=== PATIENT | female | born 1930 | race Caucasian/White ===

== ENCOUNTER → 2016-08-11 | Outpatient (CLI) | payer MEDICARE, BC ==
[~2016-08-11] VITALS: Ht 154.9 cm; Wt 69.9 kg
[~2016-08-11] MED LIST: /WARF25TA OR; ACET65TA OR; ALBU2TA PO; ASMANEX TWISTHALER; ASPI81TA83 OR; BYSTOLIC PO; CALCIUM/VITAMIN D PO; DIGO0.12 PO; DILT120C79 PO; DUONSOL INH; ELIQ5TAB PO; ESMOLOL INJ 100MG/10ML VIAL As Ordered ONE; FLEC50TA PO; HYDR25TA6 OR; IPRASOL4 IN; LIDOCAINE 2% INJ 100 MG/5 ML SDV (FOR ANES.) As Ordered ONE; LISI10TA4 OR; LISINOPRIL/HCTZ PO; MELOPOW PO; MULT1CHW39 PO; MULTIVIT PO; NS 1,000 ML IV SCH; OMEP20CA3 PO; OMEP20TA7 OR; PHENYLephrine HCL 500 MCG/5 ML (100MCG/ML) SYRINGE (J2370) As Ordered ONE; PRAV40TA2 PO; PRED20TA OR; PROPOFOL 200 MG/20 ML VIAL As Ordered ONE; SIMV40TA2 OR; TUSSSUS5 OR; VITA500C24 PO; VITA500T PO; ZITH250T OR; ZOCO40TA OR
--- NOTE | 2016-08-11 07:48 | ROOR ---
Patient Name: Abigail Azul Procedure Date: 08/11/2016 7:26 AM Date of : 1930 Age: 86 Room: [facility] Gender: Female Note Status: Finalized Procedure: Colonoscopy Indications: Screening for colorectal malignant neoplasm Providers: Alfredito GREENBERG MD Referring MD: Erica Isaac DO Requesting Provider: Medicines: Monitored Anesthesia Care Complications: No immediate complications. Procedure: Pre-Anesthesia Assessment: - The heart rate, respiratory rate, oxygen saturations, blood pressure, adequacy of pulmonary ventilation, and response to care were monitored throughout the procedure. The Colonoscope was introduced through the anus and advanced to the cecum, identified by appendiceal orifice and ileocecal valve. The colonoscopy was performed without difficulty. The patient tolerated the procedure well. The quality of the bowel preparation was good. Findings: The perianal and digital rectal examinations were normal. (Exam: Complete, Prep: Good or Excellent.) Multiple small-mouthed diverticula were found in the sigmoid colon. Small Internal Hemorrhoids. The entire examined colon appeared normal on direct and retroflexion views. Impression: - Moderate diverticulosis in the sigmoid colon. - Small Internal Hemorrhoids. - The entire examined colon is normal on direct and retroflexion views. - No specimens collected. Recommendation: - No repeat colonoscopy due to age. Alfredito Greenberg MD Alfredito GREENBERG MD 08/11/2016 7:47:55 AM This report has been signed electronically. Number of Addenda: 0 Note Initiated On: 08/11/2016 7:26 AM Estimated Blood Loss: Estimated blood loss: none.
== END ==
LOC: M OPP 06:14
PROVIDERS: ATTEND Internal Medicine Gastroenterology
DX: Z12.11 Encounter for screening for malignant neoplasm of colon (principal); K57.30 Diverticulosis of large intestine without perforation or abscess without bleeding; K64.9 Unspecified hemorrhoids; I10 Essential (primary) hypertension; I48.91 Unspecified atrial fibrillation; J44.9 Chronic obstructive pulmonary disease, unspecified; M19.90 Unspecified osteoarthritis, unspecified site; E78.5 Hyperlipidemia, unspecified; Z80.0 Family history of malignant neoplasm of digestive organs; Z79.01 Long term (current) use of anticoagulants; Z79.899 Other long term (current) drug therapy; Z88.1 Allergy status to other antibiotic agents
CPT/HCPCS: 99156; 99157; G0121; J2370

== ENCOUNTER → 2017-07-29 | Outpatient (CLI) | payer MEDICARE, BC | LOC: M WUC 08:43 | DX: J44.1 Chronic obstructive pulmonary disease with (acute) exacerbation (principal) | CPT/HCPCS: 71046 ==

== ENCOUNTER 2017-07-30 16:56 | Emergency (ER) | payer MEDICARE, BC ==
[2017-07-30 18:10] LABS: BASO % 0.2 % (0.0-1.0); HEMATOCRIT 43.7 % (36.0-47.0); HEMOGLOBIN 14.6 g/dl (12.0-16.0); IMMATURE GRANULOCYTE % 2.4 % (0-3.0); LYMPH # 0.6 10^3/uL (1.5-4.5); LYMPH % 3.2 % (24.0-44.0); MEAN CORPUSCULAR HEMOGLOBIN 26.9 pg (27.0-33.0); MEAN CORPUSCULAR HGB CONC 33.4 g/dl (32.0-36.5); MEAN CORPUSCULAR VOLUME 80.5 fl (80.0-96.0); MONO # 0.3 10^3/uL (0.0-0.8); MONO % 1.5 % (0.0-5.0); NEUTROPHILS # 17.6 10^3/uL (1.8-7.7); NEUTROPHILS % 92.7 % (36.0-66.0); PLATELET COUNT, AUTOMATED 387 10^3/uL (150-450); RED BLOOD COUNT 5.43 10^6/uL (4.00-5.40); RED CELL DISTRIBUTION WIDTH 14.7 % (11.5-14.5)
[2017-07-30 18:12] LABS: INR 1.16
[2017-07-30 18:18] LABS: ANION GAP 10 MEQ/L (8-16); BLOOD UREA NITROGEN 23 MG/DL (7-18); CALCIUM LEVEL 9.1 MG/DL (8.8-10.2); CARBON DIOXIDE LEVEL 26 MEQ/L (21-32); CHLORIDE LEVEL 101 MEQ/L (98-107); CPK CREATINE PHOSPHOKINASE 43 U/L (26-192); CREATININE FOR GFR 1.17 MG/DL (0.55-1.30); GLOMERULAR FILTRATION RATE 46.8 (>32); GLUCOSE, FASTING 174 MG/DL (70-100); POTASSIUM SERUM 4.4 MEQ/L (3.5-5.1); SODIUM LEVEL 137 MEQ/L (136-145); TROPONIN I < 0.02 NG/ML (< 0.10)
[2017-07-30 18:19] LABS: CK-MB VALUE MASS 1.6 NG/ML (0.0-3.6); MB/CK RELATIVE INDEX 3.72 (< OR =4)
[2017-07-30] MEDS: NS 1,000 ML IV ×2 (18:40)
[2017-08-04 00:06] LABS: FLECAINIDE LEVEL 0.16 ug/mL (0.20-1.00)
== END 2017-07-30 19:48 | disposition home or self-care (01) ==
LOC: M ED 16:56
DX: I48.91 Unspecified atrial fibrillation (principal); I10 Essential (primary) hypertension; J44.9 Chronic obstructive pulmonary disease, unspecified; J45.909 Unspecified asthma, uncomplicated; Z82.49 Family history of ischemic heart disease and other diseases of the circulatory system; Z87.891 Personal history of nicotine dependence; Z88.1 Allergy status to other antibiotic agents; Z79.899 Other long term (current) drug therapy; Z79.52 Long term (current) use of systemic steroids; Z79.01 Long term (current) use of anticoagulants
CPT/HCPCS: 71045

== ENCOUNTER 2017-08-01 19:28 | Inpatient (IN) | payer MEDICARE, BC ==
[2017-08-01 20:23] LABS: BASO % 0.2 % (0.0-1.0); EOS % 0.1 % (0.0-3.0); HEMATOCRIT 42.6 % (36.0-47.0); HEMOGLOBIN 13.9 g/dl (12.0-16.0); IMMATURE GRANULOCYTE % 1.8 % (0-3.0); LYMPH # 1.1 10^3/uL (1.5-4.5); LYMPH % 8.2 % (24.0-44.0); MEAN CORPUSCULAR HEMOGLOBIN 26.8 pg (27.0-33.0); MEAN CORPUSCULAR HGB CONC 32.6 g/dl (32.0-36.5); MEAN CORPUSCULAR VOLUME 82.1 fl (80.0-96.0); MONO # 0.8 10^3/uL (0.0-0.8); MONO % 5.7 % (0.0-5.0); PLATELET COUNT, AUTOMATED 333 10^3/uL (150-450); RED BLOOD COUNT 5.19 10^6/uL (4.00-5.40); RED CELL DISTRIBUTION WIDTH 14.9 % (11.5-14.5); WHITE BLOOD COUNT 13.1 10^3/uL (4.0-10.0)
[2017-08-01] MEDS: METOPROLOL 5 MG/5 ML VIAL IV ×3 (20:25→20:46)
[2017-08-01] MEDS: ASPIRIN 81 MG CHEW TABLET PO (20:33)
[2017-08-01 20:39] LABS: ANION GAP 9 MEQ/L (8-16); BLOOD UREA NITROGEN 24 MG/DL (7-18); CARBON DIOXIDE LEVEL 30 MEQ/L (21-32); CHLORIDE LEVEL 102 MEQ/L (98-107); CPK CREATINE PHOSPHOKINASE 36 U/L (26-192); CREATININE FOR GFR 1.11 MG/DL (0.55-1.30); GLOMERULAR FILTRATION RATE 49.7 (>32); GLUCOSE, FASTING 130 MG/DL (70-100); MAGNESIUM LEVEL 2.3 MG/DL (1.8-2.4); POTASSIUM SERUM 3.8 MEQ/L (3.5-5.1); SODIUM LEVEL 141 MEQ/L (136-145); TROPONIN I < 0.02 NG/ML (< 0.10)
[2017-08-01 20:49] LABS: CK-MB VALUE MASS 1.2 NG/ML (0.0-3.6); DIGOXIN LEVEL < 0.1 NG/ML (0.5-2.0); MB/CK RELATIVE INDEX 3.33 (< OR =4)
[2017-08-01] MEDS: AUGMENTIN 875 MG TAB PO (21:00)
[2017-08-02] MEDS: methylPREDNISolone INJ 40 MG/1 ML VIAL (J2920) IV ×2 (01:05→11:52)
[2017-08-02] MEDS: CEFTRIAXONE SOD 1 GM in APPROPRIATE DILUENT 1 EA IV (01:05)
[2017-08-02 01:51] LABS: INFLUENZA A AMPLIFICATION NEGATIVE (NEGATIVE); INFLUENZA B AMPLIFICATION NEGATIVE (NEGATIVE)
[2017-08-02 02:36] LABS: CPK CREATINE PHOSPHOKINASE 28 U/L (26-192); TROPONIN I 0.02 NG/ML (< 0.10)
[2017-08-02 02:37] LABS: CK-MB VALUE MASS 1.1 NG/ML (0.0-3.6); MB/CK RELATIVE INDEX 3.92 (< OR =4)
[2017-08-02] MEDS: AZITHROMYCIN INJ 500 MG, VIAL MATE ADAPTER 1 EACH in D5W 250 ML IV (03:00)
[2017-08-02] MEDS: IPRATROPIUM 0.02% SOLN 0.5MG/2.5 ML NEB INH ×3 (04:00→21:15)
[2017-08-02 07:14] LABS: ANION GAP 10 MEQ/L (8-16); BLOOD UREA NITROGEN 25 MG/DL (7-18); CALCIUM LEVEL 8.6 MG/DL (8.8-10.2); CARBON DIOXIDE LEVEL 29 MEQ/L (21-32); CHLORIDE LEVEL 102 MEQ/L (98-107); CREATININE FOR GFR 1.05 MG/DL (0.55-1.30); GLUCOSE, FASTING 144 MG/DL (70-100); POTASSIUM SERUM 4.4 MEQ/L (3.5-5.1); SODIUM LEVEL 141 MEQ/L (136-145)
[2017-08-02 07:17] LABS: CPK CREATINE PHOSPHOKINASE 27 U/L (26-192); TROPONIN I < 0.02 NG/ML (< 0.10)
[2017-08-02] MEDS: LISINOPRIL 20 MG TAB PO (08:59)
[2017-08-02] MEDS: FLECAINIDE 50MG TABLET PO ×2 (09:00→17:29)
[2017-08-02] MEDS: APIXABAN 5 MG TAB (ELIQUIS) PO ×2 (09:00→17:54)
[2017-08-02] MEDS: MULTIVITAMINS CHILDREN'S CHEWABLE TABLET PO (09:00)
[2017-08-02] MEDS: PRAVASTATIN 20 MG TAB PO (09:00)
[2017-08-02] MEDS: ASCORBIC ACID 500 MG TAB PO (09:00)
[2017-08-02] MEDS: OMEPRAZOLE 20 MG CAP PO (09:00)
[2017-08-03] MEDS: methylPREDNISolone INJ 40 MG/1 ML VIAL (J2920) IV ×2 (00:11→12:16)
[2017-08-03] MEDS: IPRATROPIUM 0.02% SOLN 0.5MG/2.5 ML NEB INH ×3 (02:00→13:43)
[2017-08-03] MEDS: CEFTRIAXONE SOD 1 GM in APPROPRIATE DILUENT 1 EA IV (03:18)
[2017-08-03] MEDS: AZITHROMYCIN INJ 500 MG, VIAL MATE ADAPTER 1 EACH in D5W 250 ML IV (04:16)
[2017-08-03 05:29] LABS: BASO # 0.1 10^3/uL (0.0-0.2); BASO % 0.4 % (0.0-1.0); HEMATOCRIT 41.1 % (36.0-47.0); HEMOGLOBIN 13.6 g/dl (12.0-16.0); IMMATURE GRANULOCYTE % 1.7 % (0-3.0); LYMPH # 0.7 10^3/uL (1.5-4.5); LYMPH % 3.6 % (24.0-44.0); MEAN CORPUSCULAR HEMOGLOBIN 27.3 pg (27.0-33.0); MEAN CORPUSCULAR HGB CONC 33.1 g/dl (32.0-36.5); MEAN CORPUSCULAR VOLUME 82.5 fl (80.0-96.0); MONO # 0.3 10^3/uL (0.0-0.8); MONO % 1.7 % (0.0-5.0); NEUTROPHILS # 16.6 10^3/uL (1.8-7.7); NEUTROPHILS % 92.6 % (36.0-66.0); PLATELET COUNT, AUTOMATED 290 10^3/uL (150-450); RED BLOOD COUNT 4.98 10^6/uL (4.00-5.40); RED CELL DISTRIBUTION WIDTH 15.2 % (11.5-14.5)
[2017-08-03 05:39] LABS: SUSPECT SAMPLE POS FLAG
[2017-08-03 05:41] LABS: ANION GAP 9 MEQ/L (8-16); BLOOD UREA NITROGEN 24 MG/DL (7-18); CALCIUM LEVEL 8.3 MG/DL (8.8-10.2); CARBON DIOXIDE LEVEL 27 MEQ/L (21-32); CHLORIDE LEVEL 103 MEQ/L (98-107); GLOMERULAR FILTRATION RATE 56.1 (>32); GLUCOSE, FASTING 158 MG/DL (70-100); MAGNESIUM LEVEL 2.2 MG/DL (1.8-2.4); POTASSIUM SERUM 4.3 MEQ/L (3.5-5.1); SODIUM LEVEL 139 MEQ/L (136-145)
[2017-08-03] MEDS: LEVALBUTEROL 1.25 MG/0.5 ML CONCENTRATE NEB INH (07:19)
[2017-08-03] MEDS: APIXABAN 5 MG TAB (ELIQUIS) PO (09:14)
[2017-08-03] MEDS: MULTIVITAMINS CHILDREN'S CHEWABLE TABLET PO (09:14)
[2017-08-03] MEDS: FLECAINIDE 50MG TABLET PO (09:14)
[2017-08-03] MEDS: PRAVASTATIN 20 MG TAB PO (09:14)
[2017-08-03] MEDS: OMEPRAZOLE 20 MG CAP PO (09:14)
[2017-08-03] MEDS: LISINOPRIL 20 MG TAB PO (09:15)
[2017-08-03] MEDS: ASCORBIC ACID 500 MG TAB PO (09:15)
== END 2017-08-03 13:42 | disposition home or self-care (01) | DRG 309 ==
LOC: M ED INP 08-02 00:13 → M PCU 08-02 12:36 → M ED 19:28
DX: I48.91 Unspecified atrial fibrillation (principal); J44.0 Chronic obstructive pulmonary disease with (acute) lower respiratory infection; J20.9 Acute bronchitis, unspecified; K21.9 Gastro-esophageal reflux disease without esophagitis; E78.5 Hyperlipidemia, unspecified; I10 Essential (primary) hypertension; Z87.891 Personal history of nicotine dependence; Z79.01 Long term (current) use of anticoagulants; Z79.899 Other long term (current) drug therapy; Z88.1 Allergy status to other antibiotic agents; Z79.52 Long term (current) use of systemic steroids

== ENCOUNTER → 2017-08-13 | Outpatient (CLI) | payer MEDICARE, BC ==
[2017-08-18 00:06] LABS: FLECAINIDE LEVEL 0.87 ug/mL (0.20-1.00)
== END ==
LOC: M WUC 15:24
DX: Z51.81 Encounter for therapeutic drug level monitoring (principal); Z79.899 Other long term (current) drug therapy; I48.0 Paroxysmal atrial fibrillation
CPT/HCPCS: 36415

== ENCOUNTER → 2017-08-27 | Outpatient (CLI) | payer MEDICARE, BC ==
[2017-08-27 08:50] LABS: BASO % 0.3 % (0.0-1.0); EOS % 0.4 % (0.0-3.0); HEMATOCRIT 43.3 % (36.0-47.0); HEMOGLOBIN 13.9 g/dl (12.0-16.0); IMMATURE GRANULOCYTE # 0.1 10^3/uL (0-0); IMMATURE GRANULOCYTE % 0.8 % (0-3.0); LYMPH # 0.8 10^3/uL (1.5-4.5); LYMPH % 8.8 % (24.0-44.0); MEAN CORPUSCULAR HEMOGLOBIN 27.2 pg (27.0-33.0); MEAN CORPUSCULAR HGB CONC 32.1 g/dl (32.0-36.5); MEAN CORPUSCULAR VOLUME 84.7 fl (80.0-96.0); MONO # 0.6 10^3/uL (0.0-0.8); MONO % 6.7 % (0.0-5.0); NEUTROPHILS # 7.5 10^3/uL (1.8-7.7); PLATELET COUNT, AUTOMATED 240 10^3/uL (150-450); RED BLOOD COUNT 5.11 10^6/uL (4.00-5.40); RED CELL DISTRIBUTION WIDTH 17.2 % (11.5-14.5)
[2017-08-27 09:26] LABS: ALBUMIN 3.9 GM/DL (3.2-5.2); ANION GAP 9 MEQ/L (8-16); BLOOD UREA NITROGEN 19 MG/DL (7-18); CALCIUM LEVEL 9.9 MG/DL (8.8-10.2); CARBON DIOXIDE LEVEL 31 MEQ/L (21-32); CHLORIDE LEVEL 102 MEQ/L (98-107); GLOMERULAR FILTRATION RATE 45.5 (>32); GLUCOSE, FASTING 113 MG/DL (70-100); MAGNESIUM LEVEL 2.1 MG/DL (1.8-2.4); NT-PRO BNP 253 PG/ML (<450); PHOSPHORUS LEVEL 3.7 MG/DL (2.5-4.9); POTASSIUM SERUM 4.7 MEQ/L (3.5-5.1); SODIUM LEVEL 142 MEQ/L (136-145)
== END ==
LOC: M WUC 08:07
DX: I11.9 Hypertensive heart disease without heart failure (principal); I48.0 Paroxysmal atrial fibrillation; R60.0 Localized edema
CPT/HCPCS: 83735

== ENCOUNTER → 2017-12-31 | Outpatient (CLI) | payer MEDICARE, BC ==
[2017-12-31 11:18] LABS: ALBUMIN 3.7 GM/DL (3.2-5.2); ANION GAP 7 MEQ/L (8-16); BLOOD UREA NITROGEN 25 MG/DL (7-18); CALCIUM LEVEL 9.3 MG/DL (8.8-10.2); CARBON DIOXIDE LEVEL 33 MEQ/L (21-32); CHLORIDE LEVEL 103 MEQ/L (98-107); CREATININE FOR GFR 1.14 MG/DL (0.55-1.30); GLOMERULAR FILTRATION RATE 48.2 (>32); GLUCOSE, FASTING 75 MG/DL (70-100); MAGNESIUM LEVEL 2.3 MG/DL (1.8-2.4); PHOSPHORUS LEVEL 3.2 MG/DL (2.5-4.9); POTASSIUM SERUM 4.5 MEQ/L (3.5-5.1); SODIUM LEVEL 143 MEQ/L (136-145)
== END ==
LOC: M WUC 08:10
DX: I50.32 Chronic diastolic (congestive) heart failure (principal)
CPT/HCPCS: 83735

== ENCOUNTER → 2018-05-03 | Outpatient (CLI) | payer MEDICARE, BC ==
[2018-05-03 12:56] LABS: ALBUMIN 3.8 GM/DL (3.2-5.2); ANION GAP 8 MEQ/L (8-16); BLOOD UREA NITROGEN 25 MG/DL (7-18); CALCIUM LEVEL 9.7 MG/DL (8.8-10.2); CARBON DIOXIDE LEVEL 30 MEQ/L (21-32); CHLORIDE LEVEL 102 MEQ/L (98-107); GLUCOSE, FASTING 102 MG/DL (70-100); POTASSIUM SERUM 4.3 MEQ/L (3.5-5.1); SODIUM LEVEL 140 MEQ/L (136-145)
== END ==
LOC: M WUC 09:05
DX: I50.32 Chronic diastolic (congestive) heart failure (principal)
CPT/HCPCS: 80069

== ENCOUNTER 2018-05-24 07:42 | Emergency (ER) | payer MEDICARE, BC ==
[2018-05-24] MEDS ORDERED: LIDOCAINE W/EPINEPHRINE 1% 20ML VIAL As Ordered (08:03)
== END 2018-05-24 09:24 | disposition home or self-care (01) ==
LOC: M ED 07:42
DX: S01.01XA Laceration without foreign body of scalp, initial encounter (principal); W18.09XA Striking against other object with subsequent fall, initial encounter; Y92.019 Unspecified place in single-family (private) house as the place of occurrence of the external cause
CPT/HCPCS: 70450

== ENCOUNTER → 2018-06-02 | Outpatient (CLI) | payer MEDICARE, BC ==
[~2018-06-02] MED LIST changes: +AMOX/K; +AMOX875T2 PO; +AZIT500T2 PO; +BREO1INH3 INH; +CALC600T57 PO; +CEFD1CAP8 PO; -DILT120C79 PO; +DILT1CAP48 PO; -ESMOLOL INJ 100MG/10ML VIAL As Ordered ONE; +FLEC50HA PO; -FLEC50TA PO; +IPRA0.00 IN; -IPRASOL4 IN; +LEVA1.25 INH; -LIDOCAINE 2% INJ 100 MG/5 ML SDV (FOR ANES.) As Ordered ONE; +LISI-538 PO; -NS 1,000 ML IV SCH; -PHENYLephrine HCL 500 MCG/5 ML (100MCG/ML) SYRINGE (J2370) As Ordered ONE; +PRED10TA2 PO; +PRED20TA; +PRED20TA PO; -PROPOFOL 200 MG/20 ML VIAL As Ordered ONE; +VITACHTA PO
[2018-06-02 09:54] LABS: ALBUMIN 3.9 GM/DL (3.2-5.2); CALCIUM LEVEL 9.4 MG/DL (8.8-10.2); CREATININE FOR GFR 1.25 MG/DL (0.55-1.30); GLOMERULAR FILTRATION RATE 43.3 (>32); PHOSPHORUS LEVEL 3.1 MG/DL (2.5-4.9); POTASSIUM SERUM 4.3 MEQ/L (3.5-5.1)
== END ==
LOC: M WUC 08:04
PROVIDERS: ATTEND Internal Medicine Cardiovascular Disease
DX: N19 Unspecified kidney failure (principal); I11.0 Hypertensive heart disease with heart failure

== ENCOUNTER → 2018-07-08 | Outpatient (REF) | payer MEDICARE, BC | LOC: M LAB REF 13:17 | PROVIDERS: ATTEND Internal Medicine Endocrinology, Diabetes & Metabolism | DX: E04.2 Nontoxic multinodular goiter (principal) ==

== ENCOUNTER → 2018-09-16 | Outpatient (CLI) | payer MEDICARE, BC ==
[~2018-09-16] MED LIST changes: -/WARF25TA OR; +COUM1TAB18 OR; +DILT120C78 PO; -DILT1CAP48 PO; -MULT1CHW39 PO; +MULT200T7 PO
--- NOTE | 2018-09-16 12:20 | REP ---
OS CALCIS, TWO VIEWS: HISTORY: Pain. There is no acute fracture or dislocation. An osteophyte is present on the inferior calcaneus. IMPRESSION: Degenerative change as described above. Electronically Signed by Peter Du MD 09/16/2018 12:32 P
== END ==
LOC: M WUC 09:35
PROVIDERS: ATTEND Physician Assistant
DX: M79.671 Pain in right foot (principal); M25.771 Osteophyte, right ankle

== ENCOUNTER 2018-12-29 10:10 | Day surgery (SDC) | payer MEDICARE, BC ==
--- NOTE | 2018-12-20 20:31 | CR ---
DATE OF CONSULTATION: 12/20/2018 PREOPERATIVE CONSULTATION REASON FOR CONSULTATION: Cataract extractions 12/29/2018 and 01/05/2019. Dear Dr. Gurrola, Thank you for asking me to see Ms. Abigail Azul in consultation prior to her cataract extractions. Ms. Azul is, as you know, an 88-year-old female with multiple medical problems including hypertensive heart disease, asthma, atrial fibrillation, who reports that she has been feeling well, is in her usual state of health. The patient does note sporadic edema. She has been on her feet all day this morning and notes some swelling. She is compliant with her medications including her inhalers and diuretics. She denies any chest pain, palpitations, syncope or presyncope. She takes her nebulizer twice a day. Patient had recent onset of pelvic pressure, has seen Dr. Diaz, who found no significant pelvic organ prolapse and recommended that she hydrate more aggressively and empty her bladder more often. Patient has torn Achilles tendon. She has been working with orthopedics. She is improving. Patient is active, doing housework including just this morning, without any chest pain, palpitations, syncope or presyncope. REVIEW OF SYSTEMS: Otherwise negative. PAST MEDICAL HISTORY: 1. Type 2 diabetes, diet controlled. 2. Hyperlipidemia. 3. Hypertensive heart disease. 4. Asthma. 5. Migraines. 6. Atrial fibrillation. 7. Vertigo. 8. Family history of colon CA. 9. Family history of lung CA. 10. Family history of breast CA. 11. Hysterectomy 1962. 12. Laminectomy 1978. 13. Right carpal tunnel release 2011. 14. Multinodular goiter with several endocrine consultations and biopsies. 15. Osteopenia. 16. Vitamin D deficiency. 17. Osteoarthritis (OA) degenerative joint disease (DJD) status post orthopedic evaluation of the right knee in 2016, as well as Achilles tendonitis treatment 2018. PATIENT'S MEDICATIONS: - albuterol and Atrovent nebulizer twice a day and twice a day as needed - Aspercreme with lidocaine as needed - Breo Ellipta 101 inhaled daily - calcium citrate daily - chlorthalidone 25 mg 1/2 tablet daily - diltiazem ER 240 mg daily - Eliquis 5 mg twice a day - flecainide 100 mg daily - losartan 100 mg daily - meclizine as needed - multivitamin daily - omeprazole 20 mg daily - pravastatin 40 mg daily - saline nasal spray daily - vitamin C 500 mg daily - vitamin D3 5000 international units daily. After the losartan as she has had a 100 mg DRUG ALLERGIES: AVELOX. SOCIAL HISTORY: Lives independently with her . She is a former smoker but quit at age 57, rarely consumes wine. FAMILY HISTORY: Father of cancer at 44. Mother had colon cancer in her 80s. Sister had lung cancer. Another sister breast cancer. PHYSICAL EXAMINATION: Older female appearing younger than her stated age. VITAL SIGNS: Weight 153, with a body mass index (BMI) of 29, her blood pressure 132/62, with a heart rate of 96, her oxygen saturation is 96% after exertion. No acute distress. HEENT EXAM: Head is normocephalic. Neck is supple. Pupils equal, reactive to light. Extraocular movements are intact. She does have some bruising adjacent to the right eye after hitting her head last week without falling. She has no cervical lymphadenopathy or jugular venous distention (JVD). Thyroid is palpable. RESPIRATORY: Decreased breath sound but no wheezing. CARDIOVASCULAR: Irregular, 3/6 systolic murmur. ABDOMEN: Soft, nontender. No hepatosplenomegaly. EXTREMITIES: She has OA changes in the distal interphalangeal (DIP) joints. Well-healed right carpal tunnel incision. No significant edema. She does have varicosities. DERMATOLOGIC: She has significant sun damage, seborrheic keratosis, skin tags and bruises in various stages of healing. NEUROLOGIC: Alert and oriented. Cranial nerves II-XII intact. LABORATORY DATA: From 11/29/2018: She has a normal complete blood count (CBC), CK and A1c of 6.2. Normal med profile, ALT, magnesium, lipids, thyroid. Med profile significant for a GFR of 47. Her last EKG was with cardiology, 10/28/2018: Normal sinus rhythm, rate of 69, first-degree atrioventricular (AV) block, incomplete right bundle branch block. No significant change compared to an EKG from 04/12/2018. The patient's last echocardiogram was 08/20/2017 showing only borderline left ventricular hypertrophy (LVH) with left ventricular (LV) diastolic dysfunction and mild pulmonary hypertension. IMPRESSION: Ms. Abigail Azul is an 88-year-old female with cardiovascular risk factors positive for age, hyperlipidemia, hypertension, diet-controlled diabetes, has no signs or symptoms indicative of cardiovascular ischemia, is felt to be at low risk for cardiovascular complications from the proposed surgical intervention, which can be further minimized by the following: PROBLEMS: 1. Paroxysmal atrial fibrillation. Continue a.m. diltiazem, flecainide and Eliquis a.m. of surgery with a sip of water. 2. Hypertensive heart disease with heart failure. Hold chlorthalidone a.m. of surgery. Take losartan as usual the evening prior to surgery. 3. Asthma. Take Breo and albuterol/Atrovent nebulizer a.m. of surgery. 4. Gastroesophageal reflux disease (GERD). Take omeprazole as usual with a sip of water a.m. of surgery. 5. Hyperlipidemia. Take pravastatin as usual a.m. of surgery with a sip of water. 6. Osteopenia. Hold calcium on the a.m. of surgery. 7. Pelvic pressure. Follow through with Dr. Diaz Thank you very much for this consultation. Please call with questions or concerns. .
[~2018-12-29] VITALS: Ht 149.9 cm; Wt 69.8 kg
[~2018-12-29 10:10] MED LIST changes: +ACETAMINOPHEN 325 MG TAB PO PRN; -AZIT500T2 PO; +AZIT500T5 PO; +BSS with VANC/TOB/EPI for EYE CASES IR ONE; +CYCLOPENTOLATE 2% OPHTH SOLN 2ML BTL OS ONE; +D31000TA PO; +HEALON DUET PRO(HEALON 10MG/ML 0.55ML & HEALON ENDOCOAT 30MG/ML 0.85ML) As Ordered ONE; +LIDOCAINE 1% SDV 5 ML VIAL As Ordered ONE; +LIDOCAINE 3.5 % 1ML OPHTH TOPICAL GEL OU ONE; +LOSA100T50 PO; +MIDAZOLAM INJ 2 MG/2 ML VIAL (J2250) As Ordered ONE; +OMEP1CAP73 PO; -OMEP20CA3 PO; +PHENYLEPHRINE 2.5% OPHTH SOL 2ML OS ONE; +PHENYLEPHRINE HCL 10 % OPHTH. SOL 5ML OS PRN; +POVIDONE-IODINE 5% OPHTH PREP SOL 30ML As Ordered ONE; +TRIAMCINOLONE PRES FR 40 MG/ML 1ML(TRIESENCE)(OR EYE ONLY)(J3300 PER 1MG) As Ordered ONE; +TROPICAMIDE 1% OPHTH SOLN 2ML OS ONE
[2018-12-29] MEDS ORDERED: CEFUROXIME 1MG/0.1ML INTRACAMERAL INJ As Ordered ONE (13:10)
[2018-12-29] MEDS ORDERED: AcetaZOLAMIDE 500 MG ER CAP As Ordered ONE (13:33)
[2018-12-29] MEDS ORDERED: AcetaZOLAMIDE 500 MG ER CAP PO ONE (13:45)
[2018-12-29] MEDS ORDERED: TRIMETHOBENZAMIDE 300 MG CAP PO PRN (13:45)
[2018-12-29 13:55] VITALS: BP 138/60
--- NOTE | 2018-12-30 22:26 | RO ---
DATE OF PROCEDURE: 12/29/2018 PREPROCEDURE DIAGNOSIS: Cataract of right eye. POSTPROCEDURE DIAGNOSIS: Cataract of right eye. PROCEDURE: Femtosecond laser with phacoemulsification and intraocular lens implantation of AU00T0, 21.5 diopter, right eye, with the help of Optiwave Refractive Analysis (ORA). SURGEON: Chaz Gurrola MD PHOTO LAB TECHNICIAN: None. ANESTHESIA: Local IV standby. FINDINGS: Cataract of right eye. COMPLICATIONS: None. DESCRIPTION OF PROCEDURE: The patient was brought to the operating room and laid in supine position. A lid speculum was placed, and patient was brought under the femtosecond laser. After the satisfactory placement of the patient interface, primary incision, secondary incision, and arcuate incisions with lens fragmentation was done without any complication per plan. The patients interface was then removed and lid speculum removed. Patient was placed under the microscope. The eye was prepped and draped in a sterile fashion for ophthalmic surgery. Lid speculum was placed. The secondary incision was opened, and EndoCoat was injected into the anterior chamber. The temporal clear corneal incision was then opened and capsulorrhexis removed, followed by hydrodissection. This was followed by phacoemulsification of the lens within the capsular bag. Cortical material was then aspirated, and Healon was injected into the capsular bag. Intraocular lens was then placed. Excess Healon was aspirated. Wound was hydrated. The lid speculum was removed, and patient was returned to the recovery room in stable condition. ADDENDUM: After the cortical cleanup, Healon was placed in the capsular bag, and the anterior chamber intraocular pressure was checked, following which multiple ORA images were taken and intraocular lens power chosen and inserted.
[2019-01-25] MEDS ORDERED: DIGO0.123 PO (14:28)
[2019-01-27] MEDS ORDERED: DIGO0.123 PO (17:46)
[2019-02-06] MEDS ORDERED: MECL12.589 PO (09:44)
== END 2018-12-29 14:00 | disposition home or self-care (01) ==
LOC: M SDC 10:10
PROVIDERS: ATTEND Ophthalmology
DX: H25.9 Unspecified age-related cataract (principal); I48.91 Unspecified atrial fibrillation; I10 Essential (primary) hypertension; J44.9 Chronic obstructive pulmonary disease, unspecified; E78.5 Hyperlipidemia, unspecified; K21.9 Gastro-esophageal reflux disease without esophagitis; Z88.8 Allergy status to other drugs, medicaments and biological substances; Z79.01 Long term (current) use of anticoagulants; Z79.899 Other long term (current) drug therapy; Z87.891 Personal history of nicotine dependence
CPT/HCPCS: 66984; 92015; J2250; J3300; V2632

== ENCOUNTER 2019-01-25 12:09 | Emergency (ER) | payer MEDICARE, BC ==
[~2019-01-25] VITALS: Ht 149.9 cm; Wt 68.3 kg
[~2019-01-25 12:09] MED LIST changes: -ACETAMINOPHEN 325 MG TAB PO PRN; +AZIT500T2 PO; -AZIT500T5 PO; -BSS with VANC/TOB/EPI for EYE CASES IR ONE; -CYCLOPENTOLATE 2% OPHTH SOLN 2ML BTL OS ONE; -HEALON DUET PRO(HEALON 10MG/ML 0.55ML & HEALON ENDOCOAT 30MG/ML 0.85ML) As Ordered ONE; -LIDOCAINE 1% SDV 5 ML VIAL As Ordered ONE; -LIDOCAINE 3.5 % 1ML OPHTH TOPICAL GEL OU ONE; -MIDAZOLAM INJ 2 MG/2 ML VIAL (J2250) As Ordered ONE; -OMEP1CAP73 PO; +OMEP20CA4 PO; -PHENYLEPHRINE 2.5% OPHTH SOL 2ML OS ONE; -PHENYLEPHRINE HCL 10 % OPHTH. SOL 5ML OS PRN; -POVIDONE-IODINE 5% OPHTH PREP SOL 30ML As Ordered ONE; -TRIAMCINOLONE PRES FR 40 MG/ML 1ML(TRIESENCE)(OR EYE ONLY)(J3300 PER 1MG) As Ordered ONE; -TROPICAMIDE 1% OPHTH SOLN 2ML OS ONE
[2019-01-25] MEDS ORDERED: ASPIRIN 81 MG CHEW TABLET PO ONE (12:30)
[2019-01-25] MEDS ORDERED: NITROGLYCERIN 0.4 MG SUBL TABLET SL PRN (12:30)
[2019-01-25] MEDS ORDERED: CHLO125TA PO (12:38)
[2019-01-25 12:54] VITALS: BP 143/89
[2019-01-25 13:07] LABS: BASO % 0.3 % (0.0-1.0); EOS % 0.4 % (0.0-3.0); HEMATOCRIT 43.1 % (36.0-47.0); HEMOGLOBIN 14.2 g/dl (12.0-15.5); LYMPH # 1.1 10^3/uL (1.5-4.5); LYMPH % 10.7 % (24.0-44.0); MEAN CORPUSCULAR HEMOGLOBIN 26.9 pg (27.0-33.0); MEAN CORPUSCULAR HGB CONC 32.9 g/dl (32.0-36.5); MEAN CORPUSCULAR VOLUME 81.6 fl (80.0-96.0); MONO # 0.6 10^3/uL (0.0-0.8); MONO % 5.8 % (0.0-5.0); NEUTROPHILS # 8.3 10^3/uL (1.8-7.7); NEUTROPHILS % 82.5 % (36.0-66.0); PLATELET COUNT, AUTOMATED 328 10^3/uL (150-450); RED BLOOD COUNT 5.28 10^6/uL (4.00-5.40); WHITE BLOOD COUNT 10.1 10^3/uL (4.0-10.0)
[2019-01-25] MEDS ORDERED: NS 500 ML IV ONE (13:15)
[2019-01-25] MEDS ORDERED: ACETAMINOPHEN 325 MG TAB PO ONE (13:15)
[2019-01-25 13:26] LABS: INR 1.02; PROTHROMBIN TIME 13.1 SECONDS (11.8-14.0)
[2019-01-25 13:30] LABS: ALBUMIN 3.6 GM/DL (3.2-5.2); ALT/SGPT 24 U/L (12-78); BILIRUBIN,DIRECT < 0.1 MG/DL (0.0-0.2); BILIRUBIN,TOTAL 0.2 MG/DL (0.2-1.0); BLOOD UREA NITROGEN 28 MG/DL (7-18); CALCIUM LEVEL 9.8 MG/DL (8.8-10.2); CARBON DIOXIDE LEVEL 30 MEQ/L (21-32); CHLORIDE LEVEL 99 MEQ/L (98-107); CK-MB VALUE MASS 1.8 NG/ML (<3.6); CPK CREATINE PHOSPHOKINASE 58 U/L (26-192); CREATININE FOR GFR 1.24 MG/DL (0.55-1.30); GLOMERULAR FILTRATION RATE 43.7 (>32); GLUCOSE, FASTING 131 MG/DL (70-100); LIPASE 65 U/L (73-393); POTASSIUM SERUM 4.3 MEQ/L (3.5-5.1); SODIUM LEVEL 136 MEQ/L (136-145); TOTAL PROTEIN 6.5 GM/DL (6.4-8.2); TROPONIN I < 0.02 NG/ML (< 0.10)
[2019-01-25] MEDS ORDERED: DIGOXIN 0.25 MG TAB PO STA (13:48)
[2019-01-25] MEDS ORDERED: DIGO0.12 PO (14:28)
[2019-01-25 14:51] VITALS: BP 118/80
--- NOTE | 2019-01-25 17:34 | REP ---
REASON: Chest pain. COMPARISON: 08/01/2017 also a portable. The technique utilized in obtaining the radiograph has magnified the cardiac silhouette and accentuated the interstitial markings. Once again, the cardiac silhouette is accentuated by technique. Mild cardiomegaly can not be ruled out. The lung maradiaga are clear and stable. The pleural angles are again seen to be sharp. The osseous structures are stable and intact. IMPRESSION: No evidence of acute cardiopulmonary disease or significant change compared to the prior exam. Electronically Signed by Star Cuellar DO 01/26/2019 09:30 A
--- NOTE | 2019-01-26 07:16 | ECGEPIP ---
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
== END 2019-01-25 15:06 | disposition home or self-care (01) ==
LOC: M ED 12:09
DX: I48.91 Unspecified atrial fibrillation (principal); I20.8 Other forms of angina pectoris; I10 Essential (primary) hypertension; Z79.899 Other long term (current) drug therapy; Z79.01 Long term (current) use of anticoagulants; Z88.1 Allergy status to other antibiotic agents

== ENCOUNTER 2019-01-27 05:46 | Inpatient (IN) | payer MEDICARE, BC ==
[~2019-01-27] VITALS: Ht 152.4 cm; Wt 69.1 kg
[~2019-01-27 05:46] MED LIST changes: +CHLO125TA PO
[2019-01-27 06:17] LABS: HEMATOCRIT 46.4 % (36.0-47.0); HEMOGLOBIN 15.3 g/dl (12.0-15.5); MEAN CORPUSCULAR HEMOGLOBIN 27.3 pg (27.0-33.0); MEAN CORPUSCULAR VOLUME 82.7 fl (80.0-96.0); NEUTROPHILS % 82.7 % (36.0-66.0); PLATELET COUNT, AUTOMATED 329 10^3/uL (150-450); RED BLOOD COUNT 5.61 10^6/uL (4.00-5.40); WHITE BLOOD COUNT 8.9 10^3/uL (4.0-10.0)
[2019-01-27 06:18] LABS: BASO % 0.3 % (0.0-1.0); EOS # 0.1 10^3/uL (0.0-0.50); EOS % 0.6 % (0.0-3.0); LYMPH # 0.9 10^3/uL (1.5-4.5); LYMPH % 9.6 % (24.0-44.0); MONO # 0.6 10^3/uL (0.0-0.8); MONO % 6.4 % (0.0-5.0); NEUTROPHILS # 7.4 10^3/uL (1.8-7.7)
[2019-01-27 06:48] LABS: BLOOD UREA NITROGEN 21 MG/DL (7-18); CALCIUM LEVEL 9.5 MG/DL (8.8-10.2); CARBON DIOXIDE LEVEL 27 MEQ/L (21-32); CHLORIDE LEVEL 96 MEQ/L (98-107); CK-MB VALUE MASS 1.4 NG/ML (<3.6); CPK CREATINE PHOSPHOKINASE 48 U/L (26-192); CREATININE FOR GFR 1.23 MG/DL (0.55-1.30); GLOMERULAR FILTRATION RATE 44.1 (>32); GLUCOSE, FASTING 110 MG/DL (70-100); MB/CK RELATIVE INDEX 2.91 (< OR =4); POTASSIUM SERUM 4.1 MEQ/L (3.5-5.1); SODIUM LEVEL 132 MEQ/L (136-145)
[2019-01-27 06:49] LABS: TROPONIN I < 0.02 NG/ML (< 0.10)
[2019-01-27 07:15] LABS: ALBUMIN 3.7 GM/DL (3.2-5.2); ALT/SGPT 29 U/L (12-78); BILIRUBIN,DIRECT 0.2 MG/DL (0.0-0.2); BILIRUBIN,TOTAL 0.6 MG/DL (0.2-1.0); TOTAL PROTEIN 6.6 GM/DL (6.4-8.2)
[2019-01-27] MEDS ORDERED: ACETAMINOPHEN 325 MG TAB PO ONE (08:45)
--- NOTE | 2019-01-27 08:55 | REP ---
Oral chest x-ray: Single view. History: Chest pain. Comparison study: January 25, 2019. Findings: EKG monitoring electrodes overlie the chest. Heart is not enlarged and is unchanged. Thoracic aorta is calcific and tortuous as before. Pulmonary vasculature is not increased. The lungs are well inflated and clear. The pleural angles are sharp. There is some mild linear fibrosis in the right base medially. Impression: No acute disease. Electronically Signed by Norris Vasquez MD 01/27/2019 08:46 A
[2019-01-27] MEDS ORDERED: FLECAINIDE 50MG TABLET PO STA (09:33)
[2019-01-27] MEDS ORDERED: DIGOXIN INJ 0.5 MG/2 ML AMP (J1160) IV ONE (14:00)
[2019-01-27] MEDS ORDERED: DIGO0.12 PO (17:46)
--- NOTE | 2019-01-27 17:47 | HPEPDOC ---
[facility] Medical History & Physical Date of Admission Jan 27, 2019 Date of Service: Jan 27, 2019 History and Physical CHIEF COMPLAINT: Chest tightness HISTORY OF PRESENT ILLNESS: This is a 88-year-old female who normally follows with Dr. Gallegos regarding atrial fibrillation who initially presented to the emergency room January 25 with rapid ventricular response she states that her symptoms rapid ventricular response are always chest pressure tightness and tingling in her fingers and toes she denies ever feeling palpitations or lightheadedness. She was seen in the emergency room Dr. Gallegos was notified at that time medication changes were made she was provided with flecainide and Cardizem which are her normal medications in addition to this she was provided with digoxin and discharged home with this new digoxin medication as well. The patient continued to feel the same way propping her to re-presented to the emergency room this morning since her arrival she was found to be in rapid ventricular response once again she has received digoxin 0.25 of digoxin and additional 240 mg of diltiazem flecainide 100 mg in addition to her usual home medications she took at home this morning. Otherwise patient denies weight loss, hair loss, headache, visual changes, cough, nausea, vomiting, diarrhea, abdom inal pain, muscle aches, worsening arthritis, change in mood. At this time she denies feeling the symptoms of her presentation and is feeling better at rest she recently admitted to the bathroom and did not have a repeat return of her symptoms PAST MEDICAL HISTORY: 1. Atrial fibrillation. 2. COPD. 3. GERD 4 hypertension 5 dyslipidemia 6 type 2 diabetes 7 asthma 8 osteoarthritis 9 vertigo. HOME MEDICATIONS: Please see below. ALLERGIES: Please see below PAST SURGICAL HISTORY: 1. Dilation and curettage. 2. 4. 3. Appendectomy 4. Carpal tunnel release on the right 5 laminectomy 6 hysterectomy. SOCIAL HISTORY: Lives with: , Employment: Not working, Tobacco use: Former smoker quit 30 years ago. ETOH: Denies, Illicit drug use: Denies, CODE STATUS: Full code FAMILY HISTORY:Reviewed and noncontributory REVIEW OF SYSTEMS: 10 systems reviewed and negative other than HPI PHYSICAL EXAMINATION: VITAL SIGNS: Temperature 97.7, pulse 101, respiratory rate 17, blood pressure 116/59, pulse oximetry 97 % on room air. GENERAL: Pleasant elderly obese female sitting up in bed awake alert oriented speaking in complete sentences no acute distress HEENT: Mildly dry mucous membranes no elevation in CVP CARDIOVASCULAR: S1 S2 regular and mildly tachycardic no additional heart sounds appreciated. RESPIRATORY: Clear to auscultation bilaterally. ABDOMINAL: Bowel sounds present abdomen soft and nontender, obese EXTREMITIES: No clubbing cyanosis or edema NEUROLOGICAL: Spontaneously moves all 4 extremities cranial 2 through 12 grossly intact no gross focal deficits appreciated PSYCHOLOGICAL: Appropriate LABORATORY DATA: See below. MICROBIOLOGY: Please see below. IMAGING: Chest x-ray:No acute disease. ASSESSMENT & PLAN: This is a 88-year-old female with atrial fibrillation/flutter with rapid ventricular response. PROBLEMS: 1. A. fib flutter: Appears to be in rapid still just barely over 100 at this time she received significant amount of medication within the last 10 hours. I'll continue with her home medications and for the time being monitor she'll be admitted to the progressive care unit we'll obtain recent records from Dr. Gallegos's office including recent echocardiogram. Should her may become further uncontrolled or not be controlled by the morning with this increased regimen wo idaniad consider inpatient cardiology consultation given her numerous visits and difficulty to control. It does not appear that there is some other etiology driving her rapid ventricular response she does not appear to be in congestive heart failure there is no evidence to suggest pulmonary embolism. She is anticoagulated with eliquis, we will continue digoxin 0.125, diltiazem 240, flecainide 100 twice a day 2. Hyponatremia: Possibly hypovolemic with some reduced by mouth intake will feeling unwell. I'll provide her with very gentle normal saline and recheck her blood work in the morning to assess her hypochloremia as well 3. Hypertension: She may require further rate controlling agents and as such with the time being I will hold her chlorthalidone and losartan 4. GERD: Continue with omeprazole 20 mg 5. Dyslipidemia: Continue with pravastatin DVT PROPHYLAXIS:Anticoagulation DISPOSITION: Admitted to PCU inpatient status Vital Signs Vital Signs Date Time Temp Pulse Resp B/P (MAP) Pulse Ox O2 Delivery O2 Flow Rate FiO2 01/27/19 17:30 103 132/67 (88) 96 01/27/19 14:13 97.7 17 Room Air Laboratory Data Labs 24H Laboratory Tests 2 01/27/19 06:07: Immature Granulocyte % (Auto) 0.4, White Blood Count 8.9, Red Blood Count 5.61H, Hemoglobin 15.3, Hematocrit 46.4, Mean Corpuscular Volume 82.7, Mean Corpuscular Hemoglobin 27.3, Mean Corpuscular Hemoglobin Concent 33.0, Red Cell Distribution Width 15.4H, Platelet Count 329, Neutrophils (%) (Auto) 82.7H, Lymphocytes (%) (Auto) 9.6L, Monocytes (%) (Auto) 6.4H, Eosinophils (%) (Auto) 0.6, Basophils (%) (Auto) 0.3, Neutrophils # (Auto) 7.4, Lymphocytes # (Auto) 0.9L, Monocytes # (Auto) 0.6, Eosinophils # (Auto) 0.1, Basophils # (Auto) 0.0, Nucleated Red Blood Cells % (auto) 0.0, Anion Gap 9, Glomerular Filtration Rate 44.1, Calcium Level 9.5, Aspartate Amino Transf (AST/SGOT) 15, Alanine Aminotransferase (ALT/SGPT) 29, Alkaline Phosphatase 106, Total Bilirubin 0.6#, Direct Bilirubin 0.2, Total Creatine Kinase 48, Creatine Kinase MB 1.4, Creatine Kinase MB Relative Index 2.91, Troponin I < 0.02, Total Protein 6.6, Albumin 3.7, Albumin/Globulin Ratio 1.28 CBC/BMP Laboratory Tests 01/27/19 06:07 Red Blood Count 5.61 H, Mean Corpuscular Volume 82.7, Mean Corpuscular Hemoglobin 27.3, Mean Corpuscular Hemoglobin Concent 33.0, Red Cell Distribution Width 15.4 H, Neutrophils (%) (Auto) 82.7 H, Lymphocytes (%) (Auto) 9.6 L, Monocytes (%) (Auto) 6.4 H, Eosinophils (%) (Auto) 0.6, Basophils (%) (Auto) 0.3, Neutrophils # (Auto) 7.4, Lymphocytes # (Auto) 0.9 L, Monocytes # (Auto) 0.6, Eosinophils # (Auto) 0.1, Basophils # (Auto) 0.0 Home Medications Scheduled Apixaban (Eliquis) 5 Mg Tab, 5 MG PO BID Ascorbic Acid (Vitamin C) 500 Mg Cap, 500 MG PO DAILY Calcium Carbonate/Vitamin D3 (Calcium 600-Vit D3 200 Tablet) 1 Tab Tab, 1 TAB PO BID Chlorthalidone (Chlorthalidone) 25 Mg Tablet, 0.5 TAB PO DAILY Cholecalciferol (Vitamin D3) (Vitamin D3) 1,000 Unit Tablet, 1,000 UNIT PO DAILY Digoxin (Digoxin) 125 Mcg Tablet, 1 TAB PO DAILY Diltiazem HCl (Diltiazem 24Hr ER) 120 Mg Cap, 240 MG PO DAILY TAKES WITH BREAKFAST Flecainide Acetate (Flecainide Acetate) 50 Mg Tab, 100 MG PO BID Fluticasone/Vilanterol (Breo Ellipta 200-25 Mcg INH) 1 Inh Inh, 1 PUFF INH DAILY Ipratropium/Albuterol Sulfate (Iprat-Albut 0.5-3(2.5) mg/3 ml) 1 Leonardo Leonardo, 1 LEONARDO IN BID Losartan Potassium (Losartan Potassium) 100 Mg Tablet, 100 MG PO DAILY Multivitamins (Child Chew Vitamin) 1 Tab Chew, 1 TAB PO DAILY Omeprazole (Omeprazole) 20 Mg Cap, 20 MG PO DAILY Pravastatin Sodium (Pravastatin Sodium) 40 Mg Tab, 40 MG PO DAILY Allergies Coded Allergies: Quinolones (Verified Allergy, Severe, DIFF BREATHING, SWELLING, HIVES, 01/27/19) A-FIB/CHADSVASC A-FIB History Current/History of A-Fib/PAF?: Yes Current PO Anticoag Therapy: Yes MARCO ANTONIO MONACO MD Jan 27, 2019 17:47
[2019-01-27] MEDS ORDERED: BREO1INH INH (17:48)
[2019-01-27 20:00] VITALS: BP 134/68
[2019-01-27] MEDS: APIXABAN 5 MG TAB (ELIQUIS) PO SCH (21:29)
[2019-01-27] MEDS: NS 1,000 ML IV SCH (21:29)
[2019-01-27] MEDS: FLECAINIDE 50MG TABLET PO SCH (21:30)
[2019-01-28] VITALS (7 sets, daily range): BP systolic 119–153; BP diastolic 64–87
[2019-01-28 05:37] LABS: HEMATOCRIT 41.4 % (36.0-47.0); HEMOGLOBIN 13.8 g/dl (12.0-15.5); MEAN CORPUSCULAR HEMOGLOBIN 27.1 pg (27.0-33.0); MEAN CORPUSCULAR HGB CONC 33.3 g/dl (32.0-36.5); MEAN CORPUSCULAR VOLUME 81.3 fl (80.0-96.0); PLATELET COUNT, AUTOMATED 289 10^3/uL (150-450); RED BLOOD COUNT 5.09 10^6/uL (4.00-5.40); WHITE BLOOD COUNT 7.4 10^3/uL (4.0-10.0)
[2019-01-28 05:56] LABS: CALCIUM LEVEL 8.6 MG/DL (8.8-10.2); CREATININE FOR GFR 1.14 MG/DL (0.55-1.30); GLOMERULAR FILTRATION RATE 48.1 (>32); POTASSIUM SERUM 3.7 MEQ/L (3.5-5.1)
--- NOTE | 2019-01-28 05:56 | ECGEPIP ---
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
--- NOTE | 2019-01-28 06:10 | ECGEPIP ---
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
[2019-01-28] MEDS ORDERED: DIGOXIN 0.125 MG TAB PO SCH (09:00)
[2019-01-28] MEDS: VITAMIN D 1,000 INTERNATIONAL UNITS TABLET PO SCH (09:01)
[2019-01-28] MEDS: FLECAINIDE 50MG TABLET PO SCH ×2 (09:01→21:45)
[2019-01-28] MEDS: OMEPRAZOLE 20 MG CAP PO SCH (09:02)
[2019-01-28] MEDS: APIXABAN 5 MG TAB (ELIQUIS) PO SCH ×2 (09:02→21:46)
[2019-01-28] MEDS: PRAVASTATIN 20 MG TAB PO SCH (09:02)
[2019-01-28] MEDS: MULTIVITAMINS CHILDREN'S CHEWABLE TABLET PO SCH (09:02)
[2019-01-28] MEDS: ASCORBIC ACID 500 MG TAB PO SCH (09:06)
[2019-01-28] MEDS ORDERED: ACETAMINOPHEN TAB 650MG DOSE (2X325MG) PO PRN (12:15)
[2019-01-28] MEDS: NS 1,000 ML IV SCH (15:14)
--- NOTE | 2019-01-28 18:57 | IPNPDOC ---
Date Seen The patient was seen on 01/28/19. Progress Note SUBJECTIVE: Patient is a 88-year-old male admitted for atrial fibrillation/A flutter with rapid ventricular response. Patient was seen and examined this morning lying comfortably on her bed appropriately answering questions. She states that she's feeling much better since she's been admitted. She slept soundly last night with no symptoms, denied chest pain shortness of breath or trouble breathing. Reviewing telemetry did show a shunt in a flutter with a rate as low as 40. This a.m. she had a heart rate of 50-60 and continue to be in A flutter. She has a desire to go when she is clinically stable. She had no other complaints at this time. OBJECTIVE PHYSICAL EXAMINATION: VITAL SIGNS: Please see below. GENERAL: Very pleasant 88-year-old female who is slightly overweight sitting up in the bed does not appear in acute distress answering questions appropriately. HEENT: Atraumatic normocephalic pupils are equal round and reactive moist mucous membranes with no JVD elevation. CARDIOVASCULAR: Irregularly irregular bradycardic rhythm no audible murmurs rubs or gallops. RESPIRATORY: To auscultate bilaterally no audible wheezing rhonchi or Rales ABDOMINAL: Positive bowel sounds in all 4 quadrants soft nontender EXTREMITIES: No lower extremity edema or calf tenderness. NEUROLOGICAL: Alert and oriented 3. No focal deficits noted. PSYCHOLOGICAL: Appropriate but slightly anxious. LABORATORY DATA, IMAGING STUDIES, MICROBIOLOGY: Please see below. DVT prophylaxis ordered?: Eliquis 5mg BID ASSESSMENT AND PLAN: This is a 88-year-old female with atrial fibrillation/flutter with rapid ventricular response. . PROBLEMS: A. fib/A. flutter: -Initially on presentation rate slightly over 100 -Overnight bradycardic lows in the 40s sustaining 50-60 this AM but slow a. flutter -Her Plating Equipment Tender, Dr. Gallegos, was called for recommendations -c/w digoxin 0.125, flecainide 100 twice a day and Eliquis 5mg BID -Start diltiazem CD 180 mg BID -Monitor on telemetry Hyponatremia (improving) -Possibly secondary hypovolemic -improved with IV fluids Hypertension: -c/w chlorthalidone and losartan GERD -c/w omeprazole 20 mg Dyslipidemia -c/w pravastatin PT -Consulted I saw and evaluated the patient. I agree with the findings and plan of care as documented in the above note VS, I&O, 24H, Fishbone Vital Signs/I&O Vital Signs Date Time Temp Pulse Resp B/P (MAP) Pulse Ox O2 Delivery O2 Flow Rate FiO2 01/28/19 16:00 97.2 98 20 153/75 (101) 95 01/27/19 19:00 Nasal Cannula I&O- Last 24 Hours up to 6 AM 01/28/19 06:00 Intake Total 750 ml Output Total 450 ml Balance 300 ml Laboratory Data 24H LABS Laboratory Tests 2 01/27/19 18:59: Troponin I < 0.02 01/28/19 05:02: Nucleated Red Blood Cells % (auto) 0.0, Anion Gap 7L, Glomerular Filtration Rate 48.1, Blood Urea Nitrogen 26H, Creatinine 1.14, Sodium Level 135L, Potassium Level 3.7, Chloride Level 99, Carbon Dioxide Level 29, Calcium Level 8.6L 01/28/19 13:43: Troponin I < 0.02 CBC/BMP Laboratory Tests 01/28/19 05:02 Red Blood Count 5.09, Mean Corpuscular Volume 81.3, Mean Corpuscular Hemoglobin 27.1, Mean Corpuscular Hemoglobin Concent 33.3, Red Cell Distribution Width 15.5 H, Calcium Level 8.6 L MEGAN BECKFORD DO Jan 28, 2019 18:57 MARCO ANTONIO MONACO MD Jan 29, 2019 16:11
[2019-01-28] MEDS ORDERED: IBUPROFEN 600 MG TAB PO ONE (19:00)
[2019-01-28] MEDS: LOSARTAN 50 MG TAB PO SCH (21:46)
[2019-01-28] MEDS: ANALGESIC BALM CRM 120 GM TOP SCH (21:48)
[2019-01-29 04:00] VITALS: BP 137/66
[2019-01-29 05:35] LABS: HEMATOCRIT 39.6 % (36.0-47.0); HEMOGLOBIN 13.5 g/dl (12.0-15.5); MEAN CORPUSCULAR HEMOGLOBIN 26.8 pg (27.0-33.0); MEAN CORPUSCULAR HGB CONC 34.1 g/dl (32.0-36.5); MEAN CORPUSCULAR VOLUME 78.7 fl (80.0-96.0); PLATELET COUNT, AUTOMATED 277 10^3/uL (150-450); RED BLOOD COUNT 5.03 10^6/uL (4.00-5.40); WHITE BLOOD COUNT 7.6 10^3/uL (4.0-10.0)
[2019-01-29 05:58] LABS: BLOOD UREA NITROGEN 14 MG/DL (7-18); CALCIUM LEVEL 8.2 MG/DL (8.8-10.2); CARBON DIOXIDE LEVEL 27 MEQ/L (21-32); CHLORIDE LEVEL 91 MEQ/L (98-107); CREATININE FOR GFR 0.91 MG/DL (0.55-1.30); GLOMERULAR FILTRATION RATE > 60.0 (>32); GLUCOSE, FASTING 105 MG/DL (70-100); POTASSIUM SERUM 3.5 MEQ/L (3.5-5.1); SODIUM LEVEL 126 MEQ/L (136-145)
[2019-01-29 07:42] VITALS: BP 135/65
[2019-01-29 08:05] LABS: BLOOD UREA NITROGEN 14 MG/DL (7-18); CALCIUM LEVEL 8.6 MG/DL (8.8-10.2); CARBON DIOXIDE LEVEL 27 MEQ/L (21-32); CHLORIDE LEVEL 91 MEQ/L (98-107); CREATININE FOR GFR 0.92 MG/DL (0.55-1.30); GLOMERULAR FILTRATION RATE > 60.0 (>32); GLUCOSE, FASTING 100 MG/DL (70-100); POTASSIUM SERUM 3.6 MEQ/L (3.5-5.1); SODIUM LEVEL 127 MEQ/L (136-145)
[2019-01-29] MEDS ORDERED: diltiaZEM **CD** 180 MG CAP PO SCH (09:00)
[2019-01-29] MEDS: OMEPRAZOLE 20 MG CAP PO SCH (09:23)
[2019-01-29] MEDS: ANALGESIC BALM CRM 120 GM TOP SCH ×2 (09:23→21:27)
[2019-01-29] MEDS: MULTIVITAMINS CHILDREN'S CHEWABLE TABLET PO SCH (09:23)
[2019-01-29] MEDS: FLECAINIDE 50MG TABLET PO SCH ×2 (09:23→21:26)
[2019-01-29] MEDS: APIXABAN 5 MG TAB (ELIQUIS) PO SCH ×2 (09:24→21:26)
[2019-01-29] MEDS: ASCORBIC ACID 500 MG TAB PO SCH (09:24)
[2019-01-29] MEDS: diltiaZEM **CD** 180 MG CAP PO SCH (09:24)
[2019-01-29] MEDS: PRAVASTATIN 20 MG TAB PO SCH (09:24)
[2019-01-29] MEDS: VITAMIN D 1,000 INTERNATIONAL UNITS TABLET PO SCH (09:25)
[2019-01-29 11:40] VITALS: BP 142/67
[2019-01-29 13:01] LABS: BLOOD UREA NITROGEN 13 MG/DL (7-18); CALCIUM LEVEL 8.6 MG/DL (8.8-10.2); CARBON DIOXIDE LEVEL 28 MEQ/L (21-32); CHLORIDE LEVEL 89 MEQ/L (98-107); CREATININE FOR GFR 0.91 MG/DL (0.55-1.30); GLOMERULAR FILTRATION RATE > 60.0 (>32); GLUCOSE, FASTING 102 MG/DL (70-100); POTASSIUM SERUM 3.6 MEQ/L (3.5-5.1); SODIUM LEVEL 124 MEQ/L (136-145)
[2019-01-29 16:00] VITALS: BP 121/58
--- NOTE | 2019-01-29 16:12 | ECGEPIP ---
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
--- NOTE | 2019-01-29 16:39 | IPN ---
DATE: 01/29/2019 Mrs. Abigail Azul was seen earlier this morning. She was supine in bed in no acute distress at rest. She was seen yesterday by Dr. Flood, who asked me to oversee her for the weekend. He has increased her calcium channel kenneth to the current dose. She was initially admitted on 01/27/2019 with chest pain and atrial fibrillation. Today when I saw her, she denies any chest pain. She has been ambulating. There was no orthopnea or paroxysmal nocturnal dyspnea (PND). She has no focal manifestation. There is no report of bleeding. PHYSICAL EXAMINATION: The patient is alert and oriented in no acute distress at rest. VITAL SIGNS: This morning revealed a blood pressure when saw her ff 133/65 with a pulse of 90, respirations 18-20, and a maximum temperature was 98.4 degrees Fahrenheit with an oxygen saturation of 94-96% on room air. HEAD: Atraumatic. NECK: Supple and no jugular venous distention (JVD) appreciated. LUNGS: Did not reveal any wheezing or crackles. HEART: Revealed irregular heart sounds without gallops. The point of maximal impulse (PMI) is nondisplaced. There is no rub. ABDOMEN: Unremarkable. EXTREMITIES: Reveal no pedal edema. NEUROLOGIC: Negative for focal deficit. LABORATORY DATA: CBC done today revealed a WBC of 7.6, hemoglobin 13.5, hematocrit 39.6, and platelets 277,000. BMP revealed a sodium of 127, potassium of 3.6, chloride 91, CO2 of 27, BUN 14, creatinine 0.92, GFR more than 60, fasting glucose 100, and calcium 8.6. Telemetry revealed atrial fibrillation with a controlled ventricular rate. IMPRESSION: 1. Atrial fibrillation. Ventricular rate seems to be now under control on the calcium channel kenneth, and also she is on flecainide. She is on Eliquis for prevention of thromboembolic events, and there is no report of bleeding. Will continue current management for now and telemetry. We should increase ambulation. She might be able to go home this weekend. 2. Hypertension and seems to be under control on current medications with the diltiazem, the losartan. Prior to coming to the hospital, she also was on chlorthalidone and was on the higher dose of losartan at 100 mg by mouth daily. She is being monitored. 3. Hyponatremia. This is being addressed, and she is being monitored. She is no longer on the chlorthalidone. The losartan/angiotensin receptor kenneth (ARB) at times can be contributing factor. I recommend to treat her for now with normal saline and change her diet to regular salt intake. 4. Hyperlipidemia, on a statin. 5. Diabetes mellitus, and she is being monitored. 6. History of chronic obstructive pulmonary disease (COPD)/asthma. 7. Gastroesophageal reflux disease (GERD). It was a pleasure to participate in the care of Mrs. Abigail Azul for her underlying cardiac condition. I will continue to monitor along issue over the weekend as needed. Please do not hesitate to call if any questions. Dr. Flood will be back on 01/31/2019. PINKY
--- NOTE | 2019-01-29 17:50 | IPNPDOC ---
Date Seen The patient was seen on 01/29/19. Progress Note SUBJECTIVE: Patient is a 88-year-old male admitted for atrial fibrillation/A flutter with rapid ventricular response. Patient was seen and examined this morning lying comfortably on her bed appropriately answering questions. She states that she's feeling much better,. But she still has the feeling of choking sensation especially when her heart rate goes up. The ice in the back of the neck has helped a tingling sensation in her fingers bilaterally and the kink in the back of her neck. She slept soundly last night with no problems. No overnight telemetry events reported. Her heart rate was controlled overnight at at 60 bpm but when she gets stressed and will go up to 120-130. patient denies chest pain, shortness breath, nausea, vomiting, fevers, chills OBJECTIVE PHYSICAL EXAMINATION: VITAL SIGNS: Please see below. GENERAL: Very pleasant 88-year-old female who is slightly overweight sitting up in the bed does not appear in acute distress answering questions appropriately. HEENT: Atraumatic normocephalic pupils are equal round and reactive moist mucous membranes with no JVD elevation. CARDIOVASCULAR: Irregularly irregular bradycardic rhythm no audible murmurs rubs or gallops. RESPIRATORY: To auscultate bilaterally no audible wheezing rhonchi or Rales ABDOMINAL: Positive bowel sounds in all 4 quadrants soft nontender EXTREMITIES: No lower extremity edema or calf tenderness. NEUROLOGICAL: Alert and oriented 3. No focal deficits noted. PSYCHOLOGICAL: Appropriate but slightly anxious. LABORATORY DATA, IMAGING STUDIES, MICROBIOLOGY: Please see below. DVT prophylaxis ordered?: Eliquis 5mg BID ASSESSMENT AND PLAN: This is a 88-year-old female with atrial fibrillation/flu tter with rapid ventricular response. . PROBLEMS: A. fib/A. flutter: -Her Cream Hauler, Dr. Gallegos, was called for recommendations -Dr. Flood, consulted -c/w digoxin 0.125, flecainide 100 twice a day, Eliquis 5mg BID, diltiazem CD 360 mg BID -Monitor on telemetry Hyponatremia had -Unsure if this is due to hypervolemia or hypovolemia -Initially did improve with IV fluids and worsened after IV fluids were discontinued -Placed on fluid restriction, obtain urine osmolarity, urine sodium, urine creatinine as well as serum osmolarity. Will obtain BMP every 6 hours to resolution Hypertension: -c/w chlorthalidone and losartan GERD -c/w omeprazole 20 mg Dyslipidemia -c/w pravastatin PT -Consulted I saw and evaluated the patient. I agree with the findings and plan of care as documented in the above note VS, I&O, 24H, Fishbone Vital Signs/I&O Vital Signs Date Time Temp Pulse Resp B/P (MAP) Pulse Ox O2 Delivery O2 Flow Rate FiO2 01/29/19 16:00 97.2 80 18 121/58 (79) 97 01/27/19 19:00 Nasal Cannula I&O- Last 24 Hours up to 6 AM 01/29/19 06:00 Intake Total 900 ml Output Total 400 ml Balance 500 ml Laboratory Data 24H LABS Laboratory Tests 2 01/28/19 18:50: Troponin I < 0.02 01/29/19 05:17: Nucleated Red Blood Cells % (auto) 0.0, Anion Gap 8, Glomerular Filtration Rate > 60.0, Blood Urea Nitrogen 14, Creatinine 0.91, Sodium Level 126#L, Potassium Level 3.5, Chloride Level 91L, Carbon Dioxide Level 27, Calcium Level 8.2L 01/29/19 07:23: Anion Gap 9, Glomerular Filtration Rate > 60.0, Blood Urea Nitrogen 14, Creatinine 0.92, Sodium Level 127L, Potassium Level 3.6, Chloride Level 91L, Carbon Dioxide Level 27, Calcium Level 8.6L 01/29/19 12:22: Anion Gap 7L, Glomerular Filtration Rate > 60.0, Blood Urea Nitrogen 13, Creatinine 0.91, Sodium Level 124L, Potassium Level 3.6, Chloride Level 89L, Carbon Dioxide Level 28, Calcium Level 8.6L CBC/BMP Laboratory Tests 01/29/19 05:17 Red Blood Count 5.03, Mean Corpuscular Volume 78.7 L, Mean Corpuscular Hemoglobin 26.8 L, Mean Corpuscular Hemoglobin Concent 34.1, Red Cell Distribution Width 14.7 H, Calcium Level 8.2 L 01/29/19 07:23 Calcium Level 8.6 L 01/29/19 12:22 Calcium Level 8.6 L MEGAN BECKFORD DO Jan 29, 2019 17:50 MARCO ANTONIO MONACO MD Jan 30, 2019 14:16
[2019-01-29 18:32] LABS: CALCIUM LEVEL 8.9 MG/DL (8.8-10.2); CREATININE FOR GFR 1.18 MG/DL (0.55-1.30); GLOMERULAR FILTRATION RATE 46.2 (>32); POTASSIUM SERUM 3.6 MEQ/L (3.5-5.1)
[2019-01-29 20:00] VITALS: BP 136/67
[2019-01-29] MEDS ORDERED: NS 0.45% 1,000 ML IV SCH (20:30)
[2019-01-29] MEDS: LOSARTAN 50 MG TAB PO SCH (21:26)
[2019-01-29 23:57] LABS: CREATININE,RANDOM URINE 29.9 MG/DL
[2019-01-29 23:59] VITALS: BP 131/78
[2019-01-30] VITALS (7 sets, daily range): BP systolic 113–158; BP diastolic 50–90
[2019-01-30 00:35] LABS: CALCIUM LEVEL 8.6 MG/DL (8.8-10.2); CREATININE FOR GFR 1.25 MG/DL (0.55-1.30); GLOMERULAR FILTRATION RATE 43.3 (>32); POTASSIUM SERUM 3.6 MEQ/L (3.5-5.1)
[2019-01-30 06:15] LABS: HEMATOCRIT 40.3 % (36.0-47.0); HEMOGLOBIN 13.6 g/dl (12.0-15.5); MEAN CORPUSCULAR HEMOGLOBIN 27.4 pg (27.0-33.0); MEAN CORPUSCULAR HGB CONC 33.7 g/dl (32.0-36.5); MEAN CORPUSCULAR VOLUME 81.3 fl (80.0-96.0); PLATELET COUNT, AUTOMATED 261 10^3/uL (150-450); RED BLOOD COUNT 4.96 10^6/uL (4.00-5.40); WHITE BLOOD COUNT 7.5 10^3/uL (4.0-10.0)
[2019-01-30 06:37] LABS: CALCIUM LEVEL 8.4 MG/DL (8.8-10.2); CREATININE FOR GFR 0.97 MG/DL (0.55-1.30); POTASSIUM SERUM 3.5 MEQ/L (3.5-5.1)
[2019-01-30] MEDS: APIXABAN 5 MG TAB (ELIQUIS) PO SCH ×2 (08:36→21:03)
[2019-01-30] MEDS: FLECAINIDE 50MG TABLET PO SCH (08:36)
[2019-01-30] MEDS: diltiaZEM **CD** 180 MG CAP PO SCH (08:37)
[2019-01-30] MEDS: MULTIVITAMINS CHILDREN'S CHEWABLE TABLET PO SCH (08:37)
[2019-01-30] MEDS: VITAMIN D 1,000 INTERNATIONAL UNITS TABLET PO SCH (08:37)
[2019-01-30] MEDS: OMEPRAZOLE 20 MG CAP PO SCH (08:37)
[2019-01-30] MEDS: PRAVASTATIN 20 MG TAB PO SCH (08:37)
[2019-01-30] MEDS: ASCORBIC ACID 500 MG TAB PO SCH (08:37)
[2019-01-30] MEDS: ANALGESIC BALM CRM 120 GM TOP SCH ×2 (08:38→21:05)
--- NOTE | 2019-01-30 11:14 | IPNPDOC ---
Date Seen The patient was seen on 01/30/19. Progress Note SUBJECTIVE: Reports feeling better today she complains of no tightness in her chest neck or tingling in her fingers and toes. Patient denies chest pain, shortness breath, nausea, vomiting, fevers, chills OBJECTIVE PHYSICAL EXAMINATION: VITAL SIGNS: Please see below. GENERAL: Elderly female sitting up in the bed does not appear in acute distress answering questions appropriately. HEENT: Atraumatic normocephalic pupils are equal round and reactive moist mucous membranes with no JVD elevation. CARDIOVASCULAR: Irregularly irregular mildly tachycardic at the time of exam no audible murmurs rubs or gallops. RESPIRATORY: Clear to auscultation bilaterally no audible wheezing rhonchi or Rales ABDOMINAL: Positive bowel sounds soft nontender EXTREMITIES: No lower extremity edema or calf tenderness. NEUROLOGICAL: Alert and oriented 3. No focal deficits noted. PSYCHOLOGICAL: Appropriate LABORATORY DATA, IMAGING STUDIES, MICROBIOLOGY: Please see below. DVT prophylaxis ordered?: Eliquis 5mg BID ASSESSMENT AND PLAN: This is a 88-year-old female with atrial fibrillation/flutter with rapid ventricular response. . PROBLEMS: A. fib/A. flutter: Dr. Gallegos called several times and has made significant recommendations. Patient was still uncontrolled with symptomatic and as such cardiology consult was placed Dr. Ashley morrow's help is greatly appreciated she appears to have a rate which is better controlled today. I suspect she would benefit long-term from an ablation procedure will defer to cardiology. 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 With fluid restriction her sodium did rise yesterday she is provided with gentle half normal saline overnight in order to avoid her rising too quickly we will follow up her sodium every 6 hours she was previously on chlorthalidone and had no issues with hyponatremia with this Hypertension: -c/w losartan and Cardizem GERD -c/w omeprazole 20 mg Dyslipidemia -c/w pravastatin Possibly home within the next 24-48 hours VS, I&O, 24H, Fishbone Vital Signs/I&O Vital Signs Date Time Temp Pulse Resp B/P (MAP) Pulse Ox O2 Delivery O2 Flow Rate FiO2 01/30/19 10:39 140/50 (80) 01/30/19 08:37 101 01/30/19 08:00 96.8 17 97 01/27/19 19:00 Nasal Cannula I&O- Last 24 Hours up to 6 AM 01/30/19 06:00 Intake Total 1710 ml Output Total 1650 ml Balance 60 ml Laboratory Data 24H LABS Laboratory Tests 2 01/29/19 12:22: Anion Gap 7L, Glomerular Filtration Rate > 60.0, Blood Urea Nitrogen 13, Creatin ine 0.91, Sodium Level 124L, Potassium Level 3.6, Chloride Level 89L, Carbon Dioxide Level 28, Calcium Level 8.6L 01/29/19 17:51: Anion Gap 9, Glomerular Filtration Rate 46.2, Blood Urea Nitrogen 16, Creatinine 1.18, Sodium Level 130L, Potassium Level 3.6, Chloride Level 94L, Carbon Dioxide Level 27, Calcium Level 8.9 01/29/19 23:21: Urine Random Osmolality 182L, Urine Random Creatinine 29.9, Urine Random Sodium 25 01/29/19 23:54: Anion Gap 8, Glomerular Filtration Rate 43.3, Blood Urea Nitrogen 20H, Creatinine 1.25, Sodium Level 129L, Potassium Level 3.6, Chloride Level 93L, Carbon Dioxide Level 28, Calcium Level 8.6L, Osmolality 265L 01/30/19 05:24: Nucleated Red Blood Cells % (auto) 0.0, Anion Gap 8, Glomerular Filtration Rate 58.0, Blood Urea Nitrogen 17, Creatinine 0.97, Sodium Level 128L, Potassium Level 3.5, Chloride Level 95L, Carbon Dioxide Level 25, Calcium Level 8.4L CBC/BMP Laboratory Tests 01/29/19 12:22 Calcium Level 8.6 L 01/29/19 17:51 Calcium Level 8.9 01/29/19 23:54 Calcium Level 8.6 L 01/30/19 05:24 Calcium Level 8.4 L, Red Blood Count 4.96, Mean Corpuscular Volume 81.3, Mean Corpuscular Hemoglobin 27.4, Mean Corpuscular Hemoglobin Concent 33.7, Red Cell Distribution Width 14.8 H MARCO ANTONIO MONACO MD Jan 30, 2019 11:14
[2019-01-30 12:54] LABS: CALCIUM LEVEL 8.5 MG/DL (8.8-10.2); CREATININE FOR GFR 1.03 MG/DL (0.55-1.30); GLOMERULAR FILTRATION RATE 54.1 (>32); POTASSIUM SERUM 3.9 MEQ/L (3.5-5.1)
--- NOTE | 2019-01-30 13:16 | IPN ---
DATE: 01/30/2019 Mrs. Abigail Azul was seen earlier this morning. She was supine in bed in no acute distress at rest. She denies any chest pain or shortness of breath and she is not feeling that rapid heart rate she was having prior to coming to the hospital. While in telemetry, at night while sleeping, her heart rate goes in the low 40s. During the day and activities and when she is stressed, her heart rate goes fast at times. Her Cardizem was recently increased about 48 hours ago and her digoxin was discontinued. She is currently on the calcium channel kenneth and the flecainide. It seems that last night, she had discussed it with the hospitalist and she was told that she might need ablation. She has no focal manifestation. She has no pedal edema. There is no report of bleeding. There is no cough, hemoptysis or fever. On physical examination, the patient is alert and oriented in no acute distress at rest, very pleasant. Her most recent vital signs reveal a blood pressure of 140/85 and upon checking , her heart rate was between 80 and 90 beats per minute, respiration 18 and her maximum temperature is 98.2 degrees Fahrenheit with an oxygen saturation of 95-97% on room air. Examination of the Head: Atraumatic. Neck is supple and no jugular venous distention (JVD) appreciated. Lungs did not reveal any wheezing or crackles. Heart examination revealed an irregular heart sound without gallops. The PMI is not displaced. There is no rub. I could not appreciate any murmurs. Abdomen is unremarkable, soft. Extremities revealed no pedal edema. Neurological examination is negative for focal deficit. Labs: CBC done today revealed a WBC of 7.5, hemoglobin 13.6, hematocrit 40.3 and platelet 161,000. BMP revealed a sodium of 128, potassium 3.5, chloride 95, CO2 25, BUN 17, creatinine 0.97, fasting glucose 104 and calcium 8.4. IMPRESSION: 1. Atrial fibrillation with a fairly controlled ventricular rate and only minimally symptomatic. The patient is currently on calcium channel kenneth that was increased 2 days ago and she is on flecainide. Heart rate is under fair control with probably some degree of underlying sick sinus syndrome. She is on Eliquis for prevention of thromboembolic events and she denies any bleeding. We have discussed about the ablation and mechanical cardioversion and permanent pacemaker implantation. She will sit down and discuss that with Dr. Flood tomorrow who is covering for Dr. Gallegos. In the meantime, will continue current management. This was discussed with her hospitalist. 2. Hyponatremia. This is being addressed. She is no longer on the diuretics. If she continues to develop hyponatremia, we should try to switch her losartan to a different antihypertensive medicine. 3. Hypertension, currently under fair control with the Cardizem and the losartan. She may have a regular salt intake in view of her hyponatremia. 4. Gastroesophageal reflux disease, under control. 5. History of dyslipidemia, on a statin with pravastatin. 6. History of COPD/asthma. 7. History of diabetes mellitus and she is being monitored. It was a pleasure to participate in the care of Mrs. Abigail Azul for her underlying cardiac condition. I will continue to monitor along with you and tomorrow Dr. Flood will be back. Please do not hesitate to call if any questions.
[2019-01-30 18:25] LABS: CALCIUM LEVEL 8.5 MG/DL (8.8-10.2); POTASSIUM SERUM 3.5 MEQ/L (3.5-5.1)
[2019-01-30] MEDS: LOSARTAN 50 MG TAB PO SCH (21:05)
--- NOTE | 2019-01-30 22:40 | CR ---
DATE OF CONSULTATION: 01/28/2019 REFERRING PHYSICIAN: Shabana Bhardwaj MD INDICATION: Paroxysmal atrial fibrillation, typical atrial flutter. 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 Up until this admission, she was being managed with flecainide 100 mg twice a day, diltiazem ER 240 mg once daily and Eliquis for paroxysmal atrial fibrillation, which has served her fairly well. Her hypertension and diastolic heart failure has been managed with chlorthalidone 12.5 mg/d, diltiazem ER 240 mg once daily, and losartan 100 mg hs. So, the patient was admitted to the hospital on this occasion, 01/27/2019, after presenting with chest tightness. Prior to that, she had an emergency room visit a few days before on January 25; at which time she had atrial fibrillation with rapid ventricular response and was discharged home with the addition of digoxin. When she presented to the hospital this time, she was found to have atrial fibrillation with rapid ventricular response. With regards to palpitations, she very infrequently feels rapid palpitations. She has chronic shortness of breath with low levels of activity (on her activities of daily living). She has dependent ankle edema. Recent chest tightness as noted above. No embolic events or neurologic lateralizing symptoms. No claudication. The last echocardiogram in our office was from 08/20/2017, which at that time reported borderline concentric left ventricular hypertrophy (LVH) with hyperkinetic wall motion (left ventricular function (LVF) 75%). Left atrium upper limits of normal in size (3.8 cm). Grade 1 left ventricular diastolic dysfunction. Normal right ventricle, size and contraction. Normal right atrial size. Suggestive of mild pulmonary hypertension. Very mild aortic valve sclerosis with trace regurgitation. Mild mitral annular calcification with trace mitral regurgitation. Cardiac nuclear stress test July 2013 showed normal stress SPECT myocardial perfusion, which is in response to regadenoson. Normal left ventricular wall motion. The patient has not had any prior cardiac catheterizations. No known coronary artery disease (CAD) or myocardial infarction. ADVERSE DRUG REACTIONS: AVELOX (swelling, shortness of breath). MEDICATIONS PRIOR TO ADMISSION: - Eliquis 5 mg twice a day - vitamin C 500 mg daily - calcium with vitamin D 600 mg/200 units one twice a day - chlorthalidone 12.5 mg daily - vitamin D3 1000 units daily - digoxin 125 mcg daily (started 01/25/2019) - diltiazem ER 240 mg once daily - flecainide 100 mg twice a day - Breo Ellipta one inhalation daily - ipratropium/albuterol nebulizer one twice a day - losartan 100 mg daily - multivitamin one daily - omeprazole 20 mg daily - pravastatin 40 mg daily The patient's current medications in the hospita: Diltiazem ER 180 mg twice a day, digoxin 125 mcg daily, Bengay cream topical twice a day, acetamine 650 mg every 4 hours as needed, pravastatin 40 mg daily, omeprazole 20 mg daily, vitamin C 500 mg daily, vitamin D 1000 units daily, multivitamins one daily, Eliquis 5 mg twice a day, flecainide 100 mg twice a day, sodium chloride 50 mL per hour IV. During the night, the patient felt transient bradycardia into the 40s. She has also developed periods of typical atrial flutter. OTHER PAST MEDICAL AND SURGICAL HISTORY: 1. Paroxysmal atrial fibrillation. 2. Chronic obstructive pulmonary disease (COPD). 3. Asthma. 4. Gastroesophageal reflux disease (GERD). 5. Systemic hypertension. 6. Dyslipidemia. 7. Type 2 diabetes 8. Osteoarthritis 9. Vertigo. 10. Diastolic heart failure. 11. Recurrent chest pain with bilateral arm heaviness. 12. Hypertensive heart disease with heart failure. 13. Prior smoking history. 14. Bilateral leg edema attributed to calcium channel kenneth. 15. Dilation and curettage in 1951. 16. section in 1952, 1953, 1955 and 1959. 17. Exploratory laparotomy in 1961. 18. Hysterectomy in 1962. 19. Laminectomy in 1978. 20. Tumor removed from neck 06/23/2014. 21. Carpal tunnel release on the right side in 2011. SOCIAL HISTORY: . Retired. Independent with activities of daily living. Prior smoking history of 30 years times one pack per day. She quit in 1987. No alcohol. She is able to do her own housework and occasionally uses a stationary bicycle. REVIEW OF SYSTEMS: Weight loss. Decreased vision. Wears reading glasses. Nocturia once at night. Some urinary incontinence. Arthralgias and myalgias. Intolerance to cold and heat. Tendency towards bleeding and bruising. No anxiety, depression or panic attacks. Shortness of breath with low levels of activity. All other review of systems per history of present illness above. Electrocardiogram 01/27/2019 at 6:19 a.m. shows typical atrial flutter with 3:1 AV conduction, rapid response, heart rate 100 beats per minute, superior axis, nonspecific ST abnormalities. I have independently visualized the patient's AP chest x-ray (portable) upright acquired 01/27/2019 at 6:14 a.m. Difficult to assess for cardiomegaly given the portable AP technique. Calcification in the aortic arch. Lung [place] clear other than some linear fibrosis at the right lower lung field. Hyperinflation. No pulmonary vasculature redistribution. No pleural effusions. Laboratory work 01/28/2019 was reviewed: White blood count (WBC) 7.4, hemoglobin 13.8, hematocrit 41.4, platelets 289, troponin I less than 0.02. Sodium 135, potassium 3.7, chloride 99, CO2 29, BUN 26, creatinine 1.14. Estimated glomerular filtration rate (GFR) 48.1, glucose 103, calcium 8.6. ASSESSMENT AND RECOMMENDATIONS: 1. Paroxysmal atrial fibrillation. On this admission, the problem has been typical atrial flutter with at times rapid response and then other times slow for response. There has been a lot of changes in the dosing of the patient's medications recently with respect to the addition of digoxin and the dosage of diltiazem going upward. Given that the patient had slow ventricular response during the night with heart rates in the 40s, I am concerned that the use of combined digoxin and higher dose diltiazem will increase the likelihood that the patient may end up with a pacemaker. I think the dosage of digoxin of 125 mcg daily might be a bit a problematic given the patient's age of 88 and chronic kidney disease (CKD), stage III renal dysfunction. At this point, I would like to keep things simple to see if we can manage her with just one agent. I have therefore discontinued digoxin. I would like to keep dosing simple for this patient by minimizing the number of medications and frequency that she has to take. I have therefore changed her diltiazem ER dosage to 360 mg just once daily. Continue flecainide 100 mg twice a day. Continue Eliquis. After the patient becomes an outpatient again, she can be seen by Dr. Gallegos and I have spoken to Dr. Gallegos earlier this evening and we agreed that because of the new issue with typical atrial flutter that she can be referred as an outpatient if she is agreeable to undergo atrial flutter radiofrequency (RF) ablation. She does not need to be transferred during this hospitalization to have that procedure. 2. Typical atrial flutter. As per problem #1 above. 3. Systemic hypertension. Variable blood pressure control. Have noted the diltiazem dosage has recently been increased. Plan will be to continue with diltiazem ER now at a dosage of 360 mg once daily. Chlorthalidone has been stopped because of hyponatremia. At present, she is no longer on losartan. I will re-introduce some losartan. 4. Hypertensive heart disease with congestive heart failure. Prior echocardiogram showed borderline concentric left ventricular hypertrophy (LVH) with grade 1 left ventricular diastolic dysfunction. She is NYHA functional class 3, however much of her exertional dyspnea is related to her lung disease. She appears compensated at the present time. As noted above, management of hypertension per hypertension category. Chlorthalidone currently on hold because of hyponatremia. 5. Abnormal electrocardiogram (ECG). The ECG as above. 6. Hypercholesterolemia. Recommend the patient to be on a DASH diet and continue current dosage of statin. Thank you for asking me to participate in the cardiac care of Abigail Azul.
[2019-01-31 00:37] LABS: CALCIUM LEVEL 8.4 MG/DL (8.8-10.2); CREATININE FOR GFR 1.09 MG/DL (0.55-1.30); GLOMERULAR FILTRATION RATE 50.7 (>32); POTASSIUM SERUM 3.8 MEQ/L (3.5-5.1)
[2019-01-31 04:00] VITALS: BP 118/87
[2019-01-31 04:35] LABS: HEMATOCRIT 42.8 % (36.0-47.0); HEMOGLOBIN 14.4 g/dl (12.0-15.5); MEAN CORPUSCULAR HEMOGLOBIN 27.5 pg (27.0-33.0); MEAN CORPUSCULAR HGB CONC 33.6 g/dl (32.0-36.5); MEAN CORPUSCULAR VOLUME 81.7 fl (80.0-96.0); PLATELET COUNT, AUTOMATED 290 10^3/uL (150-450); RED BLOOD COUNT 5.24 10^6/uL (4.00-5.40); WHITE BLOOD COUNT 7.5 10^3/uL (4.0-10.0)
[2019-01-31 04:42] LABS: CALCIUM LEVEL 8.4 MG/DL (8.8-10.2); POTASSIUM SERUM 3.5 MEQ/L (3.5-5.1)
[2019-01-31 08:00] VITALS: BP 127/78
[2019-01-31] MEDS: VITAMIN D 1,000 INTERNATIONAL UNITS TABLET PO SCH (09:22)
[2019-01-31] MEDS: APIXABAN 5 MG TAB (ELIQUIS) PO SCH (09:22)
[2019-01-31] MEDS: ASCORBIC ACID 500 MG TAB PO SCH (09:23)
[2019-01-31] MEDS: diltiaZEM **CD** 180 MG CAP PO SCH (09:23)
[2019-01-31] MEDS: PRAVASTATIN 20 MG TAB PO SCH (09:23)
[2019-01-31] MEDS: OMEPRAZOLE 20 MG CAP PO SCH (09:23)
[2019-01-31] MEDS: ANALGESIC BALM CRM 120 GM TOP SCH ×2 (09:24→21:36)
[2019-01-31] MEDS: MULTIVITAMINS CHILDREN'S CHEWABLE TABLET PO SCH (10:28)
[2019-01-31 12:00] VITALS: BP 128/63
[2019-01-31 12:51] LABS: CALCIUM LEVEL 8.6 MG/DL (8.8-10.2); CREATININE FOR GFR 0.98 MG/DL (0.55-1.30); GLOMERULAR FILTRATION RATE 57.3 (>32); POTASSIUM SERUM 3.6 MEQ/L (3.5-5.1)
--- NOTE | 2019-01-31 14:13 | IPNPDOC ---
Date Seen The patient was seen on 01/31/19. Progress Note SUBJECTIVE: Patient is a 88-year-old male admitted for atrial fibrillation/A flutter with rapid ventricular response. Not happy this morning that she continues having symptoms. She would like to be evaluated by cardiology and she will not go home today until the situation is resolved. She denies denies chest pain, shortness breath, nausea, vomiting, fevers, chills. She admits to having palpitations at rest which brought her originally and has not yet resolved. OBJECTIVE PHYSICAL EXAMINATION: VITAL SIGNS: Please see below. GENERAL: Very pleasant 88-year-old female who is slightly overweight sitting up in the chair does not appear in acute distress answering questions appropriately. HEENT: Atraumatic normocephalic pupils are equal round and reactive moist mucous membranes with no JVD elevation. CARDIOVASCULAR: Irregularly irregular tachycardiac rhythm no audible murmurs rubs or gallops. RESPIRATORY: To auscultate bilaterally no audible wheezing rhonchi or Rales ABDOMINAL: Positive bowel sounds in all 4 quadrants soft nontender EXTREMITIES: No lower extremity edema or calf tenderness. NEUROLOGICAL: Alert and oriented 3. No focal deficits noted. PSYCHOLOGICAL: Appropriate but slightly anxious. LABORATORY DATA, IMAGING STUDIES, MICROBIOLOGY: Please see below. DVT prophylaxis ordered?: Eliquis 5mg BID ASSESSMENT AND PLAN: This is a 88-year-old female with atrial fibrillat ion/flutter with rapid ventricular response. PROBLEMS: A. fib/A. flutter: -Her V Belt Inspector, Dr. Gallegos, was called for recommendations -Dr. Flood, consulted who will see the patient this afternoon to see patient needs pacemaker or transfer for ablation -c/w Eliquis 5mg BID, diltiazem CD 360 mg BID -Monitor on telemetry Hyponatremia hypovolemia -Placed on fluid restriction, FeNA:0.6%, -BMP every 6 hours to resolution, 6mEQ change in 24 hours. -at home on losartan and chlorthalidone, which can cause hyponatremia as well.. Only on half dose of losartan at this time -continue to monitor, Hypertension: -c/w 1/2 home dose of losartan GERD -c/w omeprazole 20 mg Dyslipidemia -c/w pravastatin VS, I&O, 24H, Fishbone Vital Signs/I&O Vital Signs Date Time Temp Pulse Resp B/P (MAP) Pulse Ox O2 Delivery O2 Flow Rate FiO2 01/31/19 12:00 98.1 59 18 128/63 (84) 96 01/27/19 19:00 Nasal Cannula I&O- Last 24 Hours up to 6 AM 01/31/19 06:00 Intake Total 870 ml Output Total 600 ml Balance 270 ml Laboratory Data 24H LABS Laboratory Tests 2 01/30/19 17:54: Anion Gap 8, Glomerular Filtration Rate 56.0, Blood Urea Nitrogen 18, Creatinine 1.00, Sodium Level 127L, Potassium Level 3.5, Chloride Level 93L, Carbon Dioxide Level 26, Calcium Level 8.5L 01/31/19 00:07: Anion Gap 7L, Glomerular Filtration Rate 50.7, Blood Urea Nitrogen 18, Creatinine 1.09, Sodium Level 130L, Potassium Level 3.8, Chloride Level 95L, Carbon Dioxide Level 28, Calcium Level 8.4L 01/31/19 04:06: Anion Gap 9, Glomerular Filtration Rate 56.0, Blood Urea Nitrogen 16, Creatinine 1.00, Sodium Level 131L, Potassium Level 3.5, Chloride Level 95L, Carbon Dioxide Level 27, Calcium Level 8.4L, Nucleated Red Blood Cells % (auto) 0.0 01/31/19 11:59: Anion Gap 8, Glomerular Filtration Rate 57.3, Blood Urea Nitrogen 17, Creatinine 0.98, Sodium Level 130L, Potassium Level 3.6, Chloride Level 94L, Carbon Dioxide Level 28, Calcium Level 8.6L CBC/BMP Laboratory Tests 01/30/19 17:54 Calcium Level 8.5 L 01/31/19 00:07 Calcium Level 8.4 L 01/31/19 04:06 Calcium Level 8.4 L, Red Blood Count 5.24, Mean Corpuscular Volume 81.7, Mean Corpuscular Hemoglobin 27.5, Mean Corpuscular Hemoglobin Concent 33.6, Red Cell Distribution Width 15.2 H 01/31/19 11:59 Calcium Level 8.6 L MEGAN BECKFORD DO Jan 31, 2019 14:13
[2019-01-31] MEDS ORDERED: SLF 3 ML SYR IV PRN (14:45)
[2019-01-31 16:00] VITALS: BP 120/88
--- NOTE | 2019-01-31 17:04 | IPN ---
DATE: 01/31/2019 TIME: 3:48 p.m. CARDIOLOGY PROGRESS NOTE SUBJECTIVE: The patient is not having any dyspnea at rest. She has intermittent palpitations throughout the day and is feeling weak and lethargic. No chest pain or chest discomfort. No peripheral edema. PHYSICAL EXAMINATION: Temperature 98.1, pulse 59 (irregular), respiratory rate 18, blood pressure 128/63, oxygen saturation 96% on room air. Weight 69.8 kg. Jugular venous pulsations were at 3 cm. Respiratory expansion and effort was fair. No crackles or wheezes. Variable S1 and S2. No S3 or murmur. Abdomen was soft and nontender with normal bowel sounds. No peripheral edema. Laboratory work 01/31/2019 shows hemoglobin 14.4, hematocrit 42.8, platelets 290. Sodium 130, potassium 3.6, chloride 94, CO2 28, creatinine 0.98, estimated GFR 57.3. Patient is remaining in typical atrial flutter. Overnight she had a 3.1 second pause. At other times, her heart rate is up into the 120s. She is symptomatic with sick sinus syndrome/tachycardia-bradycardia syndrome. ASSESSMENT AND PLAN: 1. Paroxysmal atrial fibrillation. Patient is mostly showing issues with typical atrial flutter with rapid ventricular response and has evidence of sick sinus syndrome/tachycardia-bradycardia syndrome. The plan will be to proceed with implantation of a permanent dual-chamber pacemaker (see below). 2. Typical atrial flutter. Patient has typical atrial flutter with tachycardia-bradycardia syndrome. She meets criteria for implantation of a permanent dual-chamber pacemaker. She had a 3.1 second pause overnight. At other times her heart rate is well into the 120s. She is symptomatic with the rapid ventricular response. Implantation of permanent dual-chamber pacemaker was discussed with both the patient and her who is present at the bedside. The option of no pacemaker was also explained. The patient and her prefer that she proceed with implantation of a permanent pacemaker. Risks explained to the patient and her included, but not all inclusive: Infection (1%), pneumothorax (1%), bleeding, poor healing of the wound, cardiac dysrhythmias, lead dislodgement, adverse drug reaction and cardiac perforation with cardiac tamponade (08/999). The patient was agreeable and signed the consent form. The plan will be to proceed with implantation of a permanent dual-chamber pacemaker some time on 02/02/2019. This will allow the opportunity to hold the patient's Eliquis for a little while to lessen the risk of bleeding for pacemaker implantation. I agree with discontinuation of Flecainide as Flecainide 100 mg twice a day is no longer effective for this patient. For control of heart rate, the plan will be to continue with diltiazem ER 360 mg once daily. I will introduce a small dose of amiodarone at 200 mg once daily. I do not plan to load the amiodarone until the patient has a permanent pacemaker. 3. Systemic hypertension. Blood pressure presently controlled. Continue diltiazem ER and losartan at the current dosages. 4. Hypertensive heart disease with congestive heart failure (CHF). Blood pressure controlled. Compensated on examination. Continue diltiazem ER and losartan at the current dosages. 5. Abnormal ECG. Stable. 6. Hypercholesterolemia. Continue with Dietary Approaches to Stop Hypertension (DASH) diet and pravastatin. 7. 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 As described above, the plan will be to implant a permanent dual-chamber pacemaker on 02/02/2019. This was discussed with Dr. Shabana Bhardwaj who is in agreement with this plan.
--- NOTE | 2019-01-31 18:38 | ECGEPIP ---
[facility] Test Date: 2019-01-31 Pat Name: STUART GUPTA Department: Room: [place] [address] Gender: Female Telephonic Nurse Case Manager: HEATH : [id number] Requested By: Alfredito Flood Order Number: [id number] Reading MD: Debi Brody Measurements Intervals [place] Rate: 114 P: 115 DC: 216 QRS: 174 QRSD: 94 T: 61 QT: 369 QTc: 509 Interpretive Statements Atrial flutter with 2:1 AV block INDETERMINATE AXIS SIMILAR TO 01/28/19 Electronically Signed on 01-31-2019 18:38:42 EDT by Debi Brody
[2019-01-31 18:51] LABS: CALCIUM LEVEL 8.8 MG/DL (8.8-10.2); CREATININE FOR GFR 1.1 MG/DL (0.55-1.30); GLOMERULAR FILTRATION RATE 50.1 (>32); POTASSIUM SERUM 3.6 MEQ/L (3.5-5.1)
[2019-01-31 20:00] VITALS: BP 120/57
[2019-01-31] MEDS: AMIODARONE 200 MG TAB (PACERONE) PO SCH (21:36)
[2019-01-31] MEDS: SLF 3 ML SYR IV SCH (21:37)
[2019-01-31 23:45] LABS: CALCIUM LEVEL 8.4 MG/DL (8.8-10.2); CREATININE FOR GFR 1.24 MG/DL (0.55-1.30); GLOMERULAR FILTRATION RATE 43.7 (>32); POTASSIUM SERUM 3.7 MEQ/L (3.5-5.1)
[2019-01-31 23:59] VITALS: BP 117/55
[2019-02-01 04:00] VITALS: BP 119/59
[2019-02-01 05:15] LABS: HEMATOCRIT 38.6 % (36.0-47.0); HEMOGLOBIN 13.2 g/dl (12.0-15.5); MEAN CORPUSCULAR HGB CONC 34.2 g/dl (32.0-36.5); PLATELET COUNT, AUTOMATED 286 10^3/uL (150-450); RED BLOOD COUNT 4.71 10^6/uL (4.00-5.40); WHITE BLOOD COUNT 8.3 10^3/uL (4.0-10.0)
[2019-02-01 05:33] LABS: CALCIUM LEVEL 8.4 MG/DL (8.8-10.2); CREATININE FOR GFR 1.07 MG/DL (0.55-1.30); GLOMERULAR FILTRATION RATE 51.8 (>32); POTASSIUM SERUM 3.7 MEQ/L (3.5-5.1)
[2019-02-01] MEDS: SLF 3 ML SYR IV SCH ×3 (06:00→19:50)
[2019-02-01 08:00] VITALS: BP 149/67
[2019-02-01] MEDS: AMIODARONE 200 MG TAB (PACERONE) PO SCH ×2 (09:38→19:49)
[2019-02-01] MEDS: MULTIVITAMINS CHILDREN'S CHEWABLE TABLET PO SCH (09:38)
[2019-02-01] MEDS: PRAVASTATIN 20 MG TAB PO SCH (09:38)
[2019-02-01] MEDS: VITAMIN D 1,000 INTERNATIONAL UNITS TABLET PO SCH (09:38)
[2019-02-01] MEDS: ANALGESIC BALM CRM 120 GM TOP SCH ×2 (09:39→19:50)
[2019-02-01] MEDS: OMEPRAZOLE 20 MG CAP PO SCH (09:39)
[2019-02-01] MEDS: ASCORBIC ACID 500 MG TAB PO SCH (09:39)
[2019-02-01] MEDS: diltiaZEM **CD** 180 MG CAP PO SCH ×2 (09:39→19:49)
[2019-02-01 12:00] VITALS: BP 143/67
--- NOTE | 2019-02-01 14:00 | IPNPDOC ---
Date Seen The patient was seen on 02/01/19. Progress Note SUBJECTIVE: Patient is happy this morning. She denies denies chest pain, shortness breath, nausea, vomiting, fevers, chills. OBJECTIVE PHYSICAL EXAMINATION: VITAL SIGNS: Please see below. GENERAL: Very pleasant 88-year-old female who is slightly overweight laying in bed does not appear in acute distress answering questions appropriately. HEENT: Atraumatic normocephalic pupils are equal round and reactive moist mucous membranes with no JVD elevation. CARDIOVASCULAR: Irregularly irregular regular rate no audible murmurs rubs or gallops. RESPIRATORY: To auscultate bilaterally no audible wheezing rhonchi or Rales ABDOMINAL: Positive bowel sounds in all 4 quadrants soft nontender EXTREMITIES: No lower extremity edema or calf tenderness. NEUROLOGICAL: Alert and oriented 3. No focal deficits noted. PSYCHOLOGICAL: Appropriate but slightly anxious. LABORATORY DATA, IMAGING STUDIES, MICROBIOLOGY: Please see below. DVT prophylaxis ordered?: Eliquis 5mg BID ASSESSMENT AND PLAN: This is a 88-year-old female with atrial fibrillation/flutter with rapid ventricular response. PROBLEMS: A. fib/A. 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 Flood pacemaker, 02/02/19, NPO tonight -c/w diltiazem CD 180 mg BID and Amiodarone 200mg BID per cardiology -Eliquis on hold for procedure in the AM. -Monitor on telemetry Sick sinus syndrome/tachycardia-bradycardia syndrome -pacemaker, 02/02/19, by Dr. Flood Hyponatremia hypervolemia? vs hypovolemia (improving) -Placed on fluid restriction, FeNA:0.6%, -BMP every 6 hours to resolution, only 6mEQ change in 24 hours. -at home on losartan and chlorthalidone, which can cause hyponatremia as well.. Only on half dose of losartan at this time. -continue to monitor, Hypertension and Hypertensive heart disease with congestive heart failure (CHF -c/w 1/2 home dose of losartan GERD -c/w omeprazole 20 mg Dyslipidemia -c/w pravastatin Attending Note I saw and evaluated the patient. I agree with the finding and plan of care as documented in the resident's note. VS, I&O, 24H, Fishbone Vital Signs/I&O Vital Signs Date Time Temp Pulse Resp B/P (MAP) Pulse Ox O2 Delivery O2 Flow Rate FiO2 02/01/19 12:00 97.8 75 16 143/67 (92) 96 01/27/19 19:00 Nasal Cannula I&O- Last 24 Hours up to 6 AM 02/01/19 06:00 Intake Total 860 ml Output Total 1325 ml Balance -465 ml Laboratory Data 24H LABS Laboratory Tests 2 01/31/19 18:11: Anion Gap 6L, Glomerular Filtration Rate 50.1, Blood Urea Nitrogen 18, Creatinine 1.10, Sodium Level 130L, Potassium Level 3.6, Chloride Level 95L, Carbon Dioxide Level 29, Calcium Level 8.8 01/31/19 23:15: Anion Gap 7L, Glomerular Filtration Rate 43.7, Blood Urea Nitrogen 22H, Creatinine 1.24, Sodium Level 131L, Potassium Level 3.7, Chloride Level 95L, Carbon Dioxide Level 29, Calcium Level 8.4L 02/01/19 04:53: Anion Gap 7L, Glomerular Filtration Rate 51.8, Blood Urea Nitrogen 21H, Creatinine 1.07, Sodium Level 132L, Potassium Level 3.7, Chloride Level 96L, Carbon Dioxide Level 29, Calcium Level 8.4L, Nucleated Red Blood Cells % (auto) 0.0 CBC/BMP Laboratory Tests 01/31/19 18:11 Calcium Level 8.8 01/31/19 23:15 Calcium Level 8.4 L 02/01/19 04:53 Calcium Level 8.4 L, Red Blood Count 4.71, Mean Corpuscular Volume 82.0, Mean Corpuscular Hemoglobin 28.0, Mean Corpuscular Hemoglobin Concent 34.2, Red Cell Distribution Width 15.4 H MEGAN BECKFORD DO Feb 01, 2019 14:00 ZEESHAN SAWANT MD Feb 01, 2019 16:08
[2019-02-01 16:00] VITALS: BP 144/63
--- NOTE | 2019-02-01 17:31 | IPN ---
DATE: 02/01/2019 TIME: 3:46 p.m. SUBJECTIVE: Patient continues to have episodes of rapid palpitations felt frequently throughout the day. She reports she is having a better day than yesterday. She is not having any dyspnea at rest or with light activity in her room. No chest pain or chest discomfort. No dizziness or lightheadedness. No pain. No leg swelling. PHYSICAL EXAMINATION: Temperature 97.8, pulse 75 (irregularly irregular), respiratory rate 16, blood pressure 143/67, oxygen saturation 96% on room air. Weight 68.4 kg. Jugular venous pulsations were at 3 cm. Respiratory expansion and effort was good. No crackles or wheezes. First and second heart sounds were variable in intensity. No S3. No murmurs appreciated. Abdomen was soft and nontender with normal bowel sounds. No peripheral edema in the legs. Oriented to person, place, and time. Mood and affect was normal. Laboratory work 02/01/2019 shows sodium 132, potassium 3.7, chloride 96, CO2 29, BUN 21, creatinine 1.07, estimated GFR 51.8, calcium 8.4. ASSESSMENT AND PLAN: 1. Paroxysmal atrial fibrillation. So far in this admission the patient has been in persistent typical atrial flutter. Evaluation and management as per atrial flutter category below. 2. Typical atrial flutter. Patient has associated tachycardia-bradycardia syndrome and will be undergoing implantation of a permanent dual-chamber pacemaker tomorrow. She has been started on amiodarone 200 mg twice a day. Flecainide 100 mg twice a day has proven to be ineffective. Flecainide was stopped a few days ago. Heart rate control has been achieved with diltiazem currently at a dosage of 180 mg extended release twice a day. I have discussed with the patient to proceed with electrical cardioversion intraoperatively during the pacemaker implant once the pacemaker leads are in place and she is agreeable to this. Risks of cardioversion were explained to the patient including, but not all inclusive, of aspiration, respiratory arrest, adverse drug reaction, electrical skin monge, cardiac dysrhythmias. She wishes to proceed and signed the consent form. Subhash is on hold while she awaits pacemaker implant for tomorrow. 3. Systemic hypertension. Blood pressure variable but mostly controlled. Continue diltiazem at the current dosage. 4. Hypertensive heart disease with congestive heart failure (CHF). Compensated on examination. Blood pressure mostly controlled. Continue diltiazem. Losartan has been stopped because of persistent hyponatremia despite discontinuation of chlorthalidone a few days ago. 5. Abnormal ECG. Stable. 6. Hypercholesterolemia. Continue with a Dietary Approaches to Stop Hypertension (DASH) diet and pravastatin. 7. Sick sinus syndrome/tachycardia-bradycardia syndrome. As noted above, she is undergoing implantation of a permanent dual-chamber pacemaker tomorrow.
[2019-02-01 20:00] VITALS: BP 136/63
[2019-02-01 23:59] VITALS: BP 131/60
[2019-02-02] VITALS (7 sets, daily range): BP systolic 130–164; BP diastolic 63–90
[2019-02-02 04:23] LABS: HEMATOCRIT 37.8 % (36.0-47.0); HEMOGLOBIN 12.7 g/dl (12.0-15.5); MEAN CORPUSCULAR HEMOGLOBIN 27.5 pg (27.0-33.0); MEAN CORPUSCULAR HGB CONC 33.6 g/dl (32.0-36.5); PLATELET COUNT, AUTOMATED 284 10^3/uL (150-450); RED BLOOD COUNT 4.61 10^6/uL (4.00-5.40)
[2019-02-02 04:42] LABS: CALCIUM LEVEL 8.8 MG/DL (8.8-10.2); CREATININE FOR GFR 1.05 MG/DL (0.55-1.30); GLOMERULAR FILTRATION RATE 52.9 (>32); POTASSIUM SERUM 4.8 MEQ/L (3.5-5.1)
[2019-02-02] MEDS: SLF 3 ML SYR IV SCH ×3 (05:21→22:00)
[2019-02-02] MEDS ORDERED: NS 1,000 ML IV SCH (06:00)
[2019-02-02] MEDS: AMIODARONE 200 MG TAB (PACERONE) PO SCH ×2 (08:48→22:55)
[2019-02-02] MEDS: MULTIVITAMINS CHILDREN'S CHEWABLE TABLET PO SCH (08:48)
[2019-02-02] MEDS: diltiaZEM **CD** 180 MG CAP PO SCH ×2 (08:48→23:04)
[2019-02-02] MEDS: ASCORBIC ACID 500 MG TAB PO SCH (08:49)
[2019-02-02] MEDS: OMEPRAZOLE 20 MG CAP PO SCH (08:49)
[2019-02-02] MEDS: ANALGESIC BALM CRM 120 GM TOP SCH ×2 (08:49→21:00)
[2019-02-02] MEDS: VITAMIN D 1,000 INTERNATIONAL UNITS TABLET PO SCH (08:49)
[2019-02-02] MEDS: PRAVASTATIN 20 MG TAB PO SCH (08:49)
--- NOTE | 2019-02-02 11:07 | IPNPDOC ---
Date Seen The patient was seen on 02/02/19. Progress Note SUBJECTIVE: Patient has no no complaints this morning, she'll be going down for her pacemaker later this afternoon. She denies denies chest pain, shortness breath, nausea, vomiting, fevers, chills. OBJECTIVE PHYSICAL EXAMINATION: VITAL SIGNS: Please see below. GENERAL: Very pleasant 88-year-old female who is slightly overweight laying in bed does not appear in acute distress answering questions appropriately. HEENT: Atraumatic normocephalic pupils are equal round and reactive moist mucous membranes with no JVD elevation. CARDIOVASCULAR: Irregularly irregular regular rate no audible murmurs rubs or gallops. RESPIRATORY: To auscultate bilaterally no audible wheezing rhonchi or Rales ABDOMINAL: Positive bowel sounds in all 4 quadrants soft nontender EXTREMITIES: No lower extremity edema or calf tenderness. Slight erythema at the left antecubital me the area of old IV site. No increased warmth just slightly tender NEUROLOGICAL: Alert and oriented 3. No focal deficits noted. PSYCHOLOGICAL: Appropriate but slightly anxious. LABORATORY DATA, IMAGING STUDIES, MICROBIOLOGY: Please see below. DVT prophylaxis ordered?: Eliquis 5mg BID ASSESSMENT AND PLAN: This is a 88-year-old female with atrial fibrillation/flutter with rapid ventricular response. PROBLEMS: A. fib/A. 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 Flood pacemaker, 02/02/19, -c/w diltiazem CD 180 mg BID and Amiodarone 200mg BID per cardiology -Eliquis on hold for procedure in the AM. -Monitor on telemetry Sick sinus syndrome/tachycardia-bradycardia syndrome -pacemaker, 02/02/19, by Dr. Flood Hyponatremia hypervolemia? vs hypovolemia (improving) -Placed on fluid restriction, FeNA:0.6%, -at home on losartan and chlorthalidone, which can cause hyponatremia as well.. Only on half dose of losartan at this time. -continue to monitor, Hypertension and Hypertensive heart disease with congestive heart failure -c/w 1/2 home dose of losartan GERD -c/w omeprazole 20 mg Dyslipidemia -c/w pravastatin VS, I&O, 24H, Fishbone Vital Signs/I&O Vital Signs Date Time Temp Pulse Resp B/P (MAP) Pulse Ox O2 Delivery O2 Flow Rate FiO2 02/02/19 07:52 97.5 66 18 139/65 (89) 97 01/27/19 19:00 Nasal Cannula I&O- Last 24 Hours up to 6 AM 02/02/19 06:00 Intake Total 580 ml Output Total 1275 ml Balance -695 ml Laboratory Data 24H LABS Laboratory Tests 2 02/02/19 03:52: Nucleated Red Blood Cells % (auto) 0.0, Anion Gap 4L, Glomerular Filtration Rate 52.9, Blood Urea Nitrogen 20H, Creatinine 1.05, Sodium Level 135L, Potassium Level 4.8#, Chloride Level 96L, Carbon Dioxide Level 35H, Calcium Level 8.8 CBC/BMP Laboratory Tests 02/02/19 03:52 Red Blood Count 4.61, Mean Corpuscular Volume 82.0, Mean Corpuscular Hemoglobin 27.5, Mean Corpuscular Hemoglobin Concent 33.6, Red Cell Distribution Width 15.5 H, Calcium Level 8.8 MEGAN BECKFORD DO Feb 02, 2019 11:07
[2019-02-02] MEDS ORDERED: LIDOCAINE 1% SDV INJ 30 ML VIAL As Ordered ONE (17:30)
[2019-02-02] MEDS ORDERED: MUPIROCIN 2% OINT 22 GM TUBE As Ordered ONE (17:30)
[2019-02-02] MEDS ORDERED: ISOVUE-300 61% 50ML VIAL (Q9967) As Ordered ONE (17:31)
[2019-02-02] MEDS ORDERED: VANCOMYCIN 1000 MG/20 ML VIAL (J3370) As Ordered ONE (17:31)
[2019-02-02] MEDS ORDERED: MIDAZOLAM INJ 2 MG/2 ML VIAL (J2250) As Ordered ONE (17:41)
[2019-02-02] MEDS ORDERED: fentaNYL 100 MCG/2 ML INJECTION (J3010) As Ordered ONE (17:41)
[2019-02-02] MEDS ORDERED: ONDANSETRON 4MG/2ML VIAL (J2405) As Ordered ONE (17:41)
[2019-02-02] MEDS ORDERED: LIDOCAINE 2% INJ 100 MG/5 ML SDV (FOR ANES.) As Ordered ONE (17:41)
[2019-02-02] MEDS ORDERED: PROPOFOL 200 MG/20 ML VIAL As Ordered ONE (17:41)
[2019-02-02] MEDS: ceFAZolin SOD 1 GM in D5W MINI-BAG PLUS 50 ML IV SCH ×2 (18:15→22:47)
[2019-02-02] MEDS ORDERED: AMIODARONE HCL 150 MG/100 ML PREMIXED BAG (NEXTERONE) As Ordered ONE (19:30)
--- NOTE | 2019-02-02 21:28 | RO ---
DATE OF PROCEDURE: 02/02/2019 PREOPERATIVE DIAGNOSIS: Sick sinus syndrome, tachycardia/bradycardia syndrome. POSTOPERATIVE DIAGNOSIS: Sick sinus syndrome, tachycardia/bradycardia syndrome. FINDINGS: Sick sinus syndrome, tachycardia/bradycardia syndrome. OPERATIVE PROCEDURE: Implantation of a permanent dual chamber pacemaker. SURGEON: Alfredito Flood MD COMMUNITY PROGRAM ASSISTANT: None. ANESTHESIA: 10 mL of Lidocaine 1%. Monitored anesthetic care. SPECIMENS: None. ESTIMATED BLOOD LOSS: Approximately 10 mL. BLOOD PRODUCTS REPLACED: None. DRAINS: None. COMPLICATIONS: None. DESCRIPTION OF OPERATION: The patient was prepped and draped over the left pectoral region and 3M [place] film was applied. Lidocaine 1% was used for local anesthetic. A micropuncture needle was used to gain percutaneous access into the extrathoracic portion of the left subclavian vein under fluoroscopic guidance using the lateral aspect of the first rib as a target. This was then guidewire exchanged for a guidewire that came with one of the #7-Jordanian sheaths. Next, I made incision approximately 2.5 to 3 inches in length with the PEAK PlasmaBlade in a line at the level of the guidewire. The PEAK PlasmaBlade was used to dissect down to the prepectoral fascia. The prepectoral fascia and She's fascia were then using blunt dissection using two fingers in a caudal direction to form the pacemaker pocket. Next, I took another micropuncture needle which was placed through the level of the pectoral muscle lateral to the first guidewire and after several passes and under fluoroscopic guidance unsuccessfully to get into the left subclavian vein I used the assistance of a left subclavian venogram (20 mL of a mixture of 5 parts contrast to one part normal saline) and this was used to gain vein access in real time with the micropuncture needle. This was then guidewire exchanged for the guidewire that came with the other #7-Jordanian sheath. Next, a Peel-Away sheath introducer was placed over the more lateral of the guidewires and used for vein access for the right ventricle lead. The right ventricle lead was placed under fluoroscopic guidance into the right ventricle apex position where it was secured with a total of 10 turns. No diaphragm stimulation could be palpated on either side at 8 volts high output pacing. The sheath was removed and the ventricle lead was secured to the pectoral muscle using the supplied tie-down sleeves using two individual sutures consisting of #0 Ethibond. Next, another #7-Jordanian Peel-Away sheath introducer was placed over the more medial of the guidewires and was used for vein access for the right ventricle lead. The right ventricle lead was placed into what looked like the anterolateral aspect of the right atrium and was secured with a total of 10 turns. This was placed with the assistance of the preformed J-stylet. The preformed J-stylet was then successfully removed with the leads staying in place and not being dislodged. The right atrial lead was tested at 8 volts high output pacing and no diaphragm stimulation could be palpated on either side. It was difficult to get complete testing of the right atrial sensing and capture characteristics because the patient was frequently going in and out of atrial flutter, atrial fibrillation, and spending very short periods of time in sinus rhythm. To encourage the patient to be more in sinus rhythm once the atrial lead was in place, I requested and the patient received 150 mg of amiodarone IV administered over 10 minutes. The #7-Jordanian sheath was broken apart and atrial lead was then secured to the pectoral muscle using the supplied tie-down sleeve. Next, an #0 Ethibond suture was placed in the pectoral muscle to serve as the tie-down for the pacemaker pulse generator. The terminal pins of the atrial and ventricular leads were placed into their respective ports in the header of the pacemaker pulse generator and secured by tightening the set screw with the Hex screwdriver. The excess lead material was then placed under the pacemaker pulse generator and placed along with the pacemaker pulse generator into the pacemaker pocket. The pulse generator was then secured to the pectoral muscle using the previously placed #0 Ethibond suture. The deep layer of the incision was then closed using individual sutures consisting of #2-0 Vicryl and a few additional #2-0 Vicryl sutures were used to help approximate the more superficial layer. The skin was then closed using kiko. The patient tolerated the procedure well without any immediate complications. The pacemaker pulse generator implanted was a [employer] XT [employer] MAGO Beebe, model W1DR01 with serial #[id number]. Final testing for the right atrial lead by the pulse analyzer in the operating room in bipolar configuration showed a capture threshold of 0.4V at 1.0 ms with a P wave of 2.3 mV and lead impedance of 570 ohms. The right atrial lead implanted was a Medtronic model 4076-45 cm with serial #[id number]. The right ventricle lead implanted was a Medtronic model 4076-52 cm with serial #[id number]. Final testing with the pulse analyzer in the operating room for the right ventricle lead in bipolar configuration showed capture threshold of 0.4V at 0.625V with lead impedance of 760 ohms and R wave amplitude of 17.5 mV.
--- NOTE | 2019-02-02 22:19 | REP ---
Portable chest, 08:35 p.m., single AP view with the patient upright, post pacemaker: Comparison is 01/27/2019. There is a dual-chamber pacemaker entering from left with the pacing tips in satisfactory positions as a change from the comparison study. There is no pneumothorax, hemothorax or pulmonary contusion. Cardiac size is upper normal. Electronically Signed by Harley Mercer MD 02/02/2019 10:10 P
[2019-02-03] VITALS (11 sets, daily range): BP systolic 109–150; BP diastolic 61–83
[2019-02-03] MEDS: SLF 3 ML SYR IV SCH ×3 (05:22→20:29)
[2019-02-03 05:49] LABS: HEMATOCRIT 41.8 % (36.0-47.0); HEMOGLOBIN 13.8 g/dl (12.0-15.5); MEAN CORPUSCULAR HEMOGLOBIN 27.4 pg (27.0-33.0); MEAN CORPUSCULAR VOLUME 82.9 fl (80.0-96.0); PLATELET COUNT, AUTOMATED 286 10^3/uL (150-450); RED BLOOD COUNT 5.04 10^6/uL (4.00-5.40); WHITE BLOOD COUNT 8.4 10^3/uL (4.0-10.0)
[2019-02-03 06:23] LABS: BLOOD UREA NITROGEN 12 MG/DL (7-18); CALCIUM LEVEL 8.6 MG/DL (8.8-10.2); CARBON DIOXIDE LEVEL 27 MEQ/L (21-32); CHLORIDE LEVEL 102 MEQ/L (98-107); CREATININE FOR GFR 0.82 MG/DL (0.55-1.30); GLOMERULAR FILTRATION RATE > 60.0 (>32); GLUCOSE, FASTING 95 MG/DL (70-100); POTASSIUM SERUM 3.8 MEQ/L (3.5-5.1); SODIUM LEVEL 134 MEQ/L (136-145)
[2019-02-03] MEDS: PRAVASTATIN 20 MG TAB PO SCH (08:27)
[2019-02-03] MEDS: MULTIVITAMINS CHILDREN'S CHEWABLE TABLET PO SCH (08:27)
[2019-02-03] MEDS: AMIODARONE 200 MG TAB (PACERONE) PO SCH ×2 (08:28→13:47)
[2019-02-03] MEDS: VITAMIN D 1,000 INTERNATIONAL UNITS TABLET PO SCH (08:28)
[2019-02-03] MEDS: ASCORBIC ACID 500 MG TAB PO SCH (08:28)
[2019-02-03] MEDS: OMEPRAZOLE 20 MG CAP PO SCH (08:28)
[2019-02-03] MEDS: diltiaZEM **CD** 180 MG CAP PO SCH ×2 (08:28→20:20)
[2019-02-03] MEDS: ANALGESIC BALM CRM 120 GM TOP SCH ×2 (08:30→20:29)
--- NOTE | 2019-02-03 09:21 | REP ---
Chest x-ray: Limited study 10 views. Intraprocedural. History: Pacemaker insertion. 10 minutes 27 seconds of fluoroscopy time is reported. Findings: A sequence of 10 last image hold fluoroscopically obtained spot radiographs of the chest document left transvenous pacemaker lead position. Electronically Signed by Norris Vasquez MD 02/03/2019 09:36 A
--- NOTE | 2019-02-03 09:39 | REP ---
REASON: Followup pacemaker insertion. COMPARISON: Yesterday, a portable exam. Dual-chamber bipolar pacemaker device, status quo. Cardiomediastinal silhouette stable. The heart is not enlarged. There are basilar fibrotic changes, status quo. Minimal CP angle blunting, likely reflecting chronic change. There is no change in the osseous structures. IMPRESSION: Status post pacemaker device. No acute cardiopulmonary disease. Electronically Signed by Star Cuellar DO 02/03/2019 10:55 A
--- NOTE | 2019-02-03 11:14 | IPNPDOC ---
Date Seen The patient was seen on 02/03/19. Progress Note SUBJECTIVE: HR has been elevated this am but improved with amiodarone. She continues to have the neuropathy in her extremities the and woozy sensation in her head even though the palpitations has improved. She denies denies chest pain, shortness breath, nausea, vomiting, fevers, chills. OBJECTIVE PHYSICAL EXAMINATION: VITAL SIGNS: Please see below. GENERAL: Very pleasant 88-year-old female who is slightly overweight laying in bed does not appear in acute distress answering questions appropriately. HEENT: Atraumatic normocephalic pupils are equal round and reactive moist mucous membranes with no JVD elevation. CARDIOVASCULAR: sinus tachycardia, no audible murmurs rubs or gallops. pacemaker in place on the left side. RESPIRATORY: To auscultate bilaterally no audible wheezing rhonchi or Rales ABDOMINAL: Positive bowel sounds in all 4 quadrants soft nontender EXTREMITIES: No lower extremity edema or calf tenderness. Slight erythema at the left antecubital me the area of old IV site (improving). No increased warmth just slightly tender NEUROLOGICAL: Alert and oriented 3. No focal deficits noted. PSYCHOLOGICAL: Appropriate but slightly anxious. LABORATORY DATA, IMAGING STUDIES, MICROBIOLOGY: Please see below. DVT prophylaxis ordered?: Eliquis 5mg BID ASSESSMENT AND PLAN: This is a 88-year-old female with atrial fibrillation/flutter with rapid ventricular response. PROBLEMS: A. fib/A. 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 Flood pacemaker, 02/02/19, -c/w medication recommendations per cardiology, Dr. Flood -Monitor on telemetry Sick sinus syndrome/tachycardia-bradycardia syndrome -pacemaker, 02/02/19, by Dr. Flood Hyponatremia hypervolemia? vs hypovolemia (improving) -Placed on fluid restriction, FeNA:0.6%, -at home on losartan and chlorthalidone, which can cause hyponatremia -continue to monitor, Hypertension and Hypertensive heart disease with congestive heart failure -c/w 1/2 home dose of losartan GERD -c/w omeprazole 20 mg Dyslipidemia -c/w pravastatin VS, I&O, 24H, Fishbone Vital Signs/I&O Vital Signs Date Time Temp Pulse Resp B/P (MAP) Pulse Ox O2 Delivery O2 Flow Rate FiO2 02/03/19 08:28 126 139/83 02/03/19 08:00 97.6 18 95 I&O- Last 24 Hours up to 6 AM 02/03/19 05:59 Intake Total 2720 ml Output Total 2300 ml Balance 420 ml Laboratory Data 24H LABS Laboratory Tests 2 02/03/19 05:07: Nucleated Red Blood Cells % (auto) 0.0, Anion Gap 5L, Glomerular Filtration Rate > 60.0, Blood Urea Nitrogen 12, Creatinine 0.82, Sodium Level 134L, Potassium Level 3.8#, Chloride Level 102, Carbon Dioxide Level 27, Calcium Level 8.6L CBC/BMP Laboratory Tests 02/03/19 05:07 Red Blood Count 5.04, Mean Corpuscular Volume 82.9, Mean Corpuscular Hemoglobin 27.4, Mean Corpuscular Hemoglobin Concent 33.0, Red Cell Distribution Width 15.6 H, Calcium Level 8.6 L MEGAN BECKFORD DO Feb 03, 2019 11:14
[2019-02-03] MEDS ORDERED: AMIODARONE HCL 150 MG in APPROPRIATE DILUENT 1 EA IV STA (11:23)
[2019-02-03] MEDS ORDERED: DIGOXIN INJ 0.5 MG/2 ML AMP (J1160) IV ONE (12:00)
[2019-02-03] MEDS ORDERED: DIGOXIN 0.25 MG TAB PO ONE ×2 (14:15→20:00)
[2019-02-03] MEDS ORDERED: GABAPENTIN 300 MG CAP PO ONE (19:00)
[2019-02-03] MEDS ORDERED: MECLIZINE 25 MG TABLET PO ONE (19:00)
--- NOTE | 2019-02-03 19:39 | REPVR ---
EXAM: CT Cervical Spine Without Contrast EXAM DATE/TIME: 02/03/2019 6:41 PM CLINICAL HISTORY: 88 years old, female; Neck pain; Additional info: Upper extermity neuropathy bilateral TECHNIQUE: Imaging protocol: Computed tomography images of the cervical spine without contrast. Radiation optimization: All CT scans at this facility use at least one of these dose optimization techniques: automated exposure control; mA and/or kV adjustment per patient size (includes targeted exams where dose is matched to clinical indication); or iterative reconstruction. COMPARISON: CT Spine,cervical w/o contrast 05/24/2018 7:48 AM FINDINGS: Vertebrae: Minimal anterolisthesis of C2, likely degenerative. No fracture. Discs/Spinal canal/Neural foramina: Degenerative disc disease and facet arthrosis throughout the cervical spine. Mild bony spinal stenosis at C3-C4, C4-C5 and C5-C6. No severe bony spinal stenosis. Mild neural foraminal bony encroachment on the right at C2-C3, C3-C4, C4-C5 and C5-C6. Mild neural foraminal bony encroachment on the left at C3-C4. Moderate/severe neural foraminal bony encroachment on the left at C4-C5. Moderate neural foraminal bony encroachment on the left at C5-C6 and C6-C7. Soft tissues: Unremarkable. Mastoid air cells: Tiny bilateral mastoid effusions. Thyroid: 19 mm diameter nodule with calcification in the posterior aspect of left thyroid lobe, unchanged. Lungs: Lung apices are clear. Vasculature: Mild atherosclerosis of the proximal right ICA and proximal left ICA. IMPRESSION: Degenerative spondylosis of the cervical spine with bony spinal stenosis and bilateral neural foraminal bony encroachment as described above. Electronically signed by: Jaiden Husain On 02/03/2019 19:39:22 PM
--- NOTE | 2019-02-03 19:46 | REPVR ---
EXAM: CT Lumbar Spine Without Contrast EXAM DATE/TIME: 02/03/2019 6:41 PM CLINICAL HISTORY: 88 years old, female; Numbness; Additional info: Upper lower neuropathy bilateral TECHNIQUE: Imaging protocol: Computed tomography images of the lumbar spine without contrast. Radiation optimization: All CT scans at this facility use at least one of these dose optimization techniques: automated exposure control; mA and/or kV adjustment per patient size (includes targeted exams where dose is matched to clinical indication); or iterative reconstruction. COMPARISON: No relevant prior studies available. FINDINGS: Vertebrae: No acute fracture or subluxation is identified. Discs/Spinal canal/Neural foramina: Degenerative disc disease and facet arthrosis is present throughout the lumbar spine. There is mild spinal stenosis at L1-L2 and L4-L5. There is severe spinal stenosis at L2-L3. There is moderate spinal stenosis at L3-L4. Sacrum/coccyx: The sacroiliac joints are intact. Other bones/joints: No suspicious bone lesions. Stomach and bowel: Colonic diverticulosis without diverticulitis. Vasculature: Atherosclerosis of the abdominal aorta and iliac arteries. No aneurysm. Soft tissues: Unremarkable. IMPRESSION: 1. Degenerative spondylosis of the lumbar spine with severe spinal stenosis at L2-L3. 2. No fracture or suspicious bone lesion. Electronically signed by: Jaiden Husain On 02/03/2019 19:46:04 PM
[2019-02-03] MEDS: APIXABAN 5 MG TAB (ELIQUIS) PO SCH (20:20)
[2019-02-03 20:27] LABS: ALBUMIN 3.2 GM/DL (3.2-5.2); BILIRUBIN,TOTAL 0.4 MG/DL (0.2-1.0); CALCIUM LEVEL 8.9 MG/DL (8.8-10.2); CREATININE FOR GFR 1.3 MG/DL (0.55-1.30); DIGOXIN LEVEL 1.8 NG/ML (0.5-2.0); GLOMERULAR FILTRATION RATE 41.3 (>32); POTASSIUM SERUM 3.9 MEQ/L (3.5-5.1); TOTAL PROTEIN 6.1 GM/DL (6.4-8.2)
--- NOTE | 2019-02-03 20:44 | IPN ---
DATE: 02/03/2019 TIME: 4:41 p.m. SUBJECTIVE: The patient reports she has ongoing numbness in her hips bilaterally, which she had when she came into the hospital and it remains unchanged. No chest pain or chest discomfort. No shortness of breath at rest or with minimal activity. Occasional brief palpitations. No leg swelling. PHYSICAL EXAMINATION: Temperature 97.5, pulse 71, respiratory rate 18, blood pressure 138/68, oxygen saturation 95% on room air. Not in any respiratory or psychologic distress. Weight 70.2 kg. Jugular venous pulsations were at 3 cm. Pacemaker incision left pectoral region was well approximated and was without drainage or bleeding. No swelling or erythema. First and second heart sounds normal. No S3 or S4 or murmurs appreciated. Respiratory expansion and effort was good. No crackles or wheezes. Abdomen was soft and nontender with normal bowel sounds. No peripheral edema. Laboratory work 02/03/2019 was reviewed: Sodium 134, potassium 3.8, chloride 102, CO2 27, BUN 12, creatinine 0.82, estimated GFR greater than 60, glucose 95, calcium 8.6. ASSESSMENT AND PLAN: 1. Paroxysmal atrial fibrillation. The patient continues to have episodes of paroxysmal atrial fibrillation and intermittent periods of atrial paced rhythm and also episodes of typical appearing atrial flutter with rapid ventricular response. Flecainide at 100 mg twice a day has stopped being effective. She is currently on a loading of amiodarone. At the time of discharge, she should be decreased down to amiodarone 200 mg once daily. To help control rapid ventricular response, I have added digoxin with a chronic daily dose to be 125 mcg by mouth daily. She was given some additional IV digoxin and extra oral digoxin today. Currently she is being loaded with amiodarone 200 mg by mouth twice a day, and she received an additional amiodarone 150 mg IV today to help control rapid ventricular response. At the moment, she is atrial paced rhythm at 70 beats per minute. Eliquis will be restarted at her usual dose of 5 mg twice a day. Continue diltiazem ER 180 mg twice a day. 2. Typical atrial flutter. As per atrial fibrillation category above. I had an extensive discussion with the patient, her and her daughter who is present at the bedside today and explained the option of radiofrequency ablation of atrial fibrillation to be done at [facility] in [place]. The patient wants to think about this. Therefore, the plan for now will be to see how she responds to amiodarone and if she does not get sufficient response to amiodarone with control of atrial fibrillation/atrial flutter, then she can be considered for referral to [place] to see an material distributor for consideration of radiofrequency (RF) ablation provided this is something that she wants to go through with. 3. Systemic hypertension. Blood pressure presently controlled. Continue diltiazem ER 180 mg twice a day. 4. Hypertensive heart disease (with heart failure). Patient is presently compensated on examination and blood pressure is controlled. She was taken off of chlorthalidone earlier during this hospitalization because of hyponatremia. She was subsequently also taken off of losartan because of ongoing hyponatremia. Patient is currently compensated and will continue with diltiazem at the current dosage. 5. Abnormal ECG. Stable. 6. Hypercholesterolemia. Continue Dietary Approaches to Stop Hypertension (DASH) diet and pravastatin at the current dosage. 7. Sick sinus syndrome/tachycardia-bradycardia syndrome. Patient is now status post dual-chamber pacemaker in situ. For heart rate control, she is now on digoxin, amiodarone, and diltiazem ER. 8. Status post dual-chamber pacemaker in situ. Patient received a [employer] dual-chamber pacemaker yesterday and the pacemaker interrogation done this morning by pacemaker traveling sales representative, Son Collins, showed the pacemaker function to be satisfactory. I reviewed the patient's PA and lateral chest x-ray myself done this morning and it shows the atrial and ventricular leads to be in stable position with the helix screws extended. No pneumothorax. Pacemaker incision is currently well approximated by kiko and without drainage or swelling. The plan will be to have the patient come back to our office to have the kiko removed in about 1 week. She was instructed to keep the incision dry until 24 hours after the kiko are removed. PINKY
[2019-02-03] MEDS ORDERED: AMIODARONE 200 MG TAB (PACERONE) PO ONE (22:00)
[2019-02-04 04:00] VITALS: BP 148/70
[2019-02-04 05:40] LABS: HEMATOCRIT 41.8 % (36.0-47.0); HEMOGLOBIN 13.8 g/dl (12.0-15.5); MEAN CORPUSCULAR HEMOGLOBIN 27.5 pg (27.0-33.0); MEAN CORPUSCULAR VOLUME 83.4 fl (80.0-96.0); PLATELET COUNT, AUTOMATED 246 10^3/uL (150-450); RED BLOOD COUNT 5.01 10^6/uL (4.00-5.40); WHITE BLOOD COUNT 7.6 10^3/uL (4.0-10.0)
[2019-02-04 05:59] LABS: CALCIUM LEVEL 8.5 MG/DL (8.8-10.2); CREATININE FOR GFR 0.97 MG/DL (0.55-1.30); POTASSIUM SERUM 3.7 MEQ/L (3.5-5.1)
[2019-02-04] MEDS: SLF 3 ML SYR IV SCH ×3 (06:00→20:18)
[2019-02-04 08:00] VITALS: BP 135/62
[2019-02-04] MEDS: MULTIVITAMINS CHILDREN'S CHEWABLE TABLET PO SCH (08:54)
[2019-02-04] MEDS: AMIODARONE 200 MG TAB (PACERONE) PO SCH (08:55)
[2019-02-04] MEDS: PRAVASTATIN 20 MG TAB PO SCH (08:55)
[2019-02-04] MEDS: VITAMIN D 1,000 INTERNATIONAL UNITS TABLET PO SCH (08:55)
[2019-02-04] MEDS: ASCORBIC ACID 500 MG TAB PO SCH (08:55)
[2019-02-04] MEDS: diltiaZEM **CD** 180 MG CAP PO SCH ×2 (08:55→20:20)
[2019-02-04] MEDS: DIGOXIN 0.125 MG TAB PO SCH (08:56)
[2019-02-04] MEDS: ANALGESIC BALM CRM 120 GM TOP SCH ×2 (08:56→20:18)
[2019-02-04] MEDS: OMEPRAZOLE 20 MG CAP PO SCH (08:56)
[2019-02-04] MEDS: APIXABAN 5 MG TAB (ELIQUIS) PO SCH ×2 (08:56→20:17)
--- NOTE | 2019-02-04 09:10 | ECGEPIP ---
[facility] Test Date: 2019-02-02 Pat Name: STUART GUPTA Department: Room: N1402-78 Gender: Female Milling Supervisor: AURORA : [id number] Requested By: Alfredito Flood Order Number: [id number] Reading MD: Debi Brody Measurements Intervals [place] Rate: 73 P: 74 [place]: 235 QRS: 70 QRSD: 99 T: 56 QT: 373 QTc: 412 Interpretive Statements SINUS RHYTHM WITH FIRST DEGREE AV BLOCK POSSIBLE RIGHT VENTRICULAR CONDUCTION DELAY COMPARED TO 01/31/19 SINUS RHYTHM REPLACED ATRIAL FLUTTER Electronically Signed on 02-04-2019 9:10:44 EDT by Debi Brody
[2019-02-04 11:24] VITALS: BP 131/60
--- NOTE | 2019-02-04 14:43 | IPNPDOC ---
Subjective Date Seen The patient was seen on 02/04/19. Subjective Chief Complaint/HPI Patient seen and examined at bedside this morning. She states that her chest palpitations and lightheadedness have resolved. However, the patient endorses that she is having lower extremity stiffness and generalized achiness. Denies any complaints of back pain. She denies any complaints of numbness/tingling in genital region, urinary or fecal incontinence, or any other signs of cauda equina. Objective Physical Examination General Exam: Positive: Alert, Cooperative, Mild Distress (2/2 lower extremity discomfort) ENT Exam: Positive: Atraumatic, Mucous membr. moist/pink Neck Exam: Negative: JVD Chest Exam: Positive: Clear to auscultation, Normal air movement, Other (+pacemaker noted to be covered in a dressing) Heart Exam: Positive: Rate Normal, Normal S1, Normal S2 Abdomen Exam: Positive: Soft; Negative: Tenderness Extremity Exam: Negative: Tenderness, Swelling Neuro Exam: Positive: Strength at 5/5 X4 ext, Normal Tone, Sensation Intact Psych Exam: Positive: Mental status NL, Mood NL, Oriented x 3 Assessment /Plan Plan/VTE VTE Prophylaxis Ordered?: Yes Plan Paroxysmal A-Fib/A. Flutter, Sick Sinus Syndrome s/p dual chamber pacemaker placement on 02/02/[address] Flood Cont Amiodarone, eliquis, cardizem, digoxin as per Cardio Patient denies any more complaints of chest palpitations B/L Lower Extremity Pain/Stiffness Possibly 2/2 DDD in LS, CT Lumbar Spine notable for Severe Spinal Stenosis in L2-L3 No signs or symptoms of cauda equina (strength/sensation intact, no urinary/fecal incontinence, no saddle anesthesia) Vitamin B 12 wnl Orthopedic Surgery, Neurology Consulted Hypontremia 2/2 Dehydration, Chlorthalidone, resolved We will continue to monitor Hypertension and Hypertensive heart disease with congestive heart failure Cont current regimen GERD omeprazole 20 mg Dyslipidemia pravastatin DVT Prophylaxis on Eliquis VS, I&O, 24H, Fishbone Vital Signs/I&O Vital Signs Date Time Temp Pulse Resp B/P (MAP) Pulse Ox O2 Delivery O2 Flow Rate FiO2 02/04/19 11:24 97.0 82 18 131/60 (83) 95 I&O- Last 24 Hours up to 6 AM 02/04/19 06:00 Intake Total 580 ml Output Total 0 ml Balance 580 ml Laboratory Data 24H LABS Laboratory Tests 2 02/03/19 18:59: Anion Gap 7L, Glomerular Filtration Rate 41.3, Blood Urea Nitrogen 19#H, Creatinine 1.30#, Sodium Level 134L, Potassium Level 3.9, Chloride Level 98, Carbon Dioxide Level 29, Calcium Level 8.9, Aspartate Amino Transf (AST/SGOT) 11, Alanine Aminotransferase (ALT/SGPT) 24, Alkaline Phosphatase 104, Total Bilirubin 0.4, Total Protein 6.1L, Albumin 3.2, Albumin/Globulin Ratio 1.10, Digoxin Level 1.8 02/04/19 05:14: Anion Gap 6L, Glomerular Filtration Rate 58.0, Blood Urea Nitrogen 14, Creatinine 0.97, Sodium Level 136, Potassium Level 3.7, Chloride Level 99, Carbon Dioxide Level 31, Calcium Level 8.5L, Nucleated Red Blood Cells % (auto) 0.0, Vitamin B12 Level 930H CBC/BMP Laboratory Tests 02/03/19 18:59 Calcium Level 8.9, Aspartate Amino Transf (AST/SGOT) 11, Alanine Aminotransferase (ALT/SGPT) 24, Alkaline Phosphatase 104, Total Bilirubin 0.4, Total Protein 6.1 L, Albumin 3.2 02/04/19 05:14 Calcium Level 8.5 L, Red Blood Count 5.01, Mean Corpuscular Volume 83.4, Mean Corpuscular Hemoglobin 27.5, Mean Corpuscular Hemoglobin Concent 33.0, Red Cell Distribution Width 15.7 H ZEESHAN SAWANT MD Feb 04, 2019 14:43
--- NOTE | 2019-02-04 15:06 | REP ---
REASON: Pain. History of spinal stenosis. COMPARISON: None. There is heavy partial syndesmophyte formation seen bilaterally L2-3 through L5-S1. Air density is seen in the L3-4 through L5-S1 disc spaces secondary to vacuum phenomena from degenerative disc disease. Those disc spaces are severely narrowed and seen in conjunction with endplate sclerosis along the anterior and posterior osteophytic ridging. Vertebral body height and alignment is within normal limits. Degenerative facet joint changes are seen at every level bilaterally. There is no spondylolysis or spondylolisthesis. IMPRESSION: Advanced chronic changes as described above. Electronically Signed by Star Cuellar DO 02/04/2019 03:13 P
[2019-02-04 16:00] VITALS: BP 145/64
--- NOTE | 2019-02-04 17:40 | CR ---
DATE OF CONSULTATION: 02/04/2019 The patient was previously seen by MOSES Durbin earlier today. I discussed this with him. Patient who was admitted on 01/27/2019. She was admitted with apparently atrial fibrillation and has been treated for that in the hospital. We were asked today to evaluate her for some bilateral leg pain that starts in her hips and goes all the way down to her feet. She says she has had this for probably a week and a half or so. CT scans have been obtained, as she cannot do an MRI scan due to a pacemaker and she has evidence of degenerative spondylosis of the lumbar spine with severe stenosis at L2-3. There is degenerative spondylosis of the cervical spine with some spinal stenosis and neural foraminal narrowing at multiple levels. She is grossly neurologically intact. She has no bowel or bladder complaints. She describes mostly muscle cramping in her legs. She also describes a little bit of numbness in her left hand that has been ongoing. At this point, she may be a candidate for epidural injections. Being a Thursday, I do not think that the pain service would be able to provide that probably until Thursday. The patient and her are anxious to be discharged apparently and they told me that they were given the okay by the cardiology service. I think the most appropriate thing to do would be to have her followup in the office to see one of our PAs sometime in the next several days and then we could potentially get her started with epidural injections or potentially physical therapy.
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
[2019-02-04 20:00] VITALS: BP 146/66
[2019-02-04] MEDS: GABAPENTIN 100 MG CAP PO SCH (20:17)
[2019-02-04 23:59] VITALS: BP 133/60
[2019-02-05 04:00] VITALS: BP 158/69
[2019-02-05] MEDS: SLF 3 ML SYR IV SCH ×3 (05:04→21:39)
[2019-02-05 05:15] LABS: HEMATOCRIT 40.9 % (36.0-47.0); HEMOGLOBIN 13.5 g/dl (12.0-15.5); MEAN CORPUSCULAR HEMOGLOBIN 27.7 pg (27.0-33.0); PLATELET COUNT, AUTOMATED 214 10^3/uL (150-450); RED BLOOD COUNT 4.87 10^6/uL (4.00-5.40); WHITE BLOOD COUNT 8.2 10^3/uL (4.0-10.0)
[2019-02-05 05:36] LABS: CALCIUM LEVEL 8.9 MG/DL (8.8-10.2); CREATININE FOR GFR 0.99 MG/DL (0.55-1.30); GLOMERULAR FILTRATION RATE 56.6 (>32); POTASSIUM SERUM 3.9 MEQ/L (3.5-5.1)
[2019-02-05 08:00] VITALS: BP 148/67
[2019-02-05] MEDS: ANALGESIC BALM CRM 120 GM TOP SCH ×2 (09:00→21:39)
[2019-02-05] MEDS: GABAPENTIN 100 MG CAP PO SCH ×3 (09:02→21:37)
[2019-02-05] MEDS: diltiaZEM **CD** 180 MG CAP PO SCH ×2 (09:02→21:37)
[2019-02-05] MEDS: APIXABAN 5 MG TAB (ELIQUIS) PO SCH ×2 (09:02→21:37)
[2019-02-05] MEDS: VITAMIN D 1,000 INTERNATIONAL UNITS TABLET PO SCH (09:02)
[2019-02-05] MEDS: PRAVASTATIN 20 MG TAB PO SCH (09:03)
[2019-02-05] MEDS: ASCORBIC ACID 500 MG TAB PO SCH (09:03)
[2019-02-05] MEDS: AMIODARONE 200 MG TAB (PACERONE) PO SCH (09:03)
[2019-02-05] MEDS: MULTIVITAMINS CHILDREN'S CHEWABLE TABLET PO SCH (09:03)
[2019-02-05] MEDS: DIGOXIN 0.125 MG TAB PO SCH (09:03)
[2019-02-05] MEDS: OMEPRAZOLE 20 MG CAP PO SCH (09:03)
--- NOTE | 2019-02-05 11:29 | CR ---
DATE OF CONSULTATION: 02/04/2019 REFERRING PHYSICIAN: Dr. Shabana Bhardwaj. REASON FOR CONSULTATION: Numbness, tingling of arms and legs and neck pain. HISTORY OF PRESENT ILLNESS: Abigail Azul is an 88-year-old woman with history of atrial fibrillation and rapid ventricular response who had a pacemaker placement due to sick sinus syndrome. The patient had a pacemaker procedure this week. The patient states that she has 6/10 neck pain which started only 10 days ago. She feels tingling sensation in the fingers of left hand. She feels knots in the muscles of her legs. She describes these knots as tingling in her legs. She denies any weakness of her arms and legs. She denies any back pain. She denies any headaches, seizures, dysphagia, dysarthria, diplopia or urinary incontinence. The patient insists that she does not have diabetes, although it is written in her past medical history in electronic medical records. She states that it was checked a couple of times and she does not have it. PAST MEDICAL HISTORY: Atrial fibrillation. Sick sinus syndrome status post pacemaker placement. Chronic obstructive pulmonary disease (COPD). Hypertension. Acid reflux. Dyslipidemia. Asthma. Osteoarthritis. History of vertigo. Diabetes is listed in her past medical history but patient strongly denies having diabetes. - appendectomy - laminectomy - hysterectomy - carpal tunnel surgery on right side - section SOCIAL HISTORY: She is a former smoker. She lives with her . She denies alcohol or illicit drugs. FAMILY HISTORY: Noncontributory. REVIEW OF SYSTEMS: All systems were reviewed and found to be noncontributory except as mentioned is history of present illness. HOME MEDICATIONS: - Eliquis 5 mg by mouth twice daily - calcium with vitamin D3 - chlorthalidone 25 mg half a tablet by mouth daily - vitamin D3 - digoxin 125 mcg by mouth daily - diltiazem extended release 120 mg by mouth daily - flecainide 100 mg by mouth twice daily - Breo Ellipta one puff inhalation daily - Combivent inhaler twice daily - losartan 100 mg by mouth daily - omeprazole 20 mg by mouth daily - pravastatin 40 mg by mouth daily ALLERGIES: QUINOLONES. PHYSICAL EXAMINATION: Temperature 98.2, pulse 80, respiratory rate 16, blood pressure 145/64, 96% saturation on room air. Heart: Irregularly irregular. Lungs: Clear to auscultation. Abdomen: Soft, nontender, nondistended. No pedal edema. No musculoskeletal abnormalities. No rash. No signs of meningeal irritation. No tremor. No dysmetria. The patient is awake, alert, oriented to place, person and time. Normal speech, comprehension and repetition. Extraoral muscles are intact. No facial weakness. Tongue and uvula are midline. 5/5 strength in all upper extremities. Deep tendon reflexes 1+ in arms and knees and absent at ankles. She has decreased cold pinprick, vibration sensation in her feet. Gait is mildly unsteady and but she is able to walk on her own and using a walker as necessary. DIAGNOSTIC STUDIES: CT scan of cervical spine showed multilevel cervical disc disease and left multilevel foraminal stenosis. CT scan of lumbar spine showed multilevel degenerative disc disease with severe spinal stenosis at L2-L3 level. ASSESSMENT: 1. 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 2. Multilevel cervical disc disease and left multiple stenosis. 3. Suspected peripheral neuropathy and left carpal tunnel syndrome. 4. Suspected lumbosacral radiculopathy and left cervical radiculopathy. 5. Numbness, tingling and muscle spasms related to above. 6. Diabetes is listed under her past medical history but the patient denies having diabetes. If she does have it, even diet-controlled diabetes can contribute to peripheral neuropathy. PLAN: 1. Physical and occupational therapy. 2. Gabapentin 100 mg by mouth three times daily and slowly increase it. 3. The patient will also follow with Orthopedics and they have seen her in the hospital. They may plan to do cervical and lumbar epidural injections if needed. Her anticoagulation will be a problem towards cervical and lumbar injections. 4. EMG nerve conduction study of arms and legs as contingency plan on outpatient basis. 5. Follow with us in 2-4 weeks after hospital discharge. We can slowly increase her gabapentin on outpatient basis. From a neurology standpoint, she can be discharged home over the weekend if she is able to tolerate gabapentin.
[2019-02-05 12:00] VITALS: BP 128/58
--- NOTE | 2019-02-05 12:08 | IPNPDOC ---
Subjective Date Seen The patient was seen on 02/05/19. Subjective Chief Complaint/HPI Patient seen and examined at bedside. Reports that she is feeling better today. No acute overnight events noted. Objective Physical Examination General Exam: Positive: Alert, Cooperative, No Acute Distress ENT Exam: Positive: Atraumatic, Mucous membr. moist/pink Neck Exam: Negative: JVD Chest Exam: Positive: Clear to auscultation, Normal air movement, Other (+pacemaker noted to be covered in a dressing) Heart Exam: Positive: Rate Normal, Normal S1, Normal S2 Abdomen Exam: Positive: Soft; Negative: Tenderness Extremity Exam: Negative: Tenderness, Swelling Neuro Exam: Positive: Strength at 5/5 X4 ext, Normal Tone, Sensation Intact Psych Exam: Positive: Mental status NL, Mood NL, Oriented x 3 Assessment /Plan Plan/VTE VTE Prophylaxis Ordered?: Yes Plan Paroxysmal A-Fib/A. Flutter, Sick Sinus Syndrome s/p dual chamber pacemaker placement on 02/02/[address] Flood Cont Amiodarone, eliquis, cardizem, digoxin as per Cardio Patient denies any more complaints of chest palpitations Left upper extremity and B/L Lower Extremity Pain/Stiffness 2/[address] Lumbar Spine notable for Severe Spinal Stenosis in L2-L3 No signs or symptoms of cauda equina (strength/sensation intact, no urinary/fecal incontinence, no saddle anesthesia) Vitamin B 12 wnl Orthopedic Surgery, Neurology input appreciated-->Patient started on Gabapentin, advised to f/u with Neuro as an outpatient for EMG nerve conduction study, and with orthopedic surgery for possible cervical and lumbar epidural injections. The patient was counseled on the fact that she may need to withhold anticoagulation therapy for this. Risks, benefits, and alternative options were discussed at length with the patient she is verbalized understanding of the same. Patient states that her symptoms are better control today. Hypontremia 2/2 Dehydration, Chlorthalidone, resolved We will continue to monitor Hypertension and Hypertensive heart disease with congestive heart failure Cont current regimen GERD omeprazole 20 mg Dyslipidemia pravastatin DVT Prophylaxis on Eliquis Disposition-anticipate discharge home in the a.m. pending continued clinical improvement. VS, I&O, 24H, Fishbone Vital Signs/I&O Vital Signs Date Time Temp Pulse Resp B/P (MAP) Pulse Ox O2 Delivery O2 Flow Rate FiO2 02/05/19 09:03 71 02/05/19 09:02 148/67 02/05/19 08:00 97.4 20 96 I&O- Last 24 Hours up to 6 AM 02/05/19 06:00 Intake Total 600 ml Output Total 350 ml Balance 250 ml Laboratory Data 24H LABS Laboratory Tests 2 02/05/19 04:57: Nucleated Red Blood Cells % (auto) 0.0, Anion Gap 4L, Glomerular Filtration Rate 56.6, Blood Urea Nitrogen 16, Creatinine 0.99, Sodium Level 135L, Potassium Level 3.9, Chloride Level 100, Carbon Dioxide Level 31, Calcium Level 8.9 CBC/BMP Laboratory Tests 02/05/19 04:57 Red Blood Count 4.87, Mean Corpuscular Volume 84.0, Mean Corpuscular Hemoglobin 27.7, Mean Corpuscular Hemoglobin Concent 33.0, Red Cell Distribution Width 15.3 H, Calcium Level 8.9 ZEESHAN SAWANT MD Feb 05, 2019 12:08
[2019-02-05 16:00] VITALS: BP 108/53
[2019-02-05 20:00] VITALS: BP 144/65
[2019-02-06] VITALS: BP 92/60
[2019-02-06 04:00] VITALS: BP 110/60
[2019-02-06] MEDS: SLF 3 ML SYR IV SCH (06:19)
[2019-02-06 08:00] VITALS: BP 147/65
[2019-02-06 08:06] VITALS: BP 147/65
[2019-02-06] MEDS: diltiaZEM **CD** 180 MG CAP PO SCH (08:06)
[2019-02-06] MEDS: ASCORBIC ACID 500 MG TAB PO SCH (08:06)
[2019-02-06] MEDS: MULTIVITAMINS CHILDREN'S CHEWABLE TABLET PO SCH (08:06)
[2019-02-06] MEDS: PRAVASTATIN 20 MG TAB PO SCH (08:06)
[2019-02-06] MEDS: OMEPRAZOLE 20 MG CAP PO SCH (08:06)
[2019-02-06] MEDS: VITAMIN D 1,000 INTERNATIONAL UNITS TABLET PO SCH (08:06)
[2019-02-06] MEDS: AMIODARONE 200 MG TAB (PACERONE) PO SCH (08:06)
[2019-02-06] MEDS: ANALGESIC BALM CRM 120 GM TOP SCH (08:07)
[2019-02-06] MEDS: GABAPENTIN 100 MG CAP PO SCH (08:07)
[2019-02-06] MEDS: DIGOXIN 0.125 MG TAB PO SCH (08:07)
[2019-02-06] MEDS: APIXABAN 5 MG TAB (ELIQUIS) PO SCH (08:07)
[2019-02-06] MEDS ORDERED: CARD180C4 PO (09:44)
[2019-02-06] MEDS ORDERED: AMIO200T PO (09:44)
[2019-02-06] MEDS ORDERED: MECL12.575 PO (09:44)
[2019-02-06] MEDS ORDERED: GABA-1171 PO (09:44)
--- NOTE | 2019-02-06 11:00 | DS.PDOC ---
Discharge Summary General Date of Admission Jan 27, 2019 at 17:29 Date of Discharge 02/06/19 Specialist/Consultants Involve Dr. Rolon of Orthopedic Surgery, Dr. Flodo of Cardiology, and Dr. Elam of Neurology Discharge Summary PROCEDURES PERFORMED DURING STAY: s/p dual chamber pacemaker placement on 02/02/[address] Flood ADMITTING/DISCHARGE DIAGNOSES: Paroxysmal A-Fib/A. Flutter, Sick Sinus Syndrome Left upper extremity and B/L Lower Extremity Pain/Stiffness 2/2 Radiculopathy Hyponatremia 2/2 Dehydration, Chlorthalidon Hypertension and Hypertensive heart disease with congestive heart failure COMPLICATIONS/CHIEF COMPLAINT: Afib W/Rvr. HISTORY OF PRESENT ILLNESS: . 88-year-old female who normally follows with Dr. Gallegos regarding atrial fibrillation who initially presented to the emergency room January 25 with rapid ventricular response she states that her symptoms rapid ventricular response are always chest pressure tightness and tingling in her fingers and toes she denies ever feeling palpitations or lightheadedness. She was seen in the emergency room Dr. Gallegos was notified at that time medication changes were made she was provided with flecainide and Cardizem which are her normal medications in addition to this she was provided with digoxin and discharged home with this new digoxin medication as well. The patient continued to feel the same way prompting her to return to the emergency room. Upon her arrival she was found to be in rapid ventricular response once again she has received digoxin 0.25 of digoxin and additional 240 mg of diltiazem flecainide 100 mg in addition to her usual home medications she took at home this morning. Otherwise patient denies weight loss, hair loss, headache, visual changes, cough, nausea, vomiting, diarrhea, abdominal pain, muscle aches, worsening arthritis, change in mood. A cardiology consultation was placed, and the patient was admitted to the hospitalist service for further evaluation and management. Paroxysmal A-Fib/A. Flutter, Sick Sinus Syndrome s/p dual chamber pacemaker placement on 02/02/[address] Flood Cont Amiodarone, eliquis, cardizem, digoxin as per Cardio Patient denies any more complaints of chest palpitations F/U as outpatient Left upper extremity and B/L Lower Extremity Pain/Stiffness 2/[address] Cervical Spine notable for narrowing, and CT Lumbar Spine notable for Severe Spinal Stenosis in L2-L3 No signs or symptoms of cauda equina (strength/sensation intact, no urinary/fecal incontinence, no saddle anesthesia) Vitamin B 12 wnl Orthopedic Surgery, Neurology input appreciated-->Patient started on Gabapentin, advised to f/u with Neuro as an outpatient for EMG nerve conduction study, and with orthopedic surgery for possible cervical and lumbar epidural injections. The patient was counseled on the fact that she will need to withhold anticoagulation therapy for this. Risks, benefits, and alternative options were discussed at length with the patient she is verbalized understanding of the same. Patient states that her symptoms are better control today. Hyponatremia 2/2 Dehydration, Chlorthalidone, resolved We will continue to monitor Hypertension and Hypertensive heart disease with congestive heart failure Cont current regimen GERD omeprazole 20 mg Dyslipidemia pravastatin Discharge instructions--- follow-up with primary care physician within 7 days. Follow with cardiology as scheduled for monitoring of the pacemaker. Follow-up with neurology and orthopedic surgery within 2-4 weeks for further evaluation and management. Return to the ER for any acute emergencies. DISCHARGE MEDICATIONS: Please see below. ALLERGIES: Please see below. PHYSICAL EXAMINATION ON DISCHARGE: VITAL SIGNS: Please see below. General Exam: Positive: Alert, Cooperative, No Acute Distress ENT Exam: Positive: Atraumatic, Mucous membr. moist/pink Neck Exam: Negative: JVD Chest Exam: Positive: Clear to auscultation, Normal air movement, Other (+pacemaker noted to be covered in a dressing) Heart Exam: Positive: Rate Normal, Normal S1, Normal S2 Abdomen Exam: Positive: Soft; Negative: Tenderness Extremity Exam: Negative: Tenderness, Swelling Neuro Exam: Positive: Strength at 5/5 X4 ext, Normal Tone, Sensation Intact Psych Exam: Positive: Mental status NL, Mood NL, Oriented x 3 LABORATORY DATA: Please see below. IMAGING: Oral chest x-ray: Single view. History: Chest pain. Comparison study: January 25, 2019. Findings: EKG monitoring electrodes overlie the chest. Heart is not enlarged and is unchanged. Thoracic aorta is calcific and tortuous as before. Pulmonary vasculature is not increased. The lungs are well inflated and clear. The pleural angles are sharp. There is some mild linear fibrosis in the right base medially. Impression: No acute disease. REASON: Followup pacemaker insertion. COMPARISON: Yesterday, a portable exam. Dual-chamber bipolar pacemaker device, status quo. Cardiomediastinal silhouette stable. The heart is not enlarged. There are basilar fibrotic changes, status quo. Minimal CP angle blunting, likely reflecting chronic change. There is no change in the osseous structures. IMPRESSION: Status post pacemaker device. No acute cardiopulmonary disease. EXAM: CT Lumbar Spine Without Contrast EXAM DATE/TIME: 02/03/2019 6:41 PM CLINICAL HISTORY: 88 years old, female; Numbness; Additional info: Upper lower neuropathy bilateral TECHNIQUE: Imaging protocol: Computed tomography images of the lumbar spine without contrast. Radiation optimization: All CT scans at this facility use at least one of these dose optimization techniques: automated exposure control; mA and/or kV adjustment per patient size (includes targeted exams where dose is matched to clinical indication); or iterative reconstruction. COMPARISON: No relevant prior studies available. FINDINGS: Vertebrae: No acute fracture or subluxation is identified. Discs/Spinal canal/Neural foramina: Degenerative disc disease and facet arthrosis is present throughout the lumbar spine. There is mild spinal stenosis at L1-L2 and L4-L5. There is severe spinal stenosis at L2-L3. There is moderate spinal stenosis at L3-L4. Sacrum/coccyx: The sacroiliac joints are intact. Other bones/joints: No suspicious bone lesions. Stomach and bowel: Colonic diverticulosis without diverticulitis. Vasculature: Atherosclerosis of the abdominal aorta and iliac arteries. No aneurysm. Soft tissues: Unremarkable. IMPRESSION: 1. Degenerative spondylosis of the lumbar spine with severe spinal stenosis at L2-L3. 2. No fracture or suspicious bone lesion. EXAM: CT Cervical Spine Without Contrast EXAM DATE/TIME: 02/03/2019 6:41 PM CLINICAL HISTORY: 88 years old, female; Neck pain; Additional info: Upper extermity neuropathy bilateral TECHNIQUE: Imaging protocol: Computed tomography images of the cervical spine without contrast. Radiation optimization: All CT scans at this facility use at least one of these dose optimization techniques: automated exposure control; mA and/or kV adjustment per patient size (includes targeted exams where dose is matched to clinical indication); or iterative reconstruction. COMPARISON: CT Spine,cervical w/o contrast 05/24/2018 7:48 AM FINDINGS: Vertebrae: Minimal anterolisthesis of C2, likely degenerative. No fracture. Discs/Spinal canal/Neural foramina: Degenerative disc disease and facet arthrosis throughout the cervical spine. Mild bony spinal stenosis at C3-C4, C4-C5 and C5-C6. No severe bony spinal stenosis. Mild neural foraminal bony encroachment on the right at C2-C3, C3-C4, C4-C5 and C5-C6. Mild neural foraminal bony encroachment on the left at C3-C4. Moderate/severe neural foraminal bony encroachment on the left at C4-C5. Moderate neural foraminal bony encroachment on the left at C5-C6 and C6-C7. Soft tissues: Unremarkable. Mastoid air cells: Tiny bilateral mastoid effusions. Thyroid: 19 mm diameter nodule with calcification in the posterior aspect of left thyroid lobe, unchanged. Lungs: Lung apices are clear. Vasculature: Mild atherosclerosis of the proximal right ICA and proximal left ICA. IMPRESSION: Degenerative spondylosis of the cervical spine with bony spinal stenosis and bilateral neural foraminal bony encroachment as described above. REASON: Pain. History of spinal stenosis. COMPARISON: None. There is heavy partial syndesmophyte formation seen bilaterally L2-3 through L5-S1. Air density is seen in the L3-4 through L5-S1 disc spaces secondary to vacuum phenomena from degenerative disc disease. Those disc spaces are severely narrowed and seen in conjunction with endplate sclerosis along the anterior and posterior osteophytic ridging. Vertebral body height and alignment is within normal limits. Degenerative facet joint changes are seen at every level bilaterally. There is no spondylolysis or spondylolisthesis. IMPRESSION: Advanced chronic changes as described above. PROGNOSIS: Fair ACTIVITY: As tolerated. DIET: 2 g low sodium diet DISCHARGE PLAN: DISPOSITION: . Home DISCHARGE INSTRUCTIONS: Discharge instructions as noted above DISCHARGE CONDITION: Stable. TIME SPENT ON DISCHARGE: Greater than 30 minutes. Vital Signs/I&Os Vital Signs Date Time Temp Pulse Resp B/P (MAP) Pulse Ox O2 Delivery O2 Flow Rate FiO2 02/06/19 08:07 77 02/06/19 08:06 147/65 02/06/19 08:00 97.6 18 97 I&O- Last 24 Hours up to 6 AM 02/06/19 06:00 Intake Total 720 ml Output Total 1400 ml Balance -680 ml Discharge Medications Scheduled Amiodarone HCl (Amiodarone HCl) 200 Mg Tablet, 200 MG PO DAILY Apixaban (Eliquis) 5 Mg Tab, 5 MG PO BID, (Reported) Ascorbic Acid (Vitamin C) 500 Mg Cap, 500 MG PO DAILY, (Reported) Calcium Carbonate/Vitamin D3 (Calcium 600-Vit D3 200 Tablet) 1 Tab Tab, 1 TAB PO BID, (Reported) Cholecalciferol (Vitamin D3) (Vitamin D3) 1,000 Unit Tablet, 1,000 UNIT PO DAILY, (Reported) Digoxin (Digoxin) 125 Mcg Tablet, 125 MCG PO DAILY, (Reported) Diltiazem Hcl (Cardizem Cd) 180 Mg Cap.er.24h, 180 MG PO BID Fluticasone/Vilanterol (Breo Ellipta 100-25 Mcg INH) 1 Each Blst.w.dev, 1 PUFF INH DAILY, (Reported) Gabapentin (Gabapentin) 100 Mg Capsule, 100 MG PO TID Ipratropium/Albuterol Sulfate (Iprat-Albut 0.5-3(2.5) mg/3 ml) 1 Leonardo Leonardo, 1 LEONARDO IN BID, (Reported) Losartan Potassium (Losartan Potassium) 100 Mg Tablet, 100 MG PO DAILY, (Reported) Multivitamins (Child Chew Vitamin) 1 Tab Chew, 1 TAB PO DAILY, (Reported) Omeprazole (Omeprazole) 20 Mg Cap, 20 MG PO DAILY, (Reported) Pravastatin Sodium (Pravastatin Sodium) 40 Mg Tab, 40 MG PO DAILY, (Reported) Scheduled PRN Meclizine HCl (Meclizine HCl) 12.5 Mg Tablet, 1 TAB PO BIDP PRN for DIZZINESS Allergies Coded Allergies: Quinolones (Verified Allergy, Severe, DIFF BREATHING, SWELLING, HIVES, 01/27/19) ZEESHAN SAWANT MD Feb 06, 2019 11:00
== END 2019-02-06 11:30 | disposition home or self-care (01) | DRG 243 ==
LOC: M ED 05:46 → M ED INP 17:29 → M PCU 19:55
PROVIDERS: ADMIT Internal Medicine; ATTEND Internal Medicine
PROC: 02H63JZ Insertion of Pacemaker Lead into Right Atrium, Percutaneous Approach (ICD-10-PCS; 2019-02-02)
PROC: 02HK3JZ Insertion of Pacemaker Lead into Right Ventricle, Percutaneous Approach (ICD-10-PCS; 2019-02-02)
PROC: 0JH606Z Insertion of Pacemaker, Dual Chamber into Chest Subcutaneous Tissue and Fascia, Open Approach (ICD-10-PCS; principal; 2019-02-02 17:00)
DX: I49.5 Sick sinus syndrome (principal); E87.1 Hypo-osmolality and hyponatremia; I48.3 Typical atrial flutter; I50.32 Chronic diastolic (congestive) heart failure; I13.0 Hypertensive heart and chronic kidney disease with heart failure and stage 1 through stage 4 chronic kidney disease, or unspecified chronic kidney disease; J44.9 Chronic obstructive pulmonary disease, unspecified; I48.0 Paroxysmal atrial fibrillation; M48.061 Spinal stenosis, lumbar region without neurogenic claudication; M48.02 Spinal stenosis, cervical region; K21.9 Gastro-esophageal reflux disease without esophagitis; E86.0 Dehydration; N18.3 Chronic kidney disease, stage 3 (moderate); E78.5 Hyperlipidemia, unspecified; E11.9 Type 2 diabetes mellitus without complications; J45.909 Unspecified asthma, uncomplicated; R42 Dizziness and giddiness; Z87.891 Personal history of nicotine dependence; Z79.01 Long term (current) use of anticoagulants; Z79.899 Other long term (current) drug therapy; Z88.1 Allergy status to other antibiotic agents; M47.26 Other spondylosis with radiculopathy, lumbar region; M50.10 Cervical disc disorder with radiculopathy, unspecified cervical region

== ENCOUNTER → 2019-02-10 | Outpatient (CLI) | payer MEDICARE, BC ==
[~2019-02-10] MED LIST changes: +AMIO200T PO; -AZIT500T2 PO; +AZIT500T5 PO; +BREO1INH INH; +CARD180C4 PO; +DIGO0.123 PO; +GABA-1171 PO; +MECL12.589 PO; +OMEP1CAP73 PO; -OMEP20CA4 PO
[2019-02-10 17:55] LABS: TOTAL PROTEIN 6.4 GM/DL (6.4-8.2)
[2019-02-16 13:16] LABS: ALBUMIN 3.76 GM/DL (3.29-5.55); ALBUMIN % 58.7 % (55.8-66.1); ALPHA-1-GLOBULIN % 6.4 % (2.9-4.9); ALPHA-1-GLOBULINS 0.41 GM/DL (0.17-0.41); ALPHA-2-GLOBULINS % 14.1 % (7.1-11.8); BETA-1-GLOBULINS 0.48 GM/DL (0.28-0.60); BETA-1-GLOBULINS % 7.5 % (4.7-7.2); BETA-2-GLOBULINS 0.35 GM/DL (0.19-0.55); BETA-2-GLOBULINS % 5.5 % (3.2-6.5); GAMMA GLOBULIN % 7.8 % (11.1-18.8)
[2019-02-16 15:18] LABS: CERULOPLASMIN 30.2 mg/dL (19.0-39.0); VITAMIN B1 LEVEL WHOLE BLOOD 141.7 nmol/L (66.5-200.0); VITAMIN B6,PYRIDOXAL PHOSPHATE 7.7 ug/L (2.0-32.8); VITAMIN E(ALPHA TOCOPHEROL) 11.5 mg/L (9.0-29.0); VITAMIN E(GAMMA TOCOPHEROL) 2.1 mg/L (0.5-4.9)
== END ==
LOC: M WUC 15:47
PROVIDERS: ATTEND Psychiatry & Neurology Neurology
DX: E53.8 Deficiency of other specified B group vitamins (principal); E11.9 Type 2 diabetes mellitus without complications; E83.01 Wilson's disease

== ENCOUNTER → 2019-02-12 | Outpatient (REF) | payer MEDICARE, BC ==
[~2019-02-12] MED LIST changes: +AZIT500T2 PO; -AZIT500T5 PO; -DIGO0.123 PO; +MECL12.575 PO; -MECL12.589 PO; -OMEP1CAP73 PO; +OMEP20CA4 PO
[2019-02-18 00:06] LABS: LEAD BLOOD ADULT <1 ug/dL (0-4); MERCURY LEVEL 1.4 ug/L (0.0-14.9)
== END ==
LOC: M LAB REF 10:01
PROVIDERS: ATTEND Psychiatry & Neurology Neurology
DX: E11.9 Type 2 diabetes mellitus without complications (principal); E83.01 Wilson's disease; E51.9 Thiamine deficiency, unspecified

== ENCOUNTER → 2019-02-16 | Outpatient (CLI) | payer MEDICARE, BC ==
[~2019-02-16] MED LIST changes: -AZIT500T2 PO; +AZIT500T5 PO; +DIGO0.123 PO; -MECL12.575 PO; +MECL12.589 PO; +OMEP1CAP73 PO; -OMEP20CA4 PO
--- NOTE | 2019-02-16 14:04 | REP ---
Duplex carotid sonography: History: TIA. Findings: Antegrade flow is observed in the left vertebral artery. Right vertebral artery could not be observed. Right carotid: The right common carotid artery is unremarkable on two-dimensional scanning. There is mild mixed plaquing in the bulb and proximal ICA on the right side. Incidental note is made of bilateral thyroid nodules. Color flow and spectral Doppler interrogation are unremarkable in the right carotid. Velocity chart right carotid: PSV EDV Right CCA 83.0 cm/s Right ICA 84.0 17.0 Right ECA 76.0 Right ICA/CCA ratio normal 1.0. Impression: Less than 50% category narrowing in the right ICA. Incidental note is made of bilateral thyroid nodules. The right vertebral artery could not be seen. Left carotid: The left common carotid artery is unremarkable on two-dimensional scanning. Mixed plaquing is seen in the bulb and proximal ICA. Color flow and spectral Doppler interrogation are unremarkable on the left. Velocity chart left carotid: PSV EDV Left CCA 90.0 cm/s Left ICA 92.0 21.0 Left ECA 101.0 Left ICA/CCA ratio normal 1.0. Impression: Less than 50% category narrowing in the left ICA by Doppler velocity criteria. Incidental note is made of bilateral thyroid nodules. Electronically Signed by Norris Vasquez MD 02/16/2019 02:21 P
== END ==
LOC: M RAD 12:30
PROVIDERS: ATTEND Psychiatry & Neurology Neurology
DX: I65.23 Occlusion and stenosis of bilateral carotid arteries (principal); R20.0 Anesthesia of skin; E04.2 Nontoxic multinodular goiter

== ENCOUNTER → 2019-02-24 | Outpatient (CLI) | payer MEDICARE, BC ==
[~2019-02-24] MED LIST changes: +AZIT500T2 PO; -AZIT500T5 PO; -DIGO0.123 PO; +ISOVUE-370 76% 100ML VIAL (Q9967) As Ordered ONE; +MECL12.575 PO; -MECL12.589 PO; -OMEP1CAP73 PO; +OMEP20CA4 PO
--- NOTE | 2019-02-24 12:07 | REP ---
CT of the head without and with contrast Indication: Anesthesia of skin. Comparison: Head CT of 05/24/2018. Technique: Axial CT of the head was performed without contrast. Following the uneventful intravenous administration of 75 ml Isovue 370, axial CT of the head was performed with contrast. Findings: There is no visible soft tissue swelling or calvarial fracture. There is no evidence of acute intracranial hemorrhage or extra-axial fluid collection. There are scattered hypodensities throughout the periventricular subcortical white matter which are nonspecific but suggestive of microvascular ischemic disease, similar to prior. Note is made of intracranial vascular calcification. There is no mass effect or midline shift. The basal cisterns are patent. There is no hydrocephalus. The visualized paranasal sinuses and mastoid air cells are clear. No abnormal enhancement is identified. Impression: No acute intracranial abnormality. Similar white matter changes. No abnormal enhancement. Electronically Signed by Jordana Gonzales MD 02/24/2019 11:58 A
== END ==
LOC: M RAD 09:16
PROVIDERS: ATTEND Psychiatry & Neurology Neurology
DX: R20.0 Anesthesia of skin (principal)
CPT/HCPCS: 70470; Q9967

== ENCOUNTER → 2019-07-05 | Outpatient (REF) | payer MEDICARE, BC ==
[~2019-07-05] MED LIST changes: -AZIT500T2 PO; +AZIT500T5 PO; +DIGO0.123 PO; -ISOVUE-370 76% 100ML VIAL (Q9967) As Ordered ONE; -MECL12.575 PO; +MECL12.589 PO; +OMEP1CAP73 PO; -OMEP20CA4 PO
[2019-07-06 13:01] LABS: PERCENT SATURATION 10.3 % (13.2-45.0)
== END ==
LOC: M LAB REF 12:24
PROVIDERS: ATTEND Internal Medicine
DX: D64.9 Anemia, unspecified (principal)

== ENCOUNTER → 2019-07-21 | Outpatient (CLI) | payer MEDICARE, BC ==
--- NOTE | 2019-07-21 09:26 | REP ---
Left elbow for views : There is no fracture or dislocation. Mineralization and joint spaces are normal. There are no calcifications or foreign bodies. Impression: Negative left elbow . Electronically Signed by Harley Mercer MD 07/21/2019 09:18 A
== END ==
LOC: M WUC 08:33
PROVIDERS: ATTEND Nurse Practitioner Family
DX: M25.522 Pain in left elbow (principal); M79.632 Pain in left forearm

== ENCOUNTER → 2019-07-25 | Outpatient (REF) | payer MEDICARE, BC | LOC: M LAB REF 12:21 | PROVIDERS: ATTEND Internal Medicine | DX: M06.20 Rheumatoid bursitis, unspecified site (principal) ==

== ENCOUNTER → 2019-08-07 | Outpatient (REF) | payer MEDICARE, BC | LOC: M LAB REF 09:13 | PROVIDERS: ATTEND Physician Assistant | DX: R30.0 Dysuria (principal) ==

== ENCOUNTER → 2019-08-23 | Outpatient (REF) | payer MEDICARE, BC ==
[2019-08-23 13:56] LABS: INFLUENZA A AMPLIFICATION NEGATIVE (NEGATIVE); INFLUENZA B AMPLIFICATION NEGATIVE (NEGATIVE)
== END ==
LOC: M LAB REF 12:13
PROVIDERS: ATTEND Internal Medicine
DX: J06.9 Acute upper respiratory infection, unspecified (principal); R05 Cough

== ENCOUNTER → 2019-10-14 | Outpatient (CLI) | payer MEDICARE, BC ==
[~2019-10-14] MED LIST changes: +CALC200T3 PO; +CARD240C5 PO; +D 50CAP2 PO; +GASTROGRAFIN SOLUTION 30ML (Q9963) As Ordered ONE; +ISOVUE-370 76% 100ML VIAL As Ordered ONE; +LACT10SO3 PO; +NEUR300C PO
--- NOTE | 2019-10-14 10:13 | REP ---
CT ABDOMEN AND PELVIS WITH ORAL AND IV CONTRAST, CT ABDOMEN WITHOUT IV CONTRAST: CT abdomen and pelvis performed following the administration of oral contrast as well as intravenous contrast administration. 100 mL of Isovue 370. Pre-IV contrast images are obtained through the abdomen. Sagittal and coronal reconstruction images are performed. There are no prior studies for comparison. The visualized lung bases demonstrate interstitial fibrotic changes. Small hypodensities are scattered throughout the liver, less than 1 cm in diameter most likely representing cysts. A calcification is seen in the spleen, which is normal in size. Right adrenal gland demonstrates mild thickening. Left adrenal gland demonstrates an oval 1.8 cm nodule. This is unchanged since the prior CT of the lumbar spine 02/03/2019 and is probably benign. Pancreas is unremarkable. Multiple subcentimeter cysts are seen in the kidneys. There is a dominant cyst in the anterior lower pole of the right kidney measuring 2.6 cm in diameter. There is no evidence of nephrolithiasis or hydronephrosis. There is moderate atherosclerotic calcification of the abdominal aorta without aneurysm. There is no adenopathy. There is no free air or free fluid. There is no bowel wall thickening. There is sigmoid diverticulosis without acute diverticulitis. The patient has had a prior hysterectomy. The ovaries are normal. Urinary bladder is mildly distended and appears unremarkable. There are degenerative changes of the spine. IMPRESSION: Multiple subcentimeter cysts scattered throughout the liver and kidneys. There is a cyst in the lower pole of the right kidney 2.6 cm in diameter. Left adrenal nodule 1.8 cm in diameter is most likely benign given it size and lack of history of cancer. Sigmoid diverticulosis with no acute diverticulitis. No free air, free fluid or other acute finding. Electronically Signed by Harley Payne MD 10/14/2019 10:30 A
== END ==
LOC: M RAD 06:39
PROVIDERS: ATTEND Internal Medicine
DX: R10.9 Unspecified abdominal pain (principal)
CPT/HCPCS: 74178; Q9963; Q9967

== ENCOUNTER → 2019-10-24 | Outpatient (CLI) | payer MEDICARE, BC ==
[~2019-10-24] MED LIST changes: -GASTROGRAFIN SOLUTION 30ML (Q9963) As Ordered ONE; -ISOVUE-370 76% 100ML VIAL As Ordered ONE
== END ==
LOC: M LABSMTC 10:48
PROVIDERS: ATTEND Anesthesiology
DX: Z01.818 Encounter for other preprocedural examination (principal); Z11.59 Encounter for screening for other viral diseases
CPT/HCPCS: C9803; U0003

== ENCOUNTER 2019-10-27 09:30 | Day surgery (SDC) | payer MEDICARE, BC ==
[~2019-10-27] VITALS: Ht 152.4 cm; Wt 67.6 kg
[~2019-10-27 09:30] MED LIST changes: +NS 1,000 ML IV ONE
[2019-10-27] MEDS ORDERED: propofoL 500 MG/50 ML VIAL As Ordered ONE (10:22)
[2019-10-27] MEDS ORDERED: LIDOCAINE 2% 100MG/5ML SDV (FOR ANES.) As Ordered ONE (10:22)
[2019-10-27] MEDS ORDERED: fentaNYL 100 MCG/2 ML INJECTION (J3010) As Ordered ONE (10:22)
--- NOTE | 2019-10-27 10:43 | ROOR ---
Patient Name: Abigail Azul Procedure Date: 10/27/2019 10:14 AM Date of : 1930 Age: 89 Room: [facility] Gender: Female Note Status: Finalized Procedure: Upper GI endoscopy Indications: Occult blood in stool Providers: Alfredito GUILLORY MD Referring MD: Karena PERLA MD Requesting Provider: Medicines: Monitored Anesthesia Care Complications: No immediate complications. Procedure: Pre-Anesthesia Assessment: - The heart rate, respiratory rate, oxygen saturations, blood pressure, adequacy of pulmonary ventilation, and response to care were monitored throughout the procedure. The Endoscope was introduced through the mouth, and advanced to the second part of duodenum. The upper GI endoscopy was accomplished without difficulty. The patient tolerated the procedure well. Findings: The examined esophagus was normal. A single 8 mm semi-sessile polyp with erosion was found at the gastroesophageal junction and in the cardia. Biopsies were taken with a cold forceps for histology. To prevent bleeding after the biopsy, one hemostatic clip was successfully placed. The exam of the stomach was otherwise normal. The examined duodenum was normal. Impression: - Normal esophagus. - A single gastroesophageal junction polyp. Biopsied. Clip was placed. - The stomach is otherwise normal. - Normal examined duodenum. Recommendation: - Await pathology results. - Telephone endoscopist for pathology results in 2 weeks. - Resume Eliquis (apixaban) at prior dose tomorrow. Alfredito Guillory MD Alfredito GUILLORY MD 10/27/2019 10:43:36 AM Electronically signed by Alfredito GUILLORY MD Number of Addenda: 0 Note Initiated On: 10/27/2019 10:14 AM Estimated Blood Loss: Estimated blood loss: none.
--- NOTE | 2019-10-27 11:05 | ROOR ---
Patient Name: Abigail Azul Procedure Date: 10/27/2019 10:15 AM Date of : 1930 Age: 89 Room: [facility] Gender: Female Note Status: Finalized Procedure: Colonoscopy Indications: Heme positive stool Providers: Alfredito GUILLORY MD Referring MD: Karena PERLA MD Requesting Provider: Medicines: Monitored Anesthesia Care Complications: No immediate complications. Procedure: Pre-Anesthesia Assessment: - The heart rate, respiratory rate, oxygen saturations, blood pressure, adequacy of pulmonary ventilation, and response to care were monitored throughout the procedure. The Colonoscope was introduced through the anus and advanced to the cecum, identified by appendiceal orifice and ileocecal valve. The colonoscopy was performed without difficulty. The patient tolerated the procedure well. The quality of the bowel preparation was good. Findings: The perianal and digital rectal examinations were normal. A localized area of granular mucosa was found at the appendiceal orifice. Biopsies were taken with a cold forceps for histology. Multiple small and large-mouthed diverticula were found in the sigmoid colon. Small Internal Hemorrhoids. The exam was otherwise without abnormality on direct and retroflexion views. Impression: - Granularity inside the appendiceal orifice. Biopsied. - Diverticulosis in the sigmoid colon. - Small Internal Hemorrhoids. - The examination was otherwise normal on direct and retroflexion views. Recommendation: - Telephone endoscopist for pathology results in 2 weeks. - Resume Eliquis (apixaban) at prior dose tomorrow. - Await pathology results. - Return to referring physician as previously scheduled. Alfredito Guillory MD Alfredito GUILLORY MD 10/27/2019 11:05:02 AM Electronically signed by Alfredito GUILLORY MD Number of Addenda: 0 Note Initiated On: 10/27/2019 10:15 AM Estimated Blood Loss: Estimated blood loss: none.
[2019-10-27 11:30] VITALS: BP 139/84
== END 2019-10-27 11:43 | disposition home or self-care (01) ==
LOC: M OPP 09:30
PROVIDERS: ATTEND Internal Medicine Gastroenterology
DX: K63.89 Other specified diseases of intestine (principal); K57.30 Diverticulosis of large intestine without perforation or abscess without bleeding; K64.8 Other hemorrhoids; R19.5 Other fecal abnormalities; K31.7 Polyp of stomach and duodenum; I48.91 Unspecified atrial fibrillation; J44.9 Chronic obstructive pulmonary disease, unspecified; Z79.899 Other long term (current) drug therapy; Z88.8 Allergy status to other drugs, medicaments and biological substances; Z87.891 Personal history of nicotine dependence
CPT/HCPCS: 43239; 45380; 88305; J3010

== ENCOUNTER → 2019-11-04 | Outpatient (CLI) | payer MEDICARE, BC ==
[~2019-11-04] MED LIST changes: -NS 1,000 ML IV ONE
--- NOTE | 2019-11-04 09:33 | REP ---
CHEST X-RAY: Two views. HISTORY: Shortness of breath. COMPARISON CHEST X-RAY: February 03, 2019. FINDINGS: A bipolar pacemaker remains in place. There is linear fibrosis in the left base and some mild linear plate-like atelectasis is seen inferolaterally on the left. There is a granulomatous calcification in the left base. The thoracic aorta is tortuous and calcific. The heart is mildly enlarged. Cardiothoracic ratio 57.4%. No infiltrate is seen. There are mild degenerative changes in the thoracic spine. There is a mucosal clip metallic density in the left upper quadrant consistent with the endoscopically placed clip. IMPRESSION: No infiltrates seen. Cardiomegaly. Pacemaker. Linear fibrosis and plate-like atelectasis left base. Electronically Signed by Norris Vasquez MD 11/04/2019 04:13 P
== END ==
LOC: M WUC 08:25
PROVIDERS: ATTEND Internal Medicine
DX: R06.02 Shortness of breath (principal); I51.7 Cardiomegaly; Z95.0 Presence of cardiac pacemaker; J84.10 Pulmonary fibrosis, unspecified

== ENCOUNTER 2020-02-06 10:32 | Day surgery (SDC) | payer MEDICARE, BC ==
[~2020-02-06] VITALS: Ht 149.9 cm; Wt 67.2 kg
[~2020-02-06 10:32] MED LIST changes: -AMIO200T PO; +AMIO200T3 PO
[2020-02-06] MEDS ORDERED: NS 1,000 ML IV ONE (12:15)
[2020-02-06] MEDS ORDERED: propofoL 200 MG/20 ML VIAL As Ordered ONE ×2 (12:28→12:39)
[2020-02-06] MEDS ORDERED: LIDOCAINE 2% 100MG/5ML SDV (FOR ANES.) As Ordered ONE (12:28)
[2020-02-06 13:10] VITALS: BP 180/95
--- NOTE | 2020-02-22 11:35 | ROOR ---
Patient Name: Abigail Azul Procedure Date: 02/06/2020 8:41 AM Date of : 1930 Age: 89 Room: [facility] Gender: Female Note Status: Finalized Procedure: Colonoscopy Indications: Therapeutic procedure for known colon adenoma Providers: Alfredito GUILLORY MD Referring MD: Karena PERLA MD Requesting Provider: Medicines: Monitored Anesthesia Care Complications: No immediate complications. Procedure: Pre-Anesthesia Assessment: - The heart rate, respiratory rate, oxygen saturations, blood pressure, adequacy of pulmonary ventilation, and response to care were monitored throughout the procedure. The Colonoscope was introduced through the anus and advanced to the cecum, identified by appendiceal orifice and ileocecal valve. The colonoscopy was performed without difficulty. The patient tolerated the procedure well. The quality of the bowel preparation was good. Findings: The perianal and digital rectal examinations were normal. A 8 mm polyp was found in the appendiceal orifice. The polyp was flat. The polyp was removed with a piecemeal technique using a cold snare. Resection and retrieval were complete. Multiple small and large-mouthed diverticula were found in the sigmoid colon. There was narrowing of the colon in association with the diverticular opening. Internal hemorrhoids were found during retroflexion. The hemorrhoids were moderate. Impression: - One 8 mm polyp at the appendiceal orifice, removed piecemeal using a cold snare. Resected and retrieved. - Diverticulosis in the sigmoid colon. There was spasm/narrowing of the colon in association with the diverticular opening. - Internal hemorrhoids. - The exam was otherwise normal to the cecum. Recommendation: - Resume Eliquis (apixaban) at prior dose in 2 days. (02/08/20) - Repeat colonoscopy in 3-5 years may be considered for surveillance (depending on health status at that time). Alfredito Guillory MD Alfredito GUILLORY MD 02/06/2020 12:45:37 PM Electronically signed by Alfredito GUILLORY MD Number of Addenda: 0 Note Initiated On: 02/06/2020 8:41 AM Estimated Blood Loss: Estimated blood loss: none.
== END 2020-02-06 13:11 | disposition home or self-care (01) ==
LOC: M OPP 10:32
PROVIDERS: ATTEND Internal Medicine Gastroenterology
DX: K63.5 Polyp of colon (principal); K64.8 Other hemorrhoids; K57.30 Diverticulosis of large intestine without perforation or abscess without bleeding; J44.9 Chronic obstructive pulmonary disease, unspecified; I50.32 Chronic diastolic (congestive) heart failure; I11.0 Hypertensive heart disease with heart failure; I49.8 Other specified cardiac arrhythmias; Z79.899 Other long term (current) drug therapy; Z87.891 Personal history of nicotine dependence; Z95.5 Presence of coronary angioplasty implant and graft

== ENCOUNTER → 2020-02-08 | Outpatient (CLI) | payer MEDICARE, BC ==
[2020-02-08 11:25] LABS: CREATININE FOR GFR 1.7 MG/DL (0.55-1.30); GLOMERULAR FILTRATION RATE 30.3 (>32)
== END ==
LOC: M WUC 08:02
PROVIDERS: ATTEND Otolaryngology
DX: H90.3 Sensorineural hearing loss, bilateral (principal)

== ENCOUNTER → 2020-02-14 | Outpatient (CLI) | payer MEDICARE, BC ==
--- NOTE | 2020-02-14 10:47 | REPVR ---
PROCEDURE INFORMATION: Exam: CT Temporal Bones Without Contrast. Exam date and time: 02/14/2020 9:57 AM Age: 89 years old Clinical indication: Other: Hearing loss; Additional info: Central neuro hearing loss TECHNIQUE: Imaging protocol: Computed tomography images of the temporal bones without contrast. Radiation optimization: All CT scans at this facility use at least one of these dose optimization techniques: automated exposure control; mA and/or kV adjustment per patient size (includes targeted exams where dose is matched to clinical indication); or iterative reconstruction. COMPARISON: CT Head W/O FOLL BY WITH CONTR 02/24/2019 9:54 AM FINDINGS: Left External Ear structures: The external ear structures are well developed. The external ear is clear. The scutum and tympanic membrane are identified and are unremarkable. Left Middle Ear: The middle ear structures are unremarkable. Specifically, the middle ear cavity is well developed and aerated and the ossicles are clearly identified. The oval windows and round windows are patent. Left Inner ear: Inner ear structures are unremarkable. Specifically, the internal auditory canals are symmetric and unremarkable. The vane falciformis appears normal. The cochlea is clearly visualized and appear unremarkable. There appears to be normal development of the cochlea and the modiolus appears normal as visualized. The vestibule are semicircular canals are of normal size and configuration. There is no evidence of labyrinthitis ossificans or otospongiosis /otosclerosis. The left vestibular aqueduct is unremarkable without enlargement or flaring. Left facial nerve: The facial nerve is visualized without any abnormality seen. There is bone covering over the tympanic segment as visualized. Left Mastoids: Mastoid air cells are well developed. There is small amount of opacification in inferior mastoid air cells. Right External Ear structures: The external ear structures are well developed. The external ear is clear. The scutum and tympanic membrane are identified and are unremarkable. Right Middle Ear: The middle ear structures are unremarkable. Specifically, the middle ear cavity is well developed and aerated and the ossicles are clearly identified. The oval windows and round windows are patent. Right Inner ear: There is irregular erosive change along the posteromedial aspect of the right mastoid centered at the vestibular aqueduct and extending laterally. There is associated minimal air adjacent to the mastoid bone related to the erosion of mastoid air cell oneil. 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 Recommend MRI of brain with and without contrast with IAC protocol in further evaluation. The remaining inner ear structures are unremarkable. Specifically, the internal auditory canals are symmetric and unremarkable. The vane falciformis appears normal. The cochlea is clearly visualized and appear unremarkable. There appears to be normal development of the cochlea and the modiolus appears normal as visualized. The vestibule are semicircular canals are of normal size and configuration. There is no evidence of labyrinthitis ossificans or otospongiosis /otosclerosis. Right facial nerve: The facial nerve is visualized without any abnormality seen. There is bone covering over the tympanic segment as visualized. Right Mastoids: Mastoid air cells are well developed. There is small amount of opacification in inferior air cells. Paranasal sinuses: There is small amount of fluid in left sphenoid sinus. There is a small left maxillary sinus retention cyst or polyp. IMPRESSION: 1. 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 Recommend MRI brain with and without contrast with IAC protocol. 2. Other findings as described. Electronically signed by: Jennifer Cruz On 02/14/2020 10:46:46 AM
== END ==
LOC: M RAD 09:46
PROVIDERS: ATTEND Otolaryngology
DX: H91.21 Sudden idiopathic hearing loss, right ear (principal); H75.81 Other specified disorders of right middle ear and mastoid in diseases classified elsewhere

== ENCOUNTER → 2020-05-02 | Outpatient (CLI) | payer MEDICARE, BC ==
--- NOTE | 2020-05-02 16:41 | REP ---
INDICATION: CONTUSION OF RIGHT FRONT WALL OF THORAX. COMPARISON: Chest 11/04/2019. TECHNIQUE: Four views of the right ribs are performed. A PA view of the chest is performed. FINDINGS: No fracture or bone lesion is visualized of the right ribs. There is no infiltrate, pneumothorax or pleural effusion. There is mild calcification and tortuosity of the thoracic aorta. There is mild cardiomegaly. There is left 2 lead pacemaker. IMPRESSION: No evidence of right rib fracture. <Electronically signed by Harley Payne > 05/02/20 [id number]
== END ==
LOC: M WUC 08:27
PROVIDERS: ATTEND Physician Assistant
DX: S20.211A Contusion of right front wall of thorax, initial encounter (principal); X58.XXXA Exposure to other specified factors, initial encounter; Y92.9 Unspecified place or not applicable

== ENCOUNTER → 2020-07-12 | Outpatient (CLI) | payer MEDICARE, BC ==
[~2020-07-12] MED LIST changes: -MECL12.589 PO; +MECL12.590 PO
[2020-07-12 10:23] LABS: ALBUMIN 3.6 GM/DL (3.2-5.2); BILIRUBIN,TOTAL 0.4 MG/DL (0.2-1.0); CREATININE FOR GFR 1.52 MG/DL (0.55-1.30); GLOMERULAR FILTRATION RATE 34.4 (>32); POTASSIUM SERUM 4.5 MEQ/L (3.5-5.1); THYROID STIMULATING HORMONE 1.62 uIU/ML (0.358-3.740)
== END ==
LOC: M WUC 08:03
PROVIDERS: ATTEND Internal Medicine Cardiovascular Disease
DX: I48.0 Paroxysmal atrial fibrillation (principal); I50.32 Chronic diastolic (congestive) heart failure

== ENCOUNTER → 2020-08-02 | Outpatient (CLI) | payer MEDICARE, BC ==
[~2020-08-02] MED LIST changes: +ALBU83IN INH; +CALC-211 PO; +CEPH500T PO; +FERR324T2 PO; +IPRA2IN INH; -LISI-538 PO; +LISI20TA33 PO; +VITMTA PO
--- NOTE | 2020-08-02 12:07 | REP ---
INDICATION: PAIN IN LEFT LEG WITH SWELLING. COMPARISON: Comparison study September 10, 2015.. TECHNIQUE: Duplex venous scanning is performed the left lower extremity. FINDINGS: The deep veins are anechoic and fully compressible from the groin to the popliteal fossa in the left lower extremity. Color flow imaging is homogeneous. Spectral Doppler interrogation demonstrates intact respiratory variation in flow and normal manual augmentation of flow. There is no evidence of deep vein thrombosis. There is an avascular, cystic area noted in the left medial mid thigh measuring 3.5 x 3.2 x 2.1 cm. IMPRESSION: Negative left lower extremity duplex venous ultrasound. No evidence of deep vein thrombosis. 3.5 x 3.2 x 2.1 cm cyst seen in the left medial mid thigh. Uncertain etiology.. <Electronically signed by Osvaldo Vasquez > 08/02/20 [id number]
== END ==
LOC: M RAD 11:26
PROVIDERS: ATTEND Physician Assistant
DX: M79.605 Pain in left leg (principal)

== ENCOUNTER 2020-08-07 14:49 | Inpatient (IN) | payer MEDICARE, BC ==
[~2020-08-07] VITALS: Ht 149.9 cm; Wt 69.5 kg
[~2020-08-07 14:49] MED LIST changes: -ALBU83IN INH; -CALC-211 PO; -CEPH500T PO; -FERR324T2 PO; -IPRA2IN INH; -VITMTA PO
--- OUTSIDE RECORDS SUMMARY | 2020-08-07 14:58 | CCD | Continuity of Care Document ---
Author Organization Unknown Address Unknown Phone Unavailable Care Team Providers Care Log Buncher Name Role Phone Tricia Rolon MD AUTM [phone] Phil Gonzalez JR, MD AUTM Karena Valdez MD AUTM [phone] Juan Jose Ashford MD AUTM [phone] Mary Elam MD AUTM [phone] Alfredito Guillory MD AUTM [phone] Problems Active Problems Provider Date Atrial fibrillation Gil Gallegos MD Onset: 05/26/2011 Precordial pain Gil Gallegos MD Onset: 05/26/2011 Dyspnea Gil Gallegos MD Onset: 05/26/2011 Benign hypertensive heart disease without congestive h eart failure Gil Gallegos MD Onset: 05/26/2011 Heart murmur Gil Gallegos MD Onset: 05/26/2011 Chronic obstructive lung disease Gil Gallegos MD Onset: 05/26/2011 Chest pain Gil Gallegos MD Onset: 07/03/2011 Chest pain Gil Gallegos MD Onset: 08/18/2011 Electrocardiogram abnormal Gil Gallegos MD Onset: 2011 Pure hypercholesterolemia Gil Gallegos MD Onset: 013 Paroxysmal atrial fibrillation Gil Gallegos MD Onset: Edema Gil Gallegos MD Onset: 08/19/2017 Dizziness and giddiness Holter/Event/Telemetry Onset: 2017 Atrioventricular block Holter/Event/Telemetry Onset: 018 Chronic diastolic heart failure Gil Gallegos MD Onset: 0 09/08/2017 Benign hypertensive heart disease with congestive card iac failure Gil Gallegos MD Onset: 09/08/2017 First degree atrioventricular block Gil Gallegos MD Onse t: 01/04/2018 Diplopia Gil Gallegos MD Onset: 01/04/2018 Cardiac pacemaker in situ [employer] Onset: 2018 Sinus node dysfunction Gil Gallegos MD Onset: 02/17/2019 Social History Type Date Description Comments Sex Unknown ETOH Use Does not consume alcohol Tobacco Use Start: Unknown End: Unknown Patient is a former smoker 30 yrs. 1ppd quit in 1987 Smoking Status Reviewed: 02/10/19 Patient is a former smoker 30 yrs. 1ppd quit in 1987 Exercise Type/Frequency Does housework daily Exercise Type/Frequency Stationary Bike 20 minut es three times per day Exercise Limitations None Allergies, Adverse Reactions, Alerts Active Allergies Reaction Severity Comments Date Avelox swelling, SOB, hives 013 Inactive Allergies NKDA 10/30/2009 Medications Active Medications SIG Qnty Indications Ordering Provide r Date Ferrous Sulfate 324mg Tablets DR 1 po twice a day Unknown 11/24/2019 Amiodarone HCL 200mg Tablets 1 by mouth every day 90tabs Gil Gallegos MD 04/03/2019 Gabapentin 300mg Capsules 1 by mouth twice a day Unknown 03/31/2019 Diltiazem HCL ER Coated Beads 240mg Caps ER 24HR Take 1 Capsule Daily 90caps R42 Gil Gallegos MD 0 03/02/2019 Losartan Potassium 100mg Tablets Take 1 Tablet Nightly AT Bedtime 90tabs R42 Gil Gallegos MD 0 03/02/2019 Breo Ellipta 100-25mcg/Inh Aerosol 1 inhalation daily Clark Bravo DO 01/03/2018 Levalbuterol HCL 1.25mg/3ML Nebuli zer As directed Unknown 08/04/2017 Citracal Petites/Vitamin D [id number] Tablets 2 by mouth daily Unknown 06/17/2017 Vitamin C 1000mg Tablets 1 by mouth every day Unknown 06/17/2017 Eliquis 5mg Tablets Take 1 Tablet Twice A Day 180tabs Gil Gallegos MD 12/17/2014 Pravastatin Sodium 40mg Tablets 1 po qd Erica Stephens DO 12/27/2012 Duoneb 0.5-2.5(3)mg/3ML Solution 1 four times a day Gil Gallegos MD 08/18/2011 Multi-Vitamin Tablets daily Erica Stephens DO 10/30/2009 Immunizations Description No Information Available Vital Signs Date Vital Result Comment 11/25/2019 12:49pm Weight 149.00 lb Home Weight 149lb Height 61 inches 5'1" BMI (Body Mass Index) 28.2 kg/m2 Heart Rate 74 /min regular Respiratory Rate 16 /min BP Systolic Sitting 118 mmHg Medium cuff, Ra BP Diastolic Sitting 56 mmHg Medium cuff, Ra BP Systolic Lying Down 124 mmHg BP Diastolic Lying Down 64 mmHg O2 % BldC Oximetry 96 % On Room Air 07/05/2019 11:45am Weight 157.00 lb Home Weight 155lb Height 61 inches 5'1" BMI (Body Mass Index) 29.7 kg/m2 Heart Rate 74 /min regular Respiratory Rate 18 /min BP Systolic Sitting 126 mmHg Medium cuff, Ra BP Diastolic Sitting 58 mmHg Medium cuff, Ra BP Systolic Lying Down 130 mmHg BP Diastolic Lying Down 50 mmHg Results Test Acquired Date Facility Test Result H/L Range Note Complete Blood Count 06/14/2020 N2N/[facility] Impo rt WBC 6.2 x10*3/UL 4.1-10.9 RBC 4.68 x10*6/UL 4.20-6.30 Hemoglobin 12.2 g/dL 12.0-18.0 Hematocrit 36.7 % Low 37.0-51.0 MCV 78.3 fL Low 80.0-97.0 MCH 26.1 pg 26.0-32.0 MCHC 33.3 g/dL 31.0-38.0 RDW 15.2 % High 11.6-13.7 PLT 276 x10*3/UL 140-440 MPV 8.1 FL 7.8-11.0 Lymph % 12.4 % 10.0-58.5 Mid % 3.7 % 1.7-9.3 Neut % 83.9 % 37.0-92.0 Lymph # 0.7 x10*3/UL 0.6-4.1 Mid # 0.3 x10*3/UL 0.1-0.6 Neut # 5.2 x10*3/UL 2.0-7.8 Complete Blood Count 01/02/2020 N2N/[facility] Impo rt WBC 7.1 x10*3/UL 4.1-10.9 RBC 5.02 x10*6/UL 4.20-6.30 Hemoglobin 12.8 g/dL 12.0-18.0 Hematocrit 38.8 % 37.0-51.0 MCV 77.2 fL Low 80.0-97.0 MCH 25.5 pg Low 26.0-32.0 MCHC 33.0 g/dL 31.0-38.0 RDW 17.0 % High 11.6-13.7 PLT 277 x10*3/UL 140-440 MPV 8.0 FL 7.8-11.0 Lymph % 9.5 % Low 10.0-58.5 Mid % 2.0 % 1.7-9.3 Neut % 88.5 % 37.0-92.0 Lymph # 0.6 x10*3/UL 0.6-4.1 Mid # 0.2 x10*3/UL 0.1-0.6 Neut # 6.3 x10*3/UL 2.0-7.8 Lab Results 01/02/2020 N2N/Direct CCD Impor t Magnesium 2.1 mg/dL 1.8-2.4 Glucose 80 mg/dL 74-99 1 BUN 24 mg/dL High 7-18 Creatinine 1.8 mg/dL High 0.6-1.3 Sodium 141 mEq/L 136-145 Potassium 4.3 mEq/L 3.5-5.1 Chloride 102 mEq/L 98-107 Carbon Dioxide 28 mEq/L 21-32 Calcium 9.3 mg/dL 8.5-10.1 GFR 27 mL/min Low GFR 32 mL/min Low 2 Thyroid Stimulating Hormone 1.85 uIU/mL 0.36-3.74 1 100-125 mg/dL PRE-DIABET ES/FASTING >126 mg/dL DIABETES/FASTING 2 CHRONIC KIDNEY DISEASE STAGI NG PER NKF STAGE I & II GFR >= 60 NORMAL TO MILDLY DECREASED STAGE III GFR 30-59 MODERATELY DECREASED STAGE IV GFR 15-29 SEVERELY DECREASED STAGE V GFR <15 VERY LITTLE GFR LEFT ESRD GFR <15 ON MINE ENGINEER Procedures Date Code Description Status 05/31/2020 55126 Remote Pacemaker/Cardio-Defibril lator Data Acquistion Completed 05/31/2020 86044 Remote Interrogation Device Eval Pacemaker System Up To 90 Days Completed 03/01/2020 92089 Pacer Interrogation Any Leads Co mpleted Medical Devices Description No Information Available Encounters Description No Information Available Assessments Date Code Description Provider 05/31/2020 Z95.0 Presence of cardiac pacemaker Pa cer[facility] 03/01/2020 I49.5 Sick sinus syndrome Babs harper PA-C Plan of Treatment Future Appointment(s):* 08/30/2020 7:00 am - Pacer/[facility] at Main Office * 07/11/2020 9:00 am - Gil Gallegos MD at Main Office * 03/04/2021 9:30 am - Babs Longo PA-C at Main Office 11/25/2019 - Gil Gallegos MD* I48.0 Paroxysmal atrial fibrillation* Recommendations:* No change has been made to her current amiodarone, Cardizem CD, and Eliquis. Have encouraged continued minimizing intake of caffeinated beverages, alcohol, nicotine, [id number] decongestants etc. Remains on iron replacement therapy. Requested she contact us should she have any more obvious bleeding. * I49.5 Sick sinus syndrome* Recommendations:* No program changes were necessary today. Continues with remote monitoring every 3 months and office checks every 6 months. * I50.32 Chronic diastolic (congestive) heart failure * R94.31 Abnormal electrocardiogram [ECG] [EKG] * I11.0 Hypertensive heart disease with heart failure * R01.0 Benign and innocent cardiac murmurs * All * Comments:* I will ensure that the aforementioned test findings are reported to you along with any further recommendations. Thank you for allowing me to participate in the care of your patient. Best regards. * Follow up:* We will have a remote pacer check in 3 months with a clinic visit, EKG and office pacer check in 6 months. We would be pleased to reassess the patient at any time. Functional Status Functional Condition Comment Date Status Independent with all ADL's Activ e Mental Status Description No Information Available Referrals Description No Information Available
--- OUTSIDE RECORDS SUMMARY | 2020-08-07 14:58 | CCD | Continuity of Care Document ---
Author Organization Unknown Address Unknown Phone Unavailable Care Team Providers Care Correspondence Transcriber Name Role Phone Tricia Rolon MD AUTM [phone] Phil Gonzalez JR, MD AUTM Karena Valdez MD AUTM [phone] Juan Jose Ashford MD AUTM [phone] Mary Elam MD AUTM [phone] Alfredito Guillory MD AUTM [phone] Problems Active Problems Provider Date Atrial fibrillation [...] As directed Unknown 08/04/2017 Citracal Petites/Vitamin D [id number] Tablets 2 by mouth daily Unknown 06/17/2017 [...] LITTLE GFR LEFT ESRD GFR <15 ON ELECTRONIC SEMICONDUCTOR PROCESSOR Procedures Date Code Description Status 05/31/2020 22084 Remote Pacemaker/Cardio-Defibril lator Data Acquistion Completed 05/31/2020 30545 Remote Interrogation Device Eval Pacemaker System Up To 90 Days Completed 03/01/2020 29280 Pacer Interrogation Any Leads Co mpleted Medical [...] Longo PA-C at Main Office 11/25/2019 - Gli Gallegos MD* I48.0 Paroxysmal atrial fibrillation* Recommendations:* No change has been made to her current amiodarone, Cardizem CD, and Eliquis. Have encouraged continued minimizing intake of caffeinated beverages, alcohol, nicotine, [id number]-dzz-[id number] decongestants etc. Remains on iron replacement therapy. [...]
--- OUTSIDE RECORDS SUMMARY | 2020-08-07 14:59 | CCD | Continuity of Care Document ---
Author Author Lab ScheduleAbigail Organization Unknown Address [address] [place] [id number] Phone Unavailable Care Team Providers Care Cash Surrender Calculator Name Role Phone Gil Gallegos MD AUTM Unavailable Karena Valdez MD AUTM [phone] Problems Active Problems Provider Date Allergic asthma without status asthmaticus Charisma morris D.O. Onset: 02/27/2011 Essential hypertension Charisma Isaac D.O. Onset: Pure hypercholesterolemia Charisma Isaac D.O. Onset: 02/27/2011 Type 2 diabetes mellitus Charisma Isaac D.O. Onset: 0 02/27/2011 Paroxysmal atrial fibrillation Charisma Isaac D.O. On set: 09/16/2016 Hypertensive chronic kidney disease with stage 1 through stage 4 chronic kidney disease, or unspecified chronic kidney disease Charisma Isaac D.O. Onset: 09/16/2016 Chronic kidney disease stage 3 Charisma Isaac D.O. On set: 09/16/2016 Prediabetes Charisma Isaac D.O. Onset: 2016 Neck pain Charisma Isaac D.O. Onset: 2016 Non-toxic multinodular goiter Charisma Isaac D.O. Ons et: 09/16/2016 Spinal stenosis of lumbar region Karena Valdez M.D. Ons et: 06/07/2019 Osteopenia Karena Valdez M.D. Onset: 9 Iron deficiency anemia Karena Valdez M.D. Onset: 2019 Social History Type Date Description Comments Sex Unknown ETOH Use Rarely consumes wine Tobacco Use Start: Unknown End: Unknown Patient is a former smoker FORMER 1 [employer] FOR 30 YEARS; quit @ 57 Allergies, Adverse Reactions, Alerts Active Allergies Reaction Severity Comments Date Avelox Anaphylaxis, DIFFICULTY BREATHING Severe 09/27/2010 Inactive Allergies NKDA 05/23/2010 Medications Active Medications SIG Qnty Indications Ordering Provide r Date Loratadine 10mg Tablets 1 by mouth every day Karena Valdez M.D. 10/07/19 20 Ferrous Sulfate 324(65Fe) mg Table ts DR 1 by mouth every other day 90tabs Karena Valdez M.D. 10/05/2019 Senna 8.6mg Capsules 1-2 by mouth every night at bedtime prn Karena Valdez M.D. Gabapentin 300mg Capsules 1 by mouth bid Karena Valdez M.D. 07/06/2019 Amiodarone HCL 200mg Tablets 1 by mouth every day Karena Valdez M.D. 07/06/19 20 Meclizine HCL 12.5mg Tablets 1 twice a day PO Karena Valdez M.D. 02/07/20 19 Diltiazem HCL ER Coated Beads 180mg Caps ER 24HR 1 bid PO Unknown 02/06/2019 Saline Nasal [place] 0.65% Solution 3-4x/d as directed 1unpayton Valdez M.D. 05/20/20 18 Breo Ellipta 100-25mcg/Inh Aerosol Use 1 Inhalation Orally Daily 180units Jose Enrique Fountain 02/11/2018 Vitamin D-3 5000Unit Tablets one every day by mouth Karena Valdez M.D. 10/23/19 18 Losartan Potassium 100mg Tablets 1/2 bid PO 90tabs Karena Valdez M.D. 08/11/19 [address] take 1 capsule daily 90caps Karena Valdez M.D. 08/04/19 18 Multivitamin Adult Tablets 1 by mouth every day Karena Valdez M.D. 08/04/19 18 Vitamin C 500mg Tablets 1 by mouth every day prn Karena Valdez M.D. 10/22/19 17 Calcium Citrate +D [id number] Tablets 1 po 2x/d 30tabs Karena Valdez M.D. 09/17/19 17 Nebulizer Kit/Tubing/Mouthpiece K it for use with nebulizer 3unDiana OrdonezOSara Eliquis 5mg Tablets Take 1 Tablet Twice A Day 180tabs Phil Gonzalez MD 08/24/2014 Albuterol Sulfate (2 .5mg/3ML) 0.083% Nebulizer 1 vial via nebulizer four times a day DX:J44.9 525unpayton Valdez M.D. 11/17/2012 Ipratropium [place] 0.02% Solution Inhale The Contents Of 1 Vial Via Nebulizer Twice Daily 150units Karena Valdez M.D. 08/31/2012 Pravastatin Sodium 40mg Tablets Take 1 Tablet Daily 90tabs Karena Valdez M.D. 05/29/20 11 Nebulizer Misc use as direct ed 1unDiana OrdonezOSara 07/23/2010 Lactulose 10GM/15ML Solution 10ml once three times a day Karena Valdez M.D. 00/ Medications Administered in Office Medication SIG Qnty Indications Ordering Provider Date Administration Of Flu Vaccine Inj ection Taina Rae, JOSH 03/21/2019 Administration Of Flu Vaccine Inj ection Melba Rodriguez,HOMAR 03/18/2017 Administration Of Flu Vaccine Inj ection Radha Chacon.OSara 04/17 Administration Of Flu Vaccine Inj ection Diana ChaconOSara 03/22 Administration Of Flu Vaccine Inj ection Radha Chacon.O. 04/04 Administration Of Flu Vaccine Inj ection Radha Chacon.OSara 03/22 Administration Of Flu Vaccine Inj ection Radha Chacon.O. 03/13 Immunizations CPT Code Status Date Vaccine Lot # U-Flu Given 02/25/2020 Influenza,Unspecified [id number] Given 03/21/2019 Influenza Vaccin e Quadrivalent Preser/Antibiotic Free Im Use [id number] 70811 Given 12/01/2018 Shingrix U-Flu Given 04/06/2018 Influenza,Unspecified 70156 Given 03/18/2017 Influenza Vaccin e Quadrivalent Preser/Antibiotic Free Im Use [id number] Given 12/23/2016 Adacel- Tetanus Diphtheria P ertussis (Age64 & Under) [id number] Q2037 Given 04/17/2015 Fluvirin Virus Vaccine [id number] 01 84715 Given 08/24/2014 Prevnar 13 [id number] Q2037 Given 03/22/2012 Fluvirin Virus Vaccine Q2037 Given 04/04/2011 Fluvirin Virus Vaccine 33405 Given 03/22/2009 Influenza Virus Vaccine 81984 Given 03/13/2008 Influenza Virus Vaccine Vital Signs Date Vital Result Comment 06/19/2020 9:08am BP Systolic 136 mmHg RT Arm BP Diastolic 74 mmHg RT Arm Heart Rate 84 /min Height 61 inches 5'1" Weight 153.00 lb O2 % BldC Oximetry 96 % RM Air BMI (Body Mass Index) 28.9 kg/m2 03/14/2020 9:06am BP Systolic 162 mmHg RT Arm BP Diastolic 78 mmHg RT Arm BP Systolic Recheck 160 mmHg BP Diastolic Recheck 70 mmHg Heart Rate 88 /min Height 61 inches 5'1" Weight 150.25 lb O2 Saturation Level with Exercise 90 % RM Air BMI (Body Mass Index) 28.4 kg/m2 Results Test Acquired Date Facility Test Result H/L Range Note Complete Blood Count 06/14/2020 [facility] Lining Machine Operator: Dr Phil Gonzlaez [place], [place] [id number] [phone] WBC 6.2 x10*3/UL 4.1 - 10.9 RBC 4.68 x10*6/UL 4.20 - 6.30 Hemoglobin 12.2 g/dL 12.0 - 18.0 Hematocrit 36.7 % Low 37.0 - 51.0 MCV 78.3 fL Low 80.0 - 97.0 MCH 26.1 pg 26.0 - 32.0 MCHC 33.3 g/dL 31.0 - 38.0 RDW 15.2 % High 11.6 - 13.7 PLT 276 x10*3/UL 140 - 440 MPV 8.1 FL 7.8 - 11.0 Lymph % 12.4 % 10.0 - 58.5 Mid % 3.7 % 1.7 - 9.3 Neut % 83.9 % 37.0 - 92.0 Lymph # 0.7 x10*3/UL 0.6 - 4.1 Mid # 0.3 x10*3/UL 0.1 - 0.6 Neut # 5.2 x10*3/UL 2.0 - 7.8 Basic Metabolic Panel 06/14/2020 [facility] Lining Machine Operator: [place] [address] [phone] Glucose 74 mg/dL 74 - 99 1 BUN 22 mg/dL High 7 - 18 Creatinine 1.5 mg/dL High 0.6 - 1.3 Sodium 140 mEq/L 136 - 145 Potassium 4.4 mEq/L 3.5 - 5.1 Chloride 102 mEq/L 98 - 107 Carbon Dioxide 31 mEq/L 21 - 32 Calcium 9.1 mg/dL 8.5 - 10.1 GFR 33 mL/min Low >60 GFR 40 mL/min Low >60 2 Complete Blood Count 03/14/2020 [facility] Lining Machine Operator: [place] [address] [phone] WBC 6.5 x10*3/UL 4.1 - 10.9 RBC 4.86 x10*6/UL 4.20 - 6.30 Hemoglobin 12.7 g/dL 12.0 - 18.0 Hematocrit 37.8 % 37.0 - 51.0 MCV 77.9 fL Low 80.0 - 97.0 MCH 26.2 pg 26.0 - 32.0 MCHC 33.7 g/dL 31.0 - 38.0 RDW 15.1 % High 11.6 - 13.7 PLT 281 x10*3/UL 140 - 440 MPV 8.1 FL 7.8 - 11.0 Lymph % 11.6 % 10.0 - 58.5 Mid % 2.7 % 1.7 - 9.3 Neut % 85.7 % 37.0 - 92.0 Lymph # 0.7 x10*3/UL 0.6 - 4.1 Mid # 0.3 x10*3/UL 0.1 - 0.6 Neut # 5.5 x10*3/UL 2.0 - 7.8 Laboratory test finding 03/14/2020 [facility], Lining Machine Operator: Dr Phil Gonzalez [place], [place] [id number] [phone] Creatine Kinase(CK) 118 U/L 26 - 192 A1c 03/14/2020 [facility]: Dr Phil Gonzalez [place], [place] [id number] [phone] Hba1c 5.8 % High <5.7 3 Est Avg Glucose 120 mg/dL High 60 - 110 Laboratory test finding 03/14/2020 [facility] Lining Machine Operator: Dr Phil Gonzalez [place] [id number] [phone] Magnesium 2.1 mg/dL 1.8 - 2.4 Comprehensive Chem Profile 03/14/2020 [facility] Lining Machine Operator: Dr Phil Gonzalez [place], [place] [id number] [phone] Glucose 98 mg/dL 74 - 99 4 BUN 21 mg/dL High 7 - 18 Creatinine 1.6 mg/dL High 0.6 - 1.3 Sodium 134 mEq/L Low 136 - 145 Potassium 4.4 mEq/L 3.5 - 5.1 Chloride 97 mEq/L Low 98 - 107 Carbon Dioxide 30 mEq/L 21 - 32 Calcium 9.2 mg/dL 8.5 - 10.1 Alk. Phosphatase 109 mg/dL 46 - 116 Total Bilirubin 0.5 mg/dL 0.2 - 1.0 Ast (Sgot) 25 U/L 15 - 37 Alt (SGPT) 40 U/L 12 - 78 Albumin 3.8 g/dL 3.4 - 5.0 Total Protein 7.2 g/dL 6.4 - 8.2 A/G Ratio 1.12 CALC 1.00 - 1.90 GFR 30 mL/min Low >60 GFR 37 mL/min Low >60 5 Lipid Profile 03/14/2020 [facility] , Lining Machine Operator: Dr [place] [id number] [phone] Cholesterol 213 mg/dL High 131 - 200 Triglycerides 101 mg/dL 30 - 150 HDL Cholesterol 105 mg/dL High 35 - 60 LDL (Calculated) 88 CALC 50 - 159 Ua Dipstick Only 03/14/2020 [facility] , Lining Machine Operator: [place] [address] [phone] Urine Color YELLOW Yellow Urine Appearance CLEAR Clear Urine PH 6.5 units 5.0 - 9.0 Urine Specific [place] 1.010 1.005 - 1.030 Urine Leukocytes MODERATE Abnormal Negative Urine Blood NEGATIVE Negative Urine Protein NEGATIVE Negative -Trace Urine Glucose NEGATIVE mg/dL Negative Urine Nitrite NEGATIVE Negative Urine Ketone NEGATIVE mg/dL Negative Urine Bilirubin NEGATIVE Negative Urine Urobilinogen 0.2 mg/dL 0.2 - 1.0 Microalbumin/Creatinine Urine 03/14/2020 [facility], Lining Machine Operator: Dr Phil Gonzalez [place] [id number] [phone] Microalbumin Urine 7.5 mg/L 1.3 - 20.0 Urine Creatinine 103.0 mg/dL 30.0 - 125.0 Microalb/Creat Ratio 7.3 ug/mg 0.0 - 30.0 Laboratory test finding 03/14/2020 [facility], Lining Machine Operator: Dr Phil Gonzalez [place] [id number] [phone] Thyroid Stimulating Hormone 1.07 uIU/mL 0.3 6 - 3.74 Complete Blood Count 01/02/2020 [facility] Lining Machine Operator: [place] [address] [phone] WBC 7.1 x10*3/UL 4.1 - 10.9 RBC 5.02 x10*6/UL 4.20 - 6.30 Hemoglobin 12.8 g/dL 12.0 - 18.0 Hematocrit 38.8 % 37.0 - 51.0 MCV 77.2 fL Low 80.0 - 97.0 MCH 25.5 pg Low 26.0 - 32.0 MCHC 33.0 g/dL 31.0 - 38.0 RDW 17.0 % High 11.6 - 13.7 PLT 277 x10*3/UL 140 - 440 MPV 8.0 FL 7.8 - 11.0 Lymph % 9.5 % Low 10.0 - 58.5 Mid % 2.0 % 1.7 - 9.3 Neut % 88.5 % 37.0 - 92.0 Lymph # 0.6 x10*3/UL 0.6 - 4.1 Mid # 0.2 x10*3/UL 0.1 - 0.6 Neut # 6.3 x10*3/UL 2.0 - 7.8 Laboratory test finding 01/02/2020 [facility], Lining Machine Operator: [place] [address] [phone] Magnesium 2.1 mg/dL 1.8 - 2.4 Basic Metabolic Panel 01/02/2020 [facility] Lining Machine Operator: [place] [address] [phone] Glucose 80 mg/dL 74 - 99 6 BUN 24 mg/dL High 7 - 18 Creatinine 1.8 mg/dL High 0.6 - 1.3 Sodium 141 mEq/L 136 - 145 Potassium 4.3 mEq/L 3.5 - 5.1 Chloride 102 mEq/L 98 - 107 Carbon Dioxide 28 mEq/L 21 - 32 Calcium 9.3 mg/dL 8.5 - 10.1 GFR 27 mL/min Low >60 GFR 32 mL/min Low >60 7 Laboratory test finding 01/02/2020 [facility], Lining Machine Operator: [place] [address] [phone] Thyroid Stimulating Hormone 1.85 uIU/mL 0.3 6 - 3.74 1 100-125 mg/dL PRE-DIABET ES/FASTING >126 mg/dL DIABETES/FASTING 2 CHRONIC KIDNEY DISEASE STAGI NG PER NKF STAGE I & II GFR >= 60 NORMAL TO MILDLY DECREASED STAGE III GFR 30-59 MODERATELY DECREASED STAGE IV GFR 15-29 SEVERELY DECREASED STAGE V GFR <15 VERY LITTLE GFR LEFT ESRD GFR <15 ON GRANT MANAGER 3 Lab Result Notes: Pre-Diabetes 5.7 - 6.4 % Diabetes = or > 6.5% 4 100-125 mg/dL PRE-DIABET ES/FASTING >126 mg/dL DIABETES/FASTING 5 CHRONIC KIDNEY DISEASE STAGI NG PER NKF STAGE I & II GFR >= 60 NORMAL TO MILDLY DECREASED STAGE III GFR 30-59 MODERATELY DECREASED STAGE IV GFR 15-29 SEVERELY DECREASED STAGE V GFR <15 VERY LITTLE GFR LEFT ESRD GFR <15 ON GRANT MANAGER 6 100-125 mg/dL PRE-DIABET ES/FASTING >126 mg/dL DIABETES/FASTING 7 CHRONIC KIDNEY DISEASE STAGI NG PER NKF STAGE I & II GFR >= 60 NORMAL TO MILDLY DECREASED STAGE III GFR 30-59 MODERATELY DECREASED STAGE IV GFR 15-29 SEVERELY DECREASED STAGE V GFR <15 VERY LITTLE GFR LEFT ESRD GFR <15 ON GRANT MANAGER Procedures Date Code Description Status 02/06/2020 [id number] Colonoscopy Completed 10/27/2019 [id number] Colonoscopy Completed 12/08/2018 [id number] Bone Mineral Density Test Comple [facility] 10/01/2018 [id number] Mammogram Completed 09/28/2017 [id number] Mammogram Completed 09/25/2016 [id number] Bone Mineral Density Test Comple [facility] 09/25/2016 [id number] Mammogram Completed 08/11/2016 [id number] Colonoscopy Completed 09/21/2015 [id number] Mammogram Completed 09/01/2014 [id number] Mammogram Completed 08/29/2014 [id number] Mammogram Completed 07/12/2013 [id number] Mammogram Completed 07/06/2012 [id number] Mammogram Completed 04/23/2011 [id number] Mammogram Completed 04/11/2010 [id number] Mammogram Completed 04/10/2009 [id number] Mammogram Completed 04/04/2008 [id number] Bone Mineral Density Test [facility] Medical Devices Description No Information Available Encounters Type Date Location Provider Dx Diagnosis Office Visit 03/14/2020 9:45a [facility] 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 Bertin Valdez M.D. 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 06/19/2020 Z79.01 senior living (current) use of antic oagulants Karena Valdez M.D. 06/19/2020 D50.9 Iron deficiency anemia, unspecif ied Karena Valdez M.D. 06/19/2020 Z86.010 Personal history of colonic poly ps Karena Valdez M.D. 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 06/19/2020 N18.32 Chronic kidney disease, stage 3b Karena Valdez M.D. 06/19/2020 I50.32 Chronic diastolic (congestive) h eart failure Karena Valdez M.D. 06/19/2020 J45.909 Unspecified asthma, uncomplicate d Karena Valdez M.D. 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 06/19/2020 E78.00 Pure hypercholesterolemia, unspe cified Karena Valdez M.D. 06/19/2020 M85.80 Other specified diso rders of bone density and structure, unspecified site Karena Valdez M.D. 06/14/2020 D50.9 Iron deficiency anemia, unspecif ied Karena Valdez M.D. 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 06/14/2020 N18.32 Chronic kidney disease, stage 3b Lab Schedule 03/14/2020 I48.0 Paroxysmal atrial fibrillation Cristino Valdez M.D. 03/14/2020 Z79.01 [place] (current) use of antic oagulants Karena Valdez M.D. 03/14/2020 D50.9 Iron deficiency anemia, unspecif ied Karena Valdez M.D. 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 03/14/2020 I13.0 Hypertensive heart a nd chronic kidney disease with heart failure and stage 1 through stage 4 chronic kidney disease, or unspecified chronic kidney disease Karena Valdez M.D. 03/14/2020 I50.32 Chronic diastolic (congestive) h eart failure Karena Valdez M.D. 03/14/2020 N18.3 Chronic kidney disease, stage 3 (moderate) Karena Valdez M.D. 03/14/2020 J45.909 Unspecified asthma, uncomplicate d Karena Valdez M.D. 03/14/2020 E78.00 Pure hypercholesterolemia, unspe cified Karena Valdez M.D. 03/14/2020 E04.2 Nontoxic multinodular goiter Bertin Valdez M.D. 03/14/2020 Z86.010 Personal history of colonic poly ps Karena Valdez M.D. 01/02/2020 D50.9 Iron deficiency anemia, unspecif ied Karena Valdez M.D. 01/02/2020 K59.00 Constipation, unspecified Karena Valdez M.D. 01/02/2020 I48.0 Paroxysmal atrial fibrillation J kris Valdez M.D. 01/02/2020 Z79.01 [place] (current) use of antic oagulants Karena Valdez M.D. 01/02/2020 I12.9 Hypertensive chronic kidney disease with stage 1 through stage 4 chronic kidney disease, or unspecified chronic kidney disease Karena Valdez M.D. 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 01/02/2020 N18.3 Chronic kidney disease, stage 3 (moderate) Karena Valdez M.D. 01/02/2020 H91.93 Unspecified hearing loss, bilate ral Karena Valdez M.D. 01/02/2020 K21.9 Gastro-esophageal reflux disease without esophagitis Karena Valdez M.D. 01/02/2020 M19.90 Unspecified osteoarthritis, unsp ecified site Karena Valdez M.D. Plan of Treatment Future Appointment(s):* 09/27/2020 7:50 am - Lab Schedule at [facility] * 10/01/2020 8:45 am - Karena Valdez M.D. at [facility] 06/19/2020 - Karena Valdez M.D.* I48.0 Paroxysmal atrial fibrillation * Z79.01 senior living (current) use of anticoagulants * D50.9 Iron deficiency anemia, unspecified * Z86.010 Personal history of colonic polyps * I13.0 Hypertensive heart and chronic kidney disease with heart failure and stage 1 through stage 4 chronic kidney disease, or unspecified chronic kidney disease * N18.32 Chronic kidney disease, stage 3b * I50.32 Chronic diastolic (congestive) heart failure * J45.909 Unspecified asthma, uncomplicated * E11.22 Type 2 diabetes mellitus with diabetic chronic kidney disease * E78.00 Pure hypercholesterolemia, unspecified * M85.80 Other specified disorders of bone density and structure, unspecified site * All * Comments:* 12. Tinnitus. Following with ENT in [place]. Has recheck 6 months.13. Constipation. She will continue on the Lactulose and prunes. I have suggested adding the Senna daily.14. Health Maintenance. COVID vaccine recommended Functional Status Description No Information Available Mental Status Description No Information Available Referrals Description No Information Available
--- OUTSIDE RECORDS SUMMARY | 2020-08-07 14:59 | CCD | Continuity of Care Document ---
Author Author Lab ScheduleAbigail Organization Unknown Address [address] [place] [id number] Phone Unavailable Care Team Providers Care Silver Solution Mixer Name Role Phone Gil Gallegos MD AUTM Unavailable Karena Valdez MD AUTM [phone] Problems Active Problems Provider Date Allergic asthma [...] 1 bid PO Unknown 02/06/2019 Saline Nasal [place] 0.65% Solution 3-4x/d as directed 1unpayton Valdez [...] Valdez M.D. 10/22/19 17 Calcium Citrate +D [id number] Tablets 1 po 2x/d 30tabs Karena Valdez M.D. 09/17/19 17 Nebulizer Kit/Tubing/Mouthpiece K it for use with nebulizer 3unDiana OrdonezOSara Eliquis 5mg Tablets Take 1 Tablet Twice A Day 180tabs Phil Gonzalez MD 08/24/2014 Albuterol Sulfate (2 .5mg/3ML) 0.083% Nebulizer 1 vial via nebulizer four times a day DX:J44.9 525unpayton Valdez M.D. 11/17/2012 Ipratropium [place] 0.02% Solution Inhale The Contents Of 1 Vial Via Nebulizer Twice Daily 150units Karena Valdez M.D. 08/31/2012 Pravastatin Sodium 40mg Tablets Take 1 Tablet Daily 90tabs Karena Valdez M.D. 05/29/20 11 Nebulizer Misc use as direct ed 1unpayton Isaac D.O. 07/23/2010 Lactulose 10GM/15ML Solution 10ml once three [...] Of Flu Vaccine Inj ection Radha Chacon.OSara 04/04 Administration Of Flu Vaccine Inj ection Radha Chacon.OSara 03/22 Administration Of Flu Vaccine Inj ection Radha Chacon.O. 03/13 Immunizations CPT Code Status Date Vaccine Lot # U-Flu Given 02/25/2020 Influenza,Unspecified 61679 Given 03/21/2019 Influenza Vaccin e Quadrivalent Preser/Antibiotic Free Im Use [id number] 81600 Given 12/01/2018 Shingrix U-Flu Given 04/06/2018 Influenza,Unspecified 53106 Given 03/18/2017 Influenza Vaccin e Quadrivalent Preser/Antibiotic Free Im Use [id number] 93495 Given 12/23/2016 Adacel- Tetanus Diphtheria P ertussis (Age64 & Under) [id number] Q2037 Given 04/17/2015 Fluvirin Virus Vaccine [id number] 01 24002 Given 08/24/2014 Prevnar 13 [id number] Q2037 Given 03/22/2012 Fluvirin Virus Vaccine Q2037 Given 04/04/2011 Fluvirin Virus Vaccine 88012 Given 03/22/2009 Influenza Virus Vaccine 68407 Given 03/13/2008 Influenza Virus Vaccine Vital Signs Date Vital Result Comment 03/14/2020 9:06am BP Systolic 162 mmHg RT Arm BP Diastolic 78 mmHg RT Arm BP Systolic Recheck 160 mmHg BP Diastolic Recheck 70 mmHg Heart Rate 88 /min Height 61 inches 5'1" Weight 150.25 lb O2 Saturation Level with Exercise 90 % RM Air BMI (Body Mass Index) 28.4 kg/m2 01/02/2020 7:56am BP Systolic 132 mmHg RT Arm BP Diastolic 64 mmHg RT Arm Heart Rate 80 /min Height 61 inches 5'1" Weight 151.50 lb O2 Saturation Level with Exercise 94 % RM Air BMI (Body Mass Index) 28.6 kg/m2 Results Test Acquired Date Facility Test Result H/L Range Note Complete Blood Count 06/14/2020 [facility] Cubing Machine Tender: Dr Phil [place] [id number] [phone] WBC 6.2 x10*3/UL 4.1 - 10.9 RBC [...] 2.0 - 7.8 Basic Metabolic Panel 06/14/2020 [facility] Cubing Machine Tender: [place] [address] [phone] Glucose 74 mg/dL 74 - 99 1 [...] Low >60 2 Complete Blood Count 03/14/2020 [facility] Cubing Machine Tender: [place] [address] [phone] WBC 6.5 x10*3/UL 4.1 - 10.9 RBC [...] 2.0 - 7.8 Laboratory test finding 03/14/2020 [facility], Cubing Machine Tender: [place] [address] [phone] Creatine Kinase(CK) 118 U/L 26 - 192 A1c 03/14/2020 [facility] T[facility]: Dr Phil Gonzalez [place] [id number] [phone] Hba1c 5.8 % High <5.7 3 Est Avg Glucose 120 mg/dL High 60 - 110 Laboratory test finding 03/14/2020 [facility]: Dr Phil Gonzalez [place] [id number] [phone] Magnesium 2.1 mg/dL 1.8 - 2.4 Comprehensive Chem Profile 03/14/2020 [facility] Cubing Machine Tender: Dr Phil Gonzalez [place] [id number] [phone] Glucose 98 mg/dL 74 - 99 4 [...] mL/min Low >60 5 Lipid Profile 03/14/2020 [facility] , Cubing Machine Tender: Dr Phil Gonzalez [place] [id number] [phone] Cholesterol 213 mg/dL High 131 - 200 Triglycerides 101 mg/dL 30 - 150 HDL Cholesterol 105 mg/dL High 35 - 60 LDL (Calculated) 88 CALC 50 - 159 Ua Dipstick Only 03/14/2020 [facility] , Cubing Machine Tender: Dr Phil Gonzalez [place] [id number] [phone] Urine Color YELLOW Yellow Urine Appearance CLEAR Clear Urine PH 6.5 units 5.0 - 9.0 Urine Specific [place] 1.010 1.005 - 1.030 Urine Leukocytes MODERATE Abnormal Negative Urine Blood NEGATIVE Negative Urine Protein NEGATIVE Negative -Trace Urine Glucose NEGATIVE mg/dL Negative Urine Nitrite NEGATIVE Negative Urine Ketone NEGATIVE mg/dL Negative Urine Bilirubin NEGATIVE Negative Urine Urobilinogen 0.2 mg/dL 0.2 - 1.0 Microalbumin/Creatinine Urine 03/14/2020 [facility], Cubing Machine Tender: [place] [address] [phone] Microalbumin Urine 7.5 mg/L 1.3 - 20.0 Urine Creatinine 103.0 mg/dL 30.0 - 125.0 Microalb/Creat Ratio 7.3 ug/mg 0.0 - 30.0 Laboratory test finding 03/14/2020 [facility], Cubing Machine Tender: Dr Phil Gonzalez [place] [id number] [phone] Thyroid Stimulating Hormone 1.07 uIU/mL 0.3 6 - 3.74 Complete Blood Count 01/02/2020 [facility] Cubing Machine Tender: [place] [address] [phone] WBC 7.1 x10*3/UL 4.1 - 10.9 RBC [...] 2.0 - 7.8 Laboratory test finding 01/02/2020 [facility], Cubing Machine Tender: [place] [address] [phone] Magnesium 2.1 mg/dL 1.8 - 2.4 Basic Metabolic Panel 01/02/2020 [facility], Cubing Machine Tender: Dr Phil [place] [address] [phone] Glucose 80 mg/dL 74 - 99 6 [...] Low >60 7 Laboratory test finding 01/02/2020 [facility], Cubing Machine Tender: [place] [address] [phone] Thyroid Stimulating Hormone 1.85 uIU/mL 0.3 6 - 3.74 1 100-125 mg/dL PRE-DIABET ES/FASTING >126 mg/dL DIABETES/FASTING 2 CHRONIC KIDNEY DISEASE STAGI NG PER NKF STAGE I & II GFR >= 60 NORMAL TO MILDLY DECREASED STAGE III GFR 30-59 MODERATELY DECREASED STAGE IV GFR 15-29 SEVERELY DECREASED STAGE V GFR <15 VERY LITTLE GFR LEFT ESRD GFR <15 ON WORK STATION SUPPORT SPECIALIST 3 Lab Result Notes: Pre-Diabetes 5.7 - [...] LITTLE GFR LEFT ESRD GFR <15 ON WORK STATION SUPPORT SPECIALIST 6 100-125 mg/dL PRE-DIABET ES/FASTING >126 mg/dL DIABETES/FASTING 7 CHRONIC KIDNEY DISEASE STAGI NG PER NKF STAGE I & II GFR >= 60 NORMAL TO MILDLY DECREASED STAGE III GFR 30-59 MODERATELY DECREASED STAGE IV GFR 15-29 SEVERELY DECREASED STAGE V GFR <15 VERY LITTLE GFR LEFT ESRD GFR <15 ON WORK STATION SUPPORT SPECIALIST Procedures Date Code Description Status 02/06/2020 [id number] Colonoscopy Completed 10/27/2019 [id number] Colonoscopy Completed 12/08/2018 [id number] Bone Mineral Density Test [facility] 10/01/2018 [id number] Mammogram Completed 09/28/2017 [id number] Mammogram Completed 09/25/2016 [id number] Bone Mineral Density Test [facility] 09/25/2016 [id number] Mammogram Completed 08/11/2016 [id number] Colonoscopy Completed 09/21/2015 [id number] Mammogram Completed 09/01/2014 [id number] Mammogram Completed 08/29/2014 [id number] Mammogram Completed 07/12/2013 [id number] Mammogram Completed 07/06/2012 [id number] Mammogram Completed 04/23/2011 [id number] Mammogram Completed 04/11/2010 [id number] Mammogram Completed 04/10/2009 [id number] Mammogram Completed 04/04/2008 [id number] Bone Mineral Density Test [facility] Medical Devices Description No Information Available Encounters Type Date Location Provider Dx Diagnosis Office Visit 03/14/2020 9:45a [facility] I48.0 Paroxysmal atrial fibrillati on Z79.01 half-way (current) use of a nticoagulants D50.9 Iron [...] of colonic polyps Office Visit 01/02/2020 8:15a [facility] Bertin Valdez M.D. 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 03/14/2020 Z79.01 half-way (current) use of antic oagulants Karena Valdez [...] fibrillation J kris Valdez M.D. 01/02/2020 Z79.01 half-way (current) use of antic oagulants Karena Valdez [...] Valdez M.D. Plan of Treatment Future Appointment(s):* 06/19/2020 9:00 am - Karena Valdez M.D. at [facility] 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 Osteopenia. Actually improved on last check. Continue to [id number]. Family history of breast cancer. Continue regular [id number]. 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 Good results.15. Health Maintenance. Patient has had the Shingrix, Adacel, Prevnar, Pneumovax, Flu shot. Her last mammogram was 10/01/18, last bone density 12/08/18. Colonoscopy as above. Diet, exercise encouraged Functional Status Description No Information Available Mental Status Description No Information Available Referrals Description No Information Available
--- OUTSIDE RECORDS SUMMARY | 2020-08-07 14:59 | CCD | Continuity of Care Document ---
Author Author Lab ScheduleAbigail Organization Unknown Address [address] [place] [phone] Phone Unavailable Care Team Providers Care Automatic Winder Operator Name Role Phone Gil Gallegos MD AUTM Unavailable Karena Valdez MD AUTM [phone] Problems Active Problems Provider Date Allergic asthma [...] 1 bid PO Unknown 02/06/2019 Saline Nasal [place] 0.65% Solution 3-4x/d as directed 1unpayton Valdez [...] Valdez M.D. 10/22/19 17 Calcium Citrate +D [id number] Tablets 1 po 2x/d 30tabs Karena Valdez M.D. 09/17/19 17 Nebulizer Kit/Tubing/Mouthpiece K it for use with nebulizer 3unDiana OrdonezOSara Eliquis 5mg Tablets Take 1 Tablet Twice A Day 180tabs Phil Gonzalez MD 08/24/2014 Albuterol Sulfate (2 .5mg/3ML) 0.083% Nebulizer 1 vial via nebulizer four times a day DX:J44.9 525unpayton Valdez M.D. 11/17/2012 Ipratropium [place] 0.02% Solution Inhale The Contents Of 1 [...] Vaccine Lot # U-Flu Given 02/25/2020 Influenza,Unspecified 30946 Given 03/21/2019 Influenza Vaccin e Quadrivalent Preser/Antibiotic Free Im Use [id number] 27453 Given 12/01/2018 Shingrix U-Flu Given 04/06/2018 Influenza,Unspecified 84751 Given 03/18/2017 Influenza Vaccin e Quadrivalent Preser/Antibiotic Free Im Use [id number] 59789 Given 12/23/2016 Adacel- Tetanus Diphtheria P ertussis (Age64 & Under) [id number] Q2037 Given 04/17/2015 Fluvirin Virus Vaccine 59898 01 18007 Given 08/24/2014 Prevnar 13 [id number] Q2037 Given 03/22/2012 Fluvirin Virus Vaccine Q2037 Given 04/04/2011 Fluvirin Virus Vaccine 93722 Given 03/22/2009 Influenza Virus Vaccine 08858 Given 03/13/2008 Influenza Virus Vaccine Vital Signs [...] Result H/L Range Note Complete Blood Count 03/14/2020 [facility] Metal Furniture Repairer: Dr Phil Gonzalez [place], [place] [address] [phone] WBC 6.5 x10*3/UL 4.1 - 10.9 RBC [...] 2.0 - 7.8 Laboratory test finding 03/14/2020 [facility], Metal Furniture Repairer: [place] [address] [phone] Creatine Kinase(CK) 118 U/L 26 - 192 A1c 03/14/2020 [facility] , Metal Furniture Repairer: [place] [address] [phone] Hba1c 5.8 % High <5.7 1 Est Avg Glucose 120 mg/dL High 60 - 110 Laboratory test finding 03/14/2020 [facility], Metal Furniture Repairer: [place] [address] [phone] Magnesium 2.1 mg/dL 1.8 - 2.4 Comprehensive Chem Profile 03/14/2020 [facility], Metal Furniture Repairer: [place] [address] [phone] Glucose 98 mg/dL 74 - 99 2 BUN 21 mg/dL High 7 - 18 [...] Low >60 GFR 37 mL/min Low >60 3 Lipid Profile 03/14/2020 [facility] , Metal Furniture Repairer: Dr Phil Gonzalez [place] [id number] [phone] Cholesterol 213 mg/dL High 131 - 200 Triglycerides 101 mg/dL 30 - 150 HDL Cholesterol 105 mg/dL High 35 - 60 LDL (Calculated) 88 CALC 50 - 159 Ua Dipstick Only 03/14/2020 [facility] , Metal Furniture Repairer: Dr Phil Gonzalez [place] [id number] [phone] Urine Color YELLOW Yellow Urine Appearance CLEAR Clear Urine PH 6.5 units 5.0 - 9.0 Urine Specific [place] 1.010 1.005 - 1.030 Urine Leukocytes MODERATE Abnormal Negative Urine Blood NEGATIVE Negative Urine Protein NEGATIVE Negative -Trace Urine Glucose NEGATIVE mg/dL Negative Urine Nitrite NEGATIVE Negative Urine Ketone NEGATIVE mg/dL Negative Urine Bilirubin NEGATIVE Negative Urine Urobilinogen 0.2 mg/dL 0.2 - 1.0 Microalbumin/Creatinine Urine 03/14/2020 [facility], Metal Furniture Repairer: [place] [address] [phone] Microalbumin Urine 7.5 mg/L 1.3 - 20.0 Urine Creatinine 103.0 mg/dL 30.0 - 125.0 Microalb/Creat Ratio 7.3 ug/mg 0.0 - 30.0 Laboratory test finding 03/14/2020 [facility], Metal Furniture Repairer: Dr Phil Gonzalez [place] [id number] [phone] Thyroid Stimulating Hormone 1.07 uIU/mL 0.3 6 - 3.74 Complete Blood Count 01/02/2020 [facility], Metal Furniture Repairer: [place] [address] [phone] WBC 7.1 x10*3/UL 4.1 - 10.9 RBC [...] 2.0 - 7.8 Laboratory test finding 01/02/2020 [facility], Metal Furniture Repairer: [place] [address] [phone] Magnesium 2.1 mg/dL 1.8 - 2.4 Basic Metabolic Panel 01/02/2020 [facility] Metal Furniture Repairer: [place] [address] [phone] Glucose 80 mg/dL 74 - 99 4 BUN 24 mg/dL High 7 - 18 Creatinine 1.8 mg/dL High 0.6 - 1.3 Sodium 141 mEq/L 136 - 145 Potassium 4.3 mEq/L 3.5 - 5.1 Chloride 102 mEq/L 98 - 107 Carbon Dioxide 28 mEq/L 21 - 32 Calcium 9.3 mg/dL 8.5 - 10.1 GFR 27 mL/min Low >60 GFR 32 mL/min Low >60 5 Laboratory test finding 01/02/2020 [facility], Metal Furniture Repairer: [place] [address] [phone] Thyroid Stimulating Hormone 1.85 uIU/mL 0.3 6 - 3.74 1 Lab Result Notes: Pre-Diabetes 5.7 - 6.4 % Diabetes = or > 6.5% 2 100-125 mg/dL PRE-DIABET ES/FASTING >126 mg/dL DIABETES/FASTING 3 CHRONIC KIDNEY DISEASE STAGI NG PER NKF STAGE I & II GFR >= 60 NORMAL TO MILDLY DECREASED STAGE III GFR 30-59 MODERATELY DECREASED STAGE IV GFR 15-29 SEVERELY DECREASED STAGE V GFR <15 VERY LITTLE GFR LEFT ESRD GFR <15 ON ECO INDUSTRIAL DEVELOPMENT CONSULTANT 4 100-125 mg/dL PRE-DIABET ES/FASTING >126 mg/dL DIABETES/FASTING 5 CHRONIC KIDNEY DISEASE STAGI NG PER NKF STAGE I & II GFR >= 60 NORMAL TO MILDLY DECREASED STAGE III GFR 30-59 MODERATELY DECREASED STAGE IV GFR 15-29 SEVERELY DECREASED STAGE V GFR <15 VERY LITTLE GFR LEFT ESRD GFR <15 ON ECO INDUSTRIAL DEVELOPMENT CONSULTANT Procedures Date Code Description Status 02/06/2020 [id number] Colonoscopy Completed 10/27/2019 [id number] Colonoscopy Completed 12/08/2018 [id number] Bone Mineral Density Test Comple [facility] 10/01/2018 [id number] Mammogram Completed 09/28/2017 [id number] Mammogram Completed 09/25/2016 [id number] Bone Mineral Density Test Comple [facility] 09/25/2016 [id number] Mammogram Completed 08/11/2016 [id number] Colonoscopy Completed 09/21/2015 [id number] Mammogram Completed 09/01/2014 [id number] Mammogram Completed 08/29/2014 [id number] Mammogram Completed 07/12/2013 [id number] Mammogram Completed 07/06/2012 [id number] Mammogram Completed 04/23/2011 [id number] Mammogram Completed 04/11/2010 [id number] Mammogram Completed 04/10/2009 [id number] Mammogram Completed 04/04/2008 [id number] Bone Mineral Density Test [facility] Medical Devices Description No Information Available Encounters Type Date Location Provider Dx Diagnosis Office Visit 03/14/2020 9:45a [facility] M.[facility] 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 Bertin Valdez M.D. D50.9 Iron deficiency anemia, unsp ecified K59.00 Constipation, unspecified I48.0 Paroxysmal atrial fibrillati on Z79.01 ocean transportation intermediary (current) use of a nticoagulants I12.9 Hypertensive [...] fibrillation J kris Valdez M.D. 03/14/2020 Z79.01 ocean transportation intermediary (current) use of antic oagulants Karena Valdez [...] fibrillation J kris Valdez M.D. 01/02/2020 Z79.01 assisted (current) use of antic oagulants Karena Valdez [...] 9:00 am - Karena Valdez M.D. at [facility] 03/14/2020 - Karena Valdez M.D.* I48.0 Paroxysmal atrial fibrillation * Z79.01 assisted (current) use of anticoagulants * D50.9 Iron [...] Actually improved on last check. Continue to [id number]. Family history of breast cancer. Continue regular [id number]. 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 Good results.15. Health Maintenance. Patient has had the Shingrix, Adacel, Prevnar, Pneumovax, Flu shot. Her last mammogram was 10/01/18, last bone density 12/08/18. Colonoscopy as above. Diet, exercise encouraged Functional Status Description No Information Available Mental Status Description No Information Available Referrals Description No Information Available
--- OUTSIDE RECORDS SUMMARY | 2020-08-07 14:59 | CCD | Continuity of Care Document ---
Author Author Abigail Valdez M.D. Organization Unknown Address [address] [address] Phone [phone] Care Team Providers Care Domain Architect Name Role Phone Gil Gallegos MD AUTM Unavailable Karena Valdez MD AUTM [phone] Problems Active Problems Provider Date Allergic asthma [...] 1 bid PO Unknown 02/06/2019 Saline Nasal [place] 0.65% Solution 3-4x/d as directed 1units Karena Valdez M.D. 05/20/20 18 Breo Ellipta 100-25mcg/Inh [...] Valdez M.D. 10/22/19 17 Calcium Citrate +D [id number] Tablets 1 po 2x/d 30tabs Karena Valdez M.D. 09/17/19 17 Nebulizer Kit/Tubing/Mouthpiece K it for use with nebulizer 3unDiana OrdonezOSara Eliquis 5mg Tablets Take 1 Tablet Twice A Day 180tabs Phil Gonzalez MD 08/24/2014 Albuterol Sulfate (2 .5mg/3ML) 0.083% Nebulizer 1 vial via nebulizer four times a day DX:J44.9 525unpayton Valdez M.D. 11/17/2012 Ipratropium [place] 0.02% Solution Inhale The Contents Of 1 Vial Via Nebulizer Twice Daily 150units Karena Valdez M.D. 08/31/2012 Pravastatin Sodium 40mg Tablets Take 1 Tablet Daily 90tabs Karena Valdez M.D. 05/29/20 11 [facility]izer [facility] 1unDiana OrdonezOSara 07/23/2010 Lactulose 10GM/15ML Solution 10ml once three times a day Karena Valdez M.D. / Medications Administered in Office Medication SIG Qnty Indications Ordering Provider Date Administration Of Flu Vaccine Inj ection Taina Rae, JOSH 03/21/2019 Administration Of Flu Vaccine Inj ection Melba Rodriguez,HOMAR 03/18/2017 Administration Of Flu Vaccine Inj ection Radha Chacon.OSara 04/17 Administration Of Flu Vaccine Inj ection Radha Chacon.OSara 03/22 Administration Of Flu Vaccine Inj ection Radha Chacon.OSara 04/04 Administration Of Flu Vaccine Inj ection Radha Chacon.OSara 03/22 Administration Of Flu Vaccine Inj ection Charisma Isaac D.O. 03/13 Immunizations CPT Code Status Date Vaccine Lot # U-Flu Given 02/25/2020 Influenza,Unspecified 65588 Given 03/21/2019 Influenza Vaccin e Quadrivalent Preser/Antibiotic Free Im Use [id number] 62321 Given 12/01/2018 Shingrix U-Flu Given 04/06/2018 Influenza,Unspecified 52720 Given 03/18/2017 Influenza Vaccin e Quadrivalent Preser/Antibiotic Free Im Use [id number] 19735 Given 12/23/2016 Adacel- Tetanus Diphtheria P ertussis (Age64 & Under) [id number] Q2037 Given 04/17/2015 Fluvirin Virus Vaccine [id number] 01 49222 Given 08/24/2014 Prevnar 13 [id number] Q2037 Given 03/22/2012 Fluvirin Virus Vaccine Q2037 Given 04/04/2011 Fluvirin Virus Vaccine 91946 Given 03/22/2009 Influenza Virus Vaccine 12293 Given 03/13/2008 Influenza Virus Vaccine Vital Signs [...] Range Note Complete Blood Count 03/14/2020 [facility] Grades 1 6 Tutor: [place] [address] [phone] WBC 6.5 x10*3/UL 4.1 - 10.9 RBC [...] 2.0 - 7.8 Laboratory test finding 03/14/2020 [facility] [employer] Expert bina Grades 1 6 Tutor: [place] [address] [phone] Creatine Kinase(CK) 118 U/L 26 - 192 A1c 03/14/2020 [facility] Evette Grades 1 6 Tutor: Dr Phil Gonzalez [place] [id number] [phone] Hba1c 5.8 % High <5.7 1 Est Avg Glucose 120 mg/dL High 60 - 110 Laboratory test finding 03/14/2020 [facility] Change Management Expert cheryl curran Grades 1 6 Tutor: [place] [address] [phone] Magnesium 2.1 mg/dL 1.8 - 2.4 Comprehensive Chem Profile 03/14/2020 [facility] Int kaitlin Grades 1 6 Tutor: Dr Phil Gonzalez [place] [id number] [phone] Glucose 98 mg/dL 74 - 99 2 [...] mL/min Low >60 3 Lipid Profile 03/14/2020 [facility] Grades 1 6 Tutor: Dr Phil [place] [address] [phone] Cholesterol 213 mg/dL High 131 - 200 Triglycerides 101 mg/dL 30 - 150 HDL Cholesterol 105 mg/dL High 35 - 60 LDL (Calculated) 88 CALC 50 - 159 Ua Dipstick Only 03/14/2020 [facility] , Grades 1 6 Tutor: Dr Phil Gonzalez [place] [id number] [phone] Urine Color YELLOW Yellow Urine Appearance CLEAR Clear Urine PH 6.5 units 5.0 - 9.0 Urine Specific [place] 1.010 1.005 - 1.030 Urine Leukocytes MODERATE Abnormal Negative Urine Blood NEGATIVE Negative Urine Protein NEGATIVE Negative -Trace Urine Glucose NEGATIVE mg/dL Negative Urine Nitrite NEGATIVE Negative Urine Ketone NEGATIVE mg/dL Negative Urine Bilirubin NEGATIVE Negative Urine Urobilinogen 0.2 mg/dL 0.2 - 1.0 Microalbumin/Creatinine Urine 03/14/2020 [facility], Grades 1 6 Tutor: [place] [address] [phone] Microalbumin Urine 7.5 mg/L 1.3 - 20.0 Urine Creatinine 103.0 mg/dL 30.0 - 125.0 Microalb/Creat Ratio 7.3 ug/mg 0.0 - 30.0 Laboratory test finding 03/14/2020 [facility] Change Management Expert ists, Grades 1 6 Tutor: Dr Phil [place] [address] [phone] Thyroid Stimulating Hormone 1.07 uIU/mL 0.3 6 - 3.74 Complete Blood Count 01/02/2020 [facility] Technologist [facility], Grades 1 6 Tutor: [place] [address] [phone] WBC 7.1 x10*3/UL 4.1 - 10.9 RBC [...] 2.0 - 7.8 Laboratory test finding 01/02/2020 [facility] Change Management Expert bina, Grades 1 6 Tutor: Dr Phil Gonzalez [place] [id number] [phone] Magnesium 2.1 mg/dL 1.8 - 2.4 Basic Metabolic Panel 01/02/2020 [facility] Grades 1 6 Tutor: [place] [address] [phone] Glucose 80 mg/dL 74 - 99 4 [...] Low >60 5 Laboratory test finding 01/02/2020 [facility] Change Management Expert bina Grades 1 6 Tutor: Dr Phil [place] [address] [phone] Thyroid Stimulating Hormone 1.85 uIU/mL 0.3 6 [...] LITTLE GFR LEFT ESRD GFR <15 ON SUPERVISOR DATA PROCESSING 4 100-125 mg/dL PRE-DIABET ES/FASTING >126 mg/dL DIABETES/FASTING 5 CHRONIC KIDNEY DISEASE STAGI NG PER NKF STAGE I & II GFR >= 60 NORMAL TO MILDLY DECREASED STAGE III GFR 30-59 MODERATELY DECREASED STAGE IV GFR 15-29 SEVERELY DECREASED STAGE V GFR <15 VERY LITTLE GFR LEFT ESRD GFR <15 ON SUPERVISOR DATA PROCESSING Procedures Date Code Description Status 02/06/2020 [id number] Colonoscopy Completed 10/27/2019 [id number] Colonoscopy Completed 12/08/2018 [id number] Bone Mineral Density Test [facility] 10/01/2018 [id number] Mammogram Completed 09/28/2017 [id number] Mammogram Completed 09/25/2016 [id number] Bone Mineral Density Test [facility] 09/25/2016 [id number] Mammogram Completed 08/11/2016 [id number] Colonoscopy Completed 09/21/2015 [id number] Mammogram Completed 09/01/2014 [id number] Mammogram Completed 08/29/2014 [id number] Mammogram Completed 07/12/2013 [id number] Mammogram Completed 07/06/2012 [id number] Mammogram Completed 04/23/2011 [id number] Mammogram Completed 04/11/2010 [id number] Mammogram Completed 04/10/2009 [id number] Mammogram Completed 04/04/2008 [id number] Bone Mineral Density Test [facility] Medical Devices Description No Information Available Encounters Type Date Location Provider Dx Diagnosis Office Visit 03/14/2020 9:45a [facility] I48.0 Paroxysmal atrial fibrillati on Z79.01 nursing home (current) use of a nticoagulants D50.9 Iron [...] of colonic polyps Office Visit 01/02/2020 8:15a [facility] Bertin Valdez M.D. 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 03/14/2020 Z79.01 nursing home (current) use of antic oagulants Karena Valdez [...] fibrillation J kris Valdez M.D. 01/02/2020 Z79.01 nursing home (current) use of antic oagulants Karena Valdez [...] Valdez M.D. Plan of Treatment Future Appointment(s):* 06/14/2020 7:50 am - Lab Schedule at [facility] * 06/19/2020 9:00 am - Karena Valdez M.D. at [facility] 03/14/2020 - Karena Valdez M.D.* I48.0 Paroxysmal atrial fibrillation * Z79.01 nursing home (current) use of anticoagulants * D50.9 Iron [...] Actually improved on last check. Continue to [email or web address]. Family history of breast cancer. Continue regular . 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 Good results.15. Health Maintenance. Patient has had the Shingrix, Adacel, Prevnar, Pneumovax, Flu shot. Her last mammogram was 10/01/18, last bone density 12/08/18. Colonoscopy as above. Diet, exercise encouraged Functional Status Description No Information Available Mental Status Description No Information Available Referrals Description No Information Available
--- OUTSIDE RECORDS SUMMARY | 2020-08-07 14:59 | CCD | Continuity of Care Document ---
Author Author Abigail Valdez M.D. Organization Unknown Address [address] [address] Phone [phone] Care Team Providers Care Telephonic Case Manager Name Role Phone Gil Gallegos MD AUTM Unavailable Karena Valdez MD AUTM [phone] Problems Active Problems Provider Date Allergic asthma [...] 1 bid PO Unknown 02/06/2019 Saline Nasal [place] 0.65% Solution 3-4x/d as directed 1units Karena [...] Valdez M.D. 10/22/19 17 Calcium Citrate +D [id number] Tablets 1 po 2x/d 30tabs Karena Valdez M.D. 09/17/19 17 Nebulizer Kit/Tubing/Mouthpiece K it for use with nebulizer 3unDiana OrdonezOSara Eliquis 5mg Tablets Take 1 Tablet Twice A Day 180tabs Phil Gonzalez MD 08/24/2014 Albuterol Sulfate (2 .5mg/3ML) 0.083% Nebulizer 1 vial via nebulizer four times a day DX:J44.9 525unpayton Valdez M.D. 11/17/2012 Ipratropium [place] 0.02% Solution Inhale The Contents Of 1 Vial Via Nebulizer Twice Daily 150units Karena Valdez M.D. 08/31/2012 Pravastatin Sodium 40mg Tablets Take 1 Tablet Daily 90tabs Karena Valdez M.D. 05/29/20 11 [facility] 1unDiana OrdonezOSara 07/23/2010 Lactulose 10GM/15ML Solution 10ml once three times a day Karena Valdez M.D. Medications Administered in Office Medication SIG Qnty Indications Ordering Provider Date Administration Of Flu Vaccine Inj ection Taina Rae, JOSH 03/21/2019 Administration Of Flu Vaccine Inj ection Melba Rodriguez,HOMAR 03/18/2017 Administration Of Flu Vaccine Inj ection Radha Chacon.OSara 04/17 Administration Of Flu Vaccine Inj ection Radha Chacon.O. 03/22 Administration Of Flu Vaccine Inj ection Radha Chacon.OSara 04/04 Administration Of Flu Vaccine Inj ection Radha Chacon.O. 03/22 Administration Of Flu Vaccine Inj ection Charisma Iasac D.O. 03/13 Immunizations CPT Code Status Date Vaccine Lot # U-Flu Given 02/25/2020 Influenza,Unspecified 20769 Given 03/21/2019 Influenza Vaccin e Quadrivalent Preser/Antibiotic Free Im Use 129240 62387 Given 12/01/2018 Shingrix U-Flu Given 04/06/2018 Influenza,Unspecified 93622 Given 03/18/2017 Influenza Vaccin e Quadrivalent Preser/Antibiotic Free Im Use 605783 07929 Given 12/23/2016 Adacel- Tetanus Diphtheria P ertussis (Age64 & Under) [id number] Q2037 Given 04/17/2015 Fluvirin Virus Vaccine 43737 01 96592 Given 08/24/2014 Prevnar 13 [id number] Q2037 Given 03/22/2012 Fluvirin Virus Vaccine Q2037 Given 04/04/2011 Fluvirin Virus Vaccine 62119 Given 03/22/2009 Influenza Virus Vaccine 28321 Given 03/13/2008 Influenza Virus Vaccine Vital Signs [...] Range Note Complete Blood Count 06/14/2020 [facility] [employer] Payable Clerk [facility], pc Automatic Furnace Operator: [place] [address] [phone] WBC 6.2 x10*3/UL 4.1 - 10.9 RBC [...] 2.0 - 7.8 Basic Metabolic Panel 06/14/2020 [facility] Automatic Furnace Operator: [place] [address] [phone] Glucose 74 mg/dL 74 - 99 1 [...] Low >60 2 Complete Blood Count 03/14/2020 [facility] [employer] Payable Clerk [employer] pc Automatic Furnace Operator: Dr Phil Gonzalez [place], [place] [id number] [phone] WBC 6.5 x10*3/UL 4.1 - 10.9 RBC [...] 2.0 - 7.8 Laboratory test finding 03/14/2020 [facility] [employer] Instructor isrob, Automatic Furnace Operator: Dr Phil Gonzalez [place] [id number] [phone] Creatine Kinase(CK) 118 U/L 26 - 192 A1c 03/14/2020 [facility] Automatic Furnace Operator: [place] [address] [phone] Hba1c 5.8 % High <5.7 3 Est Avg Glucose 120 mg/dL High 60 - 110 Laboratory test finding 03/14/2020 [facility] [employer] In[employer] is, Automatic Furnace Operator: [place] [address] [phone] Magnesium 2.1 mg/dL 1.8 - 2.4 Comprehensive Chem Profile 03/14/2020 [facility], Automatic Furnace Operator: [place] [address] [phone] Glucose 98 mg/dL 74 - 99 4 [...] mL/min Low >60 5 Lipid Profile 03/14/2020 [facility] , Automatic Furnace Operator: [place] [address] [phone] Cholesterol 213 mg/dL High 131 - 200 Triglycerides 101 mg/dL 30 - 150 HDL Cholesterol 105 mg/dL High 35 - 60 LDL (Calculated) 88 CALC 50 - 159 Ua Dipstick Only 03/14/2020 [facility] , Automatic Furnace Operator: [place] [address] [phone] Urine Color YELLOW Yellow Urine Appearance CLEAR Clear Urine PH 6.5 units 5.0 - 9.0 Urine Specific [place] 1.010 1.005 - 1.030 Urine Leukocytes MODERATE Abnormal Negative Urine Blood NEGATIVE Negative Urine Protein NEGATIVE Negative -Trace Urine Glucose NEGATIVE mg/dL Negative Urine Nitrite NEGATIVE Negative Urine Ketone NEGATIVE mg/dL Negative Urine Bilirubin NEGATIVE Negative Urine Urobilinogen 0.2 mg/dL 0.2 - 1.0 Microalbumin/Creatinine Urine 03/14/2020 [facility], Automatic Furnace Operator: Dr Phil Gonzalez [place] [id number] [phone] Microalbumin Urine 7.5 mg/L 1.3 - 20.0 Urine Creatinine 103.0 mg/dL 30.0 - 125.0 Microalb/Creat Ratio 7.3 ug/mg 0.0 - 30.0 Laboratory test finding 03/14/2020 [facility] [employer] In[employer] ts, Automatic Furnace Operator: [place] [address] [phone] Thyroid Stimulating Hormone 1.07 uIU/mL 0.3 6 - 3.74 Complete Blood Count 01/02/2020 [facility] [employer]s Payable Clerk s, Automatic Furnace Operator: [place] [address] [phone] WBC 7.1 x10*3/UL 4.1 - 10.9 RBC [...] 2.0 - 7.8 Laboratory test finding 01/02/2020 [facility] [employer] Instructor is, Automatic Furnace Operator: [place] [address] [phone] Magnesium 2.1 mg/dL 1.8 - 2.4 Basic Metabolic Panel 01/02/2020 [facility] Automatic Furnace Operator: [place] [address] [phone] Glucose 80 mg/dL 74 - 99 6 [...] Low >60 7 Laboratory test finding 01/02/2020 [facility] In[facility], Automatic Furnace Operator: [place] [address] [phone] Thyroid Stimulating Hormone 1.85 uIU/mL 0.3 6 - 3.74 1 100-125 mg/dL PRE-DIABET ES/FASTING >126 mg/dL DIABETES/FASTING 2 CHRONIC KIDNEY DISEASE STAGI NG PER NKF STAGE I & II GFR >= 60 NORMAL TO MILDLY DECREASED STAGE III GFR 30-59 MODERATELY DECREASED STAGE IV GFR 15-29 SEVERELY DECREASED STAGE V GFR <15 VERY LITTLE GFR LEFT ESRD GFR <15 ON TOUR ACTOR 3 Lab Result Notes: Pre-Diabetes 5.7 - [...] LITTLE GFR LEFT ESRD GFR <15 ON TOUR ACTOR 6 100-125 mg/dL PRE-DIABET ES/FASTING >126 mg/dL DIABETES/FASTING 7 CHRONIC KIDNEY DISEASE STAGI NG PER NKF STAGE I & II GFR >= 60 NORMAL TO MILDLY DECREASED STAGE III GFR 30-59 MODERATELY DECREASED STAGE IV GFR 15-29 SEVERELY DECREASED STAGE V GFR <15 VERY LITTLE GFR LEFT ESRD GFR <15 ON TOUR ACTOR Procedures Date Code Description Status 02/06/2020 [id number] Colonoscopy Completed 10/27/2019 [id number] Colonoscopy Completed 12/08/2018 [id number] Bone Mineral Density Test [facility] 10/01/2018 [id number] Mammogram Completed 09/28/2017 [id number] Mammogram Completed 09/25/2016 [id number] Bone Mineral Density Test [facility] 09/25/2016 [id number] Mammogram Completed 08/11/2016 [id number] Colonoscopy Completed 09/21/2015 [id number] Mammogram Completed 09/01/2014 [id number] Mammogram Completed 08/29/2014 [id number] Mammogram Completed 07/12/2013 [id number] Mammogram Completed 07/06/2012 [id number] Mammogram Completed 04/23/2011 [id number] Mammogram Completed 04/11/2010 [id number] Mammogram Completed 04/10/2009 [id number] Mammogram Completed 04/04/2008 [id number] Bone Mineral Density Test [facility] Medical Devices Description No Information Available Encounters Type Date Location Provider Dx Diagnosis Office Visit 03/14/2020 9:45a [facility] I48.0 Paroxysmal atrial fibrillati on Z79.01 group home (current) use of a nticoagulants D50.9 [...] of colonic polyps Office Visit 01/02/2020 8:15a [facility] Bertin Valdez M.D. D50.9 Iron deficiency anemia, unsp ecified K59.00 Constipation, unspecified I48.0 Paroxysmal atrial fibrillati on Z79.01 director long term care (current) use of a nticoagulants I12.9 Hypertensive [...] atrial fibrillation Cristino Valdez M.D. 03/14/2020 Z79.01 group home (current) use of antic oagulants Karena [...] Valdez M.D. 01/02/2020 I48.0 Paroxysmal atrial fibrillation Cristino Valdez M.D. 01/02/2020 Z79.01 director long term care (current) use of antic oagulants Karena Valdez [...] site Karena Valdez M.D. Plan of Treatment No Information Available Functional Status Description No Information Available Mental Status Description No Information Available Referrals Description No Information Available
--- OUTSIDE RECORDS SUMMARY | 2020-08-07 14:59 | CCD | Continuity of Care Document ---
Author Author Abigail Valdez M.D. Organization Unknown Address [address] [address] Phone [phone] Care Team Providers Care Battery Charger Name Role Phone Gil Gallegos MD AUTM Unavailable Karena Valdez MD AUTM [phone] Problems Active Problems Provider Date Allergic asthma [...] 1 bid PO Unknown 02/06/2019 Saline Nasal Edison 0.65% Solution 3-4x/d as directed 1units Karena [...] Valdez M.D. 10/22/19 17 Calcium Citrate +D [id number] Tablets 1 po 2x/d 30tabs Karena Valdez M.D. 09/17/19 17 Nebulizer Kit/Tubing/Mouthpiece K it for use with nebulizer 3unDiana OrdonezOSara Eliquis 5mg Tablets Take 1 Tablet Twice A Day 180tabs Phil Gonzalez MD 08/24/2014 Albuterol Sulfate (2 .5mg/3ML) 0.083% Nebulizer 1 vial via nebulizer four times a day DX:J44.9 525unpayton Valdez M.D. 11/17/2012 Ipratropium Colton 0.02% Solution Inhale The Contents Of 1 Vial Via Nebulizer Twice Daily 150units Karena Valdez M.D. 08/31/2012 Pravastatin Sodium 40mg Tablets Take 1 Tablet Daily 90tabs Karena Valdez M.D. 05/29/20 11 [facility] 1unDiana OrdonezOSara [...] Vaccine Lot # U-Flu Given 02/25/2020 Influenza,Unspecified [id number] Given 03/21/2019 Influenza Vaccin e Quadrivalent Preser/Antibiotic Free Im Use [id number] 83697 Given 12/01/2018 Shingrix U-Flu Given 04/06/2018 Influenza,Unspecified 83368 Given 03/18/2017 Influenza Vaccin e Quadrivalent Preser/Antibiotic Free Im Use [id number] 37774 Given 12/23/2016 Adacel- Tetanus Diphtheria P ertussis (Age64 & Under) [id number] Given 04/17/2015 Fluvirin Virus Vaccine 66838 01 81186 Given 08/24/2014 Prevnar 13 [id number] Q2037 Given 03/22/2012 Fluvirin Virus Vaccine Q2037 Given 04/04/2011 Fluvirin Virus Vaccine 34621 Given 03/22/2009 Influenza Virus Vaccine 24502 Given 03/13/2008 Influenza Virus Vaccine Vital Signs [...] Range Note Complete Blood Count 06/14/2020 [facility] Clinical Molecular Geneticist: [place] [address] [phone] WBC 6.2 x10*3/UL 4.1 - 10.9 RBC [...] 2.0 - 7.8 Basic Metabolic Panel 06/14/2020 [facility] Clinical Molecular Geneticist: [place] [address] [phone] Glucose 74 mg/dL 74 - 99 1 [...] Low >60 2 Complete Blood Count 03/14/2020 [facility] Clinical Molecular Geneticist: Dr Phil Gonzalez [place], [place] [id number] [phone] WBC 6.5 x10*3/UL 4.1 - 10.9 RBC [...] 2.0 - 7.8 Laboratory test finding 03/14/2020 [facility], Clinical Molecular Geneticist: Dr Phil Gonzalez [place] [id number] [phone] Creatine Kinase(CK) 118 U/L 26 - 192 A1c 03/14/2020 [facility] , Clinical Molecular Geneticist: [place] [address] [phone] Hba1c 5.8 % High <5.7 3 Est Avg Glucose 120 mg/dL High 60 - 110 Laboratory test finding 03/14/2020 [facility], Clinical Molecular Geneticist: [place] [address] [phone] Magnesium 2.1 mg/dL 1.8 - 2.4 Comprehensive Chem Profile 03/14/2020 [facility], Clinical Molecular Geneticist: [place] [address] [phone] Glucose 98 mg/dL 74 - 99 4 [...] mL/min Low >60 5 Lipid Profile 03/14/2020 [facility] , Clinical Molecular Geneticist: [place] [address] [phone] Cholesterol 213 mg/dL High 131 - 200 Triglycerides 101 mg/dL 30 - 150 HDL Cholesterol 105 mg/dL High 35 - 60 LDL (Calculated) 88 CALC 50 - 159 Ua Dipstick Only 03/14/2020 [facility] , Clinical Molecular Geneticist: [place] [address] [phone] Urine Color YELLOW Yellow Urine Appearance CLEAR Clear Urine PH 6.5 units 5.0 - 9.0 Urine Specific Holden 1.010 1.005 - 1.030 Urine Leukocytes MODERATE Abnormal Negative Urine Blood NEGATIVE Negative Urine Protein NEGATIVE Negative -Trace Urine Glucose NEGATIVE mg/dL Negative Urine Nitrite NEGATIVE Negative Urine Ketone NEGATIVE mg/dL Negative Urine Bilirubin NEGATIVE Negative Urine Urobilinogen 0.2 mg/dL 0.2 - 1.0 Microalbumin/Creatinine Urine 03/14/2020 [facility], Clinical Molecular Geneticist: Dr Phil Gonzalez [place] [id number] [phone] Microalbumin Urine 7.5 mg/L 1.3 - 20.0 Urine Creatinine 103.0 mg/dL 30.0 - 125.0 Microalb/Creat Ratio 7.3 ug/mg 0.0 - 30.0 Laboratory test finding 03/14/2020 [facility], Clinical Molecular Geneticist: [place] [address] [phone] Thyroid Stimulating Hormone 1.07 uIU/mL 0.3 6 - 3.74 Complete Blood Count 01/02/2020 [facility], Clinical Molecular Geneticist: [place] [address] [phone] WBC 7.1 x10*3/UL 4.1 - 10.9 RBC [...] 2.0 - 7.8 Laboratory test finding 01/02/2020 [facility], Clinical Molecular Geneticist: [place] [address] [phone] Magnesium 2.1 mg/dL 1.8 - 2.4 Basic Metabolic Panel 01/02/2020 [facility] Clinical Molecular Geneticist: [place] [address] [phone] Glucose 80 mg/dL 74 - 99 6 [...] Low >60 7 Laboratory test finding 01/02/2020 [facility], Clinical Molecular Geneticist: [place] [address] [phone] Thyroid Stimulating Hormone 1.85 uIU/mL 0.3 6 - 3.74 1 100-125 mg/dL PRE-DIABET ES/FASTING >126 mg/dL DIABETES/FASTING 2 CHRONIC KIDNEY DISEASE STAGI NG PER NKF STAGE I & II GFR >= 60 NORMAL TO MILDLY DECREASED STAGE III GFR 30-59 MODERATELY DECREASED STAGE IV GFR 15-29 SEVERELY DECREASED STAGE V GFR <15 VERY LITTLE GFR LEFT ESRD GFR <15 ON INTRAOPERATIVE NEURO TECH 3 Lab Result Notes: Pre-Diabetes 5.7 - [...] LITTLE GFR LEFT ESRD GFR <15 ON INTRAOPERATIVE NEURO TECH 6 100-125 mg/dL PRE-DIABET ES/FASTING >126 mg/dL DIABETES/FASTING 7 CHRONIC KIDNEY DISEASE STAGI NG PER NKF STAGE I & II GFR >= 60 NORMAL TO MILDLY DECREASED STAGE III GFR 30-59 MODERATELY DECREASED STAGE IV GFR 15-29 SEVERELY DECREASED STAGE V GFR <15 VERY LITTLE GFR LEFT ESRD GFR <15 ON INTRAOPERATIVE NEURO TECH Procedures Date Code Description Status 02/06/2020 [id number] Colonoscopy Completed 10/27/2019 [id number] Colonoscopy Completed 12/08/2018 [id number] Bone Mineral Density Test [facility] 10/01/2018 [id number] Mammogram Completed 09/28/2017 [id number] Mammogram Completed 09/25/2016 [id number] Bone Mineral Density Test [facility] 09/25/2016 [id number] Mammogram Completed 08/11/2016 [id number] Colonoscopy Completed 09/21/2015 [id number] Mammogram Completed 09/01/2014 [id number] Mammogram Completed 08/29/2014 [id number] Mammogram Completed 07/12/2013 [id number] Mammogram Completed 07/06/2012 [id number] Mammogram Completed 04/23/2011 [id number] Mammogram Completed 04/11/2010 [id number] Mammogram Completed 04/10/2009 [id number] Mammogram Completed 04/04/2008 [id number] Bone Mineral Density Test [facility] Medical Devices Description No Information Available Encounters Type Date Location Provider Dx Diagnosis Office Visit 06/19/2020 9:00a [facility] PSara[facility]ara Valdez M.D. 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 I48.0 Paroxysmal atrial fibrillati on Z79.01 long term care pharmacist (current) use of a nticoagulants D50.9 Iron [...] of colonic polyps Office Visit 01/02/2020 8:15a [facility] PColette Valdez M.D. 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 06/19/2020 Z79.01 long term care pharmacist (current) use of antic oagulants Karena Valdez M.D. 06/19/2020 D50.9 Iron deficiency anemia, unspecif ied Karena Valdez M.D. 06/19/2020 Z86.010 Personal history of colonic poly ps Karena Valdez M.D. 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 06/19/2020 I50.32 Chronic diastolic (congestive) h eart failure Karena Valdez M.D. 06/19/2020 N18.32 Chronic kidney disease, stage 3b Karena Valdez M.D. 06/19/2020 J45.909 Unspecified asthma, uncomplicate d Karena Valdez M.D. 06/19/2020 E78.00 Pure hypercholesterolemia, [...] atrial fibrillation Cristino Valdez M.D. 03/14/2020 Z79.01 [facility] (current) use of antic oagulants Karena Valdez [...] atrial fibrillation Cristino Valdez M.D. 01/02/2020 Z79.01 long term care pharmacist (current) use of antic oagulants Karena Valdez [...] 09/27/2020 7:50 am - Lab Schedule at [facility] * 10/01/2020 8:45 am - Karena Valdez M.D. at [facility] 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 Tinnitus. Following with ENT in [place]. Has recheck 6 months.13. Constipation. She will continue on the Lactulose and prunes. I have suggested adding the Senna daily.14. Health Maintenance. COVID vaccine recommended Functional Status Description No Information Available Mental Status Description No Information Available Referrals Description No Information Available
--- OUTSIDE RECORDS SUMMARY | 2020-08-07 15:02 | CCD ---
Author Author [facility] Organization [facility] Address Unknown Phone Unavailable Care Team Providers Care Ingredient Handler Name Role Phone ALISA KIRAN PA Unavailable Unavailable MAGNO, ALISA PA Unavailable Unavailable MAGNO, ALISA PA Unavailable Unavailable MAGNO, ALISA PA Unavailable Unavailable MAGNO, ALISA PA Unavailable Unavailable MAGNO, ALISA PA Unavailable Unavailable MAGNO, ALISA PA Unavailable Unavailable MAGNO, ALISA PA Unavailable Unavailable MAGNO, ALISA PA Unavailable Unavailable MAGNO, ALISA PA Unavailable Unavailable MAGNO, ALISA PA Unavailable Unavailable MAGNO, ALISA PA Unavailable Unavailable MAGNO, ALISA PA Unavailable Unavailable MAGNO, ALISA PA Unavailable Unavailable MAGNO, ALISA PA Unavailable Unavailable MAGNO, ALISA PA Unavailable Unavailable MAGNO, ALISA PA Unavailable Unavailable MAGNO, ALISA PA Unavailable Unavailable MAGNO, ALISA PA Unavailable Unavailable MAGNO, ALISA PA Unavailable Unavailable MAGNO, ALISA PA Unavailable Unavailable MAGNO, ALISA PA Unavailable Unavailable MAGNO, ALISA PA Unavailable Unavailable MAGNO, ALISA PA Unavailable Unavailable MAGNO, ALISA PA Unavailable Unavailable MAGNO, ALISA PA Unavailable Unavailable MAGNO, ALISA PA Unavailable Unavailable MAGNO, ALISA PA Unavailable Unavailable MAGNO, ALISA PA Unavailable Unavailable MAGNO, ALISA PA Unavailable Unavailable MAGNO, ALSIA PA Unavailable Unavailable MAGNO, ALISA PA Unavailable Unavailable MAGNO, ALISA PA Unavailable Unavailable MAGNO, ALISA PA Unavailable Unavailable MAGNO, ALISA PA Unavailable Unavailable MAGNO, ALISA PA Unavailable Unavailable MAGNO, ALISA PA Unavailable Unavailable MAGNO, ALISA PA Unavailable Unavailable MAGNO, ALISA PA Unavailable Unavailable MAGNO, ALISA PA Unavailable Unavailable Sami Valdez MD Unavailable Unavailable Sami Valdez MD Unavailable Unavailable Sami Valdez MD Unavailable Unavailable Sami Valdez MD Unavailable Unavailable Sami Valdez MD Unavailable Unavailable Sami Valdez MD Unavailable Unavailable Sami Valdez MD Unavailable Unavailable Sami Valdez MD Unavailable Unavailable Sami Valdez MD Unavailable Unavailable Sami Valdez MD Unavailable Unavailable Sami Valdez MD Unavailable Unavailable Sami Valdez MD Unavailable Unavailable Sami Valdez MD Unavailable Unavailable Sami Valdez MD Unavailable Unavailable Sami Valdez MD Unavailable Unavailable Sami Valdez MD Unavailable Unavailable Sami Valdez MD Unavailable Unavailable Sami Valdez MD Unavailable Unavailable Sami Valdez MD Unavailable Unavailable Sami Valdez MD Unavailable Unavailable Sami Valdez MD Unavailable Unavailable Sami Valdez MD Unavailable Unavailable Sami Valdez MD Unavailable Unavailable Sami Valdez MD Unavailable Unavailable Sami Valdez MD Unavailable Unavailable Sami Valdez MD Unavailable Unavailable Sami Valdez MD Unavailable Unavailable Sami Valdez MD Unavailable Unavailable Sami Valdez MD Unavailable Unavailable Sami Valdez MD Unavailable Unavailable Sami Valdez MD Unavailable Unavailable Sami Valdez MD Unavailable Unavailable Sami Valdez MD Unavailable Unavailable Sami Valdez MD Unavailable Unavailable Sami Valdez MD Unavailable Unavailable Sami Valdez MD Unavailable Unavailable Sami Valdez MD Unavailable Unavailable Sami Valdez MD Unavailable Unavailable Sami Valdez MD Unavailable Unavailable Sami Valdez MD Unavailable Unavailable Sami Valdez MD Unavailable Unavailable Sami Valdez MD Unavailable Unavailable Sami Valdez MD Unavailable Unavailable Sami Valdez MD Unavailable Unavailable Sami Valdez MD Unavailable Unavailable Sami Valdez MD Unavailable Unavailable Sami Valdez MD Unavailable Unavailable Sami Valdez MD Unavailable Unavailable Sami Valdez MD Unavailable Unavailable Sami Valdez MD Unavailable Unavailable Sami Valdez MD Unavailable Unavailable Sami Valdez MD Unavailable Unavailable Sami Valdez MD Unavailable Unavailable Sami Valdez MD Unavailable Unavailable Sami Valdez MD Unavailable Unavailable Sami Valdez MD Unavailable Unavailable Sami Valdez MD Unavailable Unavailable Sami Valdez MD Unavailable Unavailable Sami Valdez MD Unavailable Unavailable Sami Valdez MD Unavailable Unavailable Sami Valdez MD Unavailable Unavailable Sami Valdez MD Unavailable Unavailable Sami Vadlez MD Unavailable Unavailable Sami Valdez MD Unavailable Unavailable Sami Valdez MD Unavailable Unavailable Sami Valdez MD Unavailable Unavailable Sami Valdez MD Unavailable Unavailable Sami Valdez MD Unavailable Unavailable Sami Valdez MD Unavailable Unavailable Sami Valdez MD Unavailable Unavailable Sami Valdez MD Unavailable Unavailable Sami Valdez MD Unavailable Unavailable Sami Valdez MD Unavailable Unavailable Sami Valdez MD Unavailable Unavailable Sami Valdez MD Unavailable Unavailable Sami Valdez MD Unavailable Unavailable Sami Valdez MD Unavailable Unavailable Sami Valdez MD Unavailable Unavailable Vivian WRIGHT MD Unavailable Unavailable Vivian WRIGHT MD Unavailable Unavailable Vivian WRIGHT MD Unavailable Unavailable Vivian WRIGHT MD Unavailable Unavailable Vivian WRIGHT MD Unavailable Unavailable Vivian WRIGHT MD Unavailable Unavailable Vivian WRIGHT MD Unavailable Unavailable Vivian WRIGHT MD Unavailable Unavailable Vivian WRIGHT MD Unavailable Unavailable Vivian WRIGHT MD Unavailable Unavailable Vivian WRIGHT MD Unavailable Unavailable Vivian WRIGHT MD Unavailable Unavailable Vivian WRIGHT MD Unavailable Unavailable Vivian WRIGHT MD Unavailable Unavailable Vivian WRIGHT MD Unavailable Unavailable Vivian WRIGHT MD Unavailable Unavailable Vivian WRIGHT MD Unavailable Unavailable Vivian WRIGHT MD Unavailable Unavailable Vivian WRIGHT MD Unavailable Unavailable Vivian WRIGHT MD Unavailable Unavailable Vivian WRIGHT MD Unavailable Unavailable Vivian WRIGHT MD Unavailable Unavailable Vivian WRIGHT MD Unavailable Unavailable Vivian WRIGHT MD Unavailable Unavailable Vivian WRIGHT MD Unavailable Unavailable Vivian WRIGHT MD Unavailable Unavailable Vivian WRIGHT MD Unavailable Unavailable Vivian WRIGHT MD Unavailable Unavailable Vivian WRIGHT MD Unavailable Unavailable Vivian WRIGHT MD Unavailable Unavailable Vivian WRIGHT MD Unavailable Unavailable Vivian WRIGHT MD Unavailable Unavailable Vivian WRIGHT MD Unavailable Unavailable Vivian WRIGHT MD Unavailable Unavailable Vivian WRIGHT MD Unavailable Unavailable Sami Valdez MD Unavailable Unavailable Sami Valdez MD Unavailable Unavailable Sami Valdez MD Unavailable Unavailable Sami Valdez MD Unavailable Unavailable Sami Valdez MD Unavailable Unavailable Sami Valdez MD Unavailable Unavailable Sami Valdez MD Unavailable Unavailable Sami Valdez MD Unavailable Unavailable Sami Valedz MD Unavailable Unavailable Sami Valdez MD Unavailable Unavailable Sami Valdez MD Unavailable Unavailable Sami Valdez MD Unavailable Unavailable Sami Valdez MD Unavailable Unavailable Sami Valdez MD Unavailable Unavailable Sami Valdez MD Unavailable Unavailable Sami Valdez MD Unavailable Unavailable Sami Valdez MD Unavailable Unavailable Sami Valdez MD Unavailable Unavailable Sami Valdez MD Unavailable Unavailable Sami Valdez MD Unavailable Unavailable Sami Valdez MD Unavailable Unavailable Sami Valdez MD Unavailable Unavailable Sami Valdez MD Unavailable Unavailable Sami Valdez MD Unavailable Unavailable Sami Valedz MD Unavailable Unavailable Sami Valdez MD Unavailable Unavailable Sami Valdez MD Unavailable Unavailable Sami Valdez MD Unavailable Unavailable Sami Valdez MD Unavailable Unavailable Sami Valdez MD Unavailable Unavailable Sami Valdez MD Unavailable Unavailable Sami Valdez MD Unavailable Unavailable Sami Valdez MD Unavailable Unavailable Sami Valdez MD Unavailable Unavailable CourtneySami cooper MD Unavailable Unavailable CourtneySami cooper MD Unavailable Unavailable CourtneySami cooper MD Unavailable Unavailable CourtneySami MD Unavailable Unavailable CourtneySami MD Unavailable Unavailable CourtneySami MD Unavailable Unavailable CourtneySami MD Unavailable Unavailable CourtneySami MD Unavailable Unavailable CourtneySami MD Unavailable Unavailable CourtneySami MD Unavailable Unavailable CourtneySami MD Unavailable Unavailable CourtneySami MD Unavailable Unavailable CourtneySami MD Unavailable Unavailable CourtneySami MD Unavailable Unavailable CourtneySami MD Unavailable Unavailable CourtneySami MD Unavailable Unavailable Courtney M Karena MIR Unavailable Unavailable CourtneySami MD Unavailable Unavailable CourtneySami MD Unavailable Unavailable Sami Valdez MD Unavailable Unavailable CourtneySami MD Unavailable Unavailable Sami Valdez MD Unavailable Unavailable CourtneySami MD Unavailable Unavailable CourtneySami silveira MD Unavailable Unavailable CourtneySami MD Unavailable Unavailable Sami Valdez MD Unavailable Unavailable Sami Valdez MD Unavailable Unavailable Sami Valdez MD Unavailable Unavailable Sami Valdez MD Unavailable Unavailable Sami Valdez MD Unavailable Unavailable Sami Valdez MD Unavailable Unavailable Sami Valdez MD Unavailable Unavailable Sami Valdez MD Unavailable Unavailable Sami Valdez MD Unavailable Unavailable Sami Valdez MD Unavailable Unavailable Sami Valdez MD Unavailable Unavailable Sami Valdez MD Unavailable Unavailable Sami Valdez MD Unavailable Unavailable Sami Valdez MD Unavailable Unavailable Sami Valdez MD Unavailable Unavailable Sami Valdez MD Unavailable Unavailable Sami Valdez MD Unavailable Unavailable Sami Valdez MD Unavailable Unavailable Sami Valdez MD Unavailable Unavailable Jackie SNIDER MD Unavailable Unavailable Jackie SNIDER MD Unavailable Unavailable aJckie SNIDER MD Unavailable Unavailable Jackie SNIDER MD Unavailable Unavailable Jackie SNIDER MD Unavailable Unavailable Jackie SNIDER MD Unavailable Unavailable Jackie SNIDER MD Unavailable Unavailable SNIDER E ELIDA MIR Unavailable Unavailable SNIDER E ELIDA MIR Unavailable Unavailable SNIDER E ELIDA MIR Unavailable Unavailable SNIDER, E ELIDA MIR Unavailable Unavailable SNIDER, E ELIDA MIR Unavailable Unavailable SNIDER, E ELIDA MIR Unavailable Unavailable SNIDER, E ELIDA MIR Unavailable Unavailable SNIDER, E ELIDA MIR Unavailable Unavailable SNIDER, E ELIDA MIR Unavailable Unavailable SNIDER, E ELIDA MIR Unavailable Unavailable SNIDER, E ELIDA MIR Unavailable Unavailable SNIDER, E ELIDA MIR Unavailable Unavailable SNIDER, E ELIDA MIR Unavailable Unavailable SNIDER, E ELIDA MIR Unavailable Unavailable SNIDER E ELIDA MIR Unavailable Unavailable SNIDER E ELIDA MIR Unavailable Unavailable SNIDER E ELIDA MIR Unavailable Unavailable SNIDER E ELIDA MIR Unavailable Unavailable SNIDER, E ELIDA MIR Unavailable Unavailable SNIDER, E ELIDA MIR Unavailable Unavailable SNIDER, E ELIDA MIR Unavailable Unavailable SNIDER, E ELIDA MIR Unavailable Unavailable SNIDER, E ELIDA MIR Unavailable Unavailable SNIDER, E ELIDA MIR Unavailable Unavailable SNIDER, E ELIDA MIR Unavailable Unavailable SNIDER, E ELIDA MIR Unavailable Unavailable SNIDER, E ELIDA MIR Unavailable Unavailable SNIDER, E ELIDA MIR Unavailable Unavailable SNIDER, E ELIDA MIR Unavailable Unavailable SNIDER, E ELIDA MIR Unavailable Unavailable SNIDER, E ELIDA MIR Unavailable Unavailable SNIDER, E ELIDA MIR Unavailable Unavailable SNIDER, E ELIDA MIR Unavailable Unavailable SNIDER, E ELIDA MIR Unavailable Unavailable SNIDER, E ELIDA MIR Unavailable Unavailable SNIDER, E ELIDA MIR Unavailable Unavailable SNIDER, E ELIDA MIR Unavailable Unavailable SNIDER, E ELIDA MIR Unavailable Unavailable SNIDER, E ELIDA MIR Unavailable Unavailable SNIDER, E ELIDA MIR Unavailable Unavailable SNIDER, E ELIDA MIR Unavailable Unavailable SNIDER, E ELIDA MIR Unavailable Unavailable SNIDER, E ELIDA MIR Unavailable Unavailable SNIDER E ELIDA MIR Unavailable Unavailable SNIDER, E ELIDA MIR Unavailable Unavailable SNIDER E ELIDA MIR Unavailable Unavailable SNIDER E ELIDA MIR Unavailable Unavailable SNIDER E ELIDA MIR Unavailable Unavailable SNIDER, E ELIDA MIR Unavailable Unavailable SNIDER, E ELIDA MIR Unavailable Unavailable Johns, Tayla URBAN REDEVELOPMENT SPECIALIST Unavailable Unavailable Johns, Tayla URBAN REDEVELOPMENT SPECIALIST Unavailable Unavailable Johns, Tayla URBAN REDEVELOPMENT SPECIALIST Unavailable Unavailable Johns, Tayla URBAN REDEVELOPMENT SPECIALIST Unavailable Unavailable Johns, Tayla URBAN REDEVELOPMENT SPECIALIST Unavailable Unavailable Johns, Tayla URBAN REDEVELOPMENT SPECIALIST Unavailable Unavailable Johns, Tayla URBAN REDEVELOPMENT SPECIALIST Unavailable Unavailable Johns, Tayla URBAN REDEVELOPMENT SPECIALIST Unavailable Unavailable Johns, Tayla URBAN REDEVELOPMENT SPECIALIST Unavailable Unavailable Johns, Tayla URBAN REDEVELOPMENT SPECIALIST Unavailable Unavailable Johns, Tayla URBAN REDEVELOPMENT SPECIALIST Unavailable Unavailable REINDL, BERYL MIR Unavailable Unavailable REINDL, BERYL MIR Unavailable Unavailable REINDL, BERYL MIR Unavailable Unavailable REINDL, BERYL MIR Unavailable Unavailable REINDL, BERYL MIR Unavailable Unavailable REINDL, BERYL MIR Unavailable Unavailable REINDL, BERYL MIR Unavailable Unavailable REINDL, BERYL MIR Unavailable Unavailable REINDL, BERYL MIR Unavailable Unavailable REINDL, BERYL MIR Unavailable Unavailable REINDL, BERYL MIR Unavailable Unavailable REINDL, BERYL MIR Unavailable Unavailable REINDL, BERYL MIR Unavailable Unavailable REINDL, BERYL MIR Unavailable Unavailable REINDL, BERYL MIR Unavailable Unavailable REINDL, BERYL MIR Unavailable Unavailable REINDL, BERYL MIR Unavailable Unavailable REINDL, BERYL MIR Unavailable Unavailable REINDL, BERYL MIR Unavailable Unavailable REINDL, BERYL MIR Unavailable Unavailable REINDL, BERYL MIR Unavailable Unavailable REINDL, BERYL MIR Unavailable Unavailable REINDL, BERYL MIR Unavailable Unavailable REINDL, BERYL MIR Unavailable Unavailable REINDL, BERYL MIR Unavailable Unavailable REINDL, BERYL MIR Unavailable Unavailable REINDL, BERYL MIR Unavailable Unavailable REINDL, BERYL MIR Unavailable Unavailable REINDL, BERYL MIR Unavailable Unavailable REINDL, BERYL MIR Unavailable Unavailable REINDL, BERYL MIR Unavailable Unavailable REINDL, BERYL MIR Unavailable Unavailable REINDL, BERYL MIR Unavailable Unavailable REINDL, BERYL MIR Unavailable Unavailable REINDL, BERYL MIR Unavailable Unavailable REINDL, BERYL MIR Unavailable Unavailable REINDL, BERYL MIR Unavailable Unavailable REINDL, BERYL MIR Unavailable Unavailable REINDL, BERYL MIR Unavailable Unavailable REINDL, BERYL MIR Unavailable Unavailable REINDL, BERYL MIR Unavailable Unavailable REINDL, BERYL MIR Unavailable Unavailable REINDL, BERYL MIR Unavailable Unavailable REINDL, BERYL MIR Unavailable Unavailable Gupta III, I Jaiden MIR Unavailable Unavailable Gupta III, I Jaiden MIR Unavailable Unavailable Gupta III, I Jaiden MIR Unavailable Unavailable Gupta III, I Jaiden MIR Unavailable Unavailable Gupta III, I Jaiden MIR Unavailable Unavailable Gupta III, I Jaiden MIR Unavailable Unavailable Gupta III, I Jaiden MIR Unavailable Unavailable Gupta III, I Jaiden MIR Unavailable Unavailable Gupta III, I Jaiden MIR Unavailable Unavailable Gupta III, I Jaiden MIR Unavailable Unavailable Gupta III, I Jaiden MIR Unavailable Unavailable Gupta III, I Jaiden MIR Unavailable Unavailable Gupta III, I Jaiden MIR Unavailable Unavailable Gupta III, I Jaiden MIR Unavailable Unavailable Gupta III, I Jaiden MIR Unavailable Unavailable Gupta III, I Jaiden MIR Unavailable Unavailable Gupta III, I Jaiden MIR Unavailable Unavailable Gupta III, I Jaiden MIR Unavailable Unavailable Gupta III, I Jaiden MIR Unavailable Unavailable Gupta III, I Jaiden MIR Unavailable Unavailable Gupta III, I Jaiden MIR Unavailable Unavailable Gupta III, I Jaiden MIR Unavailable Unavailable Gupta III, I Jaiden MIR Unavailable Unavailable Gupta III, I Jaiden MIR Unavailable Unavailable Gupta III, I Jaiden MIR Unavailable Unavailable Gupta III, I Jaiden MIR Unavailable Unavailable Gupta III, I Jaiden MIR Unavailable Unavailable Gupta III, I Jaiden MIR Unavailable Unavailable Gupta III, I Jaiden MIR Unavailable Unavailable Gupta III, I Jaiden MIR Unavailable Unavailable Gupta III, I Jaiden MIR Unavailable Unavailable Gupta III, I Jaiden MIR Unavailable Unavailable Gupta III, I Jaiden MIR Unavailable Unavailable Gupta III, I Jaiden MIR Unavailable Unavailable Gupta III, I Jaiden MIR Unavailable Unavailable Gupta III, I Jaiden MIR Unavailable Unavailable Gupta III, I Jaiden MIR Unavailable Unavailable Gupta III, I Jaiden MIR Unavailable Unavailable Gupta III, I Jaiden MIR Unavailable Unavailable Gupta III, I Jaiden MIR Unavailable Unavailable Gupta III, I Jaiden MIR Unavailable Unavailable Gupta III, I Jaiden MIR Unavailable Unavailable Gupta III, I Jaiden MIR Unavailable Unavailable Gupta III, I Jaiden MIR Unavailable Unavailable Gupta III, I Jaiden MIR Unavailable Unavailable Gupta III, I Jaiden MIR Unavailable Unavailable Gupta III, I Jaiden MIR Unavailable Unavailable Gupta III, I Jaiden MIR Unavailable Unavailable Sami Valdez MD Unavailable Unavailable Sami Valdez MD Unavailable Unavailable Sami Valdez MD Unavailable Unavailable Sami Valdez MD Unavailable Unavailable Sami Valdez MD Unavailable Unavailable Sami Valdez MD Unavailable Unavailable Sami Valdez MD Unavailable Unavailable Sami Valdez MD Unavailable Unavailable Sami Valdez MD Unavailable Unavailable Sami Valdez MD Unavailable Unavailable Sami Valdez MD Unavailable Unavailable Sami Valdez MD Unavailable Unavailable Sami Valdez MD Unavailable Unavailable Sami Valdezie Unavailable Unavailable Sami Valdez MD Unavailable Unavailable Sami Valdez MD Unavailable Unavailable Sami Valdez MD Unavailable Unavailable Sami Valdez MD Unavailable Unavailable Sami Valdez MD Unavailable Unavailable Sami Valdez MD Unavailable Unavailable Sami Valdez MD Unavailable Unavailable Sami Valdez MD Unavailable Unavailable Sami Valdez MD Unavailable Unavailable Sami Valdez MD Unavailable Unavailable Sami Valdez MD Unavailable Unavailable CourtneySami MD Unavailable Unavailable CourtneySami MD Unavailable Unavailable CourtneySami MD Unavailable Unavailable CourtneySami MD Unavailable Unavailable CourtneySami MD Unavailable Unavailable CourtneySami MD Unavailable Unavailable CourtneySami MD Unavailable Unavailable CourtneySami MD Unavailable Unavailable CourtneySami MD Unavailable Unavailable CourtneySami silveira MD Unavailable Unavailable CourtneySami MD Unavailable Unavailable CourtneySami MD Unavailable Unavailable CourtneySami MD Unavailable Unavailable CourtneySami MD Unavailable Unavailable CourtneySami MD Unavailable Unavailable CourtneySami MD Unavailable Unavailable CourtneySami MD Unavailable Unavailable CourtneySami MD Unavailable Unavailable CourtneySami MD Unavailable Unavailable CourtneySami cooper MD Unavailable Unavailable Sami Valdez MD Unavailable Unavailable Sami Valdez MD Unavailable Unavailable CourtneySami silveira MD Unavailable Unavailable Sami Valdez MD Unavailable Unavailable Sami Valdez MD Unavailable Unavailable Sami Valdez MD Unavailable Unavailable Sami Valdez MD Unavailable Unavailable Sami Valdez MD Unavailable Unavailable Sami Valdez MD Unavailable Unavailable Sami Valdez MD Unavailable Unavailable Sami Valdez MD Unavailable Unavailable Sami Valdez MD Unavailable Unavailable Sami Valdez MD Unavailable Unavailable Sami Valdez MD Unavailable Unavailable Sami Valdez MD Unavailable Unavailable Sami Valdez MD Unavailable Unavailable Sami Valdez MD Unavailable Unavailable Sami Valdez MD Unavailable Unavailable Sami Valdez MD Unavailable Unavailable Sami Valdez MD Unavailable Unavailable Sami Valdez MD Unavailable Unavailable Sami Valdez MD Unavailable Unavailable CourtneySami silveira MD Unavailable Unavailable Sami Valdez MD Unavailable Unavailable Sami Valdez MD Unavailable Unavailable Sami Valdez MD Unavailable Unavailable Sami Valdez MD Unavailable Unavailable Sami Valdez MD Unavailable Unavailable Sami Valdez MD Unavailable Unavailable CourtneySami silveira MD Unavailable Unavailable Courtney, Sami Thurston MD Unavailable Unavailable Courtney, M Karena MIR Unavailable Unavailable Courtney, Sami Thurston MD Unavailable Unavailable LETTIERE, A LYDIA PA Unavailable Unavailable LETTIERE, A LYDIA PA Unavailable Unavailable LETTIERE, A LYDIA PA Unavailable Unavailable LETTIERE, A LYDIA PA Unavailable Unavailable LETTIERE, A LYDIA PA Unavailable Unavailable LETTIERE, A LYDIA PA Unavailable Unavailable LETTIERE, A LYDIA PA Unavailable Unavailable LETTIERE, A LYDIA PA Unavailable Unavailable LETTIERE, A LYDIA PA Unavailable Unavailable LETTIERE, A LYDIA PA Unavailable Unavailable LETTIERE, A LYDIA PA Unavailable Unavailable LETTIERE, A LYDIA PA Unavailable Unavailable LETTIERE, A LYDIA PA Unavailable Unavailable LETTIERE, A LYDIA PA Unavailable Unavailable LETTIERE, A LYDIA PA Unavailable Unavailable LETTIERE, A LYDIA PA Unavailable Unavailable LETTIERE, A LYDIA PA Unavailable Unavailable LETTIERE, A LYDIA PA Unavailable Unavailable LETTIERE, A LYDIA PA Unavailable Unavailable LETTIERE, A LYDIA PA Unavailable Unavailable LETTIERE, A LYDIA PA Unavailable Unavailable LETTIERE, A LYDIA PA Unavailable Unavailable LETTIERE, A LYDIA PA Unavailable Unavailable LETTIERE, A LYDIA PA Unavailable Unavailable LETTIERE, A LYDIA PA Unavailable Unavailable LETTIERE, A LYDIA PA Unavailable Unavailable LETTIERE, A LYDIA PA Unavailable Unavailable LETTIERE, A LYDIA PA Unavailable Unavailable LETTIERE, A LYDIA PA Unavailable Unavailable Re-disclosure Warning The records that you are about to access may contain information from federally-assisted alcohol or drug abuse programs. If such information is present, then the following federally mandated warning applies: This information has been disclosed to you from records protected by federal confidentiality rules (42 CFR part 2). The federal rules prohibit you from making any further disclosure of this information unless further disclosure is expressly permitted by the written consent of the person to whom it pertains or as otherwise permitted by 42 CFR part 2. A general authorization for the release of medical or other information is NOT sufficient for this purpose. The Federal rules restrict any use of the information to criminally investigate or prosecute any alcohol or drug abuse patient.The records that you are about to access may contain highly sensitive health information, the redisclosure of which is protected by Article 27-F of the [place] Public Health law. If you continue you may have access to information: Regarding HIV / AIDS; Provided by facilities licensed or operated by the [place] [facility]; or Provided by the [place] [facility] for [facility] With [facility]abilities. If such information is present, then the following [place] mandated warning applies: This information has been disclosed to you from confidential records which are protected by state law. State law prohibits you from making any further disclosure of this information without the specific written consent of the person to whom it pertains, or as otherwise permitted by law. Any unauthorized further disclosure in violation of state law may result in a fine or longterm sentence or both. A general authorization for the release of medical or other information is NOT sufficient authorization for further disc losure. Allergies and Adverse Reactions Type Description Substance Reaction Status Data Source(s ) DRUG INGREDI MOXIFLOXACIN MOX[facility]LOXACIN [facility] Family History Family Member Name Family Member Gender Family Member Status Date o f Status Description Data Source(s) Unknown Unknown Problem MEDENT ([facility]) Unknown Unknown Problem MEDENT ([facility]) Unknown Male Problem MEDENT ([facility]) Unknown Male Problem MEDENT ([facility]) Unknown Male Problem MEDENT ([facility]) () - 46y/o Unknown Unknown Problem [facility] ([facility]) Unknown Unknown Problem [facility] ([facility] Unknown Unknown Problem [facility] ([facility] ) [facility] sister dx age late 60s Unknown Female Problem MEDENT ([facility]) Unknown Female Problem MEDENT ([facility]) Unknown Female Problem [facility] ([facility]) Unknown Female Problem [facility] ([facility]) Encounters Encounter Providers Location Date Indications Data Source(s ) Outpatient Attender: Karena Stephens 08:00:00 AM EST MEDENT ([facility] ) Outpatient Attender: Jaiden Gupta IIIReferrer: Karena avery MD [id number] 04/02/2020 12:00:00 AM EDT Sensorineural hearing loss, unilateral, right ear, with unrestricted hearing on the contralateral side [facility] Sensorineural hearing loss, unilateral, right ear, with unrestricted hearing on the contralateral side Outpatient Attender: Karena Stephens 09:45:00 AM EDT MEDENT ([facility] ) Outpatient Attender: WILMER Wright/Ellen/Maciel/Monted l 02/22/2020 10:15:00 AM EDT MED[facility] ([facility]) Outpatient Attender: Karena Stephens 08:15:00 AM EDT MED[facility] ([facility] ) Outpatient Attender: BERYL Wright/Ellen/Maciel/Rein dl 12/28/2019 09:30:00 AM EDT MED[facility] ([facility]) Outpatient Attender: ELIDA SNIDER MD Main Office 11/25/2019 12:45:00 PM EDT MEDENT ([facility]) Outpatient Attender: Karena Stephens 01:30:00 PM EDT MED[facility] ([facility] ) Outpatient Attender: Karena Stephens 02:00:00 PM EDT [facility] ([facility] ) Outpatient Attender: Karena Stephens 02:00:00 PM EDT [facility] ([facility] ) Outpatient Attender: ALISA cat 10/24/2019 08:45:00 AM EDT [facility] ([facility]) Outpatient Attender: Karena Stephens 10:00:00 AM EDT MED[facility] ([facility] ) Outpatient Attender: Karena Stephens 08:15:00 AM EDT MED[facility] ([facility] ) Outpatient Attender: LYDIA santillany 10/05/2019 04:35:00 PM EDT [facility] ([facility]) Outpatient Attender: Karena Stephens 11:00:00 AM EDT MED[facility] ([facility] ) Outpatient Attender: Karena Stephens 08:00:00 AM EDT MED[facility] ([facility] ) Outpatient Referrer: Karena Valdez MD 09/14/2019 02:56:00 PM EDT [facility] Outpatient Attender: Karena Stephens 01:00:00 PM EDT MED[facility] ([facility] ) Outpatient Attender: Karena Stephens 08:15:00 AM EDT MED[facility] ([facility] ) Outpatient Attender: Karena Stephens 08:15:00 AM EDT MED[facility] ([facility] ) Outpatient Attender: BERYL Wright/Ellen/Maciel/Monet koo 08/17/2019 10:00:00 AM EST MED[facility] ([facility]) Outpatient Attender: LYDIA gonzáles 08/07/2019 07:45:00 AM EST [facility] ([facility]) Outpatient Attender: Karena Stephens 02:00:00 PM EST MED[facility] ([facility] ) Outpatient Referrer: Karena Valdez MD 07/28/2019 12:48:00 PM EST [facility] Outpatient Attender: Karena Stephens 02:15:00 PM EST MED[facility] ([facility] ) Outpatient Attender: Tayla long 07/21/2019 07:00:00 AM EST [facility] ([facility]) Outpatient Attender: Karena Stephens 07:15:00 AM EST MED[facility] ([facility] ) Outpatient Attender: ELIDA SNIDER MD Main Office 07/05/2019 11:00:00 AM EST MED[facility] ([facility]) Immunizations Vaccine Date Status Description Data Source(s) COVID-19 VACCINE, MRNA-1273, LNP-S (MODERNA)/PF 07/27/2020 1 2:00:00 AM EST completed [facility] This CVX code allows reporting of a vacc ination when formulation is unknown (for example, when recording a Influenza vaccination when noted on a vaccination card) 02/25/2020 10:56:00 AM EDT completed JASON Grider ([facility]) INFLUENZA VACCINE QUADRIVALENT 2019- (65 YR UP)/MF59 C.1/PF 02/25/2020 12:00:00 AM EDT completed [facility] Medications Medication Brand Name Start Date Product Form Dose Route Admi nistrative Instructions Pharmacy Instructions Status Indications Reaction Description Data Source(s) 500 mg 08/02/2020 12:00:00 AM EST tablet 21 TAKE ONE TABLET BY MOUTH EVERY 8 HOURS FOR 7 DAYS TAKE ONE TABLET BY MOUTH EVERY 8 HOURS FOR 7 DAYS SOLD : 08/02/2020 [facility] 100 mcg/0.5 mL 06/29/2020 12:00:00 AM EST suspension 0 INJECT BY [facility] (FIRST DOSE) INJECT BY [facility] (FIRST DOSE) SOLD: 06/29/2020 [facility] 30 ACTUAT fluticasone furoate 0.1 MG/ACT UAT / vilanterol 0.025 MG/ACTUAT Dry Powder Inhaler [Breo] Breo Ellipta 100-25 MCG/INH Inhalation Aerosol Powder Breath Activated Breo Ellipta 100-25 MCG/INH Inhalation A erosol Powder Breath Activated 04/01/2020 12:00:00 AM EDT [facility] apixaban 5 MG Oral Tablet [Eliquis] Eliquis 5 MG Oral Tablet Eliquis 5 MG Oral Tablet 04/01/2020 12:00:00 AM EDT [facility] gabapentin 300 MG Oral Capsule Gabapentin 300 MG Oral Capsule (NEURONTIN) Gabapentin 300 MG Oral Capsule (NEURONTIN) 03/26/2020 12:00:00 AM EDT 300 mg Oral active Take 300 mg by mouth Two Times Daily [facility] Albuterol 0.83 MG/ML Inhalant Solution A lbuterol Sulfate (2.5 MG/3ML) 0.083% Inhalation Nebulization Solution (PROVENTIL) Albuterol Sulfate (2.5 MG/3ML) 0.083% Inhalation Nebulization Solution (PROVENTIL) 03/26/2020 12:00:00 AM EDT active USE 1 VIAL VIA N EBULIZER FOUR TIMES A DAY [facility] Amiodarone hydrochloride 200 MG Oral Tab let Amiodarone HCl 200 MG Oral Tablet (PACERONE) Amiodarone HCl 200 MG Oral Tablet (PACERONE) 0 12:00:00 AM EDT 200 mg Oral active Take 200 mg by mo uth daily [facility] Omeprazole 20 MG Delayed Release Oral Ca psule Omeprazole 20 MG Oral Capsule Delayed Release (PriLOSEC) Omeprazole 20 MG Oral Capsule Delayed Re lease (PriLOSEC) 03/17/2020 12:00:00 AM EDT [facility] Ipratropium Stanley 0.2 MG/ML Inhalant S olution Ipratropium Stanley 0.02 % Inhalation Solution (ATROVENT) Ipratropium Stanley 0.02 % Inhalation So lution (ATROVENT) 03/09/2020 12:00:00 AM EDT [facility] Pravastatin Sodium 40 MG Oral Tablet Pra vastatin Sodium 40 MG Oral Tablet (PRAVACHOL) Pravastatin Sodium 40 MG Oral Tablet (PRAVACHOL) 01/26 12:00:00 AM EDT active [facility] Losartan Potassium 100 MG Oral Tablet Lo sartan Potassium 100 MG Oral Tablet (COZAAR) Losartan Potassium 100 MG Oral Tablet (COZAAR) 12:00:[address] [facility] 24 HR Diltiazem Hydrochloride 240 MG Ext ended Release Oral Capsule dilTIAZem HCl ER Coated Beads 240 MG Oral Capsule Extended Release 24 Hour (CARDIZEM CD) dilTIAZem HCl ER Coated Beads 240 MG Oral Capsule Extended Release 24 Hour (CARDIZEM CD) 01/27/2020 12:00:00 AM EDT [facility] 324 mg (65 mg iron) 01/03/2020 12:00:00 AM EDT tablet, delayed release (DR/EC) 90 TAKE ONE TABLET BY MOUTH EVERY DAY TAKE ONE TABL ET BY MOUTH EVERY DAY SOLD: 01/05/2020 [facility] 324 mg (65 mg iron) 01/03/2020 12:00:00 AM EDT tablet, delayed release (DR/EC) 90 TAKE ONE TABLET BY MOUTH EVERY DAY TAKE ONE TABL ET BY MOUTH EVERY DAY SOLD: 03/28/2020 [facility] 10 gram/15 mL 01/01/2020 12:00:00 AM EDT solution 2838 TAKE 30ML BY MOUTH TWO TIMES A DAY MAY INCREASE TO 45ML TWO TIMES A DAY IF NECESSARY TAKE 30ML BY MOUTH TWO TIMES A DAY MAY INCREASE TO 45ML TWO TIMES A DAY IF NECESSARY SOLD: 01/01/2020 [facility] 10 gram/15 mL 01/01/2020 12:00:00 AM EDT solution 2838 TAKE 30ML BY MOUTH TWO TIMES A DAY MAY INCREASE TO 45ML TWO TIMES A DAY IF NECESSARY TAKE 30ML BY MOUTH TWO TIMES A DAY MAY INCREASE TO 45ML TWO TIMES A DAY IF NECESSARY SOLD: 06/13/2020 [facility] 10 gram/15 mL 01/01/2020 12:00:00 AM EDT solution 2838 TAKE 30ML BY MOUTH TWO TIMES A DAY MAY INCREASE TO 45ML TWO TIMES A DAY IF NECESSARY TAKE 30ML BY MOUTH TWO TIMES A DAY MAY INCREASE TO 45ML TWO TIMES A DAY IF NECESSARY SOLD: 03/28/2020 [facility] POLYETHYLENE GLYCOL 3350 105 MG/ML / Pot assium Chloride 0.72592 MEQ/ML / Sodium Bicarbonate 0.017 MEQ/ML / Sodium Chloride 0.0479 MEQ/ML Oral Solution [TriLyte] Trilyte 12/28/2019 12:00:00 AM EDT completed [facility] ([facility] Magnesium Hydroxide 80 MG/ML Oral Suspension Milk Of Magnesi a 12/28/2019 12:00:00 AM EDT ORAL completed [facility] ([facility] ) Magnesium Hydroxide 80 MG/ML Oral Suspension 400 mg/5 mL MAG NESIUM HYDROXIDE 12/28/2019 12:00:00 AM EDT suspension 355 TAKE 60ML BY MOUTH ABOUT 2-3 DAYS BEFORE COLONOSCOPY PREP TAKE 60ML BY MOUTH ABOUT 2-3 DAYS BEFORE COLONOSCOPY PREP SOLD: 12/31/2019 [facility] 420 gram 12/28/2019 12:00:00 AM EDT recon soln [address] STERLING PREP USE DIRECTED ON DR STERLING PREP SOLD: 12/31/2019 [facility] 2.5 mg /3 mL (0.083 %) 12/15/2019 12:00:00 AM EDT solu tion for nebulization 525 USE 1 VIAL VIA NEBULIZER FOUR TIMES A DA Y USE 1 VIAL VIA NEBULIZER FOUR TIMES A DAY SOLD: 12/16/2019 [facility] 2.5 mg /3 mL (0.083 %) 12/15/2019 12:00:00 AM EDT solu tion for nebulization 525 USE 1 VIAL VIA NEBULIZER FOUR TIMES A DA Y USE 1 VIAL VIA NEBULIZER FOUR TIMES A DAY SOLD: 03/28/2020 [facility] 2.5 mg /3 mL (0.083 %) 12/15/2019 12:00:00 AM EDT solu tion for nebulization 525 USE 1 VIAL VIA NEBULIZER FOUR TIMES A DA Y USE 1 VIAL VIA NEBULIZER FOUR TIMES A DAY SOLD: 06/20/2020 [facility] ferrous sulfate 325 MG Delayed Release Oral Tablet Ferrous S ulfate 11/24/2019 12:00:00 AM EDT ORAL active M EDENT ([facility]) Loratadine 10 MG Oral Tablet Loratadine 10/07/2019 12:00:00 AM EDT ORAL active [facility] ([facility]) ferrous sulfate 325 MG Delayed Release Oral Tablet Ferrous S ulfate 10/05/2019 12:00:00 AM EDT ORAL active M EDENT ([facility]) 300 mg 09/30/2019 12:00:00 AM EDT capsule 180 TAKE ONE CAPSULE BY MOUTH TWICE A DAY TAKE ONE CAPSULE BY MOUTH TWICE A DAY SOLD: 06/28/2020 [facility] 300 mg 09/30/2019 12:00:00 AM EDT capsule 180 TAKE ONE CAPSULE BY MOUTH TWICE A DAY TAKE ONE CAPSULE BY MOUTH TWICE A DAY SOLD: 03/28/2020 [facility] 300 mg 09/30/2019 12:00:00 AM EDT capsule 180 TAKE ONE CAPSULE BY MOUTH TWICE A DAY TAKE ONE CAPSULE BY MOUTH TWICE A DAY SOLD: 10/01/2019 [facility] 300 mg 09/30/2019 12:00:00 AM EDT capsule 180 TAKE ONE CAPSULE BY MOUTH TWICE A DAY TAKE ONE CAPSULE BY MOUTH TWICE A DAY SOLD: 01/01/2020 [facility] Amiodarone hydrochloride 200 MG Oral Tablet AMIODARONE HCL 09/12/2019 12:00:00 AM EDT tablet 90 TAKE ONE TABLET BY MOUTH OPHELIA DAY TAKE ONE TABLET BY MOUTH EVERY DAY SOLD: 06/19/2020 [facility] 200 mg 09/12/2019 12:00:00 AM EDT tablet 90 TAKE ONE TABLET BY MOUTH EVERY DAY TAKE ONE TABLET BY MOUTH EVERY DAY SOLD: 09/14/2019 [facility] 200 mg 09/12/2019 12:00:00 AM EDT tablet 90 TAKE ONE TABLET BY MOUTH EVERY DAY TAKE ONE TABLET BY MOUTH EVERY DAY SOLD: 03/19/2020 [facility] 200 mg 09/12/2019 12:00:00 AM EDT tablet 90 TAKE ONE TABLET BY MOUTH EVERY DAY TAKE ONE TABLET BY MOUTH EVERY DAY SOLD: 12/20/2019 [facility] doxycycline hyclate 100 MG Oral Capsule Doxycycline Hyclate 08/25/2019 12:00:00 AM EDT completed [facility] ([facility]) 100 mg 08/25/2019 12:00:00 AM EDT capsule 20 TAKE ONE CAPSULE BY MOUTH TWICE A DAY FOR 10 DAYS TAKE ONE CAPSULE BY MOUTH TWICE A DAY FOR 10 DAYS SOLD : 08/25/2019 [facility] 100,000 unit/mL 08/23/2019 12:00:00 AM EDT suspension 473 USE 5ML BY MOUTH SWISH AND SWALLOW FIVE TIMES A DAY FOR 10 DAYS USE 5ML BY MOUTH SWISH AND SWALLOW FIVE TIMES A DAY FOR 10 DAYS SOLD: 08/23/2019 [facility] Prednisone 20 MG Oral Tablet Prednisone 08/23/2019 12:00:00 AM EDT ORAL completed [facility] ([facility]) 20 mg 08/23/2019 12:00:00 AM EDT tablet 10 TAKE TWO TABLETS BY MOUTH EVERY MORNING FOR 5 DAYS TAKE TWO TABLETS BY MOUTH EVERY MORNING FOR 5 DAYS [facility] Nystatin 498263 UNT/ML Oral Suspension Nystatin 08/23/2019 12:00:00 AM EDT completed [facility] ([facility]) 420 gram 08/18/2019 12:00:00 AM EST recon soln 4000 A S DIRECTED DIRECTED SOLD: 08/23/2019 [facility] 10 gram/15 mL 08/17/2019 12:00:00 AM EST solution 1200 TAKE 2 TABLESPOONSFUL TWO TIMES A DAY MAY INCREASE TO 3 TWO TIMES A DAY NEEDED TAKE 2 TABLESPOONSFUL TWO TIMES A DAY MAY INCREASE TO 3 TWO TIMES A DAY NEEDED SOLD: 08/18/2019 [facility] Magnesium Hydroxide 80 MG/ML Oral Suspension Milk Of Magnesi a 08/17/2019 12:00:00 AM EST ORAL completed [facility] ([facility] ) 10 gram/15 mL 08/17/2019 12:00:00 AM EST solution 1200 TAKE 2 TABLESPOONSFUL TWO TIMES A DAY MAY INCREASE TO 3 TWO TIMES A DAY NEEDED TAKE 2 TABLESPOONSFUL TWO TIMES A DAY MAY INCREASE TO 3 TWO TIMES A DAY NEEDED SOLD: 12/20/2019 [facility] Lactulose 667 MG/ML Oral Solution Lactulose 08/17/2019 12:00:00 AM EST ORAL active MEDENT ([facility] ) POLYETHYLENE GLYCOL 3350 105 MG/ML / Pot assium Chloride 0.62390 MEQ/ML / Sodium Bicarbonate 0.017 MEQ/ML / Sodium Chloride 0.0479 MEQ/ML Oral Solution [TriLyte] Trilyte 08/17/2019 12:00:00 AM EST completed [facility] ([facility] ) 10 gram/15 mL 08/17/2019 12:00:00 AM EST solution 1200 TAKE 2 TABLESPOONSFUL TWO TIMES A DAY MAY INCREASE TO 3 TWO TIMES A DAY NEEDED TAKE 2 TABLESPOONSFUL TWO TIMES A DAY MAY INCREASE TO 3 TWO TIMES A DAY NEEDED SOLD: 11/09/2019 [facility] 10 gram/15 mL 08/17/2019 12:00:00 AM EST solution 1200 TAKE 2 TABLESPOONSFUL TWO TIMES A DAY MAY INCREASE TO 3 TWO TIMES A DAY NEEDED TAKE 2 TABLESPOONSFUL TWO TIMES A DAY MAY INCREASE TO 3 TWO TIMES A DAY NEEDED SOLD: 09/06/2019 [facility] 10 gram/15 mL 08/17/2019 12:00:00 AM EST solution 1200 TAKE 2 TABLESPOONSFUL TWO TIMES A DAY MAY INCREASE TO 3 TWO TIMES A DAY NEEDED TAKE 2 TABLESPOONSFUL TWO TIMES A DAY MAY INCREASE TO 3 TWO TIMES A DAY NEEDED SOLD: 10/01/2019 [facility] Cephalexin 250 MG Oral Tablet Cephalexin 08/09/2019 12:00:00 AM EST ORAL completed [facility] ([facility]) 250 mg 08/09/2019 12:00:00 AM EST capsule 10 TAKE ONE CAPSULE BY MOUTH TWICE A DAY FOR 5 DAYS TAKE ONE CAPSULE BY MOUTH TWICE A DAY FOR 5 DAYS SOLD: 08/09/2019 [facility] Phenazopyridine hydrochloride 200 MG Oral Tablet Phenazopyri dine HCL 08/07/2019 12:00:00 AM EST ORAL completed [facility] ([facility]) 200 mg 08/07/2019 12:00:00 AM EST tablet 6 TAKE ONE TABLET BY MOUTH THREE TIMES A DAY FOR 2 DAYS TAKE ONE TABLET BY MOUTH THREE TIMES A DAY FOR 2 DAYS SOLD: 08/07/2019 [facility] 500 mg 08/05/2019 12:00:00 AM EST capsule 40 TAKE ONE CAPSULE BY MOUTH FOUR TIMES A DAY FOR 10 DAYS TAKE ONE CAPSULE BY MOUTH FOUR TIMES A DAY FOR 10 DAYS SOLD: 08/06/2019 [facility] 500 mg 07/21/2019 12:00:00 AM EST capsule 40 TAKE ONE CAPSULE BY MOUTH FOUR TIMES A DAY FOR 10 DAYS TAKE ONE CAPSULE BY MOUTH FOUR TIMES A DAY FOR 10 DAYS SOLD: 07/21/2019 [facility] Rocephin/Ceftriaxone Sodium Injection Per 250 MG 07/21 12:00:00 AM EST completed [facility] ([facility]) Medication administered onsite Cephalexin 500 MG Oral Capsule Cephalexin 07/21/2019 12:00:00 AM EST ORAL completed [facility] ([facility]) Cephalexin 500 MG Oral Tablet Cephalexin 07/21/2019 12:00:00 AM EST ORAL completed [facility] ([facility]) 324 mg (65 mg iron) 07/07/2019 12:00:00 AM EST tablet, delayed release (DR/EC) 45 TAKE ONE TABLET BY MOUTH EVERY OTHER DAY TAKE ONE TABLET BY MOUTH EVERY OTHER DAY SOLD: 07/07/2019 [facility] 324 mg (65 mg iron) 07/07/2019 12:00:00 AM EST tablet, delayed release (DR/EC) 45 TAKE ONE TABLET BY MOUTH EVERY OTHER DAY TAKE ONE TABLET BY MOUTH EVERY OTHER DAY SOLD: 11/05/2019 [facility] 324 mg (65 mg iron) 07/07/2019 12:00:00 AM EST tablet, delayed release (DR/EC) 45 TAKE ONE TABLET BY MOUTH EVERY OTHER DAY TAKE ONE TABLET BY MOUTH EVERY OTHER DAY SOLD: 10/01/2019 [facility] 324 mg (65 mg iron) 07/07/2019 12:00:00 AM EST tablet, delayed release (DR/EC) 45 TAKE ONE TABLET BY MOUTH EVERY OTHER DAY TAKE ONE TABLET BY MOUTH EVERY OTHER DAY SOLD: 11/29/2019 [facility] ferrous sulfate 325 MG Delayed Release Oral Tablet Ferrous S ulfate 07/07/2019 12:00:00 AM EST ORAL completed [facility] ([facility]) sennosides, INTERMEDIATE 8.6 MG Oral Capsule Senna 07/07/2019 12:00:00 AM EST ORAL active [facility] ([facility]) Amiodarone hydrochloride 200 MG Oral Tablet Amiodarone HCL 07/06/2019 12:00:00 AM EST ORAL active [facility] ([facility]) gabapentin 300 MG Oral Capsule Gabapentin 07/06/2019 12:00:00 AM EST ORAL active [facility] ([facility]) gabapentin 300 MG Oral Capsule Gabapentin 03/11/2019 12:00:00 AM EDT ORAL completed [facility] ([facility]) 300 mg 03/08/2019 12:00:00 AM EDT capsule 180 TAKE ONE CAPSULE BY MOUTH TWICE A DAY TAKE ONE CAPSULE BY MOUTH TWICE A DAY SOLD: 07/05/2019 [facility] Amiodarone hydrochloride 200 MG Oral Tablet AMIODARONE HCL 02/17/2019 12:00:00 AM EDT tablet 90 TAKE ONE TABLET BY MOUTH THREE TIMES A DAY UNTIL 03/03/2019 THEN TAKE ONE TABLET BY MOUTH TWICE A DAY UNTIL 04/02/19 THEN 1 ONCE DAILY TAKE ONE TABLET BY MOUTH THREE TIMES A DAY UNTIL 03/03/2019 THEN TAKE ONE TABLET BY MOUTH TWICE A DAY UNTIL 04/02/19 THEN 1 ONCE DAILY SOLD: 06/21/2019 [facility] Amiodarone hydrochloride 200 MG Oral Tablet Amiodarone HCL 02/06/2019 12:00:00 AM EDT ORAL completed [facility] ([facility]) 2.5 mg /3 mL (0.083 %) 12/09/2018 12:00:00 AM EDT solu tion for nebulization 450 USE 1 VIAL VIA NEBULIZER FOUR TIMES A DA Y USE 1 VIAL VIA NEBULIZER FOUR TIMES A DAY SOLD: 10/19/2019 [facility] 2.5 mg /3 mL (0.083 %) 12/09/2018 12:00:00 AM EDT solu tion for nebulization 450 USE 1 VIAL VIA NEBULIZER FOUR TIMES A DA Y USE 1 VIAL VIA NEBULIZER FOUR TIMES A DAY SOLD: 08/14/2019 [facility] Insurance Providers Payer name Policy type / Coverage type Policy ID Covered constitution party ID Covered constitution party's relationship to page Policy Page Plan Information MEDICARE [id number] SP [id number] [place] P[place]/307 [id number] SP [id number] MEDICARE A [id number] Self [id number] BLUE CARD C [id number] Self [id number] MEDICARE C [id number] S [id number] EXCELLUS BCBS B [id number] S [id number] [place] P[place] 302/307 [id number] SP [id number] [place] P[place] 302/307 [id number] SP [id number] [place] Medigap Part B [id number] Self [id number] [place] Primary [id number] Self [id number] [place] Commercial [id number] Self [id number] Medicare Natl Govt Serv Medicare Primary [id number] Self [id number] BS [place] Medigap Part B [id number] Self [id number] Medicare Dme Supplies Medigap Part B [id number] Self [id number] [place] Primary [id number] Self [id number] BCBS [employer] U/[place] Medigap Part B [id number] Self [id number] Medicare (Part B) Medicare Primary [id number] Self [id number] Medicare (Part B) Medicare Primary [id number] Self [id number] BCBS [employer] U/[place] Medigap Part B [id number] Self [id number] Medicare (Part B) Medicare Primary [id number] Self [id number] Medicare (Part B) Medicare Primary [id number] Self [id number] BS [place] Medigap Part B [id number] Self [id number] Medicare Dme Supplies Medigap Part B [id number] Self [id number] [place] Primary [id number] Self [id number] BS [place] Medigap Part B [id number] Self [id number] Medicare [place] Gov't Servi Medicare Primary [id number] Self [id number] BS [place] Commercial [id number] Self [id number] Medicare [place] Govt Servic Medicare Primary [id number] Self [id number] BS [place] Medigap Part B [id number] Self [id number] [place] Primary [id number] Self [id number] BS [facility] [id number] Self [id number] Medicare [place]l Govt Servic Medicare Primary [id number] Self [id number] BS [place] [employer] [id number] Self [id number] Medicare [place] Gov[place] Servic Medicare Primary [id number] Self [id number] BCBS [employer] U/W Medigap Part B [id number] Self [id number] Medicare (Part B) Medicare Primary [id number] Self [id number] Medicare (Part B) Medicare Primary [id number] Self [id number] BCBS [employer] U/[place] Medigap Part B [id number] Self [id number] Medicare (Part B) Medicare Primary [id number] Self [id number] Medicare (Part B) Medicare Primary [id number] Self [id number] BS [place] [employer] [id number] Self [id number] Medicare [place] Govt Servic Medicare Primary [id number] Self [id number] BCBS [employer] U/[place] Medigap Part B [id number] Self [id number] Medicare (Part B) Medicare Primary [id number] Self [id number] BCBS [employer] U/[place] Medigap Part B [id number] Self [id number] Medicare (Part B) Medicare Primary [id number] Self [id number] MEDICARE [id number] SP [id number] A [employer] BCBS Medigap Part B [id number] [employer] BCBS Medigap Part B [id number] Self [id number] [place] Medicare Primary [id number] Self [id number] [facility] Commercial [id number] Self [id number] Medicare [place] Govt Servic Medicare Primary [id number] Self [id number] [place] [id number] Self [id number] Medicare (Part B) Medicare Primary [id number] Self [id number] MEDICARE C [id number] S [id number] BS [place] [employer] [id number] Self [id number] Medicare [place] Govt Servic Medicare Primary [id number] Self [id number] [place] [id number] Self [id number] Medicare (Part B) Medicare Primary [id number] Self [id number] [facility] Commercial [id number] Self [id number] Medicare [place] Govt Servic Medicare Primary [id number] Self [id number] [place] [id number] Self [id number] Medicare (Part B) Medicare Primary [id number] Self [id number] [facility] [employer] [id number] Self [id number] Medicare [place] Govt Servic Medicare Primary [id number] Self [id number] [facility] [employer] [id number] Self [id number] Medicare [place] Govt Servic Medicare Primary [id number] Self [id number] BS [place] [employer] [id number] Self [id number] Medicare [place] Govt Servic Medicare Primary [id number] Self [id number] [place] [id number] Self [id number] Medicare (Part B) Medicare Primary [id number] Self [id number] BS [place] Medigap Part B [id number] Self [id number] Medicare Natl Gov't Servi Medicare Primary [id number] Self [id number] BS [place] Medigap Part B [id number] Self [id number] [place] Primary [id number] Self [id number] BS [place] Medigap Part B [id number] Self [id number] Medicare [place] Gov't Servi Medicare Primary [id number] Self [id number] BS [place] [employer] [id number] Self [id number] Medicare [place] Govt Servic Medicare Primary [id number] Self [id number] BS [place] Medigap Part B [id number] Self [id number] [place] Primary [id number] Self [id number] BS [place] Medigap Part B [id number] Self [id number] [place] Primary [id number] Self [id number] [place] [id number] Self [id number] Medicare (Part B) Medicare Primary [id number] Self [id number] [employer] [id number] Self [id number] Medicare [place] Govt Servic Medicare Primary [id number] Self [id number] [facility] [employer] [id number] Self [id number] Medicare [place] Govt Servic Medicare Primary [id number] Self [id number] [facility] [employer] [id number] Self [id number] Medicare [place] Govt Servic Medicare Primary [id number] Self [id number] BS [facility] [id number] Self [id number] Medicare [place] Govt Servic Medicare Primary [id number] Self [id number] BS [facility] [id number] Self [id number] Medicare [place] Govt Servic Medicare Primary [id number] Self [id number] BS [facility] 200 Self [id number] Medicare [place] Govt Servic Medicare Primary Self [facility] Part B Self Medicare Natl Gov't Servi Medicare Primary Self [employer] BCBS Medigap Part B [place]/NGS Medicare Primary Self [place] 200/700 [id number] SP [id number] [place] 200/700 [id number] SP [id number] BS Of 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, unilateral, right ear, with unrestricted hearing on the contralateral side Diagnosis 04/02/2020 03:45:02 PM T [facility] Surgeries/Procedures Procedure Description Date Indications Data Source(s) INTERROGATION EVAL REMOTE </90 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 05/31 12:00:00 AM EST [facility] ([facility]) INTERROGATION REMOTE </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 05/31/20 20 12:00:00 AM EST [facility] ([facility]) INTERROGATION EVAL IN PERSON 1/DUAL/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 LEAD PM 2019 12:00:00 AM EDT [facility] ([facility]) Colonoscopy 02/06/2020 12:00:00 AM EDT Sami HOBSON ([facility]) Colonoscopy W/ Poly 02/06/2020 12:00:00 AM EDT [facility] ([facility] ) ECG ROUTINE ECG W/LEAST 12 LDS W/I&R 11/25/2019 12:00: 00 AM EDT [facility] ([facility]) INTERROGATION EVAL IN PERSON 1/DUAL/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 LEAD PM 2019 12:00:00 AM EDT [facility] ([facility]) INTERROGATION EVAL REMOTE </90 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 11/07 12:00:00 AM EDT [facility] ([facility]) INTERROGATION REMOTE </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 11/08/19 12:00:00 AM EDT [facility] ([facility]) Colonoscopy 10/27/2019 12:00:00 AM EDT M EDENT ([facility]) Endoscopy Upper GI Biopsy 10/27/2019 12:00:00 AM EDT [facility] ([facility]) Endoscopy Upper GI Control Hemorrhage 10/27/2019 12:00 :00 AM EDT [facility] ([facility]) Colonoscopy Flexible Proximal To Splenic Flexure W/Biopsy Si ngle/ 10/27/2019 12:00:00 AM EDT [facility] ([facility]) ECG ROUTINE ECG W/LEAST 12 LDS W/I&R 10/26/2019 12:00: 00 AM EDT [facility] ([facility]) INTERROGATION EVAL REMOTE </90 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 08/08 12:00:00 AM EST [facility] ([facility]) INTERROGATION REMOTE </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 08/08/19 12:00:00 AM EST [facility] ([facility]) Therapeutic, Prophylactic Or Diagnostic Injection Subq/Im 07/21/2019 12:00:00 AM EST [facility] ([facility] MYOCARDIAL SPECT MULTIPLE STUDIES 07/12/2019 12:00:00 AM EST [facility] ([facility]) CV STRS TST XERS&/OR RX CONT ECG PHYS SI&R 07/12/2019 12:00:00 AM EST [facility] ([facility]) ECG ROUTINE ECG W/LEAST 12 LDS W/I&R 07/05/2019 12:00: 00 AM EST [facility] ([facility]) Echography Soft Tissue Hand & Neck 06/28/2019 12:00:00 AM EST [facility] ([facility]) Results ID Date Data Source [id number] 06/14/2020 03:49:00 PM EST [facility] ([facility]) Name Value Range Interpretation Code Description Data Manda rce(s) Supporting Document(s) Leukocytes [#/volume] in Blood by Automated count 6.2 x10*3/UL 4.1-10 .9 [facility] ([facility]) Hemoglobin [Mass/volume] in Blood 12.2 g/dL 12.0-18.0 [facility] ([facility]) Erythrocytes [#/volume] in Blood by Automated count 4.68 x10*6/UL 4.2 0-6.30 [facility] ([facility]) MCH 26.1 pg 26.0-32.0 [facility] Hematocrit [Volume Fraction] of Blood by Automated count 36.7 % 3 7.0-51.0 [facility] ([facility]) MCV 78.3 fL 80.0-97.0 [facility] Platelets [#/volume] in Blood by Automated count 276 x10*3/UL 140-440 [facility] ([facility]) Erythrocyte distribution width [Ratio] by Automated count 15.2 % 11.6-13.7 [facility] ([facility]) MCHC 33.3 g/dL 31.0-38.0 [facility] Lymphocytes/100 leukocytes in Blood by Automated count 12.4 % 10. 0-58.5 [facility] ([facility]) Platelet mean volume [Entitic volume] in Blood by Bhanu 8.1 FL 7.8-11.0 [facility] ([facility]) Neut % 83.9 % 37.0-92.0 [facility] ([facility] Lymph # 0.7 x10*3/UL 0.6-4.1 [facility] ([facility]) Mid % 3.7 % 1.7-9.3 [facility] ([facility] Mid # 0.3 x10*3/UL 0.1-0.6 [facility] ([facility]) Neutrophils [#/volume] in Semen by Manual count 5.2 x10*3/UL 2.0-7.8 [facility] ([facility]) ID Date Data Source [id number] 06/14/2020 07:47:00 AM EST [facility] ([facility]) Name Value Range Interpretation Code Description Data Manda rce(s) Supporting Document(s) Glucose [Mass/volume] in Serum or Plasma 74 mg/dL 74-99 [facility] ([facility]) 100-125 mg/dL PRE-DIABETES/FASTING >126 mg/dL DIABETES/FASTING Urea nitrogen [Mass/volume] in Serum or Plasma 22 mg/dL 7-18 [facility] ([facility]) Creatinine 1.5 mg/dL 0.6-1.3 [facility] Sodium [Moles/volume] in Serum or Plasma 140 meq/L 136-145 [facility] ([facility]) Potassium [Moles/volume] in Serum or Plasma 4.4 meq/L 3.5-5.1 [facility] ([facility]) Chloride [Moles/volume] in Serum or Plasma 102 meq/L 98-107 [facility] ([facility]) Calcium [Mass/volume] in Serum or Plasma 9.1 mg/dL 8.5-10.1 [facility] ([facility]) Carbon dioxide, total [Moles/volume] in Serum or Plasma 31 meq/L 21 -32 [facility] ([facility]) Glomerular filtration rate/1.73 sq M pre dicted among blacks [Volume Rate/Area] in Serum or Plasma by Creatinine-based formula (MDRD) 40 mL/min [facility] ([facility]) <content>CHRONIC KIDNEY DISEASE STAGING PER NKF</content>
<content></content>
<content>STAGE I & II GFR >= 60 NORMAL TO MILDLY DECREASED</content>
<content>STAGE III GFR 30-59 MODERATELY DECREASED</content>
<content>STAGE IV GFR 15-29 SEVERELY DECREASED</content>
<content>STAGE V GFR <15 VERY LITTLE GFR LEFT</content>
<content>ESRD GFR <15 ON DRAG CAR RACER</content>
<content></content> Glomerular filtration rate/1.73 sq M pre dicted among non-blacks [Volume Rate/Area] in Serum or Plasma by Creatinine-based formula (MDRD) 33 mL/min [facility] ([facility]) ID Date Data Source [id number] 06/14/2020 07:47:00 AM EST [facility] ([facility]) Name Value Range Interpretation Code Description Data Manda rce(s) Supporting Document(s) Leukocytes [#/volume] in Blood by Automated count 6.2 x10*3/UL 4.1-10 .9 [facility] Erythrocytes [#/volume] in Blood by Automated count 4.68 x10*6/UL 4.2 0-6.30 [facility] Hemoglobin [Mass/volume] in Blood 12.2 g/dL 12.0-18.0 [facility] Hematocrit [Volume Fraction] of Blood by Automated count 36.7 % 3 7.0-51.0 [facility] ([facility]) MCV 78.3 fL 80.0-97.0 [facility]) MCH 26.1 pg 26.0-32.0 [facility]) Erythrocyte distribution width [Ratio] by Automated count 15.2 % 11.6-13.7 [facility] ([facility]) MCHC 33.3 g/dL 31.0-38.0 [facility]) Platelets [#/volume] in Blood by Automated count 276 x10*3/UL 140-440 [facility] ([facility]) MPV 8.1 FL 7.8-11.0 [facility]) Mid % 3.7 % 1.7-9.3 [facility] Lymph % 12.4 % 10.0-58.5 [facility]) Lymph # 0.7 x10*3/UL 0.6-4.1 [facility] ([facility]) Neut % 83.9 % 37.0-92.0 [facility]) Neut # 5.2 x10*3/UL 2.0-7.8 [facility] ([facility]) Mid # 0.3 x10*3/UL 0.1-0.6 [facility] ([facility]) ID Date Data Source [id number] 04/02/2020 03:46:33 PM EDT [facility] Name Value Range Interpretation Code Description Data Manda rce(s) Supporting Document(s) Progress Note [facility] [id number] lbm [file] [id number] ID Date Data Source [id number] 03/14/2020 09:00:00 AM EDT [facility] ([facility]) Name Value Range Interpretation Code Description Data Manda rce(s) Supporting Document(s) Thyrotropin [Units/volume] in Serum or Plasma by Detec tion limit <= 0.05 mIU/L 1.07 uIU/mL 0.36-3.74 [facility] ([facility] ) ID Date Data Source [id number] 03/14/2020 09:00:00 AM EDT [facility] ([facility]) Name Value Range Interpretation Code Description Data Manda rce(s) Supporting Document(s) Urine Creatinine 103.0 mg/dL 30.0-125.0 [facility] ([facility]) Microalbumin Urine 7.5 mg/L 1.3-20.0 [facility] ([facility]) Microalb/Creat Ratio 7.3 ug/mg 0.0-30.0 [facility] ID Date Data Source [id number] 03/14/2020 09:00:00 AM EDT [facility] Name Value Range Interpretation Code Description Data Manda rce(s) Supporting Document(s) Urine Color Laboratory test result [facility] T [facility] Urine Appearance Laboratory test result [facility] Specific gravity of Urine 1.010 1.005-1.030 MO D[facility] Urine PH 6.5 units 5.0-9.0 [facility]) Urine Blood Laboratory test result [facility] T [facility] Urine Leukocytes Laboratory test result Abnormal (applies to non-numeric results) [facility] Glucose [Presence] in Urine Laboratory test result [facility] Urine Protein Laboratory test result 0-0 [facility] Urine Ketone Laboratory test result MEDE NT [facility] Urine Nitrite Laboratory test result [facility] Bilirubin.total [Mass/volume] in Serum or Plasma Laboratory test resu lt [facility] Urine Urobilinogen 0.2 mg/dL 0.2-1.0 [facility] ([facility]) ID Date Data Source [id number] 03/14/2020 09:00:00 AM EDT [facility] Name Value Range Interpretation Code Description Data Manda rce(s) Supporting Document(s) Cholesterol [Mass/volume] in Serum or Plasma 213 mg/dL 131-200 [facility] ([facility]) Triglyceride [Mass/volume] in Serum or Plasma 101 mg/dL 30-150 [facility] ([facility]) Cholesterol in HDL [Mass/volume] in Serum or Plasma 105 mg/dL 35-60 [facility] ([facility]) Cholesterol in LDL [Mass/volume] in Serum or Plasma by calcu lation 88 CALC 50-159 [facility] ID Date Data Source [id number] 03/14/2020 09:00:00 AM EDT [facility] ([facility]) Name Value Range Interpretation Code Description Data Manda rce(s) Supporting Document(s) Glucose [Mass/volume] in Serum or Plasma 98 mg/dL 74-99 [facility] ([facility]) 100-125 mg/dL PRE-DIABETES/FASTING >126 mg/dL DIABETES/FASTING Urea nitrogen [Mass/volume] in Serum or Plasma 21 mg/dL 7-18 [facility] ([facility]) Sodium [Moles/volume] in Serum or Plasma 134 meq/L 136-145 [facility] ([facility]) Creatinine 1.6 mg/dL 0.6-1.3 [facility] ([facility]) Potassium [Moles/volume] in Serum or Plasma 4.4 meq/L 3.5-5.1 [facility] ([facility]) Chloride [Moles/volume] in Serum or Plasma 97 meq/L 98-107 [facility] ([facility]) Carbon dioxide, total [Moles/volume] in Serum or Plasma 30 meq/L 21 -32 [facility] ([facility]) Calcium [Mass/volume] in Serum or Plasma 9.2 mg/dL 8.5-10.1 [facility] ([facility]) Alkaline phosphatase isoenzyme [Units/volume] in Serum or Pl asma 109 mg/dL 46-116 [facility] Total Bilirubin 0.5 mg/dL 0.2-1.0 [facility] Aspartate aminotransferase [Enzymatic activity/volume] in Serum or Plasma 25 U/L 15-37 [facility] ([facility] ) Alanine aminotransferase [Enzymatic activity/volume] in Seru m or Plasma 40 U/L 12-78 [facility] ([facility]) Albumin [Mass/volume] in Serum or Plasma 3.8 g/dL 3.4-5.0 [facility] ([facility]) Proteinase 3 Ab [Units/volume] in Serum 7.2 g/dL 6.4-8.2 [facility] ([facility]) A/G Ratio 1.12 CALC 1.00-1.90 [facility]) Glomerular filtration rate/1.73 sq M pre dicted among blacks [Volume Rate/Area] in Serum or Plasma by Creatinine-based formula (MDRD) 37 mL/min [facility] <content>CHRONIC KIDNEY DISEASE STAGING PER NKF</content>
<content></content>
<content>STAGE I & II GFR >= 60 NORMAL TO MILDLY DECREASED</content>
<content>STAGE III GFR 30-59 MODERATELY DECREASED</content>
<content>STAGE IV GFR 15-29 SEVERELY DECREASED</content>
<content>STAGE V GFR <15 VERY LITTLE GFR LEFT</content>
<content>ESRD GFR <15 ON DRAG CAR RACER</content>
<content></content> Glomerular filtration rate/1.73 sq M pre dicted among non-blacks [Volume Rate/Area] in Serum or Plasma by Creatinine-based formula (MDRD) 30 mL/min [facility] ID Date Data Source [id number] 03/14/2020 09:00:00 AM EDT [facility] ([facility]) Name Value Range Interpretation Code Description Data Manda rce(s) Supporting Document(s) Magnesium 2.1 mg/dL 1.8-2.4 [facility] ([facility]) ID Date Data Source [id number] 03/14/2020 09:00:00 AM EDT [facility] ([facility]) Name Value Range Interpretation Code Description Data Manda rce(s) Supporting Document(s) Hemoglobin A1c/Hemoglobin.total in Blood 5.8 % [facility] Lab Result Notes: Pre-Diabetes 5.7 - 6.4 % Diabetes = or > 6.5% Glucose mean value [Mass/volume] in Blood Estimated fr om glycated hemoglobin 120 mg/dL 60-110 [facility] ID Date Data Source [id number] 03/14/2020 09:00:00 AM EDT [facility] Name Value Range Interpretation Code Description Data Manda rce(s) Supporting Document(s) Hemoglobin A1c/Hemoglobin.total in Blood Laboratory test result [facility] ([facility]) Magnesium, Serum Laboratory test result [facility] ([facility]) Creatine kinase [Enzymatic activity/volume] in Serum or Plasma 118 U/L 26-192 [facility] ([facility]) ID Date Data Source [id number] 03/14/2020 09:00:00 AM EDT [facility] ([facility]) Name Value Range Interpretation Code Description Data Manda rce(s) Supporting Document(s) Leukocytes [#/volume] in Blood by Automated count 6.5 x10*3/UL 4.1-10 .9 [facility] ([facility]) Erythrocytes [#/volume] in Blood by Automated count 4.86 x10*6/UL 4.2 0-6.30 [facility] ([facility]) Hemoglobin [Mass/volume] in Blood 12.7 g/dL 12.0-18.0 [facility] Hematocrit [Volume Fraction] of Blood by Automated count 37.8 % 3 7.0-51.0 [facility] ([facility]) MCV 77.9 fL 80.0-97.0 [facility] ([facility]) MCH 26.2 pg 26.0-32.0 [facility] ([facility]) MCHC 33.7 g/dL 31.0-38.0 [facility] ([facility]) Erythrocyte distribution width [Ratio] by Automated count 15.1 % 11.6-13.7 [facility] Platelets [#/volume] in Blood by Automated count 281 x10*3/UL 140-440 [facility] ([facility]) MPV 8.1 FL 7.8-11.0 [facility] ([facility]) Mid % 2.7 % 1.7-9.3 [facility] ([facility] Lymph % 11.6 % 10.0-58.5 [facility] ([facility]) Lymph # 0.7 x10*3/UL 0.6-4.1 [facility] ([facility]) Neut % 85.7 % 37.0-92.0 [facility]) Neut # 5.5 x10*3/UL 2.0-7.8 [facility] ([facility]) Mid # 0.3 x10*3/UL 0.1-0.6 [facility] ([facility]) ID Date Data Source [id number] 02/08/2020 08:04:00 AM EDT [facility] ([facility]) Name Value Range Interpretation Code Description Data Manda rce(s) Supporting Document(s) Creatinine For GFR 1.70 mg/dL 0.55-1.30 Above high normal [facility] ([facility]) Glomerular Filtration Rate 30.3 Below low normal [facility] ([facility]) <content>Units are mL/min/1.73 m2</content>
<content></content>
<content>Chronic Kidney Disease Staging per NKF:</content>
<content></content>
<content>Stage I & II GFR >=60 Normal to Mildly Decreased</content>
<content>Stage III GFR 30- 59 Moderately Decreased</content>
<content>Stage IV GFR 15-29 Severely Decreased</content>
<content>Stage V GFR <15 Very Little GFR Left</content>
<content>ESRD GFR <15 on DRAG CAR RACER</content>
<content></content> ID Date Data Source [id number] 02/08/2020 08:04:00 AM EDT [facility] ([facility]) Name Value Range Interpretation Code Description Data Manda rce(s) Supporting Document(s) Urea nitrogen [Mass/volume] in Serum or Plasma 18 mg/dL 7 -18 Normal (applies to non-numeric results) [facility] ([facility]) ID Date Data Source [id number] 02/06/2020 12:56:00 PM EDT [facility] ([facility]) Name Value Range Interpretation Code Description Data Manda rce(s) Supporting Document(s) Surgical pathology study Laboratory test result [facility] ([facility]) FINAL DIAGNOSIS Appendiceal orifice polyp, polypectomy: Hyperplastic polyp, fragments. 02/07/2020 - 1125 CLINICAL DIAGNOSIS Colon polyps 02/07/2020 - 0731 GROSS DIAGNOSIS Received in formalin labeled "appendiceal orifice polyp" consists of fragments of tissue 0.5 x 0.5 x 0.2 cm in aggregate. All in one. -OA 02/07/2020730 Signed ARSALAN LANDEROS MD 02/07/2020 1125 ID Date Data Source [id number] 01/02/2020 08:35:00 AM EDT [facility] ([facility] Name Value Range Interpretation Code Description Data Manda rce(s) Supporting Document(s) Magnesium 2.1 mg/dL 1.8-2.4 [facility] ([facility] Glucose [Mass/volume] in Serum or Plasma 80 mg/dL 74-99 [facility] ([facility]) 100-125 mg/dL PRE-DIABETES/FASTING >126 mg/dL DIABETES/FASTING Creatinine 1.8 mg/dL 0.6-1.3 [facility] ([facility]) Sodium [Moles/volume] in Serum or Plasma 141 meq/L 136-145 [facility] ([facility]) Urea nitrogen [Mass/volume] in Serum or Plasma 24 mg/dL 7-18 [facility] ([facility]) Chloride [Moles/volume] in Serum or Plasma 102 meq/L 98-107 [facility] ([facility]) Potassium [Moles/volume] in Serum or Plasma 4.3 meq/L 3.5-5.1 [facility] ([facility]) Glomerular filtration rate/1.73 sq M pre dicted among non-blacks [Volume Rate/Area] in Serum or Plasma by Creatinine-based formula (MDRD) 27 mL/min [facility] ([facility]) Carbon dioxide, total [Moles/volume] in Serum or Plasma 28 meq/L 21 -32 [facility] ([facility]) Calcium [Mass/volume] in Serum or Plasma 9.3 mg/dL 8.5-10.1 [facility] ([facility]) Glomerular filtration rate/1.73 sq M pre dicted among blacks [Volume Rate/Area] in Serum or Plasma by Creatinine-based formula (MDRD) 32 mL/min [facility] ([facility]) <content>CHRONIC KIDNEY DISEASE STAGING PER NKF</content>
<content></content>
<content>STAGE I & II GFR >= 60 NORMAL TO MILDLY DECREASED</content>
<content>STAGE III GFR 30-59 MODERATELY DECREASED</content>
<content>STAGE IV GFR 15-29 SEVERELY DECREASED</content>
<content>STAGE V GFR <15 VERY LITTLE GFR LEFT</content>
<content>ESRD GFR <15 ON [address]AG CAR RACER</content>
<content></content>
<content></content> Thyrotropin [Units/volume] in Serum or Plasma by Detec tion limit <= 0.05 mIU/L 1.85 uIU/mL 0.36-3.74 [facility] ([facility]) ID Date Data Source [id number] 01/02/2020 08:35:00 AM EDT [facility] ([facility]) Name Value Range Interpretation Code Description Data Manda rce(s) Supporting Document(s) Leukocytes [#/volume] in Blood by Automated count 7.1 x10*3/UL 4.1-10 .9 [facility] ([facility]) Hemoglobin [Mass/volume] in Blood 12.8 g/dL 12.0-18.0 [facility] ([facility]) Erythrocytes [#/volume] in Blood by Automated count 5.02 x10*6/UL 4.2 0-6.30 [facility] ([facility]) Hematocrit [Volume Fraction] of Blood by Automated count 38.8 % 3 7.0-51.0 [facility] ([facility]) MCV 77.2 fL 80.0-97.0 [facility] ([facility] MCHC 33.0 g/dL 31.0-38.0 [facility] Erythrocyte distribution width [Ratio] by Automated count 17.0 % 11.6-13.7 [facility] ([facility]) MCH 25.5 pg 26.0-32.0 [facility] ([facility] Platelets [#/volume] in Blood by Automated count 277 x10*3/UL 140-440 [facility] ([facility]) Lymphocytes/100 leukocytes in Blood by Automated count 9.5 % 10. 0-58.5 [facility] ([facility]) Platelet mean volume [Entitic volume] in Blood by Bhanu 8.0 FL 7.8-11.0 [facility] ([facility]) Lymph # 0.6 x10*3/UL 0.6-4.1 [facility] ([facility]) Neut % 88.5 % 37.0-92.0 [facility] Mid % 2.0 % 1.7-9.3 [facility] ([facility] Mid # 0.2 x10*3/UL 0.1-0.6 [facility] ([facility]) Neutrophils [#/volume] in Semen by Manual count 6.3 x10*3/UL 2.0-7.8 [facility] ([facility]) ID Date Data Source [id number] 01/02/2020 08:35:00 AM EDT [facility] ([facility]) Name Value Range Interpretation Code Description Data Manda rce(s) Supporting Document(s) Thyrotropin [Units/volume] in Serum or Plasma by Detec tion limit <= 0.05 mIU/L 1.85 uIU/mL 0.36-3.74 [facility] ([facility] ) ID Date Data Source [id number] 01/02/2020 08:35:00 AM EDT [facility] ([facility]) Name Value Range Interpretation Code Description Data Manda rce(s) Supporting Document(s) Glucose [Mass/volume] in Serum or Plasma 80 mg/dL 74-99 [facility] ([facility]) 100-125 mg/dL PRE-DIABETES/FASTING >126 mg/dL DIABETES/FASTING Creatinine 1.8 mg/dL 0.6-1.3 [facility] Urea nitrogen [Mass/volume] in Serum or Plasma 24 mg/dL 7-18 [facility] ([facility]) Potassium [Moles/volume] in Serum or Plasma 4.3 meq/L 3.5-5.1 [facility] ([facility]) Chloride [Moles/volume] in Serum or Plasma 102 meq/L 98-107 [facility] ([facility]) Sodium [Moles/volume] in Serum or Plasma 141 meq/L 136-145 [facility] ([facility]) Calcium [Mass/volume] in Serum or Plasma 9.3 mg/dL 8.5-10.1 [facility] ([facility]) Carbon dioxide, total [Moles/volume] in Serum or Plasma 28 meq/L 21 -32 [facility] ([facility]) Glomerular filtration rate/1.73 sq M pre dicted among blacks [Volume Rate/Area] in Serum or Plasma by Creatinine-based formula (MDRD) 32 mL/min [facility] ([facility]) <content>CHRONIC KIDNEY DISEASE STAGING PER NKF</content>
<content></content>
<content>STAGE I & II GFR >= 60 NORMAL TO MILDLY DECREASED</content>
<content>STAGE III GFR 30-59 MODERATELY DECREASED</content>
<content>STAGE IV GFR 15-29 SEVERELY DECREASED</content>
<content>STAGE V GFR <15 VERY LITTLE GFR LEFT</content>
<content>ESRD GFR <15 ON DRAG CAR RACER</content>
<content></content> Glomerular filtration rate/1.73 sq M pre dicted among non-blacks [Volume Rate/Area] in Serum or Plasma by Creatinine-based formula (MDRD) 27 mL/min [facility] ([facility]) ID Date Data Source [id number] 01/02/2020 08:35:00 AM EDT [facility] ([facility]) Name Value Range Interpretation Code Description Data Manda rce(s) Supporting Document(s) Magnesium 2.1 mg/dL 1.8-2.4 [facility] ID Date Data Source [id number] 01/02/2020 08:35:00 AM EDT [facility] ([facility]) Name Value Range Interpretation Code Description Data Manda rce(s) Supporting Document(s) Leukocytes [#/volume] in Blood by Automated count 7.1 x10*3/UL 4.1-10 .9 [facility] Erythrocytes [#/volume] in Blood by Automated count 5.02 x10*6/UL 4.2 0-6.30 [facility] ([facility]) Hemoglobin [Mass/volume] in Blood 12.8 g/dL 12.0-18.0 [facility] ([facility]) MCV 77.2 fL 80.0-97.0 [facility] ([facility]) Hematocrit [Volume Fraction] of Blood by Automated count 38.8 % 3 7.0-51.0 [facility] ([facility]) MCH 25.5 pg 26.0-32.0 [facility] ([facility]) MCHC 33.0 g/dL 31.0-38.0 [facility] ([facility]) Erythrocyte distribution width [Ratio] by Automated count 17.0 % 11.6-13.7 [facility] ([facility]) Platelets [#/volume] in Blood by Automated count 277 x10*3/UL 140-440 [facility] ([facility]) MPV 8.0 FL 7.8-11.0 [facility] ([facility] Lymph % 9.5 % 10.0-58.5 [facility] ([facility]) Mid % 2.0 % 1.7-9.3 [facility] ([facility]) Lymph # 0.6 x10*3/UL 0.6-4.1 [facility] ([facility]) Neut % 88.5 % 37.0-92.0 [facility] ([facility] Neut # 6.3 x10*3/UL 2.0-7.8 [facility] ([facility]) Mid # 0.2 x10*3/UL 0.1-0.6 [facility] ([facility]) ID Date Data Source [id number] 11/24/2019 01:19:00 PM EDT [facility] ([facility]) Name Value Range Interpretation Code Description Data Manda rce(s) Supporting Document(s) Glucose [Mass/volume] in Serum or Plasma 111 mg/dL 74-99 [facility] ([facility]) 100-125 mg/dL PRE-DIABETES/FASTING >126 mg/dL DIABETES/FASTING Urea nitrogen [Mass/volume] in Serum or Plasma 19 mg/dL 7-18 [facility] ([facility]) Sodium [Moles/volume] in Serum or Plasma 139 meq/L 136-145 [facility] ([facility]) Creatinine 1.5 mg/dL 0.6-1.3 [facility] ([facility] Chloride [Moles/volume] in Serum or Plasma 101 meq/L 98-107 [facility] ([facility]) Calcium [Mass/volume] in Serum or Plasma 8.9 mg/dL 8.5-10.1 [facility] ([facility]) Carbon dioxide, total [Moles/volume] in Serum or Plasma 30 meq/L 21 -32 [facility] ([facility]) Potassium [Moles/volume] in Serum or Plasma 4.1 meq/L 3.5-5.1 [facility] ([facility]) Glomerular filtration rate/1.73 sq M pre dicted among non-blacks [Volume Rate/Area] in Serum or Plasma by Creatinine-based formula (MDRD) 33 mL/min [facility] ([facility]) Glomerular filtration rate/1.73 sq M pre dicted among blacks [Volume Rate/Area] in Serum or Plasma by Creatinine-based formula (MDRD) 40 mL/min [facility] ([facility]) <content>CHRONIC KIDNEY DISEASE STAGING PER NKF</content>
<content></content>
<content>STAGE I & II GFR >= 60 NORMAL TO MILDLY DECREASED</content>
<content>STAGE III GFR 30-59 MODERATELY DECREASED</content>
<content>STAGE IV GFR 15-29 SEVERELY DECREASED</content>
<content>STAGE V GFR <15 VERY LITTLE GFR LEFT</content>
<content>ESRD GFR <15 ON DRAG CAR RACER</content>
<content></content> ID Date Data Source [id number] 11/24/2019 01:19:00 PM EDT [facility] ([facility]) Name Value Range Interpretation Code Description Data Manda rce(s) Supporting Document(s) Leukocytes [#/volume] in Blood by Automated count 7.9 x10*3/UL 4.1-10 .9 [facility] ([facility]) Hemoglobin [Mass/volume] in Blood 11.5 g/dL 12.0-18.0 [facility] ([facility]) NOTE: RESULT VERIFIED. Erythrocytes [#/volume] in Blood by Automated count 4.69 x10*6/UL 4.2 0-6.30 [facility] ([facility]) MCV 76.1 fL 80.0-97.0 [facility] ([facility]) MCH 24.6 pg 26.0-32.0 [facility] ([facility]) Hematocrit [Volume Fraction] of Blood by Automated count 35.7 % 3 7.0-51.0 [facility] ([facility]) MCHC 32.3 g/dL 31.0-38.0 [facility] ([facility]) Erythrocyte distribution width [Ratio] by Automated count 17.6 % 11.6-13.7 [facility] ([facility]) MPV 7.8 FL 7.8-11.0 [facility] ([facility]) Platelets [#/volume] in Blood by Automated count 278 x10*3/UL 140-440 [facility] ([facility]) Lymph % 12.0 % 10.0-58.5 [facility] ([facility]) Mid % 2.9 % 1.7-9.3 [facility] ([facility] Neut % 85.1 % 37.0-92.0 [facility] ([facility]) Lymph # 0.9 x10*3/UL 0.6-4.1 [facility] ([facility]) Neut # 6.7 x10*3/UL 2.0-7.8 [facility] ([facility]) Mid # 0.3 x10*3/UL 0.1-0.6 [facility] ([facility]) ID Date Data Source [id number] 11/02/2019 01:38:00 PM EDT [facility] ([facility]) Name Value Range Interpretation Code Description Data Manda rce(s) Supporting Document(s) Leukocytes [#/volume] in Blood by Automated count 7.9 x10*3/UL 4.1-10 .9 [facility] ([facility]) Erythrocytes [#/volume] in Blood by Automated count 4.41 x10*6/UL 4.2 0-6.30 [facility] ([facility]) MCH 24.6 pg 26.0-32.0 [facility] ([facility]) Hematocrit [Volume Fraction] of Blood by Automated count 32.7 % 3 7.0-51.0 [facility] ([facility]) MCV 74.1 fL 80.0-97.0 [facility] ([facility]) Hemoglobin [Mass/volume] in Blood 10.8 g/dL 12.0-18.0 [facility] ([facility]) NOTE: RESULT VERIFIED. MCHC 33.1 g/dL 31.0-38.0 [facility] ([facility]) Platelets [#/volume] in Blood by Automated count 326 x10*3/UL 140-440 [facility] ([facility]) Erythrocyte distribution width [Ratio] by Automated count 16.3 % 11.6-13.7 [facility] ([facility]) Lymph % 11.0 % 10.0-58.5 [facility] ([facility]) Mid % 3.1 % 1.7-9.3 [facility] ([facility]) MPV 8.1 FL 7.8-11.0 [facility] ([facility]) Neut % 85.9 % 37.0-92.0 [facility] ([facility]) Lymph # 0.8 x10*3/UL 0.6-4.1 [facility] ([facility]) Mid # 0.3 x10*3/UL 0.1-0.6 [facility] ([facility]) Neut # 6.8 x10*3/UL 2.0-7.8 [facility] ([facility]) ID Date Data Source [id number] 10/27/2019 10:27:00 AM EDT [facility] ([facility], ) Name Value Range Interpretation Code Description Data Manda rce(s) Supporting Document(s) Surgical pathology study Laboratory test result [facility] ([facility], ) FINAL DIAGNOSIS A - Gastric polyp, polypectomy: Hyperplastic polyp with eroded surface and granulation tissue formation. B - Polyp @ appendiceal orifice, biopsy: Sessile serrated polyp fragments. 10/28/2019 - 1522 CLINICAL DIAGNOSIS Blood in stool 10/28/2019 - 717 GROSS DIAGNOSIS A - Received in formalin labeled "biopsy gastric polyp" is a 0.7 x 0.2 x 0.1 cm aggregate of mucosal fragments. All in one. B - Received in formalin labeled "biopsy polyp @ appendiceal orifice" is a 0.3 x 0.2 x 0.2 cm aggregate of mucosal fragments. All in one. - 10/28/2019 - 717 Signed Sherry Patel MD 10/28/2019 1540 ID Date Data Source [id number] 10/26/2019 01:34:00 PM EDT [facility] Name Value Range Interpretation Code Description Data Manda rce(s) Supporting Document(s) Urea nitrogen [Mass/volume] in Serum or Plasma 22 mg/dL 7-18 [facility] ([facility]) Glucose [Mass/volume] in Serum or Plasma 103 mg/dL 74-99 [facility] ([facility]) 100-125 mg/dL PRE-DIABETES/FASTING >126 mg/dL DIABETES/FASTING Creatinine 1.7 mg/dL 0.6-1.3 [facility] Sodium [Moles/volume] in Serum or Plasma 132 meq/L 136-145 [facility] ([facility]) Potassium [Moles/volume] in Serum or Plasma 4.6 meq/L 3.5-5.1 [facility] ([facility]) Carbon dioxide, total [Moles/volume] in Serum or Plasma 29 meq/L 21 -32 [facility] ([facility]) Chloride [Moles/volume] in Serum or Plasma 95 meq/L 98-107 [facility] ([facility]) Alkaline phosphatase isoenzyme [Units/volume] in Serum or Pl asma 114 mg/dL 46-116 [facility] ([facility]) Calcium [Mass/volume] in Serum or Plasma 9.3 mg/dL 8.5-10.1 [facility] ([facility]) Total Bilirubin 0.5 mg/dL 0.2-1.0 [facility] ([facility]) Aspartate aminotransferase [Enzymatic activity/volume] in Serum or Plasma 28 U/L 15-37 [facility] ([facility] ) Albumin [Mass/volume] in Serum or Plasma 3.7 g/dL 3.4-5.0 [facility] ([facility]) Alanine aminotransferase [Enzymatic activity/volume] in Seru m or Plasma 33 U/L 12-78 [facility] ([facility]) Proteinase 3 Ab [Units/volume] in Serum 7.5 g/dL 6.4-8.2 [facility] ([facility]) A/G Ratio 0.97 CALC 1.00-1.90 [facility] ([facility]) Glomerular filtration rate/1.73 sq M pre dicted among blacks [Volume Rate/Area] in Serum or Plasma by Creatinine-based formula (MDRD) 34 mL/min [facility] ([facility]) <content>CHRONIC KIDNEY DISEASE STAGING PER NKF</content>
<content></content>
<content>STAGE I & II GFR >= 60 NORMAL TO MILDLY DECREASED</content>
<content>STAGE III GFR 30-59 MODERATELY DECREASED</content>
<content>STAGE IV GFR 15-29 SEVERELY DECREASED</content>
<content>STAGE V GFR <15 VERY LITTLE GFR LEFT</content>
<content>ESRD GFR <15 ON DRAG CAR RACER</content>
<content></content> Glomerular filtration rate/1.73 sq M pre dicted among non-blacks [Volume Rate/Area] in Serum or Plasma by Creatinine-based formula (MDRD) 28 mL/min [facility] ([facility]) ID Date Data Source [id number] 10/26/2019 01:34:00 PM EDT [facility] ([facility]) Name Value Range Interpretation Code Description Data Manda rce(s) Supporting Document(s) Natriuretic peptide B [Mass/volume] in Serum or Plasma 221.0 pg/mL 0.0-100.0 [facility] ([facility]) Magnesium 2.2 mg/dL 1.8-2.4 [facility] ([facility]) ID Date Data Source [id number] 10/26/2019 01:34:00 PM EDT [facility] Name Value Range Interpretation Code Description Data Manda rce(s) Supporting Document(s) Leukocytes [#/volume] in Blood by Automated count 8.7 x10*3/UL 4.1-10 .9 [facility] ([facility]) Erythrocytes [#/volume] in Blood by Automated count 4.59 x10*6/UL 4.2 0-6.30 [facility] ([facility]) Hemoglobin [Mass/volume] in Blood 11.1 g/dL 12.0-18.0 [facility] ([facility]) Hematocrit [Volume Fraction] of Blood by Automated count 33.7 % 3 7.0-51.0 [facility] ([facility]) MCH 24.1 pg 26.0-32.0 [facility] ([facility]) MCHC 32.9 g/dL 31.0-38.0 [facility] ([facility]) MCV 73.4 fL 80.0-97.0 [facility] ([facility]) MPV 7.4 FL 7.8-11.0 [facility] ([facility]) Platelets [#/volume] in Blood by Automated count 307 x10*3/UL 140-440 [facility] ([facility]) Erythrocyte distribution width [Ratio] by Automated count 16.0 % 11.6-13.7 [facility] ([facility]) Neut % 86.1 % 37.0-92.0 [facility] ([facility]) Lymph # 0.9 x10*3/UL 0.6-4.1 [facility] ([facility]) Mid % 2.9 % 1.7-9.3 [facility] ([facility]) Lymph % 11.0 % 10.0-58.5 [facility] ([facility]) Neut # 7.5 x10*3/UL 2.0-7.8 [facility] ([facility]) Mid # 0.3 x10*3/UL 0.1-0.6 [facility] ([facility]) ID Date Data Source [id number] 10/24/2019 11:15:00 AM EDT [facility] Name Value Range Interpretation Code Description Data Manda rce(s) Supporting Document(s) SARS CORONAVIRUS 2 RNA [facility] This lab was ordered by [facility] and reported by [facility]. ID Date Data Source [id number] 10/19/2019 09:40:00 AM EDT [facility] Name Value Range Interpretation Code Description Data Manda rce(s) Supporting Document(s) Leukocytes [#/volume] in Blood by Automated count 7.5 x10*3/UL 4.1-10 .9 [facility] ([facility]) Erythrocytes [#/volume] in Blood by Automated count 4.31 x10*6/UL 4.2 0-6.30 [facility] ([facility]) Hematocrit [Volume Fraction] of Blood by Automated count 31.7 % 3 7.0-51.0 [facility] ([facility]) MCV 73.6 fL 80.0-97.0 [facility] ([facility]) Hemoglobin [Mass/volume] in Blood 10.4 g/dL 12.0-18.0 [facility] ([facility]) NOTE: RESULT VERIFIED. MCH 24.2 pg 26.0-32.0 [facility] ([facility]) Erythrocyte distribution width [Ratio] by Automated count 15.6 % 11.6-13.7 [facility] ([facility]) MCHC 32.9 g/dL 31.0-38.0 [facility] ([facility]) MPV 8.0 FL 7.8-11.0 [facility] ([facility]) Platelets [#/volume] in Blood by Automated count 299 x10*3/UL 140-440 [facility] ([facility]) Lymph % 11.6 % 10.0-58.5 [facility] ([facility]) Neut % 85.6 % 37.0-92.0 [facility] ([facility]) Lymph # 0.8 x10*3/UL 0.6-4.1 [facility] ([facility]) Mid % 2.8 % 1.7-9.3 [facility] ([facility]) Mid # 0.3 x10*3/UL 0.1-0.6 [facility] ([facility]) Neut # 6.4 x10*3/UL 2.0-7.8 [facility] ([facility]) ID Date Data Source [id number] 10/19/2019 09:40:00 AM EDT [facility] ([facility]) Name Value Range Interpretation Code Description Data Manda rce(s) Supporting Document(s) Glucose [Mass/volume] in Serum or Plasma 109 mg/dL 74-99 [facility] ([facility]) 100-125 mg/dL PRE-DIABETES/FASTING >126 mg/dL DIABETES/FASTING Creatinine 1.5 mg/dL 0.6-1.3 [facility] ([facility]) Sodium [Moles/volume] in Serum or Plasma 140 meq/L 136-145 [facility] ([facility]) Urea nitrogen [Mass/volume] in Serum or Plasma 21 mg/dL 7-18 [facility] ([facility]) Carbon dioxide, total [Moles/volume] in Serum or Plasma 27 meq/L 21 -32 [facility] ([facility]) Potassium [Moles/volume] in Serum or Plasma 4.4 meq/L 3.5-5.1 [facility] ([facility]) Chloride [Moles/volume] in Serum or Plasma 103 meq/L 98-107 [facility] ([facility]) Calcium [Mass/volume] in Serum or Plasma 8.6 mg/dL 8.5-10.1 [facility] ([facility]) Glomerular filtration rate/1.73 sq M pre dicted among blacks [Volume Rate/Area] in Serum or Plasma by Creatinine-based formula (MDRD) 40 mL/min [facility] ([facility]) <content>CHRONIC KIDNEY DISEASE STAGING PER NKF</content>
<content></content>
<content>STAGE I & II GFR >= 60 NORMAL TO MILDLY DECREASED</content>
<content>STAGE III GFR 30-59 MODERATELY DECREASED</content>
<content>STAGE IV GFR 15-29 SEVERELY DECREASED</content>
<content>STAGE V GFR <15 VERY LITTLE GFR LEFT</content>
<content>ESRD GFR <15 ON DRAG CAR RACER</content>
<content></content> Glomerular filtration rate/1.73 sq M pre dicted among non-blacks [Volume Rate/Area] in Serum or Plasma by Creatinine-based formula (MDRD) 33 mL/min [facility] ([facility]) ID Date Data Source [id number] 10/11/2019 08:02:00 AM EDT [facility] ([facility]) Name Value Range Interpretation Code Description Data Manda rce(s) Supporting Document(s) Urea nitrogen [Mass/volume] in Serum or Plasma 19 mg/dL 7-18 [facility] ([facility]) Creatinine 1.7 mg/dL 0.6-1.3 [facility] Glucose [Mass/volume] in Serum or Plasma 120 mg/dL 74-99 [facility] ([facility]) 100-125 mg/dL PRE-DIABETES/FASTING >126 mg/dL DIABETES/FASTING Potassium [Moles/volume] in Serum or Plasma 4.5 meq/L 3.5-5.1 [facility] ([facility]) Sodium [Moles/volume] in Serum or Plasma 140 meq/L 136-145 [facility] ([facility]) Chloride [Moles/volume] in Serum or Plasma 102 meq/L 98-107 [facility] ([facility]) Calcium [Mass/volume] in Serum or Plasma 9.5 mg/dL 8.5-10.1 [facility] ([facility]) Glomerular filtration rate/1.73 sq M pre dicted among blacks [Volume Rate/Area] in Serum or Plasma by Creatinine-based formula (MDRD) 34 mL/[facility] <content>CHRONIC KIDNEY DISEASE STAGING PER NKF</content>
<content></content>
<content>STAGE I & II GFR >= 60 NORMAL TO MILDLY DECREASED</content>
<content>STAGE III GFR 30-59 MODERATELY DECREASED</content>
<content>STAGE IV GFR 15-29 SEVERELY DECREASED</content>
<content>STAGE V GFR <15 VERY LITTLE GFR LEFT</content>
<content>ESRD GFR <15 ON DRAG CAR RACER</content>
<content></content> Glomerular filtration rate/1.73 sq M pre dicted among non-blacks [Volume Rate/Area] in Serum or Plasma by Creatinine-based formula (MDRD) 28 mL/min [facility] ([facility]) Carbon dioxide, total [Moles/volume] in Serum or Plasma 29 meq/L 21 -32 [facility] ([facility]) ID Date Data Source [id number] 10/11/2019 08:02:00 AM EDT [facility] Name Value Range Interpretation Code Description Data Manda rce(s) Supporting Document(s) Erythrocytes [#/volume] in Blood by Automated count 4.48 x10*6/UL 4.2 0-6.30 [facility] ([facility]) Leukocytes [#/volume] in Blood by Automated count 8.7 x10*3/UL 4.1-10 .9 [facility] ([facility]) MCV 74.0 fL 80.0-97.0 [facility] Hematocrit [Volume Fraction] of Blood by Automated count 33.2 % 3 7.0-51.0 [facility] ([facility]) Hemoglobin [Mass/volume] in Blood 11.1 g/dL 12.0-18.0 [facility] ([facility]) NOTE: RESULT VERIFIED. MCHC 33.6 g/dL 31.0-38.0 [facility] Erythrocyte distribution width [Ratio] by Automated count 15.7 % 11.6-13.7 [facility] ([facility]) MCH 24.8 pg 26.0-32.0 [facility] ([facility]) Lymph % 7.8 % 10.0-58.5 [facility] ([facility]) Platelets [#/volume] in Blood by Automated count 325 x10*3/UL 140-440 [facility] ([facility]) MPV 7.7 FL 7.8-11.0 [facility] ([facility]) Mid % 10.6 % 1.7-9.3 [facility] ([facility]) Lymph # 0.6 x10*3/UL 0.6-4.1 [facility] ([facility]) Mid # 1.0 x10*3/UL 0.1-0.6 [facility] ([facility]) Neut % 81.6 % 37.0-92.0 [facility] ([facility]) Neut # 7.1 x10*3/UL 2.0-7.8 [facility] ([facility]) ID Date Data Source [id number] 10/05/2019 10:29:00 AM EDT [facility] ([facility]) Name Value Range Interpretation Code Description Data Manda rce(s) Supporting Document(s) Leukocytes [#/volume] in Blood by Automated count 8.6 x10*3/UL 4.1-10 .9 [facility] ([facility]) Erythrocytes [#/volume] in Blood by Automated count 4.35 x10*6/UL 4.2 0-6.30 [facility] ([facility]) Hemoglobin [Mass/volume] in Blood 10.8 g/dL 12.0-18.0 [facility] ([facility]) NOTE: RESULT VERIFIED. MCV 73.5 fL 80.0-97.0 [facility] ([facility]) Hematocrit [Volume Fraction] of Blood by Automated count 32.0 % 3 7.0-51.0 [facility] ([facility]) Erythrocyte distribution width [Ratio] by Automated count 15.4 % 11.6-13.7 [facility] ([facility]) MCHC 33.8 g/dL 31.0-38.0 [facility]) MCH 24.8 pg 26.0-32.0 [facility] Lymph % 9.9 % 10.0-58.5 [facility]) MPV 7.8 FL 7.8-11.0 [facility] Platelets [#/volume] in Blood by Automated count 295 x10*3/UL 140-440 [facility] ([facility]) Neut % 87.0 % 37.0-92.0 [facility] Lymph # 0.8 x10*3/UL 0.6-4.1 [facility] ([facility]) Mid % 3.1 % 1.7-9.3 [facility] Mid # 0.3 x10*3/UL 0.1-0.6 [facility] ([facility]) Neut # 7.5 x10*3/UL 2.0-7.8 [facility] ([facility]) ID Date Data Source [id number] 09/07/2019 01:40:00 PM EDT [facility] ([facility]) Name Value Range Interpretation Code Description Data Manda rce(s) Supporting Document(s) Glucose [Mass/volume] in Serum or Plasma 94 mg/dL 74-99 [facility] ([facility]) 100-125 mg/dL PRE-DIABETES/FASTING >126 mg/dL DIABETES/FASTING Urea nitrogen [Mass/volume] in Serum or Plasma 21 mg/dL 7-18 [facility] ([facility]) Creatinine 1.3 mg/dL 0.6-1.3 [facility] ([facility]) Chloride [Moles/volume] in Serum or Plasma 101 meq/L 98-107 [facility] ([facility]) Potassium [Moles/volume] in Serum or Plasma 4.3 meq/L 3.5-5.1 [facility] ([facility]) Sodium [Moles/volume] in Serum or Plasma 139 meq/L 136-145 [facility] ([facility]) Glomerular filtration rate/1.73 sq M pre dicted among non-blacks [Volume Rate/Area] in Serum or Plasma by Creatinine-based formula (MDRD) 39 mL/min [facility] ([facility]) Carbon dioxide, total [Moles/volume] in Serum or Plasma 32 meq/L 21 -32 [facility] ([facility]) Calcium [Mass/volume] in Serum or Plasma 9.3 mg/dL 8.5-10.1 [facility] ([facility]) Glomerular filtration rate/1.73 sq M pre dicted among blacks [Volume Rate/Area] in Serum or Plasma by Creatinine-based formula (MDRD) 47 mL/min [facility] ([facility]) <content>CHRONIC KIDNEY DISEASE STAGING PER NKF</content>
<content></content>
<content>STAGE I & II GFR >= 60 NORMAL TO MILDLY DECREASED</content>
<content>STAGE III GFR 30-59 MODERATELY DECREASED</content>
<content>STAGE IV GFR 15-29 SEVERELY DECREASED</content>
<content>STAGE V GFR <15 VERY LITTLE GFR LEFT</content>
<content>ESRD GFR <15 ON [address]AG CAR RACER</content>
<content></content>
<content></content> ID Date Data Source [id number] 09/07/2019 01:40:00 PM EDT [facility] ([facility]) Name Value Range Interpretation Code Description Data Manda rce(s) Supporting Document(s) Leukocytes [#/volume] in Blood by Automated count 6.8 x10*3/UL 4.1-10 .9 [facility] ([facility]) Hematocrit [Volume Fraction] of Blood by Automated count 35.1 % 3 7.0-51.0 [facility] ([facility]) Erythrocytes [#/volume] in Blood by Automated count 4.63 x10*6/UL 4.2 0-6.30 [facility] ([facility]) Hemoglobin [Mass/volume] in Blood 11.6 g/dL 12.0-18.0 [facility] ([facility]) MCV 75.7 fL 80.0-97.0 [facility] ([facility]) MCH 25.0 pg 26.0-32.0 [facility] ([facility] Erythrocyte distribution width [Ratio] by Automated count 15.3 % 11.6-13.7 [facility] ([facility]) MCHC 33.0 g/dL 31.0-38.0 [facility] Platelets [#/volume] in Blood by Automated count 303 x10*3/UL 140-440 [facility] ([facility]) Platelet mean volume [Entitic volume] in Blood by Bhanu 7.9 FL 7.8-11.0 [facility] ([facility]) Lymphocytes/100 leukocytes in Blood by Automated count 11.6 % 10. 0-58.5 [facility] ([facility]) Mid % 3.2 % 1.7-9.3 [facility] ([facility]) Neut % 85.2 % 37.0-92.0 [facility] Lymph # 0.7 x10*3/UL 0.6-4.1 [facility] ([facility]) Mid # 0.3 x10*3/UL 0.1-0.6 [facility] ([facility]) Neutrophils [#/volume] in Semen by Manual count 5.8 x10*3/UL 2.0-7.8 [facility] ([facility]) ID Date Data Source [id number] 09/07/2019 01:40:00 PM EDT [facility] ([facility]) Name Value Range Interpretation Code Description Data Manda rce(s) Supporting Document(s) Glucose [Mass/volume] in Serum or Plasma 94 mg/dL 74-99 [facility] ([facility]) 100-125 mg/dL PRE-DIABETES/FASTING >126 mg/dL DIABETES/FASTING Urea nitrogen [Mass/volume] in Serum or Plasma 21 mg/dL 7-18 [facility] ([facility]) Potassium [Moles/volume] in Serum or Plasma 4.3 meq/L 3.5-5.1 [facility] ([facility]) Creatinine 1.3 mg/dL 0.6-1.3 [facility] Sodium [Moles/volume] in Serum or Plasma 139 meq/L 136-145 [facility] ([facility]) Carbon dioxide, total [Moles/volume] in Serum or Plasma 32 meq/L 21 -32 [facility] ([facility]) Chloride [Moles/volume] in Serum or Plasma 101 meq/L 98-107 [facility] Glomerular filtration rate/1.73 sq M pre dicted among non-blacks [Volume Rate/Area] in Serum or Plasma by Creatinine-based formula (MDRD) 39 mL/min [facility] ([facility]) Calcium [Mass/volume] in Serum or Plasma 9.3 mg/dL 8.5-10.1 [facility] Glomerular filtration rate/1.73 sq M pre dicted among blacks [Volume Rate/Area] in Serum or Plasma by Creatinine-based formula (MDRD) 47 mL/min [facility] <content>CHRONIC KIDNEY DISEASE STAGING PER NKF</content>
<content></content>
<content>STAGE I & II GFR >= 60 NORMAL TO MILDLY DECREASED</content>
<content>STAGE III GFR 30-59 MODERATELY DECREASED</content>
<content>STAGE IV GFR 15-29 SEVERELY DECREASED</content>
<content>STAGE V GFR <15 VERY LITTLE GFR LEFT</content>
<content>ESRD GFR <15 ON DRAG CAR RACER</content>
<content></content> ID Date Data Source [id number] 09/07/2019 01:40:00 PM EDT [facility] Name Value Range Interpretation Code Description Data Manda rce(s) Supporting Document(s) Leukocytes [#/volume] in Blood by Automated count 6.8 x10*3/UL 4.1-10 .9 [facility] ([facility]) Erythrocytes [#/volume] in Blood by Automated count 4.63 x10*6/UL 4.2 0-6.30 [facility] ([facility]) MCV 75.7 fL 80.0-97.0 [facility] Hematocrit [Volume Fraction] of Blood by Automated count 35.1 % 3 7.0-51.0 [facility] ([facility]) Hemoglobin [Mass/volume] in Blood 11.6 g/dL 12.0-18.0 [facility] ([facility]) MCH 25.0 pg 26.0-32.0 [facility] ([facility] MCHC 33.0 g/dL 31.0-38.0 [facility] ([facility]) MPV 7.9 FL 7.8-11.0 [facility] ([facility]) Erythrocyte distribution width [Ratio] by Automated count 15.3 % 11.6-13.7 [facility] ([facility]) Platelets [#/volume] in Blood by Automated count 303 x10*3/UL 140-440 [facility] ([facility]) Neut % 85.2 % 37.0-92.0 [facility] ([facility]) Lymph % 11.6 % 10.0-58.5 [facility] ([facility]) Mid % 3.2 % 1.7-9.3 [facility] ([facility]) Lymph # 0.7 x10*3/UL 0.6-4.1 [facility] ([facility]) Mid # 0.3 x10*3/UL 0.1-0.6 [facility] ([facility]) Neut # 5.8 x10*3/UL 2.0-7.8 [facility] ([facility]) ID Date Data Source [id number] 08/23/2019 08:58:00 AM EDT [facility] Name Value Range Interpretation Code Description Data Manda rce(s) Supporting Document(s) Laboratory test finding (navigational concept) Laboratory test result [facility] ([facility]) Negative results do not preclude influen za or RSV virus infection and should not be used as the sole basis for treatment or other patient management decisions. Laboratory test finding (navigational concept) Laboratory test result [facility] ([facility]) Negative results do not preclude influen za or RSV virus infection and should not be used as the sole basis for treatment or other patient management decisions. ID Date Data Source [id number] 08/23/2019 08:58:00 AM EDT [facility] ([facility]) Name Value Range Interpretation Code Description Data Manda rce(s) Supporting Document(s) Influenza A Amplification Laboratory test result [facility] ([facility]) Negative results do not preclude influen za or RSV virus infection and should not be used as the sole basis for treatment or other patient management decisions. Influenza B Amplification Laboratory test result [facility] ([facility]) Negative results do not preclude influen za or RSV virus infection and should not be used as the sole basis for treatment or other patient management decisions. ID Date Data Source [id number] 08/23/2019 07:37:00 AM EDT [facility] ([facility]) Name Value Range Interpretation Code Description Data Manda rce(s) Supporting Document(s) Creatinine 1.4 mg/dL 0.6-1.3 [facility] ([facility]) Urea nitrogen [Mass/volume] in Serum or Plasma 18 mg/dL 7-18 [facility] ([facility]) Glucose [Mass/volume] in Serum or Plasma 106 mg/dL 74-99 [facility] ([facility]) 100-125 mg/dL PRE-DIABETES/FASTING >126 mg/dL DIABETES/FASTING Chloride [Moles/volume] in Serum or Plasma 101 meq/L 98-107 [facility] ([facility]) Potassium [Moles/volume] in Serum or Plasma 4.2 meq/L 3.5-5.1 [facility] ([facility]) Sodium [Moles/volume] in Serum or Plasma 141 meq/L 136-145 [facility] ([facility]) Carbon dioxide, total [Moles/volume] in Serum or Plasma 30 meq/L 21 -32 [facility] ([facility]) Total Bilirubin 0.4 mg/dL 0.2-1.0 [facility] ([facility]) Calcium [Mass/volume] in Serum or Plasma 9.1 mg/dL 8.5-10.1 [facility] ([facility]) Alkaline phosphatase isoenzyme [Units/volume] in Serum or Pl asma 97 mg/dL 46-116 [facility] ([facility]) Aspartate aminotransferase [Enzymatic activity/volume] in Serum or Plasma 36 U/L 15-37 [facility] ([facility]) Alanine aminotransferase [Enzymatic activity/volume] in Seru m or Plasma 49 U/L 12-78 [facility] ([facility]) Proteinase 3 Ab [Units/volume] in Serum 6.6 g/dL 6.4-8.2 [facility] ([facility]) Albumin [Mass/volume] in Serum or Plasma 3.8 g/dL 3.4-5.0 [facility] ([facility]) A/G Ratio 1.36 CALC 1.00-1.90 [facility] Glomerular filtration rate/1.73 sq M pre dicted among blacks [Volume Rate/Area] in Serum or Plasma by Creatinine-based formula (MDRD) 43 mL/min [facility] ([facility]) <content>CHRONIC KIDNEY DISEASE STAGING PER NKF</content>
<content></content>
<content>STAGE I & II GFR >= 60 NORMAL TO MILDLY DECREASED</content>
<content>STAGE III GFR 30-59 MODERATELY DECREASED</content>
<content>STAGE IV GFR 15-29 SEVERELY DECREASED</content>
<content>STAGE V GFR <15 VERY LITTLE GFR LEFT</content>
<content>ESRD GFR <15 ON DRAG CAR RACER</content>
<content></content>
<content></content> Glomerular filtration rate/1.73 sq M pre dicted among non-blacks [Volume Rate/Area] in Serum or Plasma by Creatinine-based formula (MDRD) 36 mL/min [facility] ([facility]) ID Date Data Source [id number] 08/23/2019 07:37:00 AM EDT [facility] ([facility]) Name Value Range Interpretation Code Description Data Manda rce(s) Supporting Document(s) Leukocytes [#/volume] in Blood by Automated count 10.4 x10*3/UL 4.1-1 0.9 [facility] ([facility]) Erythrocytes [#/volume] in Blood by Automated count 4.53 x10*6/UL 4.2 0-6.30 [facility] ([facility]) MCH 25.4 pg 26.0-32.0 [facility] Hematocrit [Volume Fraction] of Blood by Automated count 34.7 % 3 7.0-51.0 [facility] ([facility]) Hemoglobin [Mass/volume] in Blood 11.5 g/dL 12.0-18.0 [facility] ([facility]) MCV 76.5 fL 80.0-97.0 [facility] ([facility]) Erythrocyte distribution width [Ratio] by Automated count 14.1 % 11.6-13.7 [facility] ([facility]) MCHC 33.2 g/dL 31.0-38.0 [facility] ([facility]) Platelets [#/volume] in Blood by Automated count 252 x10*3/UL 140-440 [facility] ([facility]) Lymphocytes/100 leukocytes in Blood by Automated count 4.4 % 10. 0-58.5 [facility] ([facility]) Platelet mean volume [Entitic volume] in Blood by Bhanu 8.2 FL 7.8-11.0 [facility] ([facility]) Mid % 6.7 % 1.7-9.3 [facility] ([facility]) Neut % 88.9 % 37.0-92.0 [facility] ([facility]) Lymph # 0.4 x10*3/UL 0.6-4.1 [facility] ([facility]) Mid # 0.8 x10*3/UL 0.1-0.6 [facility] ([facility]) Neutrophils [#/volume] in Semen by Manual count 9.2 x10*3/UL 2.0-7.8 [facility] ([facility]) ID Date Data Source [id number] 08/23/2019 07:37:00 AM EDT [facility] ([facility]) Name Value Range Interpretation Code Description Data Manda rce(s) Supporting Document(s) Erythrocytes [#/volume] in Blood by Automated count 4.53 x10*6/UL 4.2 0-6.30 [facility] ([facility]) Hemoglobin [Mass/volume] in Blood 11.5 g/dL 12.0-18.0 [facility] ([facility]) Leukocytes [#/volume] in Blood by Automated count 10.4 x10*3/UL 4.1-1 0.9 [facility] Hematocrit [Volume Fraction] of Blood by Automated count 34.7 % 3 7.0-51.0 [facility] ([facility]) MCV 76.5 fL 80.0-97.0 [facility] ([facility] [facility]) MCH 25.4 pg 26.0-32.0 [facility] ([facility]) MCHC 33.2 g/dL 31.0-38.0 [facility] ([facility]) Platelets [#/volume] in Blood by Automated count 252 x10*3/UL 140-440 [facility] MPV 8.2 FL 7.8-11.0 [facility] ([facility]) Erythrocyte distribution width [Ratio] by Automated count 14.1 % 11.6-13.7 [facility] ([facility]) Lymph % 4.4 % 10.0-58.5 [facility] ([facility]) Mid % 6.7 % 1.7-9.3 [facility] ([facility]) Lymph # 0.4 x10*3/UL 0.6-4.1 [facility] ([facility]) Neut % 88.9 % 37.0-92.0 [facility] ([facility]) Mid # 0.8 x10*3/UL 0.1-0.6 [facility] ([facility]) Neut # 9.2 x10*3/UL 2.0-7.8 [facility] ([facility]) ID Date Data Source [id number] 08/23/2019 07:37:00 AM EDT [facility] ([facility]) Name Value Range Interpretation Code Description Data Manda rce(s) Supporting Document(s) Glucose [Mass/volume] in Serum or Plasma 106 mg/dL 74-99 [facility] ([facility]) 100-125 mg/dL PRE-DIABETES/FASTING >126 mg/dL DIABETES/FASTING Urea nitrogen [Mass/volume] in Serum or Plasma 18 mg/dL 7-18 [facility] ([facility]) Creatinine 1.4 mg/dL 0.6-1.3 [facility] ([facility] Sodium [Moles/volume] in Serum or Plasma 141 meq/L 136-145 [facility] ([facility]) Chloride [Moles/volume] in Serum or Plasma 101 meq/L 98-107 [facility] ([facility]) Potassium [Moles/volume] in Serum or Plasma 4.2 meq/L 3.5-5.1 [facility] ([facility]) Alkaline phosphatase isoenzyme [Units/volume] in Serum or Pl asma 97 mg/dL 46-116 [facility] ([facility]) Carbon dioxide, total [Moles/volume] in Serum or Plasma 30 meq/L 21 -32 [facility] ([facility]) Calcium [Mass/volume] in Serum or Plasma 9.1 mg/dL 8.5-10.1 [facility] ([facility]) Total Bilirubin 0.4 mg/dL 0.2-1.0 [facility] ([facility]) Aspartate aminotransferase [Enzymatic activity/volume] in Serum or Plasma 36 U/L 15-37 [facility] ([facility] ) Albumin [Mass/volume] in Serum or Plasma 3.8 g/dL 3.4-5.0 [facility] ([facility]) Proteinase 3 Ab [Units/volume] in Serum 6.6 g/dL 6.4-8.2 [facility] ([facility]) Alanine aminotransferase [Enzymatic activity/volume] in Seru m or Plasma 49 U/L 12-78 [facility] ([facility]) Glomerular filtration rate/1.73 sq M pre dicted among blacks [Volume Rate/Area] in Serum or Plasma by Creatinine-based formula (MDRD) 43 mL/min [facility] ([facility]) <content>CHRONIC KIDNEY DISEASE STAGING PER NKF</content>
<content></content>
<content>STAGE I & II GFR >= 60 NORMAL TO MILDLY DECREASED</content>
<content>STAGE III GFR 30-59 MODERATELY DECREASED</content>
<content>STAGE IV GFR 15-29 SEVERELY DECREASED</content>
<content>STAGE V GFR <15 VERY LITTLE GFR LEFT</content>
<content>ESRD GFR <15 ON DRAG CAR RACER</content>
<content></content> A/G Ratio 1.36 CALC 1.00-1.90 [facility] ([place] [facility]) Glomerular filtration rate/1.73 sq M pre dicted among non-blacks [Volume Rate/Area] in Serum or Plasma by Creatinine-based formula (MDRD) 36 mL/min [facility] ([facility]) ID Date Data Source [id number] 08/07/2019 09:13:00 AM EST [facility] ([facility]) Name Value Range Interpretation Code Description Data Manda rce(s) Supporting Document(s) Bacteria identified in Urine by Culture Laboratory test result [facility] ([facility]) Rx Cephlex ID Date Data Source [id number] 08/01/2019 07:31:00 AM EST [facility] ([facility]) Name Value Range Interpretation Code Description Data Manda rce(s) Supporting Document(s) Hemoglobin A1c/Hemoglobin.total in Blood 6.3 g/dL 4.8-5.6 [facility] ([facility]) Lab Result Notes: Pre-Diabetes 5.7 - 6.4 % Diabetes = or > 6.5% Glucose mean value [Mass/volume] in Blood Estimated fr om glycated hemoglobin 134 mg/dL 60-110 [facility] ([facility]) Glucose [Mass/volume] in Serum or Plasma 84 mg/dL 74-99 [facility] ([facility]) 100-125 mg/dL PRE-DIABETES/FASTING >126 mg/dL DIABETES/FASTING Potassium [Moles/volume] in Serum or Plasma 4.7 meq/L 3.5-5.1 [facility] ([facility]) Urea nitrogen [Mass/volume] in Serum or Plasma 20 mg/dL 7-18 [facility] ([facility]) Sodium [Moles/volume] in Serum or Plasma 139 meq/L 136-145 [facility] ([facility]) Creatinine 1.4 mg/dL 0.6-1.3 [facility] ([facility]) Carbon dioxide, total [Moles/volume] in Serum or Plasma 32 meq/L 21 -32 [facility] ([facility]) Calcium [Mass/volume] in Serum or Plasma 9.3 mg/dL 8.5-10.1 [facility] ([facility]) Glomerular filtration rate/1.73 sq M pre dicted among non-blacks [Volume Rate/Area] in Serum or Plasma by Creatinine-based formula (MDRD) 36 mL/min [facility] ([facility]) Chloride [Moles/volume] in Serum or Plasma 101 meq/L 98-107 [facility] ([facility]) Glomerular filtration rate/1.73 sq M pre dicted among blacks [Volume Rate/Area] in Serum or Plasma by Creatinine-based formula (MDRD) 43 mL/min [facility] ([facility]) <content>CHRONIC KIDNEY DISEASE STAGING PER NKF</content>
<content></content>
<content>STAGE I & II GFR >= 60 NORMAL TO MILDLY DECREASED</content>
<content>STAGE III GFR 30-59 MODERATELY DECREASED</content>
<content>STAGE IV GFR 15-29 SEVERELY DECREASED</content>
<content>STAGE V GFR <15 VERY LITTLE GFR LEFT</content>
<content>ESRD GFR <15 ON DRAG CAR RACER</content>
<content></content>
<content></content> ID Date Data Source [id number] 08/01/2019 07:31:00 AM EST [facility] ([facility]) Name Value Range Interpretation Code Description Data Manda rce(s) Supporting Document(s) Erythrocytes [#/volume] in Blood by Automated count 4.48 x10*6/UL 4.2 0-6.30 [facility] ([facility]) Leukocytes [#/volume] in Blood by Automated count 5.5 x10*3/UL 4.1-10 .9 [facility] ([facility]) MCV 78.5 fL 80.0-97.0 [facility] ([facility]) NOTE: RESULT VERIFIED. Hemoglobin [Mass/volume] in Blood 11.5 g/dL 12.0-18.0 [facility] ([facility]) NOTE: RESULT VERIFIED. Hematocrit [Volume Fraction] of Blood by Automated count 35.2 % 3 7.0-51.0 [facility] ([facility]) MCH 25.7 pg 26.0-32.0 [facility] Erythrocyte distribution width [Ratio] by Automated count 14.6 % 11.6-13.7 [facility] ([facility]) Platelets [#/volume] in Blood by Automated count 305 x10*3/UL 140-440 [facility] ([facility]) MCHC 32.7 g/dL 31.0-38.0 [facility] Lymphocytes/100 leukocytes in Blood by Automated count 13.9 % 10. 0-58.5 [facility] ([facility]) Platelet mean volume [Entitic volume] in Blood by Bhanu 8.7 FL 7.8-11.0 [facility] ([facility]) Neut % 82.0 % 37.0-92.0 [facility] Lymph # 0.7 x10*3/UL 0.6-4.1 [facility] ([facility]) Mid % 4.1 % 1.7-9.3 [facility] Neutrophils [#/volume] in Semen by Manual count 4.5 x10*3/UL 2.0-7.8 [facility] ([facility]) Mid # 0.3 x10*3/UL 0.1-0.6 [facility] ([facility]) ID Date Data Source [id number] 08/01/2019 07:31:00 AM EST [facility] ([facility]) Name Value Range Interpretation Code Description Data Manda rce(s) Supporting Document(s) Urea nitrogen [Mass/volume] in Serum or Plasma 20 mg/dL 7-18 [facility] ([facility]) Glucose [Mass/volume] in Serum or Plasma 84 mg/dL 74-99 [facility] ([facility]) 100-125 mg/dL PRE-DIABETES/FASTING >126 mg/dL DIABETES/FASTING Creatinine 1.4 mg/dL 0.6-1.3 [facility] ([facility] Chloride [Moles/volume] in Serum or Plasma 101 meq/L 98-107 [facility] ([facility]) Sodium [Moles/volume] in Serum or Plasma 139 meq/L 136-145 [facility] ([facility]) Potassium [Moles/volume] in Serum or Plasma 4.7 meq/L 3.5-5.1 [facility] ([facility]) Calcium [Mass/volume] in Serum or Plasma 9.3 mg/dL 8.5-10.1 [facility] ([facility]) Carbon dioxide, total [Moles/volume] in Serum or Plasma 32 meq/L 21 -32 [facility] Glomerular filtration rate/1.73 sq M pre dicted among non-blacks [Volume Rate/Area] in Serum or Plasma by Creatinine-based formula (MDRD) 36 [facility] Glomerular filtration rate/1.73 sq M pre dicted among blacks [Volume Rate/Area] in Serum or Plasma by Creatinine-based formula (MDRD) 43 mL/min [facility] <content>CHRONIC KIDNEY DISEASE STAGING PER NKF</content>
<content></content>
<content>STAGE I & II GFR >= 60 NORMAL TO MILDLY DECREASED</content>
<content>STAGE III GFR 30-59 MODERATELY DECREASED</content>
<content>STAGE IV GFR 15-29 SEVERELY DECREASED</content>
<content>STAGE V GFR <15 VERY LITTLE GFR LEFT</content>
<content>ESRD GFR <15 ON DRAG CAR RACER</content>
<content></content> ID Date Data Source [id number] 08/01/2019 07:31:00 AM EST [facility] ([facility]) Name Value Range Interpretation Code Description Data Manda rce(s) Supporting Document(s) Hemoglobin A1c/Hemoglobin.total in Blood 6.3 g/dL 4.8-5.6 [facility] Lab Result Notes: Pre-Diabetes 5.7 - 6.4 % Diabetes = or > 6.5% Glucose mean value [Mass/volume] in Blood Estimated fr om glycated hemoglobin 134 mg/dL 60-110 [facility] ([facility] ) ID Date Data Source [id number] 08/01/2019 07:31:00 AM EST [facility] ([facility]) Name Value Range Interpretation Code Description Data Manda rce(s) Supporting Document(s) Leukocytes [#/volume] in Blood by Automated count 5.5 x10*3/UL 4.1-10 .9 [facility] ([facility]) Hemoglobin [Mass/volume] in Blood 11.5 g/dL 12.0-18.0 [facility] ([facility]) NOTE: RESULT VERIFIED. Erythrocytes [#/volume] in Blood by Automated count 4.48 x10*6/UL 4.2 0-6.30 [facility] MCV 78.5 fL 80.0-97.0 [facility] ([facility]) NOTE: RESULT VERIFIED. Hematocrit [Volume Fraction] of Blood by Automated count 35.2 % 3 7.0-51.0 [facility] MCHC 32.7 g/dL 31.0-38.0 [facility] ([facility]) Erythrocyte distribution width [Ratio] by Automated count 14.6 % 11.6-13.7 [facility] MCH 25.7 pg 26.0-32.0 [facility] ([facility]) MPV 8.7 FL 7.8-11.0 [facility] ([facility]) Lymph % 13.9 % 10.0-58.5 [facility] ([facility]) Platelets [#/volume] in Blood by Automated count 305 x10*3/UL 140-440 [facility] ([facility]) Neut % 82.0 % 37.0-92.0 [facility] ([facility]) Mid % 4.1 % 1.7-9.3 [facility] ([facility]) Lymph # 0.7 x10*3/UL 0.6-4.1 [facility] ([facility]) Mid # 0.3 x10*3/UL 0.1-0.6 [facility] ([facility]) Neut # 4.5 x10*3/UL 2.0-7.8 [facility] ([facility]) ID Date Data Source [id number] 07/25/2019 03:54:00 PM EST [facility] ([facility]) Name Value Range Interpretation Code Description Data Manda rce(s) Supporting Document(s) C reactive protein [Mass/volume] in Serum or Plasma by High sensitivity method 0.35 mg/dL 0.00-0.30 [facility] ([facility]) ID Date Data Source [id number] 07/25/2019 03:54:00 PM EST [facility] ([facility]) Name Value Range Interpretation Code Description Data Manda rce(s) Supporting Document(s) C reactive protein [Mass/volume] in Serum or Plasma by High sensitivity method 0.35 mg/dL 0.00-0.30 [facility] ([facility] ) ID Date Data Source [id number] 07/25/2019 03:53:00 PM EST [facility] ([facility]) Name Value Range Interpretation Code Description Data Manda rce(s) Supporting Document(s) Leukocytes [#/volume] in Blood by Automated count 6.8 x10*3/UL 4.1-10 .9 [facility] ([facility]) Hemoglobin [Mass/volume] in Blood 12.3 g/dL 12.0-18.0 [facility] ([facility]) Erythrocytes [#/volume] in Blood by Automated count 4.77 x10*6/UL 4.2 0-6.30 [facility] ([facility]) MCV 78.5 fL 80.0-97.0 [facility] ([facility]) MCH 25.9 pg 26.0-32.0 [facility] ([facility]) Hematocrit [Volume Fraction] of Blood by Automated count 37.4 % 3 7.0-51.0 [facility] ([facility]) Platelet mean volume [Entitic volume] in Blood by Bhanu 7.9 FL 7.8-11.0 [facility] ([facility]) MCHC 33.0 g/dL 31.0-38.0 [facility] ([facility] Erythrocyte distribution width [Ratio] by Automated count 14.4 % 11.6-13.7 [facility] ([facility]) Platelets [#/volume] in Blood by Automated count 298 x10*3/UL 140-440 [facility] ([facility]) Lymphocytes/100 leukocytes in Blood by Automated count 14.3 % 10. 0-58.5 [facility] ([facility]) Neut % 82.4 % 37.0-92.0 [facility] ([facility] Mid % 3.3 % 1.7-9.3 [facility] ([facility]) Lymph # 0.9 x10*3/UL 0.6-4.1 [facility] ([facility]) Neutrophils [#/volume] in Semen by Manual count 5.6 x10*3/UL 2.0-7.8 [facility] ([facility]) Mid # 0.3 x10*3/UL 0.1-0.6 [facility] ([facility]) ID Date Data Source [id number] 07/25/2019 03:53:00 PM EST [facility] ([facility]) Name Value Range Interpretation Code Description Data Manda rce(s) Supporting Document(s) Erythrocyte sedimentation rate by Westergren method 14 mm/hr 0-15 [facility] ([facility]) ID Date Data Source [id number] 07/25/2019 03:53:00 PM EST MED[facility] ([facility]) Name Value Range Interpretation Code Description Data Manda rce(s) Supporting Document(s) Erythrocyte sedimentation rate by Westergren method 14 mm/hr 0-15 [facility] ([facility]) ID Date Data Source [id number] 07/25/2019 03:53:00 PM EST MEDENT ([facility]) Name Value Range Interpretation Code Description Data Manda rce(s) Supporting Document(s) Leukocytes [#/volume] in Blood by Automated count 6.8 x10*3/UL 4.1-10 .9 [facility] ([facility]) Erythrocytes [#/volume] in Blood by Automated count 4.77 x10*6/UL 4.2 0-6.30 [facility] ([facility]) Hemoglobin [Mass/volume] in Blood 12.3 g/dL 12.0-18.0 [facility] ([facility]) MCH 25.9 pg 26.0-32.0 [facility] ([facility]) MCV 78.5 fL 80.0-97.0 [facility] ([facility]) Hematocrit [Volume Fraction] of Blood by Automated count 37.4 % 3 7.0-51.0 [facility] ([facility]) MCHC 33.0 g/dL 31.0-38.0 [facility] ([facility]) Platelets [#/volume] in Blood by Automated count 298 x10*3/UL 140-440 [facility] Erythrocyte distribution width [Ratio] by Automated count 14.4 % 11.6-13.7 [facility] ([facility]) Lymph % 14.3 % 10.0-58.5 [facility] ([facility]) MPV 7.9 FL 7.8-11.0 [facility] ([facility]) Mid % 3.3 % 1.7-9.3 [facility] ([facility]) Lymph # 0.9 x10*3/UL 0.6-4.1 [facility] ([facility]) Neut % 82.4 % 37.0-92.0 [facility] ([facility]) Mid # 0.3 x10*3/UL 0.1-0.6 [facility] ([facility]) Neut # 5.6 x10*3/UL 2.0-7.8 [facility] ([facility]) ID Date Data Source [id number] 07/11/2019 03:57:00 PM EST MED[facility] ([facility]) Name Value Range Interpretation Code Description Data Manda rce(s) Supporting Document(s) Hemoglobin.gastrointestinal [Presence] in Stool by Imm unologic method Laboratory test result Abnormal (applies to non-numeric results) [facility] ([facility]) ID Date Data Source [id number] 07/11/2019 03:57:00 PM EST MEDENT ([facility]) Name Value Range Interpretation Code Description Data Manda rce(s) Supporting Document(s) Hemoglobin.gastrointestinal [Presence] in Stool by Imm unologic method Laboratory test result Abnormal (applies to non-numeric results) [facility] ([facility]) ID Date Data Source [id number] 07/05/2019 02:08:00 PM EST [facility] ([facility]) Name Value Range Interpretation Code Description Data Manda rce(s) Supporting Document(s) Thyroid Stimulating Hormone 1.72 ME DENT ([facility]) ID Date Data Source [id number] 07/05/2019 02:08:00 PM EST [facility] ([facility]) Name Value Range Interpretation Code Description Data Manda rce(s) Supporting Document(s) Creatinine 1.5 0.6-1.3 [facility] ([facility]) Glucose 115 74-99 [facility] ([facility]) Blood Urea Nitrogen 21 7-18 [facility] (Ca [facility]diology [facility]) Chloride 101 98-107 [facility] ([facility]) Potassium 4.9 3.5-5.1 [facility] ([facility]) Sodium 139 136-145 MED[facility] ([facility]) Carbon Dioxide 33 21-32 [facility] ([facility]iol [facility]) Calcium 9.4 8.5-10.1 [facility] ([facility]) Glomerular filtration rate/1.73 sq M.pre dicted [Volume Rate/Area] in Serum or Plasma by Creatinine-based formula (MDRD) 33 [facility] ([facility]) ID Date Data Source [id number] 07/05/2019 02:08:00 PM EST MEDENT ([facility]) Name Value Range Interpretation Code Description Data Manda rce(s) Supporting Document(s) Magnesium Level 2.2 [facility] ([facility]io [facility]) ID Date Data Source [id number] 07/05/2019 02:08:00 PM EST [facility] Name Value Range Interpretation Code Description Data Manda rce(s) Supporting Document(s) Red Blood Count 4.60 4.2-6.30 [facility] ([facility]io [facility]) Platelets 273 140-440 MEDENT (Cardiology A [facility]) White Blood Count 7.8 4.1-10.9 [facility] (Card [facility]) Hematocrit 36.6 37.0-51.0 MED[facility] (Cardiology [facility]) Hemoglobin 11.9 12.0-18.0 MED[facility] ([facility]iology [facility]) ID Date Data Source [id number] 07/05/2019 08:45:00 AM EST [facility] [place] Value Range Interpretation Code Description Data Manda rce(s) Supporting Document(s) Ferritin [Mass/volume] in Serum or Plasma 22 ng/mL 8-252 MED[facility] ([facility]iology [facility]) ID Date Data Source [id number] 07/05/2019 08:45:00 AM EST [facility] [place] Name Value Range Interpretation Code Description Data Manda rce(s) Supporting Document(s) Iron (Fe) 40 ug/dL 50-170 MED[facility] ([facility]) Total Iron Binding Capacity 388 ug/dL 250-450 MED[facility] ([facility]iology [facility]) Percent Saturation 10.3 % 13.2-45.0 [facility]) ID Date Data Source [id number] 07/05/2019 08:45:00 AM EST [facility] ([facility] Name Value Range Interpretation Code Description Data Manda rce(s) Supporting Document(s) Magnesium 2.2 mg/dL 1.8-2.4 [facility] ([facility]) Glucose [Mass/volume] in Serum or Plasma 115 mg/dL 74-99 [facility] ([facility]) 100-125 mg/dL PRE-DIABETES/FASTING >126 mg/dL DIABETES/FASTING Urea nitrogen [Mass/volume] in Serum or Plasma 21 mg/dL 7-18 [facility] ([facility]) Creatinine 1.5 mg/dL 0.6-1.3 [facility] ([facility]) Potassium [Moles/volume] in Serum or Plasma 4.9 meq/L 3.5-5.1 [facility] ([facility]) Sodium [Moles/volume] in Serum or Plasma 139 meq/L 136-145 [facility] ([facility]) Calcium [Mass/volume] in Serum or Plasma 9.4 mg/dL 8.5-10.1 [facility] ([facility]) Carbon dioxide, total [Moles/volume] in Serum or Plasma 33 meq/L 21 -32 [facility] ([facility]) Chloride [Moles/volume] in Serum or Plasma 101 meq/L 98-107 [facility] ([facility]) Glomerular filtration rate/1.73 sq M pre dicted among non-blacks [Volume Rate/Area] in Serum or Plasma by Creatinine-based formula (MDRD) 33 mL/min [facility] ([facility]) Glomerular filtration rate/1.73 sq M pre dicted among blacks [Volume Rate/Area] in Serum or Plasma by Creatinine-based formula (MDRD) 40 mL/min [facility] ([facility]) <content>CHRONIC KIDNEY DISEASE STAGING PER NKF</content>
<content></content>
<content>STAGE I & II GFR >= 60 NORMAL TO MILDLY DECREASED</content>
<content>STAGE III GFR 30-59 MODERATELY DECREASED</content>
<content>STAGE IV GFR 15-29 SEVERELY DECREASED</content>
<content>STAGE V GFR <15 VERY LITTLE GFR LEFT</content>
<content>ESRD GFR <15 ON DRAG CAR RACER</content>
<content></content>
<content></content> Thyrotropin [Units/volume] in Serum or Plasma by Detec tion limit <= 0.05 mIU/L 1.72 uIU/mL 0.36-3.74 [facility] ([facility]) ID Date Data Source [id number] 07/05/2019 08:45:00 AM EST [facility] ([facility]) Name Value Range Interpretation Code Description Data Manda rce(s) Supporting Document(s) Leukocytes [#/volume] in Blood by Automated count 7.8 x10*3/UL 4.1-10 .9 [facility] ([facility]) Erythrocytes [#/volume] in Blood by Automated count 4.60 x10*6/UL 4.2 0-6.30 [facility] (Cardiology [facility]) Hematocrit [Volume Fraction] of Blood by Automated count 36.6 % 3 7.0-51.0 [facility] (Cardiology [facility]) MCV 79.6 fL 80.0-97.0 [facility] ([facility]) Hemoglobin [Mass/volume] in Blood 11.9 g/dL 12.0-18.0 [facility] (Cardiology [facility]) NOTE: RESULT VERIFIED. Erythrocyte distribution width [Ratio] by Automated count 14.7 % 11.6-13.7 MED[facility] (Cardiology [facility]) MCHC 32.6 g/dL 31.0-38.0 [facility] ([facility]) MCH 26.0 pg 26.0-32.0 [facility] ([facility]) Platelets [#/volume] in Blood by Automated count 273 x10*3/UL 140-440 MED[facility] (Cardiology [facility]) Platelet mean volume [Entitic volume] in Blood by Bhanu 8.2 FL 7.8-11.0 MED[facility] ([facility]iology [facility]) Lymphocytes/100 leukocytes in Blood by Automated count 12.4 % 10. 0-58.5 [facility] ([facility]) Lymph # 0.9 x10*3/UL 0.6-4.1 [facility] ([facility]) Neut % 84.7 % 37.0-92.0 [facility] ([facility]) Mid % 2.9 % 1.7-9.3 [facility] ([facility]) Neutrophils [#/volume] in Semen by Manual count 6.6 x10*3/UL 2.0-7.8 [facility] (Cardiology [facility]) Mid # 0.3 x10*3/UL 0.1-0.6 [facility]) ID Date Data Source [id number] 07/05/2019 08:45:00 AM EST [facility] ([facility]) Name Value Range Interpretation Code Description Data Manda rce(s) Supporting Document(s) Ferritin [Mass/volume] in Serum or Plasma 22 ng/mL 8-252 [facility] ([facility]) ID Date Data Source [id number] 07/05/2019 08:45:00 AM EST [facility] ([facility]) Name Value Range Interpretation Code Description Data Manda rce(s) Supporting Document(s) Iron (Fe) 40 ug/dL 50-170 [facility]) Total Iron Binding Capacity 388 ug/dL 250-450 MO DENT ([facility]) Percent Saturation 10.3 % 13.2-45.0 [facility] ([facility]) ID Date Data Source [id number] 07/05/2019 08:45:00 AM EST [facility] ([facility]) Name Value Range Interpretation Code Description Data Manda rce(s) Supporting Document(s) Thyrotropin [Units/volume] in Serum or Plasma by Detec tion limit <= 0.05 mIU/L 1.72 uIU/mL 0.36-3.74 [facility] ([facility] ) ID Date Data Source [id number] 07/05/2019 08:45:00 AM EST [facility] ([facility]) Name Value Range Interpretation Code Description Data Manda rce(s) Supporting Document(s) Urea nitrogen [Mass/volume] in Serum or Plasma 21 mg/dL 7-18 [facility] ([facility]) Glucose [Mass/volume] in Serum or Plasma 115 mg/dL 74-99 [facility] ([facility]) 100-125 mg/dL PRE-DIABETES/FASTING >126 mg/dL DIABETES/FASTING Creatinine 1.5 mg/dL 0.6-1.3 [facility] ([facility]) Sodium [Moles/volume] in Serum or Plasma 139 meq/L 136-145 [facility] ([facility]) Chloride [Moles/volume] in Serum or Plasma 101 meq/L 98-107 [facility] ([facility]) Potassium [Moles/volume] in Serum or Plasma 4.9 meq/L 3.5-5.1 [facility] ([facility]) Glomerular filtration rate/1.73 sq M pre dicted among non-blacks [Volume Rate/Area] in Serum or Plasma by Creatinine-based formula (MDRD) 33 mL/min [facility] ([facility]) Calcium [Mass/volume] in Serum or Plasma 9.4 mg/dL 8.5-10.1 [facility] ([facility]) Carbon dioxide, total [Moles/volume] in Serum or Plasma 33 meq/L 21 -32 [facility] ([facility]) Glomerular filtration rate/1.73 sq M pre dicted among blacks [Volume Rate/Area] in Serum or Plasma by Creatinine-based formula (MDRD) 40 mL/min [facility] <content>CHRONIC KIDNEY DISEASE STAGING PER NKF</content>
<content></content>
<content>STAGE I & II GFR >= 60 NORMAL TO MILDLY DECREASED</content>
<content>STAGE III GFR 30-59 MODERATELY DECREASED</content>
<content>STAGE IV GFR 15-29 SEVERELY DECREASED</content>
<content>STAGE V GFR <15 VERY LITTLE GFR LEFT</content>
<content>ESRD GFR <15 ON DRAG CAR RACER</content>
<content></content> ID Date Data Source [id number] 07/05/2019 08:45:00 AM EST MED[facility] ([facility]) Name Value Range Interpretation Code Description Data Manda rce(s) Supporting Document(s) Magnesium 2.2 mg/dL 1.8-2.4 [facility]) ID Date Data Source [id number] 07/05/2019 08:45:00 AM EST [facility] ([facility]) Name Value Range Interpretation Code Description Data Manda rce(s) Supporting Document(s) Leukocytes [#/volume] in Blood by Automated count 7.8 x10*3/UL 4.1-10 .9 [facility] ([facility]) Hemoglobin [Mass/volume] in Blood 11.9 g/dL 12.0-18.0 [facility] ([facility]) NOTE: RESULT VERIFIED. Erythrocytes [#/volume] in Blood by Automated count 4.60 x10*6/UL 4.2 0-6.30 [facility] ([facility]) MCV 79.6 fL 80.0-97.0 [facility] ([place] [facility]) MCH 26.0 pg 26.0-32.0 [facility] ([place] [facility]) Hematocrit [Volume Fraction] of Blood by Automated count 36.6 % 3 7.0-51.0 [facility] ([facility]) MCHC 32.6 g/dL 31.0-38.0 [facility] ([facility] [facility]) Erythrocyte distribution width [Ratio] by Automated count 14.7 % 11.6-13.7 [facility] ([facility]) Platelets [#/volume] in Blood by Automated count 273 x10*3/UL 140-440 [facility] ([facility]) MPV 8.2 FL 7.8-11.0 [facility] ([facility]) Lymph % 12.4 % 10.0-58.5 [facility] ([facility]) Neut % 84.7 % 37.0-92.0 [facility] ([facility] [facility]) Mid % 2.9 % 1.7-9.3 [facility] ([facility]) Lymph # 0.9 x10*3/UL 0.6-4.1 [facility] ([facility]) Mid # 0.3 x10*3/UL 0.1-0.6 [facility] ([facility]) Neut # 6.6 x10*3/UL 2.0-7.8 [facility] ([facility]) Procedure Social History Code Duration Value Status Description Data Source(s ) Alcohol intake 04/02/2020 12:00:00 AM EDT Ex-drinker (finding) comp leted Ex- drinker (finding) [facility] Tobacco use and exposure 04/02/2020 12:00:00 AM EDT Never used co mpleted Never used [facility] Smoking 04/02/2020 12:00:00 AM EDT Former smoker completed Former smoker [facility] Smoking 10/24/2019 12:00:00 AM EDT Patient is a former smoker completed Patient is a former smoker [facility] ([facility]) Vital Signs ID Date Data Source UNK Name Value Range Interpretation Code Description Data Source(s) Body mass index (BMI) [Ratio] 28.9 kg/m2 28.9 k g/m2 [facility] ([facility]) Oxygen saturation in Arterial blood by Pulse oximetry 96 % 96 % [facility] ([facility]) RM Air Body weight 153.00 [lb_av] 153.00 [lb_av] MED[facility] T ([facility]) Body height 61 [in_i] 61 [in_i] [facility] ([facility]) 5'1" Heart rate 84 /min 84 /min [facility] ([facility]) Diastolic blood pressure 74 mm[Hg] 74 mm[Hg] [facility] ([facility]) RT Arm Systolic blood pressure 136 mm[Hg] 136 mm[Hg] [facility] ([facility]) RT Arm Body mass index (BMI) [Ratio] 28.4 kg/m2 28.4 k g/m2 [facility] ([facility]) Oxygen saturation in Arterial blood by Pulse oximetry --post exerci se 90 % 90 % [facility] ([facility]) RM Air Body weight 150.25 [lb_av] 150.25 [lb_av] [facility] Body height 61 [in_i] 61 [in_i] [facility] ([facility]) 5'1" Heart rate 88 /min 88 /min [facility] ([facility]) Diastolic blood pressure 70 mm[Hg] 70 mm[Hg] [facility] ([facility]) Systolic blood pressure 160 mm[Hg] 160 mm[Hg] [facility] ([facility]) Diastolic blood pressure 78 mm[Hg] 78 mm[Hg] [facility] ([facility]) RT Arm Systolic blood pressure 162 mm[Hg] 162 mm[Hg] [facility] ([facility]) RT Arm Body weight 67.133 kg 67.133 kg [facility] ([facility], ) [place] body weight 100 [lb_av] 100 [lb_av] MEDEN T ([facility]) Body mass index (BMI) [Ratio] 29.1 kg/m2 29.1 k g/m2 [facility] ([facility]) Body weight 148.00 [lb_av] 148.00 [lb_av] [facility] Body height 59.75 [in_i] 59.75 [in_i] [facility] ([facility]) " Body mass index (BMI) [Ratio] 28.6 kg/m2 28.6 k g/m2 [facility] ([facility]) Oxygen saturation in Arterial blood by Pulse oximetry --post exerci se 94 % 94 % [facility] ([facility]) RM Air Body weight 151.50 [lb_av] 151.50 [lb_av] MED[facility] T ([facility]) Body height 61 [in_i] 61 [in_i] [facility] ([facility]) 5'1" Heart rate 80 /min 80 /min [facility] ([facility]) Diastolic blood pressure 64 mm[Hg] 64 mm[Hg] [facility] RT Arm Systolic blood pressure 132 mm[Hg] 132 mm[Hg] [facility] RT Arm Body weight 68.947 kg 68.947 kg [facility] ([facility]) [place] body weight 100 [lb_av] 100 [lb_av] [facility] Body mass index (BMI) [Ratio] 29.9 kg/m2 29.9 k g/m2 [facility] ([facility]) Body weight 152.00 [lb_av] 152.00 [lb_av] MEDEN T ([facility]) Body height 59.75 [in_i] 59.75 [in_i] [facility] ([facility]) " Diastolic blood pressure 83 mm[Hg] 83 mm[Hg] [facility] ([facility]) Systolic blood pressure 121 mm[Hg] 121 mm[Hg] [facility] Oxygen saturation in Arterial blood by Pulse oximetry 96 % 96 % LAN[facility] ([facility]) On Room Air Diastolic blood pressure--supine 64 mm[Hg] 64 mm[Hg] [facility] ([facility]) Systolic blood pressure--supine 124 mm[Hg] 124 mm[Hg] [facility] ([facility]) Diastolic blood pressure--sitting 56 mm[Hg] 56 mm[Hg] [facility] ([facility]) Medium cuff, Ra Systolic blood pressure--sitting 118 mm[Hg] 118 mm[Hg] [facility] ([facility]) Medium cuff, Ra Respiratory rate 16 /min 16 /min [facility] ( [facility]) Heart rate 74 /min 74 /min [facility] ([facility]io [facility]) regular Body mass index (BMI) [Ratio] 28.2 kg/m2 28.2 k g/m2 [facility] ([facility]) Body height 61 [in_i] 61 [in_i] [facility] ([facility]) 5'1" Body weight 149.00 [lb_av] 149.00 [lb_av] MEDEN T ([facility]) Body mass index (BMI) [Ratio] 28.8 kg/m2 28.8 k g/m2 [facility] ([facility]) Oxygen saturation in Arterial blood by Pulse oximetry --post exerci se 95 % 95 % [facility] ([facility]) RM Air Body weight 152.25 [lb_av] 152.25 [lb_av] [facility] T ([facility]) Body height 61 [in_i] 61 [in_i] [facility] ([facility]) 5'1" Heart rate 94 /min 94 /min [facility] ([facility]) Diastolic blood pressure 72 mm[Hg] 72 mm[Hg] [facility] ([facility]) LT Arm Systolic blood pressure 122 mm[Hg] 122 mm[Hg] M [facility] ([facility]) LT Arm Body mass index (BMI) [Ratio] 28.5 kg/m2 28.5 k g/m2 [facility] ([facility]) Oxygen saturation in Arterial blood by Pulse oximetry --post exerci se 94 % 94 % [facility] ([facility]) RM Air Body weight 151.00 [lb_av] 151.00 [lb_av] MED[facility] T ([facility]) Body height 61 [in_i] 61 [in_i] [facility] ([facility]) 5'1" Heart rate 79 /min 79 /min [facility] ([facility]) Diastolic blood pressure 80 mm[Hg] 80 mm[Hg] [facility] ([facility]) Systolic blood pressure 150 mm[Hg] 150 mm[Hg] [facility] ([facility]) Diastolic blood pressure 76 mm[Hg] 76 mm[Hg] [facility] ([facility]) RT Arm Systolic blood pressure 174 mm[Hg] 174 mm[Hg] [facility] ([facility]) RT Arm Body mass index (BMI) [Ratio] 30.3 kg/m2 30.3 k g/m2 [facility] ([facility], [facility]) Body height 59 [in_i] 59 [in_i] [facility] ([facility], [facility]) 4'11" Body weight 150.00 [lb_av] 150.00 [lb_av] MED[facility] T ([facility], [facility]) Body temperature 97.8 [degF] 97.8 [degF] [facility] ([facility], [facility]) Oxygen saturation in Arterial blood by Pulse oximetry 95 % 95 % [facility] ([facility], [facility]) Respiratory rate 18 /min 18 /min [facility] ( [facility], [facility]) Heart rate 73 /min 73 /min [facility] ([facility], [facility]) Diastolic blood pressure 78 mm[Hg] 78 mm[Hg] [facility] ([facility], [facility]) Systolic blood pressure 122 mm[Hg] 122 mm[Hg] [facility] ([facility], [facility]) Body mass index (BMI) [Ratio] 28.5 kg/m2 28.5 k g/m2 [facility] ([facility]) Oxygen saturation in Arterial blood by Pulse oximetry 96 % 96 % [facility] ([facility]) Body weight 151.00 [lb_av] 151.00 [lb_av] [facility] T ([facility]) Body height 61 [in_i] 61 [in_i] [facility] ([facility]) 5'1" Heart rate 92 /min 92 /min [facility] ([facility]) Diastolic blood pressure 72 mm[Hg] 72 mm[Hg] [facility] ([facility]) Systolic blood pressure 152 mm[Hg] 152 mm[Hg] [facility]) Diastolic blood pressure 80 mm[Hg] 80 mm[Hg] [facility]) Systolic blood pressure 142 mm[Hg] 142 mm[Hg] [facility]) Body mass index (BMI) [Ratio] 28.4 kg/m2 28.4 k g/m2 [facility] ([facility]) Oxygen saturation in Arterial blood by Pulse oximetry --post exerci se 95 % 95 % [facility] ([facility]) RM Air Body weight 150.12 [lb_av] 150.12 [lb_av] [facility] T ([facility]) Body height 61 [in_i] 61 [in_i] [facility] ([facility]) 5'1" Heart rate 94 /min 94 /min [facility] ([facility]) Diastolic blood pressure 60 mm[Hg] 60 mm[Hg] [facility] ([facility]) RT Arm Systolic blood pressure 116 mm[Hg] 116 mm[Hg] [facility] [facility]) RT Arm Body mass index (BMI) [Ratio] 30.3 kg/m2 30.3 k g/m2 [facility] ([facility], [facility]) Body height 59 [in_i] 59 [in_i] [facility] ([facility]) 4'11" Body weight 150.00 [lb_av] 150.00 [lb_av] [facility] ([facility], [facility]) Body temperature 98.2 [degF] 98.2 [degF] [facility] ([facility], [facility]) Oxygen saturation in Arterial blood by Pulse oximetry 98 % 98 % [facility] ([facility], [facility]) Respiratory rate 12 /min 12 /min [facility] ( [facility], [facility]) Heart rate 82 /min 82 /min [facility] ([facility], [facility]) Diastolic blood pressure 82 mm[Hg] 82 mm[Hg] [facility] ([facility], [facility]) Systolic blood pressure 164 mm[Hg] 164 mm[Hg] M [facility] ([facility], [facility]) Body mass index (BMI) [Ratio] 28.6 kg/m2 28.6 k g/m2 [facility] ([facility]) Oxygen saturation in Arterial blood by Pulse oximetry --post exerci se 94 % 94 % [facility] ([facility]) RM Air Body weight 151.38 [lb_av] 151.38 [lb_av] [facility] ([facility]) Body height 61 [in_i] 61 [in_i] [facility] ([facility]) 5'1" Heart rate 80 /min 80 /min [facility] ([facility]) Diastolic blood pressure 72 mm[Hg] 72 mm[Hg] [facility] ([facility]) RT Arm Systolic blood pressure 138 mm[Hg] 138 mm[Hg] [facility] ([facility]) RT Arm Body mass index (BMI) [Ratio] 28.2 kg/m2 28.2 k g/m2 [facility] ([facility]) Oxygen saturation in Arterial blood by Pulse oximetry --post exerci se 93 % 93 % [facility] ([facility]) RM Air Body weight 149.38 [lb_av] 149.38 [lb_av] [facility] ([facility]) Body height 61 [in_i] 61 [in_i] [facility] ([facility]) 5'1" Heart rate 88 /min 88 /min [facility] ([facility]) Diastolic blood pressure 70 mm[Hg] 70 mm[Hg] [facility] ([facility]) RT Arm Systolic blood pressure 146 mm[Hg] 146 mm[Hg] [facility] ([facility]) RT Arm Body mass index (BMI) [Ratio] 28.8 kg/m2 28.8 k g/m2 [facility] ([facility]) Body weight 152.25 [lb_av] 152.25 [lb_av] [facility] ([facility]) Body height 61 [in_i] 61 [in_i] [facility] ([facility]) 5'1" Heart rate 76 /min 76 /min [facility] ([facility]) Diastolic blood pressure 70 mm[Hg] 70 mm[Hg] [facility] ([facility]) RT Arm Systolic blood pressure 136 mm[Hg] 136 mm[Hg] [facility] ([facility]) RT Arm Body mass index (BMI) [Ratio] 28.6 kg/m2 28.6 k g/m2 [facility] ([facility]) Oxygen saturation in Arterial blood by Pulse oximetry --post exerci se 94 % 94 % [facility] ([facility]) Body weight 151.25 [lb_av] 151.25 [lb_av] [facility] ([facility]) Body height 61 [in_i] 61 [in_i] [facility] 5'1" Heart rate 88 /min 88 /min [facility] ([facility]) Diastolic blood pressure 66 mm[Hg] 66 mm[Hg] [facility] ([facility]) RT Arm Systolic blood pressure 128 mm[Hg] 128 mm[Hg] M [facility] ([facility]) RT Arm Body height 61 [in_i] 61 [in_i] [facility] ([facility]) 5'1" Body temperature 98.0 [degF] 98.0 [degF] [facility] ([facility]) Heart rate 68 /min 68 /min [facility] ([facility]) Diastolic blood pressure 54 mm[Hg] 54 mm[Hg] [facility] ([facility]) LT Arm Systolic blood pressure 116 mm[Hg] 116 mm[Hg] [facility] ([facility]) LT Arm Body mass index (BMI) [Ratio] 28.7 kg/m2 28.7 k g/m2 [facility] ([facility]) Oxygen saturation in Arterial blood by Pulse oximetry --post exerci se 90 % 90 % [facility] ([facility]) RM Air Body weight 152.00 [lb_av] 152.00 [lb_av] [facility] ([facility]) Body weight 69.401 kg 69.401 kg [facility] ([facility], ) Body mass index (BMI) [Ratio] 30.1 kg/m2 30.1 k g/m2 [facility] Body weight 153.00 [lb_av] 153.00 [lb_av] [facility] ([facility]) Body height 59.75 [in_i] 59.75 [in_i] [facility] 4'11.75" Diastolic blood pressure 76 mm[Hg] 76 mm[Hg] [facility] ([facility]) Systolic blood pressure 158 mm[Hg] 158 mm[Hg] [facility] ([facility]) Body mass index (BMI) [Ratio] 30.3 kg/m2 30.3 k g/m2 [facility] ([facility], [facility]) Body height 60 [in_i] 60 [in_i] [facility] ([facility]) 5'0" Body weight 155.00 [lb_av] 155.00 [lb_av] [facility] ([facility], [facility]) Body temperature 97.9 [degF] 97.9 [degF] [facility] ([facility]) Oxygen saturation in Arterial blood by Pulse oximetry 98 % 98 % [facility] ([facility], [facility]) Respiratory rate 16 /min 16 /min [facility] ( [facility], [facility]) Heart rate 86 /min 86 /min [facility] ([facility], [facility]) Diastolic blood pressure 84 mm[Hg] 84 mm[Hg] [facility] ([facility]) Systolic blood pressure 178 mm[Hg] 178 mm[Hg] [facility] ([facility]) Body mass index (BMI) [Ratio] 29.5 kg/m2 29.5 k g/m2 [facility] ([facility]) Oxygen saturation in Arterial blood by Pulse oximetry --post exerci se 97 % 97 % [facility] ([facility]) RM Air Body weight 156.38 [lb_av] 156.38 [lb_av] [facility] ([facility]) Body height 61 [in_i] 61 [in_i] [facility] ([facility]) 5'1" Heart rate 68 /min 68 /min [facility] ([facility]) Diastolic blood pressure 70 mm[Hg] 70 mm[Hg] [facility] ([facility]) RT Arm Systolic blood pressure 156 mm[Hg] 156 mm[Hg] [facility] ([facility]) RT Arm Body mass index (BMI) [Ratio] 29.9 kg/m2 29.9 k g/m2 [facility] ([facility]) Oxygen saturation in Arterial blood by Pulse oximetry --post exerci se 97 % 97 % [facility] ([facility]) Air Body weight 158.12 [lb_av] 158.12 [lb_av] [facility] ([facility]) Body height 61 [in_i] 61 [in_i] [facility] ([facility]) 5'1" Heart rate 60 /min 60 /min [facility] ([facility]) Diastolic blood pressure 72 mm[Hg] 72 mm[Hg] [facility] ([facility]) RT Arm Systolic blood pressure 112 mm[Hg] 112 mm[Hg] [facility] ([facility]) RT Arm Body mass index (BMI) [Ratio] 30.3 kg/m2 30.3 k g/m2 [facility] ([facility], [facility]) Body height 60 [in_i] 60 [in_i] [facility] ([facility], [facility]) 5'0" Body weight 155.00 [lb_av] 155.00 [lb_av] [facility] ([facility], [facility]) Body temperature 97.8 [degF] 97.8 [degF] [facility] ([facility], [facility]) Oxygen saturation in Arterial blood by Pulse oximetry 95 % 95 % [facility] ([facility], [facility]) Respiratory rate 12 /min 12 /min [facility] ( [facility], [facility]) Heart rate 87 /min 87 /min [facility] ([facility], [facility]) Diastolic blood pressure 71 mm[Hg] 71 mm[Hg] [facility] ([facility], [facility]) Systolic blood pressure 148 mm[Hg] 148 mm[Hg] [facility] ([facility], [facility]) Body mass index (BMI) [Ratio] 29.4 kg/m2 29.4 k g/m2 [facility] ([facility]) Oxygen saturation in Arterial blood by Pulse oximetry 96 % 96 % [facility] ([facility]) RM Air Body weight 155.50 [lb_av] 155.50 [lb_av] [facility] ([facility]) Body height 61 [in_i] 61 [in_i] [facility] ([facility]) 5'1" Heart rate 64 /min 64 /min [facility] ([facility]) Diastolic blood pressure 76 mm[Hg] 76 mm[Hg] [facility] ([facility]) RT Arm Systolic blood pressure 122 mm[Hg] 122 mm[Hg] M [facility] ([facility]) RT Arm Diastolic blood pressure--supine 50 mm[Hg] 50 mm[Hg] [facility] ([facility]) Systolic blood pressure--supine 130 mm[Hg] 130 mm[Hg] [facility] ([facility]) Diastolic blood pressure--sitting 58 mm[Hg] 58 mm[Hg] [facility] ([facility]) Medium cuff, Ra Systolic blood pressure--sitting 126 mm[Hg] 126 mm[Hg] [facility] ([facility]) Medium cuff, Ra Respiratory rate 18 /min 18 /min [facility] ( [facility]) Heart rate 74 /min 74 /min [facility] ([facility] regular Body mass index (BMI) [Ratio] 29.7 kg/m2 29.7 k g/m2 [facility] ([facility]) Body height 61 [in_i] 61 [in_i] [facility] 5'1" Body weight 157.00 [lb_av] 157.00 [lb_av] [facility] ([facility]) Oxygen saturation in Arterial blood by Pulse oximetry 97 % 97 % [facility] ([facility] ) Body mass index (BMI) [Ratio] 30.2 kg/m2 30.2 k g/m2 [facility] ([facility]) Body weight 156.00 [lb_av] 156.00 [lb_av] [facility] ([facility]) Body height 60.25 [in_i] 60.25 [in_i] [facility] ([facility]) 5'0.25" Heart rate 82 /min 82 /min [facility] ([facility]) Diastolic blood pressure 80 mm[Hg] 80 mm[Hg] [facility] ([facility]) Systolic blood pressure 118 mm[Hg] 118 mm[Hg] [facility]) Patient Treatment Plan of Care Planned Activity Planned Date Details Description Data Source (s) 30 ACTUAT fluticasone furoate 0.1 MG/ACT UAT / vilanterol 0.025 MG/ACTUAT Dry Powder Inhaler [Breo] 04/01/2020 12:00:00 AM [facility] apixaban 5 MG Oral Tablet [Eliquis] 04/01/2020 12:00:00 AM [facility] gabapentin 300 MG Oral Capsule 03/26/2020 12:00:00 AM [facility] Albuterol 0.83 MG/ML Inhalant Solution 03/26/2020 12:00:00 AM [facility] Amiodarone hydrochloride 200 MG Oral Tablet 03/19/2020 12:00:00 AM [facility] Omeprazole 20 MG Delayed Release Oral Capsule 03/17/2020 12:00:00 A M [facility] Ipratropium [place] 0.2 MG/ML Inhalant Solution 03/09/2020 12:00:00 AM [facility] Pravastatin Sodium 40 MG Oral Tablet 01/27/2020 12:00:00 AM [facility] 24 HR Diltiazem Hydrochloride 240 MG Extended Release Oral Capsule 01/27/2020 12:00:00 AM [facility] ospital Losartan Potassium 100 MG Oral Tablet 01/27/2020 12:00:00 AM [facility]
[2020-08-07] MEDS ORDERED: NS 1,000 ML IV SCH (15:30)
[2020-08-07] MEDS ORDERED: LINEZOLID 600 MG in IV 1 EA IV ONE (15:30)
--- OUTSIDE RECORDS SUMMARY | 2020-08-07 15:41 | CCD ---
Author Author [facility] Organization [facility] Address Unknown Phone Unavailable Care Team Providers Care Etcher Aircraft Name Role Phone ALISA KIRAN PA Unavailable [...] ELIDA MIR Unavailable Unavailable SNIDER, E ELIDA IMR Unavailable Unavailable SNIDER, E ELIDA MIR Unavailable Unavailable SNIDER, E ELIDA MIR Unavailable Unavailable SNDIER, E ELIDA MIR Unavailable Unavailable SNIDER, E [...] E ELIDA MIR Unavailable Unavailable Johns, Tayla STONE REPAIRER Unavailable Unavailable Johns, Tayla STONE REPAIRER Unavailable Unavailable Johns, Tayla STONE REPAIRER Unavailable Unavailable Johns, Tayla STONE REPAIRER Unavailable Unavailable Johns, Tayla STONE REPAIRER Unavailable Unavailable Johns, Tayla STONE REPAIRER Unavailable Unavailable Johns, Tayla STONE REPAIRER Unavailable Unavailable Johns, Tayla STONE REPAIRER Unavailable Unavailable Johns, Tayla STONE REPAIRER Unavailable Unavailable Johns, Tayla STONE REPAIRER Unavailable Unavailable Johns, Tayla STONE REPAIRER Unavailable Unavailable REINDL, BERYL MIR Unavailable Unavailable [...] Jaiden MIR Unavailable Unavailable Gupta III, I Jaiedn MIR Unavailable Unavailable Gupta III, I Jaiden [...] is protected by Article 27-F of the [facility] Public Health law. If you continue you may have access to information: Regarding HIV / AIDS; Provided by facilities licensed or operated by the [facility] Office of Mental Health; or Provided by the [facility] Office for People With Developmental Disabilities. If such information is present, then the following [facility] mandated warning applies: This information has been [...] law may result in a fine or chcf sentence or both. A general authorization for the release of medical or other information is NOT sufficient authorization for further disc losure. Allergies and Adverse Reactions Type Description Substance Reaction Status Data Source(s ) DRUG INGREDI MOXIFLOXACIN MOXIFLOXACIN [facility] Family History Family Member Name Family Member Gender Family Member Status Date o f Status Description Data Source(s) Unknown Unknown Problem [facility] ([facility]) Unknown Unknown Problem [facility] Unknown Male Problem MEDENT ([facility]) Unknown Male Problem MEDENT ([facility]) Unknown Male Problem MEDENT ([facility]) () - 46y/o Unknown Unknown Problem [facility] ([facility]) Unknown Unknown Problem [facility] ([facility] Unknown Unknown Problem [facility] ([facility] Unknown Unknown [facility] sister dx age late 60s Unknown Female Problem [facility] ([facility]) Unknown Female Problem [facility] ([facility]) Unknown Female Problem [facility] ([facility]) Unknown Female Problem [facility] ([facility]) Encounters Encounter Providers Location Date Indications Data Source(s ) Outpatient Attender: Karena Stephens 08:00:00 AM EST MEDENT ([facility] ) Outpatient Attender: Jaiden Gupta IIIReferrer: Karena avery MD [id number] 04/02/2020 12:00:00 AM EDT Sensorineural hearing loss, unilateral, right ear, with unrestricted hearing on the contralateral side [facility] Sensorineural hearing loss, unilateral, right ear, with unrestricted hearing on the contralateral side Outpatient Attender: Karena Stephens 09:45:00 AM EDT MEDENT ([facility] ) Outpatient Attender: WILMER Wright/Ellen/Maciel/Monetd l 02/22/2020 10:15:00 AM EDT [facility] ([facility] Outpatient Attender: Karena Stephens 08:15:00 AM EDT MEDENT ([facility] ) Outpatient Attender: BERYL Wright/Ellen/Maciel/Rein dl 12/28/2019 09:30:00 AM EDT [facility] ([facility] Outpatient Attender: ELIDA SNIDER MD Main Office 11/25/2019 12:45:00 PM EDT MED[facility] ([facility]) Outpatient Attender: Karena Stephens 01:30:00 PM EDT MEDENT ([facility] ) Outpatient Attender: Karena Stephens 02:00:00 PM EDT MEDENT ([facility] ) Outpatient Attender: Karena Stephens 02:00:00 PM EDT MEDENT ([facility] ) Outpatient Attender: ALISA cat 10/24/2019 08:45:00 AM EDT [facility] ([facility] Outpatient Attender: Karena Stephens 10:00:00 AM EDT MEDENT ([facility] ) Outpatient Attender: Karena Stephens 08:15:00 AM EDT MEDENT ([facility] ) Outpatient Attender: LYDIA santillany 10/05/2019 04:35:00 PM EDT MED[facility] ([facility]) Outpatient Attender: Karena Stephens 11:00:00 AM EDT MED[facility] ([facility] ) Outpatient Attender: Karena Stephens 08:00:00 AM EDT MEDENT ([facility] ) Outpatient Referrer: Karena Valdez MD 09/14/2019 02:56:00 PM EDT [facility] Outpatient Attender: Karena Stephens 01:00:00 PM EDT MEDENT ([facility] ) Outpatient Attender: Karena Stephens 08:15:00 AM EDT MEDENT ([facility] ) Outpatient Attender: Karena Stephens 08:15:00 AM EDT MEDENT ([facility] ) Outpatient Attender: BERYL Wright/Ellen/Maciel/Monet koo 08/17/2019 10:00:00 AM EST [facility] ([facility] Outpatient Attender: LYDIA gonzáles 08/07/2019 07:45:00 AM EST MED[facility] ([facility]) Outpatient Attender: Karena Stephens 02:00:00 PM EST MEDENT ([facility] ) Outpatient Referrer: Karena Valdez MD 07/28/2019 12:48:00 PM EST [facility] Outpatient Attender: Karena Stephens 02:15:00 PM EST MED[facility] ([facility] ) Outpatient Attender: Tayla long 07/21/2019 07:00:00 AM EST [facility] ([facility]) Outpatient Attender: Karena Stephens 07:15:00 AM EST MEDENT ([facility] ) Outpatient Attender: ELIDA SNIDER MD Main Office 07/05/2019 11:00:00 AM EST MED[facility] ([facility]) Immunizations Vaccine Date Status Description Data Source(s) COVID-19 VACCINE, MRNA-1273, LNP-S (MODERNA)/PF 07/27/2020 1 2:00:00 AM EST completed [facility] This CVX code allows reporting of a vacc ination when formulation is unknown (for example, when recording a Influenza vaccination when noted on a vaccination card) 02/25/2020 10:56:00 AM EDT completed JASON Grider ([facility]) INFLUENZA VACCINE QUADRIVALENT 2019- (67 YR [...] 12:00:00 AM EST suspension 0 INJECT BY [facility] (FIRST DOSE) INJECT BY [facility] (FIRST DOSE) SOLD: 06/29/2020 [facility] 30 ACTUAT fluticasone furoate 0.1 MG/ACT UAT / vilanterol 0.025 MG/ACTUAT Dry Powder Inhaler [Breo] Breo Ellipta 100-25 MCG/INH Inhalation Aerosol Powder Breath Activated Breo Ellipta 100-25 MCG/INH Inhalation A erosol Powder Breath Activated 04/01/2020 12:00:00 AM EDT [facility] apixaban 5 MG Oral Tablet [Eliquis] Eliquis 5 MG Oral Tablet Eliquis 5 MG Oral Tablet 04/01/2020 12:00:00 AM EDT [facility] gabapentin 300 MG Oral Capsule Gabapentin 300 MG Oral Capsule (NEURONTIN) Gabapentin 300 MG Oral Capsule (NEURONTIN) 03/26/2020 12:00:00 AM EDT 300 mg Oral active Take 300 mg by mouth Two Times Daily [facility] Albuterol 0.83 MG/ML Inhalant Solution A lbuterol Sulfate (2.5 MG/3ML) 0.083% Inhalation Nebulization Solution (PROVENTIL) Albuterol Sulfate (2.5 MG/3ML) 0.083% Inhalation Nebulization Solution (PROVENTIL) 03/26/2020 12:00:00 AM EDT active USE 1 VIAL VIA N EBULIZER FOUR TIMES A DAY [facility] Amiodarone hydrochloride 200 MG Oral Tab let Amiodarone HCl 200 MG Oral Tablet (PACERONE) Amiodarone HCl 200 MG Oral Tablet (PACERONE) 0 12:00:00 AM EDT 200 mg Oral active Take 200 mg by mo uth daily [facility] Omeprazole 20 MG Delayed Release Oral Ca psule Omeprazole 20 MG Oral Capsule Delayed Release (PriLOSEC) Omeprazole 20 MG Oral Capsule Delayed Re lease (PriLOSEC) 03/17/2020 12:00:00 AM EDT [facility] Ipratropium [place] 0.2 MG/ML Inhalant S olution Ipratropium [place] 0.02 % Inhalation Solution (ATROVENT) Ipratropium [place] 0.02 % Inhalation So lution (ATROVENT) 03/09/2020 12:00:00 AM EDT [facility] Pravastatin Sodium 40 MG Oral Tablet Pra vastatin Sodium 40 MG Oral Tablet (PRAVACHOL) Pravastatin Sodium 40 MG Oral Tablet (PRAVACHOL) 01/26 12:00:00 AM EDT active [facility] Losartan Potassium 100 MG Oral Tablet Lo sartan Potassium 100 MG Oral Tablet (COZAAR) Losartan Potassium 100 MG Oral Tablet (COZAAR) 12:00:00 AM EDT active [facility] 24 HR Diltiazem Hydrochloride 240 MG Ext ended Release Oral Capsule dilTIAZem HCl ER Coated Beads 240 MG Oral Capsule Extended Release 24 Hour (CARDIZEM CD) dilTIAZem HCl ER Coated Beads 240 MG Oral Capsule Extended Release 24 Hour (CARDIZEM CD) 01/27/2020 12:00:00 AM EDT [facility] 324 mg (65 mg iron) 01/03/2020 12:00:00 [...] 3350 105 MG/ML / Pot assium Chloride 0.66419 MEQ/ML / Sodium Bicarbonate 0.017 MEQ/ML / Sodium Chloride 0.0479 MEQ/ML Oral Solution [TriLyte] Trilyte 12/28/2019 12:00:00 AM EDT completed MEDENT ([facility] ) Magnesium Hydroxide 80 MG/ML Oral Suspension Milk Of Magnesi a 12/28/2019 12:00:00 AM EDT ORAL completed MED[facility] ([facility] ) Magnesium Hydroxide 80 MG/ML Oral Suspension [...] EDT ORAL active M EDENT ([facility]) Loratadine 10 MG Oral Tablet Loratadine 10/07/2019 12:00:00 AM EDT ORAL active [facility] ([facility]) ferrous sulfate 325 MG Delayed Release Oral Tablet Ferrous S ulfate 10/05/2019 12:00:00 AM EDT ORAL active M EDENT ([facility]) 300 mg 09/30/2019 12:00:00 AM EDT [...] FOR 5 DAYS LEONARDO [facility] Nystatin 402797 UNT/ML Oral Suspension Nystatin 08/23/2019 12:00:00 AM [...] 08/17/2019 12:00:00 AM EST ORAL completed MED[facility] ([facility] ) 10 gram/15 mL 08/17/2019 12:00:00 AM EST solution 1200 TAKE 2 TABLESPOONSFUL TWO TIMES A DAY MAY INCREASE TO 3 TWO TIMES A DAY NEEDED TAKE 2 TABLESPOONSFUL TWO TIMES A DAY MAY INCREASE TO 3 TWO TIMES A DAY NEEDED SOLD: 12/20/2019 [facility] Lactulose 667 MG/ML Oral Solution Lactulose 08/17/2019 12:00:00 AM EST ORAL active MEDENT ([facility] ) POLYETHYLENE GLYCOL 3350 105 MG/ML / Pot assium Chloride 0.16754 MEQ/ML / Sodium Bicarbonate 0.017 MEQ/ML / Sodium Chloride 0.0479 MEQ/ML Oral Solution [TriLyte] Trilyte 08/17/2019 12:00:00 AM EST completed [facility] ([facility] ) 10 gram/15 mL 08/17/2019 12:00:00 AM [...] 08/09/2019 12:00:00 AM EST ORAL completed MEDENT ([facility]) 250 mg 08/09/2019 12:00:00 AM EST capsule 10 TAKE ONE CAPSULE BY MOUTH TWICE A DAY FOR 5 DAYS TAKE ONE CAPSULE BY MOUTH TWICE A DAY FOR 5 DAYS SOLD: 08/09/2019 [facility] Phenazopyridine hydrochloride 200 MG Oral Tablet Phenazopyri dine HCL 08/07/2019 12:00:00 AM EST ORAL completed MEDENT ([facility]) 200 mg 08/07/2019 12:00:00 AM EST [...] MG 07/21 12:00:00 AM EST completed MED[facility] ([facility]) Medication administered onsite Cephalexin 500 MG Oral Capsule Cephalexin 07/21/2019 12:00:00 AM EST ORAL completed MED[facility] ([facility]) Cephalexin 500 MG Oral Tablet Cephalexin 07/21/2019 12:00:00 AM EST ORAL completed MEDENT ([facility]) 324 mg (65 mg iron) 07/07/2019 12:00:00 [...] 07/07/2019 12:00:00 AM EST ORAL completed MEDENT ([facility]) sennosides, LONG-TERM 8.6 MG Oral Capsule Senna 07/07/2019 12:00:00 AM EST ORAL active MED[facility] ([facility]) Amiodarone hydrochloride 200 MG Oral Tablet Amiodarone HCL 07/06/2019 12:00:00 AM EST ORAL active MED[facility] ([facility]) gabapentin 300 MG Oral Capsule Gabapentin 07/06/2019 12:00:00 AM EST ORAL active MED[facility] ([facility]) gabapentin 300 MG Oral Capsule Gabapentin 03/11/2019 12:00:00 AM EDT ORAL completed MED[facility] ([facility]) 300 mg 03/08/2019 12:00:00 AM EDT [...] 02/06/2019 12:00:00 AM EDT ORAL completed MEDENT ([facility]) 2.5 mg /3 mL (0.083 %) [...] to page Policy Page Plan Information MEDICARE [id number] SP [id number] [place] 302/307 [id number] SP [id number] MEDICARE A [id number] Self [id number] BLUE CARD C [id number] Self [id number] MEDICARE C [id number] S [id number] EXCELLUS BCBS B [id number] S [id number] [place] PPO 302/307 [id number] SP [id number] [place] PPO 302/307 [id number] SP [id number] BS Of [place] Medigap Part B [id number] Self [id number] [place] Primary [id number] Self [id number] BS [place] Commercial [id number] Self [id number] Medicare [place] Gov[place] Serv Medicare Primary [id number] Self [id number] BS [place] Medigap Part B [id number] Self [id number] Medicare Dme Supplies Medigap Part B [id number] Self [id number] [place] Primary [id number] Self [id number] BCBS Excell[place] U/W Medigap Part B [id number] Self [id number] Medicare (Part B) Medicare Primary [id number] Self [id number] Medicare (Part B) Medicare Primary [id number] Self [id number] BCBS [employer] U/W Medigap Part B [id number] Self [id number] Medicare (Part B) Medicare Primary [id number] Self [id number] Medicare (Part B) Medicare Primary [id number] Self [id number] BS [place] Medigap Part B [id number] Self [id number] Medicare Dme Supplies Medigap Part B [id number] Self [id number] [place] Primary [id number] Self [id number] BS [place] Medigap Part B [id number] Self [id number] Medicare [place] Gov't Servi Medicare Primary [id number] Self [id number] BS [place] Commercial [id number] Self [id number] Medicare [place] Gov[place] Servic Medicare Primary [id number] Self [id number] BS [place] Medigap Part B [id number] Self [id number] [place] Primary [id number] Self [id number] BS [facility] [id number] Self [id number] Medicare [place] Gov[place] Servic Medicare Primary [id number] Self [id number] BS [place] qunb [id number] Self [id number] Medicare [place] Gov[place] Servic Medicare Primary [id number] Self [id number] BCBS Excell[employer] U/W Medigap Part B [id number] Self [id number] Medicare (Part B) Medicare Primary [id number] Self [id number] Medicare (Part B) Medicare Primary [id number] Self [id number] BCBS [employer] U/W Medigap Part B [id number] Self [id number] Medicare (Part B) Medicare Primary [id number] Self [id number] Medicare (Part B) Medicare Primary [id number] Self [id number] BS [place] qunb [id number] Self [id number] Medicare [place] Govt Servic Medicare Primary [id number] Self [id number] BCBS [employer] U/W Medigap Part B [id number] Self [id number] Medicare (Part B) Medicare Primary [id number] Self [id number] BCBS [employer] U/W Medigap Part B [id number] Self [id number] Medicare (Part B) Medicare Primary [id number] Self [id number] MEDICARE [id number] SP [id number] A Excellus BCBS Medigap Part B [id number] Excellus BCBS Medigap Part B [id number] Self [id number] [place]/[facility] Medicare Primary [id number] Self [id number] [facility] Commercial [id number] Self [id number] Medicare [place] Govt Servic Medicare Primary [id number] Self [id number] [place] [id number] Self [id number] Medicare (Part B) Medicare Primary [id number] Self [id number] MEDICARE C [id number] S [id number] A BS [place] qunb [id number] Self [id number] Medicare [place] Gov[place] Servic Medicare Primary [id number] Self [id number] [place] [id number] Self [id number] Medicare (Part B) Medicare Primary [id number] Self [id number] [facility] Commercial [id number] Self [id number] Medicare [place] Servic Medicare Primary [id number] Self [id number] [place] [id number] Self [id number] Medicare (Part B) Medicare Primary [id number] Self [id number] [facility] qunb [id number] Self [id number] Medicare [place] Gov[place] Servic Medicare Primary [id number] Self [id number] [facility] qunb [id number] Self [id number] Medicare [place] Gov[place] Servic Medicare Primary [id number] Self [id number] BS [place] qunb [id number] Self [id number] Medicare [place] Govt Servic Medicare Primary [id number] Self [id number] [place] [id number] Self [id number] Medicare (Part B) Medicare Primary [id number] Self [id number] BS [place] Medigap Part B [id number] Self [id number] Medicare [place] Gov't Servi Medicare Primary [id number] Self [id number] BS [place] Medigap Part B [id number] Self [id number] [place] Primary [id number] Self [id number] BS [place] Medigap Part B [id number] Self [id number] Medicare [place] Gov't Servi Medicare Primary [id number] Self [id number] BS [place] qunb [id number] Self [id number] Medicare [place] Govt Servic Medicare Primary [id number] Self [id number] BS [place] Medigap Part B [id number] Self [id number] [place] Medicare Primary [id number] Self [id number] BS [place] Medigap Part B [id number] Self [id number] [place] Primary [id number] Self [id number] [place] Med[place] [id number] Self [id number] Medicare (Part B) Medicare Primary [id number] Self [id number] [facility] [id number] Self [id number] Medicare [place] Govt Servic Medicare Primary [id number] Self [id number] [facility] qunb [id number] Self [id number] Medicare [place] Govt Servic Medicare Primary [id number] Self [id number] [facility] qunb [id number] Self [id number] Medicare [place] Govt Servic Medicare Primary [id number] Self [id number] BS [facility] [id number] Self [id number] Medicare [place] Govt Servic Medicare Primary [id number] Self [id number] BS [facility] [id number] Self [id number] Medicare [place] Govt Servic Medicare Primary [id number] Self [id number] BS [facility] 200 Self 20 0 Medicare [place] Govt Servic Medicare Primary Self BS [facility] Medisan antonio Part B Self Medicare [place] Gov't Servi Medicare Primary Self Excellus BCBS Medigap Part B [place]/NGS Medicare Primary Self BCBS OF [place] 200/700 [id number] SP [id number] BCBS [place] 200/700 [id number] SP [id number] BS Of [facility] Part B Family Depend ent Medicare [place] Medicare Primary Self BC/BS Of [place] Medisan antonio Part B Self Medicare Medicare Primary Self [id number] A [id number] Problems, Conditions, and Diagnoses Code Display Name Description Problem Type Effective Dates Data Source(s) 68755935 Iron deficiency anemia Iron deficiency anemia Problem 07/07/2019 12:00:00 AM EST LANRE ([facility]) H90.41 Sensorineural hearing loss, unilateral, right ear, 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, unilateral, right ear, with unrestricted hearing on the contralateral side Diagnosis 04/02/2020 03:45:02 PM T [facility] Surgeries/Procedures Procedure Description Date Indications Data Source(s) INTERROGATION EVAL REMOTE </90 D 1/2/PULPING MACHINE OPERATOR LEAD PM 05/31 12:00:00 AM EST MEDENT ([facility]) INTERROGATION REMOTE </90 D AIRFREIGHT LOADING SUPERVISOR REVIEW 05/31/20 20 12:00:00 AM EST [facility] ([facility]) INTERROGATION EVAL IN PERSON 1/DUAL/PULPING MACHINE OPERATOR LEAD PM 2019 12:00:00 AM EDT MED[facility] ([facility]) Colonoscopy 02/06/2020 12:00:00 AM EDT Sami HOBSON ([facility]) Colonoscopy W/ Poly 02/06/2020 12:00:00 AM EDT MEDENT ([facility] ) ECG ROUTINE ECG W/LEAST 12 LDS W/I&R 11/25/2019 12:00: 00 AM EDT MEDENT ([facility]) INTERROGATION EVAL IN PERSON 1/DUAL/PULPING MACHINE OPERATOR LEAD PM 2019 12:00:00 AM EDT MED[facility] ([facility]) INTERROGATION EVAL REMOTE </90 D 1/2/PULPING MACHINE OPERATOR LEAD PM 11/07 12:00:00 AM EDT MED[facility] ([facility]) INTERROGATION REMOTE </90 D AIRFREIGHT LOADING SUPERVISOR REVIEW 11/08/19 12:00:00 AM EDT MED[facility] ([facility]) Colonoscopy 10/27/2019 12:00:00 AM EDT M EDENT ([facility]) Endoscopy Upper GI Biopsy 10/27/2019 12:00:00 AM EDT MEDENT ([facility]) Endoscopy Upper GI Control Hemorrhage 10/27/2019 12:00 :00 AM EDT MEDENT ([facility]) Colonoscopy Flexible Proximal To Splenic Flexure W/Biopsy Si ngle/ 10/27/2019 12:00:00 AM EDT MEDENT ([facility]) ECG ROUTINE ECG W/LEAST 12 LDS W/I&R 10/26/2019 12:00: 00 AM EDT MEDENT ([facility]) INTERROGATION EVAL REMOTE </90 D 1/2/PULPING MACHINE OPERATOR LEAD PM 08/08 12:00:00 AM EST [facility] ([facility]) INTERROGATION REMOTE </90 D AIRFREIGHT LOADING SUPERVISOR REVIEW 08/08/19 12:00:00 AM EST MED[facility] ([facility]) Therapeutic, Prophylactic Or Diagnostic Injection Subq/Im 07/21/2019 12:00:00 AM EST [facility] ([facility] MYOCARDIAL SPECT MULTIPLE STUDIES 07/12/2019 12:00:00 AM EST MED[facility] ([facility]) CV STRS TST XERS&/OR RX CONT ECG PHYS SI&R 07/12/2019 12:00:00 AM EST [facility] ([facility]) ECG ROUTINE ECG W/LEAST 12 LDS W/I&R 07/05/2019 12:00: 00 AM EST [facility] ([facility]) Echography Soft Tissue Hand & Neck 06/28/2019 12:00:00 AM EST [facility] ([facility]) Results ID Date Data Source [id number] 06/14/2020 03:49:00 PM EST [facility] ([facility] Name Value Range Interpretation Code Description Data Manda rce(s) Supporting Document(s) Leukocytes [#/volume] in Blood by Automated count 6.2 x10*3/UL 4.1-10 .9 [facility] ([facility]) Hemoglobin [Mass/volume] in Blood 12.2 g/dL 12.0-18.0 [facility] ([facility]) Erythrocytes [#/volume] in Blood by Automated count 4.68 x10*6/UL 4.2 0-6.30 [facility] ([facility]) MCH 26.1 pg 26.0-32.0 [facility] Hematocrit [Volume Fraction] of Blood by Automated count 36.7 % 3 7.0-51.0 [facility] ([facility]) MCV 78.3 fL 80.0-97.0 [facility] Platelets [#/volume] in Blood by Automated count 276 x10*3/UL 140-440 [facility] ([facility]) Erythrocyte distribution width [Ratio] by Automated count 15.2 % 11.6-13.7 [facility] ([facility]) MCHC 33.3 g/dL 31.0-38.0 [facility] Lymphocytes/100 leukocytes in Blood by Automated count 12.4 % 10. 0-58.5 [facility] ([facility]) Platelet mean volume [Entitic volume] in Blood by Bhanu 8.1 FL 7.8-11.0 [facility] ([facility]) Neut % 83.9 % 37.0-92.0 [facility] ([facility] Lymph # 0.7 x10*3/UL 0.6-4.1 [facility] ([facility]) Mid % 3.7 % 1.7-9.3 [facility] ([facility]iology [facility]) Mid # 0.3 x10*3/UL 0.1-0.6 [facility] ([facility]) Neutrophils [#/volume] in Semen by Manual count 5.2 x10*3/UL 2.0-7.8 [facility] ([facility]) ID Date Data Source [id number] 06/14/2020 07:47:00 AM EST [facility] ([facility]) Name Value Range Interpretation Code Description Data Manda rce(s) Supporting Document(s) Glucose [Mass/volume] in Serum or Plasma 74 mg/dL 74-99 [facility] ([facility]) 100-125 mg/dL PRE-DIABETES/FASTING >126 mg/dL DIABETES/FASTING Urea nitrogen [Mass/volume] in Serum or Plasma 22 mg/dL 7-18 [facility] ([facility]) Creatinine 1.5 mg/dL 0.6-1.3 [facility] ([facility]) Sodium [Moles/volume] in Serum or Plasma 140 meq/L 136-145 [facility] ([facility]) Potassium [Moles/volume] in Serum or Plasma 4.4 meq/L 3.5-5.1 [facility] ([facility]) Chloride [Moles/volume] in Serum or Plasma 102 meq/L 98-107 [facility] ([facility]) Calcium [Mass/volume] in Serum or Plasma 9.1 mg/dL 8.5-10.1 [facility] ([facility]) Carbon dioxide, total [Moles/volume] in Serum or Plasma 31 meq/L 21 -32 [facility] ([facility]) Glomerular filtration rate/1.73 sq M pre dicted among blacks [Volume Rate/Area] in Serum or Plasma by Creatinine-based formula (MDRD) 40 mL/min [facility] ([facility]) <content>CHRONIC KIDNEY DISEASE STAGING PER NKF</content>
<content></content>
<content>STAGE I & II GFR >= 60 NORMAL TO MILDLY DECREASED</content>
<content>STAGE III GFR 30-59 MODERATELY DECREASED</content>
<content>STAGE IV GFR 15-29 SEVERELY DECREASED</content>
<content>STAGE V GFR <15 VERY LITTLE GFR LEFT</content>
<content>ESRD GFR <15 ON CARPET LOOM FIXER</content>
<content></content> Glomerular filtration rate/1.73 sq M pre dicted among non-blacks [Volume Rate/Area] in Serum or Plasma by Creatinine-based formula (MDRD) 33 mL/min [facility] ([facility]) ID Date Data Source [id number] 06/14/2020 07:47:00 AM EST MED[facility] ([facility]) Name Value Range Interpretation Code Description Data Manda rce(s) Supporting Document(s) Leukocytes [#/volume] in Blood by Automated count 6.2 x10*3/UL 4.1-10 .9 [facility] Erythrocytes [#/volume] in Blood by Automated count 4.68 x10*6/UL 4.2 0-6.30 [facility] ([facility] Hemoglobin [Mass/volume] in Blood 12.2 g/dL 12.0-18.0 [facility] ([facility] Hematocrit [Volume Fraction] of Blood by Automated count 36.7 % 3 7.0-51.0 [facility] ([facility]) MCV 78.3 fL 80.0-97.0 [facility] ([facility]) MCH 26.1 pg 26.0-32.0 [facility] ([facility] [facility]) Erythrocyte distribution width [Ratio] by Automated count 15.2 % 11.6-13.7 [facility] ([facility]) MCHC 33.3 g/dL 31.0-38.0 [facility] ([place] [facility]) Platelets [#/volume] in Blood by Automated count 276 x10*3/UL 140-440 [facility] ([facility]) MPV 8.1 FL 7.8-11.0 [facility] ([place] [facility]) Mid % 3.7 % 1.7-9.3 [facility] ([facility] [facility]) Lymph % 12.4 % 10.0-58.5 [facility] ([facility]) Lymph # 0.7 x10*3/UL 0.6-4.1 [facility] ([facility]) Neut % 83.9 % 37.0-92.0 [facility] ([facility]) Neut # 5.2 x10*3/UL 2.0-7.8 [facility] ([facility]) Mid # 0.3 x10*3/UL 0.1-0.6 [facility] ([facility]) ID Date Data Source [id number] 04/02/2020 03:46:33 PM EDT [facility] Name Value Range Interpretation Code Description Data Manda rce(s) Supporting Document(s) Progress Note [facility] [id number] [file] [id number] ID Date Data Source [id number] 03/14/2020 09:00:00 AM EDT [facility] ([facility]) Name Value Range Interpretation Code Description Data Manda rce(s) Supporting Document(s) Thyrotropin [Units/volume] in Serum or Plasma by Detec tion limit <= 0.05 mIU/L 1.07 uIU/mL 0.36-3.74 [facility] ([facility] ) ID Date Data Source [id number] 03/14/2020 09:00:00 AM EDT [facility] ([facility]) Name Value Range Interpretation Code Description Data Manda rce(s) Supporting Document(s) Urine Creatinine 103.0 mg/dL 30.0-125.0 [facility] ([facility]) Microalbumin Urine 7.5 mg/L 1.3-20.0 [facility] ([facility]) Microalb/Creat Ratio 7.3 ug/mg 0.0-30.0 [facility] ID Date Data Source [id number] 03/14/2020 09:00:00 AM EDT [facility] Name Value Range Interpretation Code Description Data Manda rce(s) Supporting Document(s) Urine Color Laboratory test result MEDEN T ([facility]) Urine Appearance Laboratory test result [facility] ([facility]) Specific gravity of Urine 1.010 1.005-1.030 MS DENT ([facility]) Urine PH 6.5 units 5.0-9.0 [facility] ([facility]) Urine Blood Laboratory test result MEDEN T ([facility]) Urine Leukocytes Laboratory test result Abnormal (applies to non-numeric results) [facility] ([facility]) Glucose [Presence] in Urine Laboratory test result [facility] ([facility]) Urine Protein Laboratory test result 0-0 MED ENT ([facility]) Urine Ketone Laboratory test result MEDE NT ([facility]) Urine Nitrite Laboratory test result MED E[facility] ([facility]) Bilirubin.total [Mass/volume] in Serum or Plasma Laboratory test resu lt [facility] ([facility]) Urine Urobilinogen 0.2 mg/dL 0.2-1.0 [facility] ([facility]) ID Date Data Source [id number] 03/14/2020 09:00:00 AM EDT [facility] Name Value Range Interpretation Code Description Data Manda rce(s) Supporting Document(s) Cholesterol [Mass/volume] in Serum or Plasma 213 mg/dL 131-200 [facility] ([facility]) Triglyceride [Mass/volume] in Serum or Plasma 101 mg/dL 30-150 [facility] ([facility]) Cholesterol in HDL [Mass/volume] in Serum or Plasma 105 mg/dL 35-60 [facility] ([facility]) Cholesterol in LDL [Mass/volume] in Serum or Plasma by calcu lation 88 CALC 50-159 [facility] ID Date Data Source [id number] 03/14/2020 09:00:00 AM EDT [facility] ([facility]) Name Value Range Interpretation Code Description Data Manda rce(s) Supporting Document(s) Glucose [Mass/volume] in Serum or Plasma 98 mg/dL 74-99 [facility] ([facility]) 100-125 mg/dL PRE-DIABETES/FASTING >126 mg/dL DIABETES/FASTING Urea nitrogen [Mass/volume] in Serum or Plasma 21 mg/dL 7-18 [facility] ([facility]) Sodium [Moles/volume] in Serum or Plasma 134 meq/L 136-145 [facility] ([facility]) Creatinine 1.6 mg/dL 0.6-1.3 [facility] ([facility]) Potassium [Moles/volume] in Serum or Plasma 4.4 meq/L 3.5-5.1 [facility] ([facility]) Chloride [Moles/volume] in Serum or Plasma 97 meq/L 98-107 [facility] ([facility]) Carbon dioxide, total [Moles/volume] in Serum or Plasma 30 meq/L 21 -32 [facility] ([facility]) Calcium [Mass/volume] in Serum or Plasma 9.2 mg/dL 8.5-10.1 [facility] ([facility]) Alkaline phosphatase isoenzyme [Units/volume] in Serum or Pl asma 109 mg/dL 46-116 [facility] ([facility] Total Bilirubin 0.5 mg/dL 0.2-1.0 [facility] ([facility] Aspartate aminotransferase [Enzymatic activity/volume] in Serum or Plasma 25 U/L 15-37 [facility] ([facility] ) Alanine aminotransferase [Enzymatic activity/volume] in Seru m or Plasma 40 U/L 12-78 [facility] ([facility]) Albumin [Mass/volume] in Serum or Plasma 3.8 g/dL 3.4-5.0 [facility] ([facility]) Proteinase 3 Ab [Units/volume] in Serum 7.2 g/dL 6.4-8.2 [facility] ([facility]) A/G Ratio 1.12 CALC 1.00-1.90 [facility] ([facility]) Glomerular filtration rate/1.73 sq M pre dicted among blacks [Volume Rate/Area] in Serum or Plasma by Creatinine-based formula (MDRD) 37 mL/min [facility]) <content>CHRONIC KIDNEY DISEASE STAGING PER NKF</content>
<content></content>
<content>STAGE I & II GFR >= 60 NORMAL TO MILDLY DECREASED</content>
<content>STAGE III GFR 30-59 MODERATELY DECREASED</content>
<content>STAGE IV GFR 15-29 SEVERELY DECREASED</content>
<content>STAGE V GFR <15 VERY LITTLE GFR LEFT</content>
<content>ESRD GFR <15 ON CARPET LOOM FIXER</content>
<content></content> Glomerular filtration rate/1.73 sq M pre dicted among non-blacks [Volume Rate/Area] in Serum or Plasma by Creatinine-based formula (MDRD) 30 mL/min [facility] ([facility]) ID Date Data Source [id number] 03/14/2020 09:00:00 AM EDT [facility] ([facility]) Name Value Range Interpretation Code Description Data Manda rce(s) Supporting Document(s) Magnesium 2.1 mg/dL 1.8-2.4 [facility] ([facility]) ID Date Data Source [id number] 03/14/2020 09:00:00 AM EDT [facility] ([facility]) Name Value Range Interpretation Code Description Data Manda rce(s) Supporting Document(s) Hemoglobin A1c/Hemoglobin.total in Blood 5.8 % [facility] ([facility]) Lab Result Notes: Pre-Diabetes 5.7 - 6.4 % Diabetes = or > 6.5% Glucose mean value [Mass/volume] in Blood Estimated fr om glycated hemoglobin 120 mg/dL 60-110 [facility] ([facility] ID Date Data Source [id number] 03/14/2020 09:00:00 AM EDT [facility] Name Value Range Interpretation Code Description Data Manda rce(s) Supporting Document(s) Hemoglobin A1c/Hemoglobin.total in Blood Laboratory test result [facility] ([facility]) Magnesium, Serum Laboratory test result [facility] ([facility]) Creatine kinase [Enzymatic activity/volume] in Serum or Plasma 118 U/L 26-192 [facility] ([facility]) ID Date Data Source [id number] 03/14/2020 09:00:00 AM EDT [facility] ([facility]) Name Value Range Interpretation Code Description Data Manda rce(s) Supporting Document(s) Leukocytes [#/volume] in Blood by Automated count 6.5 x10*3/UL 4.1-10 .9 [facility] ([facility]) Erythrocytes [#/volume] in Blood by Automated count 4.86 x10*6/UL 4.2 0-6.30 [facility] ([facility]) Hemoglobin [Mass/volume] in Blood 12.7 g/dL 12.0-18.0 [facility] ([facility]) Hematocrit [Volume Fraction] of Blood by Automated count 37.8 % 3 7.0-51.0 [facility] ([facility]) MCV 77.9 fL 80.0-97.0 [facility] ([place] [facility]) MCH 26.2 pg 26.0-32.0 [facility] ([facility] [facility]) MCHC 33.7 g/dL 31.0-38.0 [facility] ([facility] [facility]) Erythrocyte distribution width [Ratio] by Automated count 15.1 % 11.6-13.7 [facility] ([facility]) Platelets [#/volume] in Blood by Automated count 281 x10*3/UL 140-440 [facility] ([facility]) MPV 8.1 FL 7.8-11.0 [facility] ([facility] [facility]) Mid % 2.7 % 1.7-9.3 [facility] ([facility] [facility]) Lymph % 11.6 % 10.0-58.5 [facility] ([place] [facility]) Lymph # 0.7 x10*3/UL 0.6-4.1 [facility] ([facility]) Neut % 85.7 % 37.0-92.0 [facility] ([place] [facility]) Neut # 5.5 x10*3/UL 2.0-7.8 [facility] ([facility]) Mid # 0.3 x10*3/UL 0.1-0.6 [facility] ([facility]) ID Date Data Source [id number] 02/08/2020 08:04:00 AM EDT [facility] ([facility]) Name Value Range Interpretation Code Description Data Manda rce(s) Supporting Document(s) Creatinine For GFR 1.70 mg/dL 0.55-1.30 Above high normal [facility] ([facility]) Glomerular Filtration Rate 30.3 Below low normal [facility] ([facility]) <content>Units are mL/min/1.73 m2</content>
<content></content>
<content>Chronic Kidney Disease Staging per NKF:</content>
<content></content>
<content>Stage I & II GFR >=60 Normal to Mildly Decreased</content>
<content>Stage III GFR 30- 59 Moderately Decreased</content>
<content>Stage IV GFR 15-29 Severely Decreased</content>
<content>Stage V GFR <15 Very Little GFR Left</content>
<content>ESRD GFR <15 on CARPET LOOM FIXER</content>
<content></content> ID Date Data Source [id number] 02/08/2020 08:04:00 AM EDT [facility] ([facility]) Name Value Range Interpretation Code Description Data Manda rce(s) Supporting Document(s) Urea nitrogen [Mass/volume] in Serum or Plasma 18 mg/dL 7 -18 Normal (applies to non-numeric results) [facility] ([facility]) ID Date Data Source [id number] 02/06/2020 12:56:00 PM EDT [facility] ([facility]) Name Value Range Interpretation Code Description Data Manda rce(s) Supporting Document(s) Surgical pathology study Laboratory test result [facility] ([facility]) FINAL DIAGNOSIS Appendiceal orifice polyp, polypectomy: Hyperplastic polyp, fragments. 02/07/2020 - 1125 CLINICAL DIAGNOSIS Colon polyps 02/07/2020 - 0731 GROSS DIAGNOSIS Received in formalin labeled "appendiceal orifice polyp" consists of fragments of tissue 0.5 x 0.5 x 0.2 cm in aggregate. All in one. -OA 02/07/2020730 Signed ARSALAN LANDEROS MD 02/07/2020 1125 ID Date Data Source [id number] 01/02/2020 08:35:00 AM EDT [facility] ([facility]) Name Value Range Interpretation Code Description Data Manda rce(s) Supporting Document(s) Magnesium 2.1 mg/dL 1.8-2.4 [facility] ([facility]iology [facility]) Glucose [Mass/volume] in Serum or Plasma 80 mg/dL 74-99 [facility] ([facility]) 100-125 mg/dL PRE-DIABETES/FASTING >126 mg/dL DIABETES/FASTING Creatinine 1.8 mg/dL 0.6-1.3 [facility] ([facility]) Sodium [Moles/volume] in Serum or Plasma 141 meq/L 136-145 [facility] ([facility]) Urea nitrogen [Mass/volume] in Serum or Plasma 24 mg/dL 7-18 [facility] ([facility]) Chloride [Moles/volume] in Serum or Plasma 102 meq/L 98-107 [facility] ([facility]) Potassium [Moles/volume] in Serum or Plasma 4.3 meq/L 3.5-5.1 [facility] ([facility]) Glomerular filtration rate/1.73 sq M pre dicted among non-blacks [Volume Rate/Area] in Serum or Plasma by Creatinine-based formula (MDRD) 27 mL/min [facility] ([facility]) Carbon dioxide, total [Moles/volume] in Serum or Plasma 28 meq/L 21 -32 [facility] ([facility]) Calcium [Mass/volume] in Serum or Plasma 9.3 mg/dL 8.5-10.1 [facility] ([facility]) Glomerular filtration rate/1.73 sq M pre dicted among blacks [Volume Rate/Area] in Serum or Plasma by Creatinine-based formula (MDRD) 32 mL/min [facility] ([facility]) <content>CHRONIC KIDNEY DISEASE STAGING PER NKF</content>
<content></content>
<content>STAGE I & II GFR >= 60 NORMAL TO MILDLY DECREASED</content>
<content>STAGE III GFR 30-59 MODERATELY DECREASED</content>
<content>STAGE IV GFR 15-29 SEVERELY DECREASED</content>
<content>STAGE V GFR <15 VERY LITTLE GFR LEFT</content>
<content>ESRD GFR <15 ON CARPET LOOM FIXER</content>
<content></content>
<content></content> Thyrotropin [Units/volume] in Serum or Plasma by Detec tion limit <= 0.05 mIU/L 1.85 uIU/mL 0.36-3.74 [facility] ([facility]) ID Date Data Source [id number] 01/02/2020 08:35:00 AM EDT [facility] ([facility]) Name Value Range Interpretation Code Description Data Manda rce(s) Supporting Document(s) Leukocytes [#/volume] in Blood by Automated count 7.1 x10*3/UL 4.1-10 .9 [facility] ([facility]) Hemoglobin [Mass/volume] in Blood 12.8 g/dL 12.0-18.0 [facility] ([facility]) Erythrocytes [#/volume] in Blood by Automated count 5.02 x10*6/UL 4.2 0-6.30 [facility] ([facility]) Hematocrit [Volume Fraction] of Blood by Automated count 38.8 % 3 7.0-51.0 [facility] ([facility]) MCV 77.2 fL 80.0-97.0 [facility] ([facility]) MCHC 33.0 g/dL 31.0-38.0 [facility] Erythrocyte distribution width [Ratio] by Automated count 17.0 % 11.6-13.7 [facility] ([facility]) MCH 25.5 pg 26.0-32.0 [facility] ([facility]) Platelets [#/volume] in Blood by Automated count 277 x10*3/UL 140-440 [facility] ([facility]) Lymphocytes/100 leukocytes in Blood by Automated count 9.5 % 10. 0-58.5 [facility] ([facility]) Platelet mean volume [Entitic volume] in Blood by Bhanu 8.0 FL 7.8-11.0 [facility] ([facility]) Lymph # 0.6 x10*3/UL 0.6-4.1 [facility] ([facility]) Neut % 88.5 % 37.0-92.0 [facility] ([facility]) Mid % 2.0 % 1.7-9.3 [facility] ([facility]) Mid # 0.2 x10*3/UL 0.1-0.6 [facility] ([facility]) Neutrophils [#/volume] in Semen by Manual count 6.3 x10*3/UL 2.0-7.8 [facility] ([facility]) ID Date Data Source [id number] 01/02/2020 08:35:00 AM EDT [facility] ([facility]) Name Value Range Interpretation Code Description Data Manda rce(s) Supporting Document(s) Thyrotropin [Units/volume] in Serum or Plasma by Detec tion limit <= 0.05 mIU/L 1.85 uIU/mL 0.36-3.74 [facility] ([facility] ) ID Date Data Source [id number] 01/02/2020 08:35:00 AM EDT [facility] ([facility]) Name Value Range Interpretation Code Description Data Manda rce(s) Supporting Document(s) Glucose [Mass/volume] in Serum or Plasma 80 mg/dL 74-99 [facility] ([facility]) 100-125 mg/dL PRE-DIABETES/FASTING >126 mg/dL DIABETES/FASTING Creatinine 1.8 mg/dL 0.6-1.3 [facility] ([facility]) Urea nitrogen [Mass/volume] in Serum or Plasma 24 mg/dL 7-18 [facility] ([facility]) Potassium [Moles/volume] in Serum or Plasma 4.3 meq/L 3.5-5.1 [facility] ([facility]) Chloride [Moles/volume] in Serum or Plasma 102 meq/L 98-107 [facility] ([facility]) Sodium [Moles/volume] in Serum or Plasma 141 meq/L 136-145 [facility] ([facility]) Calcium [Mass/volume] in Serum or Plasma 9.3 mg/dL 8.5-10.1 [facility] ([facility]) Carbon dioxide, total [Moles/volume] in Serum or Plasma 28 meq/L 21 -32 [facility] Glomerular filtration rate/1.73 sq M pre dicted among blacks [Volume Rate/Area] in Serum or Plasma by Creatinine-based formula (MDRD) 32 mL/min [facility] ([facility]) <content>CHRONIC KIDNEY DISEASE STAGING PER NKF</content>
<content></content>
<content>STAGE I & II GFR >= 60 NORMAL TO MILDLY DECREASED</content>
<content>STAGE III GFR 30-59 MODERATELY DECREASED</content>
<content>STAGE IV GFR 15-29 SEVERELY DECREASED</content>
<content>STAGE V GFR <15 VERY LITTLE GFR LEFT</content>
<content>ESRD GFR <15 ON CARPET LOOM FIXER</content>
<content></content> Glomerular filtration rate/1.73 sq M pre dicted among non-blacks [Volume Rate/Area] in Serum or Plasma by Creatinine-based formula (MDRD) 27 mL/min [facility] ([facility] ID Date Data Source [id number] 01/02/2020 08:35:00 AM EDT [facility] ([facility]) Name Value Range Interpretation Code Description Data Manda rce(s) Supporting Document(s) Magnesium 2.1 mg/dL 1.8-2.4 [facility] ([facility]) ID Date Data Source [id number] 01/02/2020 08:35:00 AM EDT [facility] ([facility]) Name Value Range Interpretation Code Description Data Manda rce(s) Supporting Document(s) Leukocytes [#/volume] in Blood by Automated count 7.1 x10*3/UL 4.1-10 .9 [facility] Erythrocytes [#/volume] in Blood by Automated count 5.02 x10*6/UL 4.2 0-6.30 [facility] ([facility] Hemoglobin [Mass/volume] in Blood 12.8 g/dL 12.0-18.0 [facility] ([facility] MCV 77.2 fL 80.0-97.0 [facility] ([facility]) Hematocrit [Volume Fraction] of Blood by Automated count 38.8 % 3 7.0-51.0 [facility] ([facility]) MCH 25.5 pg 26.0-32.0 [facility] ([place] [facility]) MCHC 33.0 g/dL 31.0-38.0 [facility] ([facility]) Erythrocyte distribution width [Ratio] by Automated count 17.0 % 11.6-13.7 [facility] ([facility] Platelets [#/volume] in Blood by Automated count 277 x10*3/UL 140-440 [facility] ([facility]) MPV 8.0 FL 7.8-11.0 [facility] ([place] [facility]) Lymph % 9.5 % 10.0-58.5 [facility] ([facility]) Mid % 2.0 % 1.7-9.3 [facility] ([facility]) Lymph # 0.6 x10*3/UL 0.6-4.1 [facility] ([facility]) Neut % 88.5 % 37.0-92.0 [facility] ([place] [facility]) Neut # 6.3 x10*3/UL 2.0-7.8 [facility] ([facility]) Mid # 0.2 x10*3/UL 0.1-0.6 [facility] ([facility]) ID Date Data Source [id number] 11/24/2019 01:19:00 PM EDT [facility] ([facility]) Name Value Range Interpretation Code Description Data Manda rce(s) Supporting Document(s) Glucose [Mass/volume] in Serum or Plasma 111 mg/dL 74-99 [facility] ([facility]) 100-125 mg/dL PRE-DIABETES/FASTING >126 mg/dL DIABETES/FASTING Urea nitrogen [Mass/volume] in Serum or Plasma 19 mg/dL 7-18 [facility] ([facility]) Sodium [Moles/volume] in Serum or Plasma 139 meq/L 136-145 [facility] ([facility]) Creatinine 1.5 mg/dL 0.6-1.3 [facility] ([facility]) Chloride [Moles/volume] in Serum or Plasma 101 meq/L 98-107 [facility] ([facility]) Calcium [Mass/volume] in Serum or Plasma 8.9 mg/dL 8.5-10.1 [facility] ([facility]) Carbon dioxide, total [Moles/volume] in Serum or Plasma 30 meq/L 21 -32 [facility] ([facility]) Potassium [Moles/volume] in Serum or Plasma 4.1 meq/L 3.5-5.1 [facility] ([facility]) Glomerular filtration rate/1.73 sq M pre dicted among non-blacks [Volume Rate/Area] in Serum or Plasma by Creatinine-based formula (MDRD) 33 mL/min [facility] ([facility]) Glomerular filtration rate/1.73 sq M pre dicted among blacks [Volume Rate/Area] in Serum or Plasma by Creatinine-based formula (MDRD) 40 mL/min [facility] ([facility]) <content>CHRONIC KIDNEY DISEASE STAGING PER NKF</content>
<content></content>
<content>STAGE I & II GFR >= 60 NORMAL TO MILDLY DECREASED</content>
<content>STAGE III GFR 30-59 MODERATELY DECREASED</content>
<content>STAGE IV GFR 15-29 SEVERELY DECREASED</content>
<content>STAGE V GFR <15 VERY LITTLE GFR LEFT</content>
<content>ESRD GFR <15 ON CARPET LOOM FIXER</content>
<content></content> ID Date Data Source [id number] 11/24/2019 01:19:00 PM EDT [facility] ([facility]) Name Value Range Interpretation Code Description Data Manda rce(s) Supporting Document(s) Leukocytes [#/volume] in Blood by Automated count 7.9 x10*3/UL 4.1-10 .9 [facility] ([facility]) Hemoglobin [Mass/volume] in Blood 11.5 g/dL 12.0-18.0 [facility] ([facility]) NOTE: RESULT VERIFIED. Erythrocytes [#/volume] in Blood by Automated count 4.69 x10*6/UL 4.2 0-6.30 [facility] ([facility]) MCV 76.1 fL 80.0-97.0 [facility]) MCH 24.6 pg 26.0-32.0 [facility] ([facility]) Hematocrit [Volume Fraction] of Blood by Automated count 35.7 % 3 7.0-51.0 [facility] ([facility]) MCHC 32.3 g/dL 31.0-38.0 [facility] ([facility]) Erythrocyte distribution width [Ratio] by Automated count 17.6 % 11.6-13.7 [facility] ([facility]) MPV 7.8 FL 7.8-11.0 [facility] ([facility]) Platelets [#/volume] in Blood by Automated count 278 x10*3/UL 140-440 [facility] ([facility]) Lymph % 12.0 % 10.0-58.5 [facility] ([facility] [facility]) Mid % 2.9 % 1.7-9.3 [facility] ([facility]) Neut % 85.1 % 37.0-92.0 [facility] ([facility] [facility]) Lymph # 0.9 x10*3/UL 0.6-4.1 [facility] ([facility]) Neut # 6.7 x10*3/UL 2.0-7.8 [facility] ([facility]) Mid # 0.3 x10*3/UL 0.1-0.6 [facility] ([facility]) ID Date Data Source [id number] 11/02/2019 01:38:00 PM EDT [facility] ([facility]) Name Value Range Interpretation Code Description Data Manda rce(s) Supporting Document(s) Leukocytes [#/volume] in Blood by Automated count 7.9 x10*3/UL 4.1-10 .9 [facility] Erythrocytes [#/volume] in Blood by Automated count 4.41 x10*6/UL 4.2 0-6.30 [facility] ([facility]) MCH 24.6 pg 26.0-32.0 [facility] ([facility]) Hematocrit [Volume Fraction] of Blood by Automated count 32.7 % 3 7.0-51.0 [facility] ([facility]) MCV 74.1 fL 80.0-97.0 [facility] ([facility]) Hemoglobin [Mass/volume] in Blood 10.8 g/dL 12.0-18.0 [facility] ([facility]) NOTE: RESULT VERIFIED. MCHC 33.1 g/dL 31.0-38.0 [facility] ([facility]) Platelets [#/volume] in Blood by Automated count 326 x10*3/UL 140-440 [facility] Erythrocyte distribution width [Ratio] by Automated count 16.3 % 11.6-13.7 [facility] ([facility]) Lymph % 11.0 % 10.0-58.5 [facility] ([facility]) Mid % 3.1 % 1.7-9.3 [facility] ([facility]) MPV 8.1 FL 7.8-11.0 [facility] ([facility]) Neut % 85.9 % 37.0-92.0 [facility] ([facility]) Lymph # 0.8 x10*3/UL 0.6-4.1 [facility] ([facility]) Mid # 0.3 x10*3/UL 0.1-0.6 [facility] ([facility]) Neut # 6.8 x10*3/UL 2.0-7.8 [facility] ([facility]) ID Date Data Source [id number] 10/27/2019 10:27:00 AM EDT [facility] ([facility], ) Name Value Range Interpretation Code Description Data Manda rce(s) Supporting Document(s) Surgical pathology study Laboratory test result [facility] ([facility], ) FINAL DIAGNOSIS A - Gastric polyp, [...] MD 10/28/2019 1540 ID Date Data Source [id number] 10/26/2019 01:34:00 PM EDT [facility] Name Value Range Interpretation Code Description Data Manda rce(s) Supporting Document(s) Urea nitrogen [Mass/volume] in Serum or Plasma 22 mg/dL 7-18 [facility] ([facility]) Glucose [Mass/volume] in Serum or Plasma 103 mg/dL 74-99 [facility] ([facility]) 100-125 mg/dL PRE-DIABETES/FASTING >126 mg/dL DIABETES/FASTING Creatinine 1.7 mg/dL 0.6-1.3 [facility]) Sodium [Moles/volume] in Serum or Plasma 132 meq/L 136-145 [facility] ([facility]) Potassium [Moles/volume] in Serum or Plasma 4.6 meq/L 3.5-5.1 [facility] ([facility]) Carbon dioxide, total [Moles/volume] in Serum or Plasma 29 meq/L 21 -32 [facility] ([facility]) Chloride [Moles/volume] in Serum or Plasma 95 meq/L 98-107 [facility] ([facility]) Alkaline phosphatase isoenzyme [Units/volume] in Serum or Pl asma 114 mg/dL 46-116 [facility] ([facility]) Calcium [Mass/volume] in Serum or Plasma 9.3 mg/dL 8.5-10.1 [facility] ([facility]) Total Bilirubin 0.5 mg/dL 0.2-1.0 [facility] ([facility]) Aspartate aminotransferase [Enzymatic activity/volume] in Serum or Plasma 28 U/L 15-37 [facility] ([facility] ) Albumin [Mass/volume] in Serum or Plasma 3.7 g/dL 3.4-5.0 [facility] ([facility]) Alanine aminotransferase [Enzymatic activity/volume] in Seru m or Plasma 33 U/L 12-78 [facility] ([facility]) Proteinase 3 Ab [Units/volume] in Serum 7.5 g/dL 6.4-8.2 [facility] ([facility]) A/G Ratio 0.97 CALC 1.00-1.90 [facility] ([facility] [facility]) Glomerular filtration rate/1.73 sq M pre dicted among blacks [Volume Rate/Area] in Serum or Plasma by Creatinine-based formula (MDRD) 34 mL/min [facility] <content>CHRONIC KIDNEY DISEASE STAGING PER NKF</content>
<content></content>
<content>STAGE I & II GFR >= 60 NORMAL TO MILDLY DECREASED</content>
<content>STAGE III GFR 30-59 MODERATELY DECREASED</content>
<content>STAGE IV GFR 15-29 SEVERELY DECREASED</content>
<content>STAGE V GFR <15 VERY LITTLE GFR LEFT</content>
<content>ESRD GFR <15 ON CARPET LOOM FIXER</content>
<content></content> Glomerular filtration rate/1.73 sq M pre dicted among non-blacks [Volume Rate/Area] in Serum or Plasma by Creatinine-based formula (MDRD) 28 mL/min [facility] ([facility]) ID Date Data Source [id number] 10/26/2019 01:34:00 PM EDT [facility] ([facility]) Name Value Range Interpretation Code Description Data Manda rce(s) Supporting Document(s) Natriuretic peptide B [Mass/volume] in Serum or Plasma 221.0 pg/mL 0.0-100.0 [facility] ([facility]) Magnesium 2.2 mg/dL 1.8-2.4 [facility] ([facility]) ID Date Data Source [id number] 10/26/2019 01:34:00 PM EDT [facility] ([facility] Name Value Range Interpretation Code Description Data Manda rce(s) Supporting Document(s) Leukocytes [#/volume] in Blood by Automated count 8.7 x10*3/UL 4.1-10 .9 [facility] ([facility] Erythrocytes [#/volume] in Blood by Automated count 4.59 x10*6/UL 4.2 0-6.30 [facility] ([facility]) Hemoglobin [Mass/volume] in Blood 11.1 g/dL 12.0-18.0 [facility] ([facility]) Hematocrit [Volume Fraction] of Blood by Automated count 33.7 % 3 7.0-51.0 [facility] ([facility]) MCH 24.1 pg 26.0-32.0 [facility] ([facility]) MCHC 32.9 g/dL 31.0-38.0 [facility] ([facility]) MCV 73.4 fL 80.0-97.0 [facility] ([facility]) MPV 7.4 FL 7.8-11.0 [facility] ([facility]) Platelets [#/volume] in Blood by Automated count 307 x10*3/UL 140-440 [facility] ([facility]) Erythrocyte distribution width [Ratio] by Automated count 16.0 % 11.6-13.7 [facility] ([facility]) Neut % 86.1 % 37.0-92.0 [facility] ([facility]) Lymph # 0.9 x10*3/UL 0.6-4.1 [facility] ([facility] Mid % 2.9 % 1.7-9.3 [facility] ([facility]) Lymph % 11.0 % 10.0-58.5 [facility] ([facility]) Neut # 7.5 x10*3/UL 2.0-7.8 [facility] ([facility]) Mid # 0.3 x10*3/UL 0.1-0.6 [facility] ([facility]) ID Date Data Source [id number] 10/24/2019 11:15:00 AM EDT [facility] Name Value Range Interpretation Code Description Data Manda rce(s) Supporting Document(s) SARS CORONAVIRUS 2 RNA [facility] This lab was ordered by [facility] and reported by [facility]. ID Date Data Source [id number] 10/19/2019 09:40:00 AM EDT [facility] ([facility] Name Value Range Interpretation Code Description Data Manda rce(s) Supporting Document(s) Leukocytes [#/volume] in Blood by Automated count 7.5 x10*3/UL 4.1-10 .9 [facility] ([facility]) Erythrocytes [#/volume] in Blood by Automated count 4.31 x10*6/UL 4.2 0-6.30 [facility] ([facility]) Hematocrit [Volume Fraction] of Blood by Automated count 31.7 % 3 7.0-51.0 [facility] ([facility]) MCV 73.6 fL 80.0-97.0 [facility] ([facility]) Hemoglobin [Mass/volume] in Blood 10.4 g/dL 12.0-18.0 [facility] ([facility]) NOTE: RESULT VERIFIED. MCH 24.2 pg 26.0-32.0 [facility] ([facility]) Erythrocyte distribution width [Ratio] by Automated count 15.6 % 11.6-13.7 [facility] ([facility]) MCHC 32.9 g/dL 31.0-38.0 [facility] ([facility]) MPV 8.0 FL 7.8-11.0 [facility] ([facility]) Platelets [#/volume] in Blood by Automated count 299 x10*3/UL 140-440 [facility] ([facility]) Lymph % 11.6 % 10.0-58.5 [facility] ([facility] [facility]) Neut % 85.6 % 37.0-92.0 [facility] ([facility] [facility]) Lymph # 0.8 x10*3/UL 0.6-4.1 [facility] ([facility]) Mid % 2.8 % 1.7-9.3 [facility] ([facility] [facility]) Mid # 0.3 x10*3/UL 0.1-0.6 [facility] ([facility]) Neut # 6.4 x10*3/UL 2.0-7.8 [facility] ([facility]) ID Date Data Source [id number] 10/19/2019 09:40:00 AM EDT [facility] ([facility]) Name Value Range Interpretation Code Description Data Manda rce(s) Supporting Document(s) Glucose [Mass/volume] in Serum or Plasma 109 mg/dL 74-99 [facility] ([facility]) 100-125 mg/dL PRE-DIABETES/FASTING >126 mg/dL DIABETES/FASTING Creatinine 1.5 mg/dL 0.6-1.3 [facility] ([facility]) Sodium [Moles/volume] in Serum or Plasma 140 meq/L 136-145 [facility] ([facility]) Urea nitrogen [Mass/volume] in Serum or Plasma 21 mg/dL 7-18 [facility] ([facility]) Carbon dioxide, total [Moles/volume] in Serum or Plasma 27 meq/L 21 -32 [facility] ([facility]) Potassium [Moles/volume] in Serum or Plasma 4.4 meq/L 3.5-5.1 [facility] ([facility]) Chloride [Moles/volume] in Serum or Plasma 103 meq/L 98-107 [facility] ([facility]) Calcium [Mass/volume] in Serum or Plasma 8.6 mg/dL 8.5-10.1 [facility] ([facility]) Glomerular filtration rate/1.73 sq M pre dicted among blacks [Volume Rate/Area] in Serum or Plasma by Creatinine-based formula (MDRD) 40 mL/min [facility] ([facility]) <content>CHRONIC KIDNEY DISEASE STAGING PER NKF</content>
<content></content>
<content>STAGE I & II GFR >= 60 NORMAL TO MILDLY DECREASED</content>
<content>STAGE III GFR 30-59 MODERATELY DECREASED</content>
<content>STAGE IV GFR 15-29 SEVERELY DECREASED</content>
<content>STAGE V GFR <15 VERY LITTLE GFR LEFT</content>
<content>ESRD GFR <15 ON CARPET LOOM FIXER</content>
<content></content> Glomerular filtration rate/1.73 sq M pre dicted among non-blacks [Volume Rate/Area] in Serum or Plasma by Creatinine-based formula (MDRD) 33 mL/min [facility] ([facility]) ID Date Data Source [id number] 10/11/2019 08:02:00 AM EDT [facility] ([facility]) Name Value Range Interpretation Code Description Data Manda rce(s) Supporting Document(s) Urea nitrogen [Mass/volume] in Serum or Plasma 19 mg/dL 7-18 [facility] ([facility]) Creatinine 1.7 mg/dL 0.6-1.3 [facility]) Glucose [Mass/volume] in Serum or Plasma 120 mg/dL 74-99 [facility] ([facility]) 100-125 mg/dL PRE-DIABETES/FASTING >126 mg/dL DIABETES/FASTING Potassium [Moles/volume] in Serum or Plasma 4.5 meq/L 3.5-5.1 [facility] ([facility]) Sodium [Moles/volume] in Serum or Plasma 140 meq/L 136-145 [facility] ([facility]) Chloride [Moles/volume] in Serum or Plasma 102 meq/L 98-107 [facility] ([facility]) Calcium [Mass/volume] in Serum or Plasma 9.5 mg/dL 8.5-10.1 [facility] ([facility]) Glomerular filtration rate/1.73 sq M pre dicted among blacks [Volume Rate/Area] in Serum or Plasma by Creatinine-based formula (MDRD) 34 mL/[facility] <content>CHRONIC KIDNEY DISEASE STAGING PER NKF</content>
<content></content>
<content>STAGE I & II GFR >= 60 NORMAL TO MILDLY DECREASED</content>
<content>STAGE III GFR 30-59 MODERATELY DECREASED</content>
<content>STAGE IV GFR 15-29 SEVERELY DECREASED</content>
<content>STAGE V GFR <15 VERY LITTLE GFR LEFT</content>
<content>ESRD GFR <15 ON CARPET LOOM FIXER</content>
<content></content> Glomerular filtration rate/1.73 sq M pre dicted among non-blacks [Volume Rate/Area] in Serum or Plasma by Creatinine-based formula (MDRD) 28 mL/min [facility] Carbon dioxide, total [Moles/volume] in Serum or Plasma 29 meq/L 21 -32 [facility] ([facility]) ID Date Data Source [id number] 10/11/2019 08:02:00 AM EDT [facility] ([facility] Name Value Range Interpretation Code Description Data Manda rce(s) Supporting Document(s) Erythrocytes [#/volume] in Blood by Automated count 4.48 x10*6/UL 4.2 0-6.30 [facility] Leukocytes [#/volume] in Blood by Automated count 8.7 x10*3/UL 4.1-10 .9 [facility] ([facility]) MCV 74.0 fL 80.0-97.0 [facility]) Hematocrit [Volume Fraction] of Blood by Automated count 33.2 % 3 7.0-51.0 [facility] ([facility] Hemoglobin [Mass/volume] in Blood 11.1 g/dL 12.0-18.0 [facility] ([facility]) NOTE: RESULT VERIFIED. MCHC 33.6 g/dL 31.0-38.0 [facility] [facility]) Erythrocyte distribution width [Ratio] by Automated count 15.7 % 11.6-13.7 [facility] ([facility]) MCH 24.8 pg 26.0-32.0 [facility] ([facility]) Lymph % 7.8 % 10.0-58.5 [facility] ([facility]) Platelets [#/volume] in Blood by Automated count 325 x10*3/UL 140-440 [facility] ([facility]) MPV 7.7 FL 7.8-11.0 [facility] ([facility]) Mid % 10.6 % 1.7-9.3 [facility] ([facility]) Lymph # 0.6 x10*3/UL 0.6-4.1 [facility] ([facility]) Mid # 1.0 x10*3/UL 0.1-0.6 [facility] ([facility]) Neut % 81.6 % 37.0-92.0 [facility] ([facility]) Neut # 7.1 x10*3/UL 2.0-7.8 [facility] ([facility]) ID Date Data Source [id number] 10/05/2019 10:29:00 AM EDT [facility] ([facility]) Name Value Range Interpretation Code Description Data Manda rce(s) Supporting Document(s) Leukocytes [#/volume] in Blood by Automated count 8.6 x10*3/UL 4.1-10 .9 [facility] ([facility]) Erythrocytes [#/volume] in Blood by Automated count 4.35 x10*6/UL 4.2 0-6.30 [facility] ([facility]) Hemoglobin [Mass/volume] in Blood 10.8 g/dL 12.0-18.0 [facility] ([facility]) NOTE: RESULT VERIFIED. MCV 73.5 fL 80.0-97.0 [facility] ([facility]) Hematocrit [Volume Fraction] of Blood by Automated count 32.0 % 3 7.0-51.0 [facility] ([facility]) Erythrocyte distribution width [Ratio] by Automated count 15.4 % 11.6-13.7 [facility] ([facility]) MCHC 33.8 g/dL 31.0-38.0 [facility]) MCH 24.8 pg 26.0-32.0 [facility]) Lymph % 9.9 % 10.0-58.5 [facility]) MPV 7.8 FL 7.8-11.0 [facility]) Platelets [#/volume] in Blood by Automated count 295 x10*3/UL 140-440 [facility] ([facility]) Neut % 87.0 % 37.0-92.0 [facility] Lymph # 0.8 x10*3/UL 0.6-4.1 [facility] ([facility]) Mid % 3.1 % 1.7-9.3 [facility]) Mid # 0.3 x10*3/UL 0.1-0.6 [facility] ([facility]) Neut # 7.5 x10*3/UL 2.0-7.8 [facility] ([facility]) ID Date Data Source [id number] 09/07/2019 01:40:00 PM EDT [facility] ([facility]) Name Value Range Interpretation Code Description Data Manda rce(s) Supporting Document(s) Glucose [Mass/volume] in Serum or Plasma 94 mg/dL 74-99 [facility] ([facility]) 100-125 mg/dL PRE-DIABETES/FASTING >126 mg/dL DIABETES/FASTING Urea nitrogen [Mass/volume] in Serum or Plasma 21 mg/dL 7-18 [facility] ([facility]) Creatinine 1.3 mg/dL 0.6-1.3 [facility] ([facility]) Chloride [Moles/volume] in Serum or Plasma 101 meq/L 98-107 [facility] ([facility]) Potassium [Moles/volume] in Serum or Plasma 4.3 meq/L 3.5-5.1 [facility] ([facility]) Sodium [Moles/volume] in Serum or Plasma 139 meq/L 136-145 [facility]) Glomerular filtration rate/1.73 sq M pre dicted among non-blacks [Volume Rate/Area] in Serum or Plasma by Creatinine-based formula (MDRD) 39 mL/min [facility] ([facility]) Carbon dioxide, total [Moles/volume] in Serum or Plasma 32 meq/L 21 -32 [facility] ([facility]) Calcium [Mass/volume] in Serum or Plasma 9.3 mg/dL 8.5-10.1 [facility] ([facility]) Glomerular filtration rate/1.73 sq M pre dicted among blacks [Volume Rate/Area] in Serum or Plasma by Creatinine-based formula (MDRD) 47 mL/min [facility] ([facility]) <content>CHRONIC KIDNEY DISEASE STAGING PER NKF</content>
<content></content>
<content>STAGE I & II GFR >= 60 NORMAL TO MILDLY DECREASED</content>
<content>STAGE III GFR 30-59 MODERATELY DECREASED</content>
<content>STAGE IV GFR 15-29 SEVERELY DECREASED</content>
<content>STAGE V GFR <15 VERY LITTLE GFR LEFT</content>
<content>ESRD GFR <15 ON CARPET LOOM FIXER</content>
<content></content>
<content></content> ID Date Data Source [id number] 09/07/2019 01:40:00 PM EDT [facility] ([facility]) Name Value Range Interpretation Code Description Data Manda rce(s) Supporting Document(s) Leukocytes [#/volume] in Blood by Automated count 6.8 x10*3/UL 4.1-10 .9 [facility] ([facility]) Hematocrit [Volume Fraction] of Blood by Automated count 35.1 % 3 7.0-51.0 [facility] ([facility]) Erythrocytes [#/volume] in Blood by Automated count 4.63 x10*6/UL 4.2 0-6.30 [facility] ([facility]) Hemoglobin [Mass/volume] in Blood 11.6 g/dL 12.0-18.0 [facility] ([facility]) MCV 75.7 fL 80.0-97.0 [facility] ([facility]) MCH 25.0 pg 26.0-32.0 [facility] ([facility]) Erythrocyte distribution width [Ratio] by Automated count 15.3 % 11.6-13.7 [facility] ([facility]) MCHC 33.0 g/dL 31.0-38.0 [facility] Platelets [#/volume] in Blood by Automated count 303 x10*3/UL 140-440 [facility] ([facility]) Platelet mean volume [Entitic volume] in Blood by Bhanu 7.9 FL 7.8-11.0 [facility] ([facility]) Lymphocytes/100 leukocytes in Blood by Automated count 11.6 % 10. 0-58.5 [facility] ([facility]) Mid % 3.2 % 1.7-9.3 [facility] ([facility]) Neut % 85.2 % 37.0-92.0 [facility] ([facility]) Lymph # 0.7 x10*3/UL 0.6-4.1 [facility] ([facility]) Mid # 0.3 x10*3/UL 0.1-0.6 [facility] ([facility]) Neutrophils [#/volume] in Semen by Manual count 5.8 x10*3/UL 2.0-7.8 [facility] ([facility]) ID Date Data Source [id number] 09/07/2019 01:40:00 PM EDT [facility] ([facility]) Name Value Range Interpretation Code Description Data Manda rce(s) Supporting Document(s) Glucose [Mass/volume] in Serum or Plasma 94 mg/dL 74-99 [facility] ([facility]) 100-125 mg/dL PRE-DIABETES/FASTING >126 mg/dL DIABETES/FASTING Urea nitrogen [Mass/volume] in Serum or Plasma 21 mg/dL 7-18 [facility] ([facility]) Potassium [Moles/volume] in Serum or Plasma 4.3 meq/L 3.5-5.1 [facility] ([facility]) Creatinine 1.3 mg/dL 0.6-1.3 [facility] Sodium [Moles/volume] in Serum or Plasma 139 meq/L 136-145 [facility] ([facility]) Carbon dioxide, total [Moles/volume] in Serum or Plasma 32 meq/L 21 -32 [facility] ([facility]) Chloride [Moles/volume] in Serum or Plasma 101 meq/L 98-107 [facility] Glomerular filtration rate/1.73 sq M pre dicted among non-blacks [Volume Rate/Area] in Serum or Plasma by Creatinine-based formula (MDRD) 39 mL/min [facility] ([facility]) Calcium [Mass/volume] in Serum or Plasma 9.3 mg/dL 8.5-10.1 [facility] ([facility] Glomerular filtration rate/1.73 sq M pre dicted among blacks [Volume Rate/Area] in Serum or Plasma by Creatinine-based formula (MDRD) 47 mL/min [facility] ([facility]) <content>CHRONIC KIDNEY DISEASE STAGING PER NKF</content>
<content></content>
<content>STAGE I & II GFR >= 60 NORMAL TO MILDLY DECREASED</content>
<content>STAGE III GFR 30-59 MODERATELY DECREASED</content>
<content>STAGE IV GFR 15-29 SEVERELY DECREASED</content>
<content>STAGE V GFR <15 VERY LITTLE GFR LEFT</content>
<content>ESRD GFR <15 ON CARPET LOOM FIXER</content>
<content></content> ID Date Data Source [id number] 09/07/2019 01:40:00 PM EDT [facility] Name Value Range Interpretation Code Description Data Manda rce(s) Supporting Document(s) Leukocytes [#/volume] in Blood by Automated count 6.8 x10*3/UL 4.1-10 .9 [facility] ([facility]) Erythrocytes [#/volume] in Blood by Automated count 4.63 x10*6/UL 4.2 0-6.30 [facility] ([facility]) MCV 75.7 fL 80.0-97.0 [facility]) Hematocrit [Volume Fraction] of Blood by Automated count 35.1 % 3 7.0-51.0 [facility] ([facility]) Hemoglobin [Mass/volume] in Blood 11.6 g/dL 12.0-18.0 [facility] ([facility]) MCH 25.0 pg 26.0-32.0 [facility] [facility]) MCHC 33.0 g/dL 31.0-38.0 [facility] ([place] [facility]) MPV 7.9 FL 7.8-11.0 [facility] ([facility]) Erythrocyte distribution width [Ratio] by Automated count 15.3 % 11.6-13.7 [facility] ([facility]) Platelets [#/volume] in Blood by Automated count 303 x10*3/UL 140-440 [facility] ([facility]) Neut % 85.2 % 37.0-92.0 [facility] [facility]) Lymph % 11.6 % 10.0-58.5 [facility] ([place] [facility]) Mid % 3.2 % 1.7-9.3 [facility] [facility]) Lymph # 0.7 x10*3/UL 0.6-4.1 [facility] ([facility]) Mid # 0.3 x10*3/UL 0.1-0.6 [facility] ([facility]) Neut # 5.8 x10*3/UL 2.0-7.8 [facility] ([facility]) ID Date Data Source [id number] 08/23/2019 08:58:00 AM EDT [facility] Name Value Range Interpretation Code Description Data Manda rce(s) Supporting Document(s) Laboratory test finding (navigational concept) Laboratory test result [facility] ([facility]) Negative results do not preclude influen za or RSV virus infection and should not be used as the sole basis for treatment or other patient management decisions. Laboratory test finding (navigational concept) Laboratory test result [facility] ([facility]) Negative results do not preclude influen za or RSV virus infection and should not be used as the sole basis for treatment or other patient management decisions. ID Date Data Source [id number] 08/23/2019 08:58:00 AM EDT [facility] ([facility]) Name Value Range Interpretation Code Description Data Manda rce(s) Supporting Document(s) Influenza A Amplification Laboratory test result [facility] ([facility]) Negative results do not preclude influen za or RSV virus infection and should not be used as the sole basis for treatment or other patient management decisions. Influenza B Amplification Laboratory test result [facility] ([facility]) Negative results do not preclude influen za or RSV virus infection and should not be used as the sole basis for treatment or other patient management decisions. ID Date Data Source [id number] 08/23/2019 07:37:00 AM EDT [facility] ([facility]) Name Value Range Interpretation Code Description Data Manda rce(s) Supporting Document(s) Creatinine 1.4 mg/dL 0.6-1.3 [facility] ([facility]) Urea nitrogen [Mass/volume] in Serum or Plasma 18 mg/dL 7-18 [facility] ([facility]) Glucose [Mass/volume] in Serum or Plasma 106 mg/dL 74-99 [facility] ([facility]) 100-125 mg/dL PRE-DIABETES/FASTING >126 mg/dL DIABETES/FASTING Chloride [Moles/volume] in Serum or Plasma 101 meq/L 98-107 [facility] ([facility]) Potassium [Moles/volume] in Serum or Plasma 4.2 meq/L 3.5-5.1 [facility] ([facility]) Sodium [Moles/volume] in Serum or Plasma 141 meq/L 136-145 [facility] ([facility]) Carbon dioxide, total [Moles/volume] in Serum or Plasma 30 meq/L 21 -32 [facility] ([facility]) Total Bilirubin 0.4 mg/dL 0.2-1.0 [facility] ([facility]) Calcium [Mass/volume] in Serum or Plasma 9.1 mg/dL 8.5-10.1 [facility] ([facility]) Alkaline phosphatase isoenzyme [Units/volume] in Serum or Pl asma 97 mg/dL 46-116 [facility] ([facility]) Aspartate aminotransferase [Enzymatic activity/volume] in Serum or Plasma 36 U/L 15-37 [facility] ([facility]) Alanine aminotransferase [Enzymatic activity/volume] in Seru m or Plasma 49 U/L 12-78 [facility] ([facility]) Proteinase 3 Ab [Units/volume] in Serum 6.6 g/dL 6.4-8.2 [facility] ([facility]) Albumin [Mass/volume] in Serum or Plasma 3.8 g/dL 3.4-5.0 [facility] ([facility]) A/G Ratio 1.36 CALC 1.00-1.90 [facility] Glomerular filtration rate/1.73 sq M pre dicted among blacks [Volume Rate/Area] in Serum or Plasma by Creatinine-based formula (MDRD) 43 mL/min [facility] ([facility]) <content>CHRONIC KIDNEY DISEASE STAGING PER NKF</content>
<content></content>
<content>STAGE I & II GFR >= 60 NORMAL TO MILDLY DECREASED</content>
<content>STAGE III GFR 30-59 MODERATELY DECREASED</content>
<content>STAGE IV GFR 15-29 SEVERELY DECREASED</content>
<content>STAGE V GFR <15 VERY LITTLE GFR LEFT</content>
<content>ESRD GFR <15 ON CARPET LOOM FIXER</content>
<content></content>
<content></content> Glomerular filtration rate/1.73 sq M pre dicted among non-blacks [Volume Rate/Area] in Serum or Plasma by Creatinine-based formula (MDRD) 36 mL/min [facility] ([facility]) ID Date Data Source [id number] 08/23/2019 07:37:00 AM EDT [facility] ([facility]) Name Value Range Interpretation Code Description Data Manda rce(s) Supporting Document(s) Leukocytes [#/volume] in Blood by Automated count 10.4 x10*3/UL 4.1-1 0.9 [facility] ([facility]) Erythrocytes [#/volume] in Blood by Automated count 4.53 x10*6/UL 4.2 0-6.30 [facility] ([facility]) MCH 25.4 pg 26.0-32.0 [facility] Hematocrit [Volume Fraction] of Blood by Automated count 34.7 % 3 7.0-51.0 [facility] ([facility]) Hemoglobin [Mass/volume] in Blood 11.5 g/dL 12.0-18.0 [facility] ([facility]) MCV 76.5 fL 80.0-97.0 [facility] ([facility]) Erythrocyte distribution width [Ratio] by Automated count 14.1 % 11.6-13.7 [facility] ([facility]) MCHC 33.2 g/dL 31.0-38.0 [facility] ([facility]) Platelets [#/volume] in Blood by Automated count 252 x10*3/UL 140-440 [facility] ([facility]) Lymphocytes/100 leukocytes in Blood by Automated count 4.4 % 10. 0-58.5 [facility] ([facility]) Platelet mean volume [Entitic volume] in Blood by Bhanu 8.2 FL 7.8-11.0 [facility] ([facility]) Mid % 6.7 % 1.7-9.3 [facility] ([facility]) Neut % 88.9 % 37.0-92.0 [facility] ([facility]) Lymph # 0.4 x10*3/UL 0.6-4.1 [facility] ([facility]) Mid # 0.8 x10*3/UL 0.1-0.6 [facility] ([facility]) Neutrophils [#/volume] in Semen by Manual count 9.2 x10*3/UL 2.0-7.8 [facility] ([facility]) ID Date Data Source [id number] 08/23/2019 07:37:00 AM EDT [facility] ([facility]) Name Value Range Interpretation Code Description Data Manda rce(s) Supporting Document(s) Erythrocytes [#/volume] in Blood by Automated count 4.53 x10*6/UL 4.2 0-6.30 [facility] ([facility]) Hemoglobin [Mass/volume] in Blood 11.5 g/dL 12.0-18.0 [facility] ([facility]) Leukocytes [#/volume] in Blood by Automated count 10.4 x10*3/UL 4.1-1 0.9 [facility] Hematocrit [Volume Fraction] of Blood by Automated count 34.7 % 3 7.0-51.0 [facility] ([facility]) MCV 76.5 fL 80.0-97.0 [facility] [facility]) MCH 25.4 pg 26.0-32.0 [facility] ([place] [facility]) MCHC 33.2 g/dL 31.0-38.0 [facility] ([facility]) Platelets [#/volume] in Blood by Automated count 252 x10*3/UL 140-440 [facility] MPV 8.2 FL 7.8-11.0 [facility] ([facility]) Erythrocyte distribution width [Ratio] by Automated count 14.1 % 11.6-13.7 [facility] ([facility]) Lymph % 4.4 % 10.0-58.5 [facility] ([place] [facility]) Mid % 6.7 % 1.7-9.3 [facility] ([facility]) Lymph # 0.4 x10*3/UL 0.6-4.1 [facility] ([facility]) Neut % 88.9 % 37.0-92.0 [facility] ([facility]) Mid # 0.8 x10*3/UL 0.1-0.6 [facility] ([facility]) Neut # 9.2 x10*3/UL 2.0-7.8 [facility] ([facility]) ID Date Data Source [id number] 08/23/2019 07:37:00 AM EDT [facility] ([facility]) Name Value Range Interpretation Code Description Data Manda rce(s) Supporting Document(s) Glucose [Mass/volume] in Serum or Plasma 106 mg/dL 74-99 [facility] ([facility]) 100-125 mg/dL PRE-DIABETES/FASTING >126 mg/dL DIABETES/FASTING Urea nitrogen [Mass/volume] in Serum or Plasma 18 mg/dL 7-18 [facility] ([facility]) Creatinine 1.4 mg/dL 0.6-1.3 [facility] ([facility]) Sodium [Moles/volume] in Serum or Plasma 141 meq/L 136-145 [facility] ([facility]) Chloride [Moles/volume] in Serum or Plasma 101 meq/L 98-107 [facility] ([facility]) Potassium [Moles/volume] in Serum or Plasma 4.2 meq/L 3.5-5.1 [facility] ([facility]) Alkaline phosphatase isoenzyme [Units/volume] in Serum or Pl asma 97 mg/dL 46-116 [facility] ([facility]) Carbon dioxide, total [Moles/volume] in Serum or Plasma 30 meq/L 21 -32 [facility] ([facility]) Calcium [Mass/volume] in Serum or Plasma 9.1 mg/dL 8.5-10.1 [facility] ([facility]) Total Bilirubin 0.4 mg/dL 0.2-1.0 [facility] ([facility]) Aspartate aminotransferase [Enzymatic activity/volume] in Serum or Plasma 36 U/L 15-37 [facility] ([facility] ) Albumin [Mass/volume] in Serum or Plasma 3.8 g/dL 3.4-5.0 [facility] ([facility]) Proteinase 3 Ab [Units/volume] in Serum 6.6 g/dL 6.4-8.2 [facility] ([facility]) Alanine aminotransferase [Enzymatic activity/volume] in Seru m or Plasma 49 U/L 12-78 [facility] ([facility]) Glomerular filtration rate/1.73 sq M pre dicted among blacks [Volume Rate/Area] in Serum or Plasma by Creatinine-based formula (MDRD) 43 mL/min [facility] ([facility]) <content>CHRONIC KIDNEY DISEASE STAGING PER NKF</content>
<content></content>
<content>STAGE I & II GFR >= 60 NORMAL TO MILDLY DECREASED</content>
<content>STAGE III GFR 30-59 MODERATELY DECREASED</content>
<content>STAGE IV GFR 15-29 SEVERELY DECREASED</content>
<content>STAGE V GFR <15 VERY LITTLE GFR LEFT</content>
<content>ESRD GFR <15 ON CARPET LOOM FIXER</content>
<content></content> A/G Ratio 1.36 CALC 1.00-1.90 [facility] [facility] Glomerular filtration rate/1.73 sq M pre dicted among non-blacks [Volume Rate/Area] in Serum or Plasma by Creatinine-based formula (MDRD) 36 mL/min [facility] ([facility]) ID Date Data Source [id number] 08/07/2019 09:13:00 AM EST [facility] ([facility]) Name Value Range Interpretation Code Description Data Madna rce(s) Supporting Document(s) Bacteria identified in Urine by Culture Laboratory test result [facility] ([facility]) Rx Cephlex ID Date Data Source [id number] 08/01/2019 07:31:00 AM EST [facility] ([facility]) Name Value Range Interpretation Code Description Data Manda rce(s) Supporting Document(s) Hemoglobin A1c/Hemoglobin.total in Blood 6.3 g/dL 4.8-5.6 [facility] ([facility]) Lab Result Notes: Pre-Diabetes 5.7 - 6.4 % Diabetes = or > 6.5% Glucose mean value [Mass/volume] in Blood Estimated fr om glycated hemoglobin 134 mg/dL 60-110 [facility] ([facility]) Glucose [Mass/volume] in Serum or Plasma 84 mg/dL 74-99 [facility] ([facility]) 100-125 mg/dL PRE-DIABETES/FASTING >126 mg/dL DIABETES/FASTING Potassium [Moles/volume] in Serum or Plasma 4.7 meq/L 3.5-5.1 [facility] ([facility]) Urea nitrogen [Mass/volume] in Serum or Plasma 20 mg/dL 7-18 [facility] ([facility]) Sodium [Moles/volume] in Serum or Plasma 139 meq/L 136-145 [facility] ([facility]) Creatinine 1.4 mg/dL 0.6-1.3 [facility] ([facility]) Carbon dioxide, total [Moles/volume] in Serum or Plasma 32 meq/L 21 -32 [facility] ([facility]) Calcium [Mass/volume] in Serum or Plasma 9.3 mg/dL 8.5-10.1 [facility] ([facility]) Glomerular filtration rate/1.73 sq M pre dicted among non-blacks [Volume Rate/Area] in Serum or Plasma by Creatinine-based formula (MDRD) 36 mL/min [facility] ([facility]) Chloride [Moles/volume] in Serum or Plasma 101 meq/L 98-107 [facility] ([facility]) Glomerular filtration rate/1.73 sq M pre dicted among blacks [Volume Rate/Area] in Serum or Plasma by Creatinine-based formula (MDRD) 43 mL/min [facility] ([facility]) <content>CHRONIC KIDNEY DISEASE STAGING PER NKF</content>
<content></content>
<content>STAGE I & II GFR >= 60 NORMAL TO MILDLY DECREASED</content>
<content>STAGE III GFR 30-59 MODERATELY DECREASED</content>
<content>STAGE IV GFR 15-29 SEVERELY DECREASED</content>
<content>STAGE V GFR <15 VERY LITTLE GFR LEFT</content>
<content>ESRD GFR <15 ON CARPET LOOM FIXER</content>
<content></content>
<content></content> ID Date Data Source [id number] 08/01/2019 07:31:00 AM EST [facility] ([facility]) Name Value Range Interpretation Code Description Data Manda rce(s) Supporting Document(s) Erythrocytes [#/volume] in Blood by Automated count 4.48 x10*6/UL 4.2 0-6.30 [facility] ([facility]) Leukocytes [#/volume] in Blood by Automated count 5.5 x10*3/UL 4.1-10 .9 [facility] ([facility]) MCV 78.5 fL 80.0-97.0 [facility] ([facility]) NOTE: RESULT VERIFIED. Hemoglobin [Mass/volume] in Blood 11.5 g/dL 12.0-18.0 [facility] ([facility]) NOTE: RESULT VERIFIED. Hematocrit [Volume Fraction] of Blood by Automated count 35.2 % 3 7.0-51.0 [facility] ([facility]) MCH 25.7 pg 26.0-32.0 [facility] ([facility]) Erythrocyte distribution width [Ratio] by Automated count 14.6 % 11.6-13.7 [facility] ([facility]) Platelets [#/volume] in Blood by Automated count 305 x10*3/UL 140-440 [facility] ([facility]) MCHC 32.7 g/dL 31.0-38.0 [facility] ([facility]) Lymphocytes/100 leukocytes in Blood by Automated count 13.9 % 10. 0-58.5 [facility] ([facility]) Platelet mean volume [Entitic volume] in Blood by Bhanu 8.7 FL 7.8-11.0 [facility] ([facility]) Neut % 82.0 % 37.0-92.0 [facility] ([facility]) Lymph # 0.7 x10*3/UL 0.6-4.1 [facility] ([facility]) Mid % 4.1 % 1.7-9.3 [facility] ([facility]) Neutrophils [#/volume] in Semen by Manual count 4.5 x10*3/UL 2.0-7.8 [facility] ([facility]) Mid # 0.3 x10*3/UL 0.1-0.6 [facility] ([facility]) ID Date Data Source [id number] 08/01/2019 07:31:00 AM EST [facility] ([facility]) Name Value Range Interpretation Code Description Data Manda rce(s) Supporting Document(s) Urea nitrogen [Mass/volume] in Serum or Plasma 20 mg/dL 7-18 [facility] ([facility]) Glucose [Mass/volume] in Serum or Plasma 84 mg/dL 74-99 [facility] ([facility]) 100-125 mg/dL PRE-DIABETES/FASTING >126 mg/dL DIABETES/FASTING Creatinine 1.4 mg/dL 0.6-1.3 [facility] ([facility]) Chloride [Moles/volume] in Serum or Plasma 101 meq/L 98-107 [facility] ([facility]) Sodium [Moles/volume] in Serum or Plasma 139 meq/L 136-145 [facility] ([facility]) Potassium [Moles/volume] in Serum or Plasma 4.7 meq/L 3.5-5.1 [facility] ([facility]) Calcium [Mass/volume] in Serum or Plasma 9.3 mg/dL 8.5-10.1 [facility] ([facility]) Carbon dioxide, total [Moles/volume] in Serum or Plasma 32 meq/L 21 -32 [facility] Glomerular filtration rate/1.73 sq M pre dicted among non-blacks [Volume Rate/Area] in Serum or Plasma by Creatinine-based formula (MDRD) 36 mL/[facility] Glomerular filtration rate/1.73 sq M pre dicted among blacks [Volume Rate/Area] in Serum or Plasma by Creatinine-based formula (MDRD) 43 mL/min [facility] <content>CHRONIC KIDNEY DISEASE STAGING PER NKF</content>
<content></content>
<content>STAGE I & II GFR >= 60 NORMAL TO MILDLY DECREASED</content>
<content>STAGE III GFR 30-59 MODERATELY DECREASED</content>
<content>STAGE IV GFR 15-29 SEVERELY DECREASED</content>
<content>STAGE V GFR <15 VERY LITTLE GFR LEFT</content>
<content>ESRD GFR <15 ON CARPET LOOM FIXER</content>
<content></content> ID Date Data Source [id number] 08/01/2019 07:31:00 AM EST [facility] ([facility]) Name Value Range Interpretation Code Description Data Manda rce(s) Supporting Document(s) Hemoglobin A1c/Hemoglobin.total in Blood 6.3 g/dL 4.8-5.6 [facility] Lab Result Notes: Pre-Diabetes 5.7 - 6.4 % Diabetes = or > 6.5% Glucose mean value [Mass/volume] in Blood Estimated fr om glycated hemoglobin 134 mg/dL 60-110 [facility] ([facility] ) ID Date Data Source [id number] 08/01/2019 07:31:00 AM EST [facility] ([facility]) Name Value Range Interpretation Code Description Data Manda rce(s) Supporting Document(s) Leukocytes [#/volume] in Blood by Automated count 5.5 x10*3/UL 4.1-10 .9 [facility] ([facility]) Hemoglobin [Mass/volume] in Blood 11.5 g/dL 12.0-18.0 [facility] ([facility]) NOTE: RESULT VERIFIED. Erythrocytes [#/volume] in Blood by Automated count 4.48 x10*6/UL 4.2 0-6.30 [facility] MCV 78.5 fL 80.0-97.0 [facility] ([facility]) NOTE: RESULT VERIFIED. Hematocrit [Volume Fraction] of Blood by Automated count 35.2 % 3 7.0-51.0 [facility] MCHC 32.7 g/dL 31.0-38.0 [facility] ([facility]) Erythrocyte distribution width [Ratio] by Automated count 14.6 % 11.6-13.7 [facility] MCH 25.7 pg 26.0-32.0 [facility] ([facility]) MPV 8.7 FL 7.8-11.0 [facility] ([facility]) Lymph % 13.9 % 10.0-58.5 [facility] ([facility]) Platelets [#/volume] in Blood by Automated count 305 x10*3/UL 140-440 [facility] ([facility]) Neut % 82.0 % 37.0-92.0 [facility] ([facility]) Mid % 4.1 % 1.7-9.3 [facility] ([facility]) Lymph # 0.7 x10*3/UL 0.6-4.1 [facility] ([facility]) Mid # 0.3 x10*3/UL 0.1-0.6 [facility] ([facility]) Neut # 4.5 x10*3/UL 2.0-7.8 [facility] ([facility]) ID Date Data Source [id number] 07/25/2019 03:54:00 PM EST [facility] ([facility]) Name Value Range Interpretation Code Description Data Manda rce(s) Supporting Document(s) C reactive protein [Mass/volume] in Serum or Plasma by High sensitivity method 0.35 mg/dL 0.00-0.30 [facility] ([facility]) ID Date Data Source [id number] 07/25/2019 03:54:00 PM EST [facility] ([facility]) Name Value Range Interpretation Code Description Data Manda rce(s) Supporting Document(s) C reactive protein [Mass/volume] in Serum or Plasma by High sensitivity method 0.35 mg/dL 0.00-0.30 [facility] ([facility] ) ID Date Data Source [id number] 07/25/2019 03:53:00 PM EST [facility] ([facility]) Name Value Range Interpretation Code Description Data Manda rce(s) Supporting Document(s) Leukocytes [#/volume] in Blood by Automated count 6.8 x10*3/UL 4.1-10 .9 [facility] ([facility]) Hemoglobin [Mass/volume] in Blood 12.3 g/dL 12.0-18.0 [facility] ([facility]) Erythrocytes [#/volume] in Blood by Automated count 4.77 x10*6/UL 4.2 0-6.30 [facility] ([facility]) MCV 78.5 fL 80.0-97.0 [facility] ([facility]) MCH 25.9 pg 26.0-32.0 [facility] ([facility]) Hematocrit [Volume Fraction] of Blood by Automated count 37.4 % 3 7.0-51.0 [facility] ([facility]) Platelet mean volume [Entitic volume] in Blood by Bhanu 7.9 FL 7.8-11.0 [facility] ([facility]) MCHC 33.0 g/dL 31.0-38.0 [facility] ([facility]) Erythrocyte distribution width [Ratio] by Automated count 14.4 % 11.6-13.7 [facility] ([facility]) Platelets [#/volume] in Blood by Automated count 298 x10*3/UL 140-440 [facility] ([facility]) Lymphocytes/100 leukocytes in Blood by Automated count 14.3 % 10. 0-58.5 [facility] ([facility]) Neut % 82.4 % 37.0-92.0 [facility] ([facility]) Mid % 3.3 % 1.7-9.3 [facility] ([facility]) Lymph # 0.9 x10*3/UL 0.6-4.1 [facility] ([facility]) Neutrophils [#/volume] in Semen by Manual count 5.6 x10*3/UL 2.0-7.8 [facility] ([facility]) Mid # 0.3 x10*3/UL 0.1-0.6 [facility] ([facility]) ID Date Data Source [id number] 07/25/2019 03:53:00 PM EST [facility] ([facility]) Name Value Range Interpretation Code Description Data Manda rce(s) Supporting Document(s) Erythrocyte sedimentation rate by Westergren method 14 mm/hr 0-15 [facility] ([facility]) ID Date Data Source [id number] 07/25/2019 03:53:00 PM EST [facility] ([facility]) Name Value Range Interpretation Code Description Data Manda rce(s) Supporting Document(s) Erythrocyte sedimentation rate by Westergren method 14 mm/hr 0-15 [facility] ([facility]) ID Date Data Source [id number] 07/25/2019 03:53:00 PM EST [facility] ([facility]) Name Value Range Interpretation Code Description Data Manda rce(s) Supporting Document(s) Leukocytes [#/volume] in Blood by Automated count 6.8 x10*3/UL 4.1-10 .9 [facility] ([facility]) Erythrocytes [#/volume] in Blood by Automated count 4.77 x10*6/UL 4.2 0-6.30 [facility] ([facility]) Hemoglobin [Mass/volume] in Blood 12.3 g/dL 12.0-18.0 [facility] ([facility]) MCH 25.9 pg 26.0-32.0 [facility] ([place] [facility]) MCV 78.5 fL 80.0-97.0 [facility] ([place] [facility]) Hematocrit [Volume Fraction] of Blood by Automated count 37.4 % 3 7.0-51.0 [facility] ([facility]) MCHC 33.0 g/dL 31.0-38.0 [facility] ([place] [facility]) Platelets [#/volume] in Blood by Automated count 298 x10*3/UL 140-440 [facility] [facility] Erythrocyte distribution width [Ratio] by Automated count 14.4 % 11.6-13.7 [facility] ([facility]) Lymph % 14.3 % 10.0-58.5 [facility] ([place] [facility]) MPV 7.9 FL 7.8-11.0 [facility] ([place] [facility]) Mid % 3.3 % 1.7-9.3 [facility] ([place] [facility]) Lymph # 0.9 x10*3/UL 0.6-4.1 [facility] ([facility]) Neut % 82.4 % 37.0-92.0 [facility] ([place] [facility]) Mid # 0.3 x10*3/UL 0.1-0.6 [facility] ([facility]) Neut # 5.6 x10*3/UL 2.0-7.8 [facility] ([facility]) ID Date Data Source [id number] 07/11/2019 03:57:00 PM EST [facility] ([facility]) Name Value Range Interpretation Code Description Data Manda rce(s) Supporting Document(s) Hemoglobin.gastrointestinal [Presence] in Stool by Imm unologic method Laboratory test result Abnormal (applies to non-numeric results) [facility] ([facility]) ID Date Data Source [id number] 07/11/2019 03:57:00 PM EST [facility] ([facility]) Name Value Range Interpretation Code Description Data Manda rce(s) Supporting Document(s) Hemoglobin.gastrointestinal [Presence] in Stool by Imm unologic method Laboratory test result Abnormal (applies to non-numeric results) MEDENT ([facility]) ID Date Data Source [id number] 07/05/2019 02:08:00 PM EST MEDENT ([facility]) Name Value Range Interpretation Code Description Data Manda rce(s) Supporting Document(s) Thyroid Stimulating Hormone 1.72 ME DENT ([facility]) ID Date Data Source [id number] 07/05/2019 02:08:00 PM EST MEDENT ([facility]) Name Value Range Interpretation Code Description Data Manda rce(s) Supporting Document(s) Creatinine 1.5 0.6-1.3 MEDENT ([facility]) Glucose 115 74-99 MEDENT ([facility]) Blood Urea Nitrogen 21 7-18 MEDENT (Ca rdiology [facility]) Chloride 101 98-107 MEDENT ([facility] A [facility]) Potassium 4.9 3.5-5.1 MEDENT ([facility]) Sodium 139 136-145 MEDENT ([facility]) Carbon Dioxide 33 21-32 MEDENT ([facility]iol [facility]) Calcium 9.4 8.5-10.1 MEDENT ([facility]) Glomerular filtration rate/1.73 sq M.pre dicted [Volume Rate/Area] in Serum or Plasma by Creatinine-based formula (MDRD) 33 MEDENT ([facility]) ID Date Data Source [id number] 07/05/2019 02:08:00 PM EST MEDENT ([facility]i [facility]) Name Value Range Interpretation Code Description Data Manda rce(s) Supporting Document(s) Magnesium Level 2.2 MEDENT ([facility]io [facility]) ID Date Data Source [id number] 07/05/2019 02:08:00 PM EST [facility] Name Value Range Interpretation Code Description Data Manda rce(s) Supporting Document(s) Red Blood Count 4.60 4.2-6.30 MEDENT ([facility]io [facility]) Platelets 273 140-440 MEDENT (Cardiology A [facility]) White Blood Count 7.8 4.1-10.9 MEDENT (Card ioly [facility]) Hematocrit 36.6 37.0-51.0 MEDENT ([facility]iology [facility]) Hemoglobin 11.9 12.0-18.0 MEDENT ([facility]iology [facility]) ID Date Data Source [id number] 07/05/2019 08:45:00 AM EST MEDENT ([facility]) Name Value Range Interpretation Code Description Data Manda rce(s) Supporting Document(s) Ferritin [Mass/volume] in Serum or Plasma 22 ng/mL 8-252 MEDENT ([facility]) ID Date Data Source [id number] 07/05/2019 08:45:00 AM EST MEDENT ([facility]) Name Value Range Interpretation Code Description Data Manda rce(s) Supporting Document(s) Iron (Fe) 40 ug/dL 50-170 MEDENT ([facility]) Total Iron Binding Capacity 388 ug/dL 250-450 MEDENT ([facility]) Percent Saturation 10.3 % 13.2-45.0 [facility] ID Date Data Source [id number] 07/05/2019 08:45:00 AM EST MEDENT ([facility]) Name Value Range Interpretation Code Description Data Manda rce(s) Supporting Document(s) Magnesium 2.2 mg/dL 1.8-2.4 MEDENT ([facility]) Glucose [Mass/volume] in Serum or Plasma 115 mg/dL 74-99 MEDENT ([facility]) 100-125 mg/dL PRE-DIABETES/FASTING >126 mg/dL DIABETES/FASTING Urea nitrogen [Mass/volume] in Serum or Plasma 21 mg/dL 7-18 MEDENT ([facility]) Creatinine 1.5 mg/dL 0.6-1.3 MEDENT ([facility]) Potassium [Moles/volume] in Serum or Plasma 4.9 meq/L 3.5-5.1 MEDENT ([facility]) Sodium [Moles/volume] in Serum or Plasma 139 meq/L 136-145 MEDENT ([facility]) Calcium [Mass/volume] in Serum or Plasma 9.4 mg/dL 8.5-10.1 MEDENT ([facility]) Carbon dioxide, total [Moles/volume] in Serum or Plasma 33 meq/L 21 -32 MEDENT ([facility]) Chloride [Moles/volume] in Serum or Plasma 101 meq/L 98-107 MEDENT ([facility]) Glomerular filtration rate/1.73 sq M pre dicted among non-blacks [Volume Rate/Area] in Serum or Plasma by Creatinine-based formula (MDRD) 33 mL/min MEDENT ([facility]) Glomerular filtration rate/1.73 sq M pre dicted among blacks [Volume Rate/Area] in Serum or Plasma by Creatinine-based formula (MDRD) 40 mL/min MEDENT ([facility]) <content>CHRONIC KIDNEY DISEASE STAGING PER NKF</content>
<content></content>
<content>STAGE I & II GFR >= 60 NORMAL TO MILDLY DECREASED</content>
<content>STAGE III GFR 30-59 MODERATELY DECREASED</content>
<content>STAGE IV GFR 15-29 SEVERELY DECREASED</content>
<content>STAGE V GFR <15 VERY LITTLE GFR LEFT</content>
<content>ESRD GFR <15 ON CARPET LOOM FIXER</content>
<content></content>
<content></content> Thyrotropin [Units/volume] in Serum or Plasma by Detec tion limit <= 0.05 mIU/L 1.72 uIU/mL 0.36-3.74 MEDENT ([facility]) ID Date Data Source [id number] 07/05/2019 08:45:00 AM EST MEDENT ([facility]) Name Value Range Interpretation Code Description Data Manda rce(s) Supporting Document(s) Leukocytes [#/volume] in Blood by Automated count 7.8 x10*3/UL 4.1-10 .9 MEDENT ([facility]) Erythrocytes [#/volume] in Blood by Automated count 4.60 x10*6/UL 4.2 0-6.30 MEDENT ([facility]) Hematocrit [Volume Fraction] of Blood by Automated count 36.6 % 3 7.0-51.0 MEDENT ([facility]) MCV 79.6 fL 80.0-97.0 MEDENT ([facility]) Hemoglobin [Mass/volume] in Blood 11.9 g/dL 12.0-18.0 MEDENT ([facility]) NOTE: RESULT VERIFIED. Erythrocyte distribution width [Ratio] by Automated count 14.7 % 11.6-13.7 MEDENT ([facility]) MCHC 32.6 g/dL 31.0-38.0 MEDENT ([facility]) MCH 26.0 pg 26.0-32.0 MEDENT ([facility]) Platelets [#/volume] in Blood by Automated count 273 x10*3/UL 140-440 MEDENT ([facility]) Platelet mean volume [Entitic volume] in Blood by Bhanu 8.2 FL 7.8-11.0 MEDENT ([facility]) Lymphocytes/100 leukocytes in Blood by Automated count 12.4 % 10. 0-58.5 MEDENT ([facility]) Lymph # 0.9 x10*3/UL 0.6-4.1 MEDENT ([facility]) Neut % 84.7 % 37.0-92.0 MEDENT ([facility]) Mid % 2.9 % 1.7-9.3 MEDENT ([facility]) Neutrophils [#/volume] in [place] by Manual count 6.6 x10*3/UL 2.0-7.8 MEDENT ([facility]iology [facility]) Mid # 0.3 x10*3/UL 0.1-0.6 [facility]) ID Date Data Source [id number] 07/05/2019 08:45:00 AM EST MEDENT ([facility]) Name Value Range Interpretation Code Description Data Manda rce(s) Supporting Document(s) Ferritin [Mass/volume] in Serum or Plasma 22 ng/mL 8-252 MEDENT ([facility]) ID Date Data Source [id number] 07/05/2019 08:45:00 AM EST MEDENT ([facility]) Name Value Range Interpretation Code Description Data Manda rce(s) Supporting Document(s) Iron (Fe) 40 ug/dL 50-170 [facility] ([facility]) Total Iron Binding Capacity 388 ug/dL 250-450 MS DENT ([facility]) Percent Saturation 10.3 % 13.2-45.0 MEDENT ([facility]) ID Date Data Source [id number] 07/05/2019 08:45:00 AM EST MEDENT ([facility]) Name Value Range Interpretation Code Description Data Manda rce(s) Supporting Document(s) Thyrotropin [Units/volume] in Serum or Plasma by Detec tion limit <= 0.05 mIU/L 1.72 uIU/mL 0.36-3.74 MEDENT ([facility] ) ID Date Data Source [id number] 07/05/2019 08:45:00 AM EST MEDENT ([facility]) Name Value Range Interpretation Code Description Data Manda rce(s) Supporting Document(s) Urea nitrogen [Mass/volume] in Serum or Plasma 21 mg/dL 7-18 MEDENT ([facility]) Glucose [Mass/volume] in Serum or Plasma 115 mg/dL 74-99 MEDENT ([facility]) 100-125 mg/dL PRE-DIABETES/FASTING >126 mg/dL DIABETES/FASTING Creatinine 1.5 mg/dL 0.6-1.3 [facility]) Sodium [Moles/volume] in Serum or Plasma 139 meq/L 136-145 MEDENT ([facility]) Chloride [Moles/volume] in Serum or Plasma 101 meq/L 98-107 MEDENT ([facility]) Potassium [Moles/volume] in Serum or Plasma 4.9 meq/L 3.5-5.1 MEDENT ([facility]) Glomerular filtration rate/1.73 sq M pre dicted among non-blacks [Volume Rate/Area] in Serum or Plasma by Creatinine-based formula (MDRD) 33 mL/min MEDENT ([facility]) Calcium [Mass/volume] in Serum or Plasma 9.4 mg/dL 8.5-10.1 MEDENT ([facility]) Carbon dioxide, total [Moles/volume] in Serum or Plasma 33 meq/L 21 -32 MEDENT ([facility]) Glomerular filtration rate/1.73 sq M pre dicted among blacks [Volume Rate/Area] in Serum or Plasma by Creatinine-based formula (MDRD) 40 mL/min [facility] <content>CHRONIC KIDNEY DISEASE STAGING PER NKF</content>
<content></content>
<content>STAGE I & II GFR >= 60 NORMAL TO MILDLY DECREASED</content>
<content>STAGE III GFR 30-59 MODERATELY DECREASED</content>
<content>STAGE IV GFR 15-29 SEVERELY DECREASED</content>
<content>STAGE V GFR <15 VERY LITTLE GFR LEFT</content>
<content>ESRD GFR <15 ON CARPET LOOM FIXER</content>
<content></content> ID Date Data Source [id number] 07/05/2019 08:45:00 AM EST MEDENT ([facility]) Name Value Range Interpretation Code Description Data Manda rce(s) Supporting Document(s) Magnesium 2.2 mg/dL 1.8-2.4 [facility] ([facility]) ID Date Data Source [id number] 07/05/2019 08:45:00 AM EST MEDENT ([facility]) Name Value Range Interpretation Code Description Data Manda rce(s) Supporting Document(s) Leukocytes [#/volume] in Blood by Automated count 7.8 x10*3/UL 4.1-10 .9 MEDENT ([facility]) Hemoglobin [Mass/volume] in Blood 11.9 g/dL 12.0-18.0 MEDENT ([facility]) NOTE: RESULT VERIFIED. Erythrocytes [#/volume] in Blood by Automated count 4.60 x10*6/UL 4.2 0-6.30 MEDENT ([facility]) MCV 79.6 fL 80.0-97.0 [facility]) MCH 26.0 pg 26.0-32.0 [facility] ([facility]) Hematocrit [Volume Fraction] of Blood by Automated count 36.6 % 3 7.0-51.0 MEDENT ([facility]) MCHC 32.6 g/dL 31.0-38.0 [facility] ([facility]) Erythrocyte distribution width [Ratio] by Automated count 14.7 % 11.6-13.7 MEDENT ([facility]) Platelets [#/volume] in Blood by Automated count 273 x10*3/UL 140-440 MEDENT ([facility]) MPV 8.2 FL 7.8-11.0 [facility] ([facility]) Lymph % 12.4 % 10.0-58.5 [facility] ([facility]) Neut % 84.7 % 37.0-92.0 [facility] ([facility]) Mid % 2.9 % 1.7-9.3 [facility] ([facility]) Lymph # 0.9 x10*3/UL 0.6-4.1 MEDENT ([facility]) Mid # 0.3 x10*3/UL 0.1-0.6 MEDENT ([facility]) Neut # 6.6 x10*3/UL 2.0-7.8 MEDENT ([facility]) Procedure Social History Code Duration Value Status Description Data Source(s ) Alcohol intake 04/02/2020 12:00:00 AM EDT Ex-drinker (finding) comp leted Ex- drinker (finding) [facility] Tobacco use and exposure 04/02/2020 12:00:00 AM EDT Never used co mpleted Never used [facility] Smoking 04/02/2020 12:00:00 AM EDT Former smoker completed Former smoker [facility] Smoking 10/24/2019 12:00:00 AM EDT Patient is a former smoker completed Patient is a former smoker MEDENT ([facility]) Vital Signs ID Date Data Source UNK Name Value Range Interpretation Code Description Data Source(s) Body mass index (BMI) [Ratio] 28.9 kg/m2 28.9 k g/m2 [facility] Oxygen saturation in Arterial blood by Pulse oximetry 96 % 96 % [facility] RM Air Body weight 153.00 [lb_av] 153.00 [lb_av] MEDEN T ([facility]) Body height 61 [in_i] 61 [in_i] [facility] ([facility]) 5'1" Heart rate 84 /min 84 /min [facility] ([facility]) Diastolic blood pressure 74 mm[Hg] 74 mm[Hg] [facility] ([facility]) RT Arm Systolic blood pressure 136 mm[Hg] 136 mm[Hg] M [facility] ([facility]) RT Arm Body mass index (BMI) [Ratio] 28.4 kg/m2 28.4 k g/m2 [facility] ([facility]) Oxygen saturation in Arterial blood by Pulse oximetry --post exerci se 90 % 90 % [facility] ([facility]) RM Air Body weight 150.25 [lb_av] 150.25 [lb_av] [facility] Body height 61 [in_i] 61 [in_i] [facility] ([facility]) 5'1" Heart rate 88 /min 88 /min [facility] ([facility]) Diastolic blood pressure 70 mm[Hg] 70 mm[Hg] [facility] ([facility]) Systolic blood pressure 160 mm[Hg] 160 mm[Hg] [facility] ([facility]) Diastolic blood pressure 78 mm[Hg] 78 mm[Hg] [facility] ([facility]) RT Arm Systolic blood pressure 162 mm[Hg] 162 mm[Hg] M [facility] ([facility]) RT Arm Body weight 67.133 kg 67.133 kg [facility] ([facility], ) [place] body weight 100 [lb_av] 100 [lb_av] MEDEN T ([facility]) Body mass index (BMI) [Ratio] 29.1 kg/m2 29.1 k g/m2 [facility] ([facility]) Body weight 148.00 [lb_av] 148.00 [lb_av] [facility]) Body height 59.75 [in_i] 59.75 [in_i] [facility] ([facility]) " Body mass index (BMI) [Ratio] 28.6 kg/m2 28.6 k g/m2 [facility] Oxygen saturation in Arterial blood by Pulse oximetry --post exerci se 94 % 94 % [facility] RM Air Body weight 151.50 [lb_av] 151.50 [lb_av] MEDEN T ([facility]) Body height 61 [in_i] 61 [in_i] [facility] ([facility]) 5'1" Heart rate 80 /min 80 /min [facility] ([facility]) Diastolic blood pressure 64 mm[Hg] 64 mm[Hg] [facility] RT Arm Systolic blood pressure 132 mm[Hg] 132 mm[Hg] [facility] RT Arm Body weight 68.947 kg 68.947 kg [facility] ([facility]) [place] body weight 100 [lb_av] 100 [lb_av] [facility]) Body mass index (BMI) [Ratio] 29.9 kg/m2 29.9 k g/m2 [facility] ([facility]) Body weight 152.00 [lb_av] 152.00 [lb_av] MEDEN T ([facility]) Body height 59.75 [in_i] 59.75 [in_i] [facility] ([facility]) " Diastolic blood pressure 83 mm[Hg] 83 mm[Hg] [facility] ([facility]) Systolic blood pressure 121 mm[Hg] 121 mm[Hg] [facility] Oxygen saturation in Arterial blood by Pulse oximetry 96 % 96 % LANRE ([facility]) On Room Air Diastolic blood pressure--supine 64 mm[Hg] 64 mm[Hg] LAN[facility] ([facility]) Systolic blood pressure--supine 124 mm[Hg] 124 mm[Hg] MEDENT ([facility]) Diastolic blood pressure--sitting 56 mm[Hg] 56 mm[Hg] MEDENT ([facility]) Medium cuff, Ra Systolic blood pressure--sitting 118 mm[Hg] 118 mm[Hg] MEDENT ([facility]) Medium cuff, Ra Respiratory rate 16 /min 16 /min MEDENT ( [facility]) Heart rate 74 /min 74 /min MEDENT ([facility]) regular Body mass index (BMI) [Ratio] 28.2 kg/m2 28.2 k g/m2 MEDENT ([facility]) Body height 61 [in_i] 61 [in_i] MEDENT ([facility]) 5'1" Body weight 149.00 [lb_av] 149.00 [lb_av] MEDEN T ([facility]) Body mass index (BMI) [Ratio] 28.8 kg/m2 28.8 k g/m2 MEDENT ([facility]) Oxygen saturation in Arterial blood by Pulse oximetry --post exerci se 95 % 95 % MEDENT ([facility]) RM Air Body weight 152.25 [lb_av] 152.25 [lb_av] MEDEN T ([facility]) Body height 61 [in_i] 61 [in_i] MEDENT ([facility]) 5'1" Heart rate 94 /min 94 /min MEDENT ([facility]) Diastolic blood pressure 72 mm[Hg] 72 mm[Hg] MEDENT ([facility]) LT Arm Systolic blood pressure 122 mm[Hg] 122 mm[Hg] M EDENT ([facility]) LT Arm Body mass index (BMI) [Ratio] 28.5 kg/m2 28.5 k g/m2 MEDENT ([facility]) Oxygen saturation in Arterial blood by Pulse oximetry --post exerci se 94 % 94 % MEDENT ([facility]) RM Air Body weight 151.00 [lb_av] 151.00 [lb_av] MEDEN T ([facility]) Body height 61 [in_i] 61 [in_i] MEDENT ([facility]) 5'1" Heart rate 79 /min 79 /min [facility] ([facility]) Diastolic blood pressure 80 mm[Hg] 80 mm[Hg] [facility] ([facility]) Systolic blood pressure 150 mm[Hg] 150 mm[Hg] [facility] ([facility]) Diastolic blood pressure 76 mm[Hg] 76 mm[Hg] [facility] ([facility]) RT Arm Systolic blood pressure 174 mm[Hg] 174 mm[Hg] [facility] ([facility]) RT Arm Body mass index (BMI) [Ratio] 30.3 kg/m2 30.3 k g/m2 [facility] ([facility] [place], [facility]) Body height 59 [in_i] 59 [in_i] [facility] ([facility], [facility]) 4'11" Body weight 150.00 [lb_av] 150.00 [lb_av] MEDEN T ([facility] [place], [facility]) Body temperature 97.8 [degF] 97.8 [degF] [facility] ([facility], [facility]) Oxygen saturation in Arterial blood by Pulse oximetry 95 % 95 % [facility] ([facility] [place], [facility]) Respiratory rate 18 /min 18 /min [facility] ( [facility] [place], [facility]) Heart rate 73 /min 73 /min [facility] ([facility] [place], [facility]) Diastolic blood pressure 78 mm[Hg] 78 mm[Hg] [facility] ([facility] [place], [facility]) Systolic blood pressure 122 mm[Hg] 122 mm[Hg] [facility] ([facility] [place], [facility]) Body mass index (BMI) [Ratio] 28.5 kg/m2 28.5 k g/m2 [facility] ([facility]) Oxygen saturation in Arterial blood by Pulse oximetry 96 % 96 % [facility] ([facility]) Body weight 151.00 [lb_av] 151.00 [lb_av] MEDEN T ([facility]) Body height 61 [in_i] 61 [in_i] [facility] ([facility]) 5'1" Heart rate 92 /min 92 /min [facility] ([facility]) Diastolic blood pressure 72 mm[Hg] 72 mm[Hg] MEDENT ([facility]) Systolic blood pressure 152 mm[Hg] 152 mm[Hg] [facility] Diastolic blood pressure 80 mm[Hg] 80 mm[Hg] [facility] Systolic blood pressure 142 mm[Hg] 142 mm[Hg] [facility] Body mass index (BMI) [Ratio] 28.4 kg/m2 28.4 k g/m2 MED[facility] ([facility]) Oxygen saturation in Arterial blood by Pulse oximetry --post exerci se 95 % 95 % [facility] ([facility]) RM Air Body weight 150.12 [lb_av] 150.12 [lb_av] MEDEN T ([facility]) Body height 61 [in_i] 61 [in_i] [facility]) 5'1" Heart rate 94 /min 94 /min [facility] ([facility]) Diastolic blood pressure 60 mm[Hg] 60 mm[Hg] [facility]) RT Arm Systolic blood pressure 116 mm[Hg] 116 mm[Hg] [facility]) RT Arm Body mass index (BMI) [Ratio] 30.3 kg/m2 30.3 k g/m2 [facility] ([facility] [place], [facility]) Body height 59 [in_i] 59 [in_i] [facility] ([facility]) 4'11" Body weight 150.00 [lb_av] 150.00 [lb_av] MEDEN T ([facility] [place], [facility]) Body temperature 98.2 [degF] 98.2 [degF] [facility] [place], [facility]) Oxygen saturation in Arterial blood by Pulse oximetry 98 % 98 % MEDENT ([facility], [facility]) Respiratory rate 12 /min 12 /min [facility] ( [facility], [facility]) Heart rate 82 /min 82 /min [facility] ([facility] [place], [facility]) Diastolic blood pressure 82 mm[Hg] 82 mm[Hg] MEDENT ([facility] [place], [facility]) Systolic blood pressure 164 mm[Hg] 164 mm[Hg] M EDENT ([facility], [facility]) Body mass index (BMI) [Ratio] 28.6 kg/m2 28.6 k g/m2 [facility] ([facility]) Oxygen saturation in Arterial blood by Pulse oximetry --post exerci se 94 % 94 % [facility] ([facility]) RM Air Body weight 151.38 [lb_av] 151.38 [lb_av] MEDEN T ([facility]) Body height 61 [in_i] 61 [in_i] MED[facility] ([facility]) 5'1" Heart rate 80 /min 80 /min MED[facility] ([facility]) Diastolic blood pressure 72 mm[Hg] 72 mm[Hg] MEDENT ([facility]) RT Arm Systolic blood pressure 138 mm[Hg] 138 mm[Hg] [facility]) RT Arm Body mass index (BMI) [Ratio] 28.2 kg/m2 28.2 k g/m2 [facility] ([facility]) Oxygen saturation in Arterial blood by Pulse oximetry --post exerci se 93 % 93 % [facility] ([facility]) RM Air Body weight 149.38 [lb_av] 149.38 [lb_av] [facility] T ([facility]) Body height 61 [in_i] 61 [in_i] [facility] ([facility]) 5'1" Heart rate 88 /min 88 /min [facility] ([facility]) Diastolic blood pressure 70 mm[Hg] 70 mm[Hg] [facility] ([facility]) RT Arm Systolic blood pressure 146 mm[Hg] 146 mm[Hg] [facility] RT Arm Body mass index (BMI) [Ratio] 28.8 kg/m2 28.8 k g/m2 [facility] ([facility]) Body weight 152.25 [lb_av] 152.25 [lb_av] [facility] T ([facility]) Body height 61 [in_i] 61 [in_i] [facility] ([facility]) 5'1" Heart rate 76 /min 76 /min [facility] ([facility]) Diastolic blood pressure 70 mm[Hg] 70 mm[Hg] [facility] ([facility]) RT Arm Systolic blood pressure 136 mm[Hg] 136 mm[Hg] [facility] RT Arm Body mass index (BMI) [Ratio] 28.6 kg/m2 28.6 k g/m2 [facility] ([facility]) Oxygen saturation in Arterial blood by Pulse oximetry --post exerci se 94 % 94 % [facility] ([facility]) Body weight 151.25 [lb_av] 151.25 [lb_av] [facility] T ([facility]) Body height 61 [in_i] 61 [in_i] [facility]) 5'1" Heart rate 88 /min 88 /min [facility] ([facility]) Diastolic blood pressure 66 mm[Hg] 66 mm[Hg] [facility] ([facility]) RT Arm Systolic blood pressure 128 mm[Hg] 128 mm[Hg] M [facility] ([facility]) RT Arm Body height 61 [in_i] 61 [in_i] [facility] ([facility]) 5'1" Body temperature 98.0 [degF] 98.0 [degF] [facility] ([facility]) Heart rate 68 /min 68 /min [facility]) Diastolic blood pressure 54 mm[Hg] 54 mm[Hg] [facility] ([facility]) LT Arm Systolic blood pressure 116 mm[Hg] 116 mm[Hg] [facility] ([facility]) LT Arm Body mass index (BMI) [Ratio] 28.7 kg/m2 28.7 k g/m2 [facility] ([facility]) Oxygen saturation in Arterial blood by Pulse oximetry --post exerci se 90 % 90 % [facility] ([facility]) RM Air Body weight 152.00 [lb_av] 152.00 [lb_av] [facility] ([facility]) Body weight 69.401 kg 69.401 kg [facility] ([facility], ) Body mass index (BMI) [Ratio] 30.1 kg/m2 30.1 k g/m2 [facility] ([facility]) Body weight 153.00 [lb_av] 153.00 [lb_av] [facility] T ([facility]) Body height 59.75 [in_i] 59.75 [in_i] [facility]) 4'11.75" Diastolic blood pressure 76 mm[Hg] 76 mm[Hg] [facility] ([facility]) Systolic blood pressure 158 mm[Hg] 158 mm[Hg] [facility] Body mass index (BMI) [Ratio] 30.3 kg/m2 30.3 k g/m2 [facility] ([facility]) Body height 60 [in_i] 60 [in_i] [facility] ([facility]) 5'0" Body weight 155.00 [lb_av] 155.00 [lb_av] [facility] ([facility] [place], [facility]) Body temperature 97.9 [degF] 97.9 [degF] [facility]) Oxygen saturation in Arterial blood by Pulse oximetry 98 % 98 % [facility] ([facility] [place], [facility]) Respiratory rate 16 /min 16 /min [facility] ( [facility] [place], [facility]) Heart rate 86 /min 86 /min [facility] ([facility] [place], [facility]) Diastolic blood pressure 84 mm[Hg] 84 mm[Hg] [facility] ([facility]) Systolic blood pressure 178 mm[Hg] 178 mm[Hg] [facility] ([facility]) Body mass index (BMI) [Ratio] 29.5 kg/m2 29.5 k g/m2 [facility] ([facility]) Oxygen saturation in Arterial blood by Pulse oximetry --post exerci se 97 % 97 % [facility] ([facility]) RM Air Body weight 156.38 [lb_av] 156.38 [lb_av] [facility] ([facility]) Body height 61 [in_i] 61 [in_i] [facility] ([facility]) 5'1" Heart rate 68 /min 68 /min [facility] ([facility]) Diastolic blood pressure 70 mm[Hg] 70 mm[Hg] [facility] ([facility]) RT Arm Systolic blood pressure 156 mm[Hg] 156 mm[Hg] [facility] ([facility]) RT Arm Body mass index (BMI) [Ratio] 29.9 kg/m2 29.9 k g/m2 [facility] ([facility]) Oxygen saturation in Arterial blood by Pulse oximetry --post exerci se 97 % 97 % [facility] ([facility]) Air Body weight 158.12 [lb_av] 158.12 [lb_av] [facility] ([facility]) Body height 61 [in_i] 61 [in_i] [facility] ([facility]) 5'1" Heart rate 60 /min 60 /min [facility] ([facility]) Diastolic blood pressure 72 mm[Hg] 72 mm[Hg] [facility] ([facility]) RT Arm Systolic blood pressure 112 mm[Hg] 112 mm[Hg] [facility] ([facility]) RT Arm Body mass index (BMI) [Ratio] 30.3 kg/m2 30.3 k g/m2 [facility] ([facility], [facility]) Body height 60 [in_i] 60 [in_i] [facility] ([facility], [facility]) 5'0" Body weight 155.00 [lb_av] 155.00 [lb_av] [facility] ([facility] [place], [facility]) Body temperature 97.8 [degF] 97.8 [degF] [facility] ([facility] [place], [facility]) Oxygen saturation in Arterial blood by Pulse oximetry 95 % 95 % [facility] ([facility], [facility]) Respiratory rate 12 /min 12 /min [facility] ( [facility], [facility]) Heart rate 87 /min 87 /min [facility] ([facility], [facility]) Diastolic blood pressure 71 mm[Hg] 71 mm[Hg] [facility] ([facility] [place], [facility]) Systolic blood pressure 148 mm[Hg] 148 mm[Hg] [facility] [place], [facility]) Body mass index (BMI) [Ratio] 29.4 kg/m2 29.4 k g/m2 [facility] ([facility]) Oxygen saturation in Arterial blood by Pulse oximetry 96 % 96 % [facility] ([facility]) RM Air Body weight 155.50 [lb_av] 155.50 [lb_av] [facility] ([facility]) Body height 61 [in_i] 61 [in_i] [facility] ([facility]) 5'1" Heart rate 64 /min 64 /min [facility] ([facility]) Diastolic blood pressure 76 mm[Hg] 76 mm[Hg] [facility] ([facility]) RT Arm Systolic blood pressure 122 mm[Hg] 122 mm[Hg] M [facility] ([facility]) RT Arm Diastolic blood pressure--supine 50 mm[Hg] 50 mm[Hg] [facility] ([facility]) Systolic blood pressure--supine 130 mm[Hg] 130 mm[Hg] [facility] ([facility]) Diastolic blood pressure--sitting 58 mm[Hg] 58 mm[Hg] [facility] ([facility]) Medium cuff, Ra Systolic blood pressure--sitting 126 mm[Hg] 126 mm[Hg] [facility] ([facility]) Medium cuff, Ra Respiratory rate 18 /min 18 /min [facility] ( [facility]) Heart rate 74 /min 74 /min [facility] ([facility] regular Body mass index (BMI) [Ratio] 29.7 kg/m2 29.7 k g/m2 [facility] ([facility]) Body height 61 [in_i] 61 [in_i] [facility] 5'1" Body weight 157.00 [lb_av] 157.00 [lb_av] [facility] ([facility]) Oxygen saturation in Arterial blood by Pulse oximetry 97 % 97 % [facility] ([facility] ) Body mass index (BMI) [Ratio] 30.2 kg/m2 30.2 k g/m2 [facility] ([facility]) Body weight 156.00 [lb_av] 156.00 [lb_av] [facility] T ([facility]) Body height 60.25 [in_i] 60.25 [in_i] [facility] ([facility]) 5'0.25" Heart rate 82 /min 82 /min [facility] ([facility]) Diastolic blood pressure 80 mm[Hg] 80 mm[Hg] [facility] ([facility]) Systolic blood pressure 118 mm[Hg] 118 mm[Hg] [facility] Patient Treatment Plan of Care Planned Activity Planned Date Details Description Data Source (s) 30 ACTUAT fluticasone furoate 0.1 MG/ACT UAT / vilanterol 0.025 MG/ACTUAT Dry Powder Inhaler [Breo] 04/01/2020 12:00:00 AM [facility] system apixaban 5 MG Oral Tablet [Eliquis] 04/01/2020 12:00:00 AM Health system gabapentin 300 MG Oral Capsule 03/26/2020 12:00:00 AM Health system Albuterol 0.83 MG/ML Inhalant Solution 03/26/2020 12:00:00 AM Health system Amiodarone hydrochloride 200 MG Oral Tablet 03/19/2020 12:00:00 AM Health system Omeprazole 20 MG Delayed Release Oral Capsule 03/17/2020 12:00:00 A [facility] Ipratropium [place] 0.2 MG/ML Inhalant Solution 03/09/2020 12:00:00 AM Health system Pravastatin Sodium 40 MG Oral Tablet 01/27/2020 12:00:00 AM Health system 24 HR Diltiazem Hydrochloride 240 MG Extended Release Oral Capsule 01/27/2020 12:00:00 AM [facility] Losartan Potassium 100 MG Oral Tablet 01/27/2020 12:00:00 AM Health system
[2020-08-07 15:56] LABS: BASO # 0.1 10^3/uL (0.0-0.2); BASO % 0.7 % (0.0-1.0); EOS # 0.1 10^3/uL (0.0-0.5); EOS % 1.2 % (0.0-3.0); HEMATOCRIT 37.6 % (36.0-47.0); HEMOGLOBIN 11.5 g/dl (12.0-15.5); LYMPH # 0.7 10^3/uL (1.5-5.0); LYMPH % 7.7 % (24.0-44.0); MEAN CORPUSCULAR HEMOGLOBIN 24.5 pg (27.0-33.0); MEAN CORPUSCULAR HGB CONC 30.6 g/dl (32.0-36.5); MONO # 0.9 10^3/uL (0.0-0.8); MONO % 9.1 % (2.0-8.0); NEUTROPHILS # 7.6 10^3/uL (1.5-8.5); NEUTROPHILS % 79.4 % (36.0-66.0); PLATELET COUNT, AUTOMATED 316 10^3/uL (150-450); WHITE BLOOD COUNT 9.5 10^3/uL (4.0-10.0)
[2020-08-07 16:08] LABS: INR 1.12; PROTHROMBIN TIME 14.6 SECONDS (12.5-14.3)
[2020-08-07 16:29] LABS: ALBUMIN 3.2 GM/DL (3.2-5.2); ALT/SGPT 32 U/L (12-78); BILIRUBIN,DIRECT < 0.1 MG/DL (0.0-0.2); BILIRUBIN,TOTAL 0.1 MG/DL (0.2-1.0); BLOOD UREA NITROGEN 20 MG/DL (7-18); CALCIUM LEVEL 9.1 MG/DL (8.8-10.2); CARBON DIOXIDE LEVEL 29 MEQ/L (21-32); CHLORIDE LEVEL 104 MEQ/L (98-107); GLOMERULAR FILTRATION RATE 45.1 (>32); GLUCOSE, FASTING 111 MG/DL (70-100); POTASSIUM SERUM 4.3 MEQ/L (3.5-5.1); SODIUM LEVEL 141 MEQ/L (136-145); TOTAL PROTEIN 6.7 GM/DL (6.4-8.2)
[2020-08-07] MEDS ORDERED: FERR324T2 PO (17:19)
[2020-08-07] MEDS ORDERED: AMIO200T3 PO (17:19)
[2020-08-07] MEDS ORDERED: ALBU83IN INH (17:19)
[2020-08-07] MEDS ORDERED: VITMTA PO (17:19)
[2020-08-07] MEDS ORDERED: IPRA2IN INH (17:19)
[2020-08-07] MEDS ORDERED: CALC-211 PO (17:19)
[2020-08-07] MEDS ORDERED: CEPH500T PO (17:19)
[2020-08-07] MEDS ORDERED: MOM 30ML SUSPENSION UDC PO PRN (18:15)
[2020-08-07] MEDS ORDERED: MAALOX 30 ML SUSP *UDC PO PRN (18:15)
[2020-08-07] MEDS ORDERED: ACETAMINOPHEN TAB 650MG DOSE (2X325MG) PO PRN (18:15)
--- NOTE | 2020-08-07 18:23 | HPEPDOC ---
[facility] Medical History & Physical Date of Admission Aug 07, 2020 Date of Service: Aug 07, 2020 History and Physical CHIEF COMPLAINT: Left thigh pain HISTORY OF PRESENT ILLNESS: 89-year-old female history of A. fib, COPD, diabetes, was been experiencing left thigh tenderness for about a week she went to see her primary care physician who diagnosed her with cellulitis and gave her oral antibiotics patient tells me that over the past week she noticed a mass developing in her left thigh that has progressively gotten bigger and more painful and has been starting to limit her movement home. Tells me it is very tender surrounded by redness, she hasn't noticed any discharge from the area. Denies a history of similar episodes in the past. Denies any penetrating injury or trauma to the area including insulin bites. Patient denies any fevers or chills. She denies any chest pain or shortness of breath. PAST MEDICAL/SURGICAL HISTORY: Atrial fibrillation Pacemaker placement COPD Hypertension Dyslipidemia Osteoarthritis GERD Bee-gbjkojn-kkyiakdlh diabetes Hysterectomy 4 C-sections Appendectomy Carpal tunnel release right hand SOCIAL HISTORY: Denies alcohol use tells me she quit over 55 years ago Denies tobacco use Denies illicit drug use FAMILY HISTORY: Reviewed and none contributory to this admission ALLERGIES: Please see below. REVIEW OF SYSTEMS: 10 point review of systems complete all negative otherwise stated in HPI HOME MEDICATIONS: Please see below. PHYSICAL EXAMINATION: Constitutional: Awake and alert, in no apparent distress ENT: Sclera are clear. Respiratory: Lungs CTA bilaterally. No respiratory distress. Cardiovascular: Irregular heart rate Gastrointestinal: Abdomen is soft, non distended, non tender, BS present. Musculoskeletal: No lower extremity edema. Neurologic: No focal neurological deficit. Mental Status: A&O x3, normal affect Skin: There is a large left mid thigh mass about the size of a tennis ball that is tender protruding surrounded by erythema but no purulent discharge. LABORATORY DATA: See below. IMAGING: See chart MICROBIOLOGY: Please see below. ASSESSMENT/PLAN 89-year-old female comes in the hospital due to a persistent pain in her left eye found to have a left thigh mass with surrounding erythema possibly cellulitis admitted for further medical management. # Left thigh mass: Fu ultrasound. May need surgical consultation possibly I&D if this is an abscess. Possibly some overlying cellulitis for which I'll start her on vancomycin. Afebrile no leukocytosis. # Atrial fibrillation: Rate controlled on amiodarone and diltiazem. Anticoagulated on eliquis. Resume home medications. # COPD: Not in exacerbation. Continue home medications. # Hypertension: Continue home meds. Monitor and titrate # DM: ISS. Frequent Accu-Cheks. Hypoglycemic precautions. # GERD: Continue omeprazole # Hyperlipidemia: Continue statin # DVT prophylaxis: On eliquis [facility] Vital Signs Vital Signs Date Time Temp Pulse Resp B/P (MAP) Pulse Ox O2 Delivery O2 Flow Rate FiO2 08/07/20 15:43 08/07/20 14:50 98.7 97 16 98 Laboratory Data Labs 24H Laboratory Tests 2 08/07/20 15:17: Immature Granulocyte % (Auto) 1.9, Neutrophils (%) (Auto) 79.4H, Lymphocytes (%) (Auto) 7.7L, Monocytes (%) (Auto) 9.1H, Eosinophils (%) (Auto) 1.2, Basophils (%) (Auto) 0.7, Neutrophils # (Auto) 7.6, Lymphocytes # (Auto) 0.7L, Monocytes # (Auto) 0.9H, Eosinophils # (Auto) 0.1, Basophils # (Auto) 0.1, Nucleated Red Blood Cells % (auto) 0.0, Prothrombin Time 14.6H, Prothromb Time International Ratio 1.12, Anion Gap 8, Glomerular Filtration Rate 45.1, Calcium Level 9.1, Total Bilirubin 0.1L, Direct Bilirubin < 0.1, Aspartate Amino Transf (AST/SGOT) 13, Alanine Aminotransferase (ALT/SGPT) 32, Alkaline Phosphatase 123H, Total Protein 6.7, Albumin 3.2, Albumin/Globulin Ratio 0.9L CBC/BMP Laboratory Tests 08/07/20 15:17 Microbiology Microbiology 08/07/20 Respiratory Virus Panel (PCR) (CARLA) - Final, Complete 08/07/20 Blood Culture, Received Pending Home Medications Scheduled Albuterol Sulf (Albuterol Sulfate) 2.5 Mg/3 Ml Vial.neb, 3 ML INH BID MIX WITH IPRATROPIUM Amiodarone HCl (Amiodarone HCl) 200 Mg Tablet, 200 MG PO DAILY Apixaban (Eliquis) 5 Mg Tab, 5 MG PO BID Ascorbic Acid (Vitamin C) 500 Mg Cap, 500 MG PO DAILY Calcium Carbonate (Calcium) 600 Mg Tablet, 600 MG PO BID Cephalexin (Cephalexin) 500 Mg Tablet, 500 MG PO TID FILLED 08/02/20 FOR 7 DAYS Cholecalciferol (Vitamin D3) (Vitamin D3) 125 Mcg Capsule, 125 MCG PO DAILY Diltiazem Hcl (Cardizem Cd) 240 Mg Cap.er.24h, 240 MG PO DAILY Ferrous Sulfate (Ferrous Sulfate) 324 Mg Tablet.dr, 324 MG PO Q2D Fluticasone/Vilanterol (Breo Ellipta 100-25 Mcg INH) 1 Each Blst.w.dev, 1 PUFF INH DAILY Gabapentin (Neurontin) 300 Mg Capsule, 300 MG PO BID Ipratropium [place] (Ipratropium [place]) 0.2 Mg/1 Ml Solution, 1 ML INH BID MIX WITH ALBUTEROL Lactulose (Lactulose) 10 Gm/15 Ml Solution, 30 ML PO BID Losartan Potassium (Losartan Potassium) 100 Mg Tablet, 50 MG PO BID Multivitamins (Thera M Plus Tablet) 1 Each Tablet, 1 TAB PO DAILY Omeprazole (Omeprazole) 20 Mg Cap, 20 MG PO DAILY Pravastatin Sodium (Pravastatin Sodium) 40 Mg Tab, 40 MG PO DAILY Allergies Coded Allergies: Quinolones (Verified Allergy, Severe, DIFF BREATHING, SWELLING, HIVES, 01/27/19) moxifloxacin (Verified Allergy, Severe, HIVES, DIFFICULTY BREATHING, 10/20/19) A-FIB/CHADSVASC A-FIB History Current/History of A-Fib/PAF?: Yes Current PO Anticoag Therapy: Yes TONE CHAVEZ MD Aug 07, 2020 18:23
[2020-08-07] MEDS ORDERED: GLUCAGON INJ 1MG VIAL SC PRN (18:30)
[2020-08-07] MEDS ORDERED: GLUCOSE 4GM CHEW TABLET PO PRN (18:30)
[2020-08-07] MEDS ORDERED: DEXTROSE 50% 50 ML SYRINGE IV PRN (18:30)
--- OUTSIDE RECORDS SUMMARY | 2020-08-07 18:32 | CCD ---
Author Author [facility] Organization [facility] Address Unknown Phone Unavailable Care Team Providers Care Seat Trimmer Name Role Phone ALISA KIRAN PA Unavailable [...] Unavailable Unavailable Sami Valdez MD Unavailable Unavailable Saim Valdez MD Unavailable Unavailable Sami Valdez MD [...] Unavailable Sami Valdez MD Unavailable Unavailable Sami Valdze MD Unavailable Unavailable Sami Valdez MD Unavailable [...] Unavailable Unavailable Vivian WRIGHT MD Unavailable Unavailable Vivain WRIGHT MD Unavailable Unavailable Vivian WRIGHT MD Unavailable Unavailable Vivian WRIGHT MD Unavailable Unavailable Vivian WRIGHT MD Unavailable Unavailable Vivian WRIGHT MD Unavailable Unavailable Vivian WRIGHT MD Unavailable Unavailable Vivian WRIGHT MD Unavailable Unavailable Vivian WRIGHT MD Unavailable Unavailable Vivian WRIGHT MD Unavailable Unavailable Vivian WRIGHT MD Unavailable Unavailable Vivian WRIHGT MD Unavailable Unavailable Vivian WRIGHT MD Unavailable Unavailable Vivian WRIGHT MD Unavailable Unavailable Vivian WRIGHT MD Unavailable Unavailable Vivian WRIGHT MD Unavailable Unavailable Vviian WRIGHT MD Unavailable Unavailable Vivian WRIGHT MD [...] Unavailable SNIDER E ELIDA MIR Unavailable Unavailable SNIDRE E ELIDA MIR Unavailable Unavailable SNIDER, E [...] E ELIDA MIR Unavailable Unavailable SNIDER, E ELIAD MIR Unavailable Unavailable SNIDER E ELIDA MIR [...] E ELIDA MIR Unavailable Unavailable Johns, Tayla DRIVER'S LICENSE REVIEWING OFFICER Unavailable Unavailable Johns, Tayla DRIVER'S LICENSE REVIEWING OFFICER Unavailable Unavailable Johns, Tayla DRIVER'S LICENSE REVIEWING OFFICER Unavailable Unavailable Johns, Tayla DRIVER'S LICENSE REVIEWING OFFICER Unavailable Unavailable Johns, Tayla DRIVER'S LICENSE REVIEWING OFFICER Unavailable Unavailable Johns, Tayla DRIVER'S LICENSE REVIEWING OFFICER Unavailable Unavailable Johns, Tayla DRIVER'S LICENSE REVIEWING OFFICER Unavailable Unavailable Johns, Tayla DRIVER'S LICENSE REVIEWING OFFICER Unavailable Unavailable Johns, Tayla DRIVER'S LICENSE REVIEWING OFFICER Unavailable Unavailable Johns, Tayla DRIVER'S LICENSE REVIEWING OFFICER Unavailable Unavailable Johns, Tayla DRIVER'S LICENSE REVIEWING OFFICER Unavailable Unavailable REINDL, BERYL MIR Unavailable Unavailable [...] Unavailable REINDL, BERYL MIR Unavailable Unavailable REINDL, BERLY MIR Unavailable Unavailable REINDL, BERYL MIR Unavailable [...] is protected by Article 27-F of the [facility] Public Health law. If you continue you may have access to information: Regarding HIV / AIDS; Provided by facilities licensed or operated by the [facility] Office of Mental Health; or Provided by the [facility] Office for People With Developmental Disabilities. If such information is present, then the following [facility] mandated warning applies: This information has been [...] law may result in a fine or long-term sentence or both. A general authorization for the release of medical or other information is NOT sufficient authorization for further disc losure. Allergies and Adverse Reactions Type Description Substance Reaction Status Data Source(s ) DRUG INGREDI MOXIFLOXACIN MOXIFLOXACIN [facility] Family History Family Member Name Family Member Gender Family Member Status Date o f Status Description Data Source(s) Unknown Unknown Problem [facility] ([facility] [employer] [facility]) Unknown Unknown Problem [facility] ([facility]) Unknown Male Problem MED[facility] ([facility]) Unknown Male Problem MEDENT ([facility]) Unknown Male Problem MEDENT ([facility]) () - 46y/o Unknown Unknown Problem [facility] ([facility]) Unknown Unknown Problem [facility] ([facility] Unknown [facility] Problem [facility] ([facility] Unknown [facility] Problem [facility] sister dx age late 60s Unknown Female Problem MED[facility] ([facility]) Unknown Female Problem MED[facility] ([facility]) Unknown Female Problem [facility] ([facility]) Unknown Female Problem MED[facility] ([facility]) Encounters Encounter Providers Location Date Indications Data Source(s ) Outpatient Attender: Karena Stephens 08:00:00 AM EST MEDENT ([facility] ) Outpatient Attender: Jaiden Gupta IIIReferrer: Karena avery MD [id number] 04/02/2020 12:00:00 AM EDT Sensorineural hearing loss, unilateral, right ear, with unrestricted hearing on the contralateral side [facility] Sensorineural hearing loss, unilateral, right ear, with unrestricted hearing on the contralateral side Outpatient Attender: Karena Stephens 09:45:00 AM EDT MEDENT ([facility] ) Outpatient Attender: WILMER Wright/Ellen/Maciel/Monetd l 02/22/2020 10:15:00 AM EDT [facility] ([facility] Outpatient Attender: Karena Stephens 08:15:00 AM EDT MED[facility] ([facility] ) Outpatient Attender: BERYL Wright/Ellen/Maciel/Rein dl 12/28/2019 09:30:00 AM EDT MED[facility] ([facility] Outpatient Attender: ELIDA SNIDER MD Main Office 11/25/2019 12:45:00 PM EDT MED[facility] ([facility]) Outpatient Attender: Karena Stephens 01:30:00 PM EDT MEDENT ([facility] ) Outpatient Attender: Karena Stephens 02:00:00 PM EDT MED[facility] ([facility] ) Outpatient Attender: Karena Stephens 02:00:00 PM EDT MED[facility] ([facility] ) Outpatient Attender: ALISA cat 10/24/2019 08:45:00 AM EDT [facility] ([facility] Outpatient Attender: Karena Stephens 10:00:00 AM EDT MED[facility] ([facility] ) Outpatient Attender: Karena Stephens 08:15:00 AM EDT MED[facility] ([facility] ) Outpatient Attender: LYDIA santillany 10/05/2019 04:35:00 PM EDT MED[facility] ([facility]) Outpatient Attender: Karena Stephens 11:00:00 AM EDT MED[facility] ([facility] ) Outpatient Attender: Karena Stephens 08:00:00 AM EDT MED[facility] ([facility] ) Outpatient Referrer: Karena Valdez MD 09/14/2019 02:56:00 PM EDT [facility] Outpatient Attender: Karena Stephens 01:00:00 PM EDT MED[facility] ([facility] ) Outpatient Attender: Karena Stephens 08:15:00 AM EDT MED[facility] ([facility] ) Outpatient Attender: Karena Stephens 08:15:00 AM EDT MED[facility] ([facility] ) Outpatient Attender: BERYL Wright/Ellen/Maciel/Monet koo 08/17/2019 10:00:00 AM EST MED[facility] ([facility] Outpatient Attender: LYDIA gonzáles 08/07/2019 07:45:00 AM EST MED[facility] ([facility]) Outpatient Attender: Karena Stephens 02:00:00 PM EST MED[facility] ([facility] ) Outpatient Referrer: Karena Valdez MD 07/28/2019 12:48:00 PM EST [facility] Outpatient Attender: Karena Stephens 02:15:00 PM EST MED[facility] ([facility] ) Outpatient Attender: Tayla long 07/21/2019 07:00:00 AM EST [facility] ([facility]) Outpatient Attender: Karena Stephens 07:15:00 AM EST MED[facility] ([facility] ) Outpatient Attender: ELIDA SNIDER MD Main Office 07/05/2019 11:00:00 AM EST MED[facility] ([facility]) Immunizations Vaccine Date Status Description Data Source(s) COVID-19 VACCINE, MRNA-1273, LNP-S (MODERNA)/PF 07/27/2020 1 2:00:00 AM EST completed [facility] This CVX code allows reporting of a vacc ination when formulation is unknown (for example, when recording a Influenza vaccination when noted on a vaccination card) 02/25/2020 10:56:00 AM EDT completed JASON Grider ([facility]) INFLUENZA VACCINE QUADRIVALENT 2020- (65 YR UP)/MF59 C.1/PF 02/25/2020 12:00:00 AM [...] 12:00:00 AM EST suspension 0 INJECT BY [facility] (FIRST DOSE) INJECT BY [facility] (FIRST DOSE) SOLD: 06/29/2020 [facility] Covid-19 vaccine, Unspecified 06/29/2020 12:00:00 AM EST completed LANRE ([facility]) Medication administered onsite 30 ACTUAT fluticasone furoate 0.1 MG/ACT UAT / vilanterol 0.025 MG/ACTUAT Dry Powder Inhaler [Breo] Breo Ellipta 100-25 MCG/INH Inhalation Aerosol Powder Breath Activated Breo Ellipta 100-25 MCG/INH Inhalation A erosol Powder Breath Activated 04/01/2020 12:00:[address] [facility] apixaban 5 MG Oral Tablet [Eliquis] Eliquis 5 MG Oral Tablet Eliquis 5 MG Oral Tablet 04/01/2020 12:00:[address] [facility] gabapentin 300 MG Oral Capsule Gabapentin 300 MG Oral Capsule (NEURONTIN) Gabapentin 300 MG Oral Capsule (NEURONTIN) 03/26/2020 12:00:00 AM EDT 300 mg Oral active Take 300 mg by mouth Two Times Daily [facility] Albuterol 0.83 MG/ML Inhalant Solution A lbuterol Sulfate (2.5 MG/3ML) 0.083% Inhalation Nebulization Solution (PROVENTIL) Albuterol Sulfate (2.5 MG/3ML) 0.083% Inhalation Nebulization Solution (PROVENTIL) 03/26/2020 12:00:00 AM EDT active USE 1 VIAL VIA N EBULIZER FOUR TIMES A DAY [facility] Amiodarone hydrochloride 200 MG Oral Tab let Amiodarone HCl 200 MG Oral Tablet (PACERONE) Amiodarone HCl 200 MG Oral Tablet (PACERONE) 0 12:00:00 AM EDT 200 mg Oral active Take 200 mg by mo uth daily [facility] Omeprazole 20 MG Delayed Release Oral Ca psule Omeprazole 20 MG Oral Capsule Delayed Release (PriLOSEC) Omeprazole 20 MG Oral Capsule Delayed Re lease (PriLOSEC) 03/17/2020 12:00:[address] [facility] Ipratropium Nahma 0.2 MG/ML Inhalant S olution Ipratropium Nahma 0.02 % Inhalation Solution (ATROVENT) Ipratropium Nahma 0.02 % Inhalation So lution (ATROVENT) 03/09/2020 12:00:[address] [facility] Pravastatin Sodium 40 MG Oral Tablet Pra vastatin Sodium 40 MG Oral Tablet (PRAVACHOL) Pravastatin Sodium 40 MG Oral Tablet (PRAVACHOL) 01/26 12:00:00 AM EDT [facility] Losartan Potassium 100 MG Oral Tablet Lo sartan Potassium 100 MG Oral Tablet (COZAAR) Losartan Potassium 100 MG Oral Tablet (COZAAR) 12:00:00 AM EDT active [facility] 24 HR Diltiazem Hydrochloride 240 MG Ext ended Release Oral Capsule dilTIAZem HCl ER Coated Beads 240 MG Oral Capsule Extended Release 24 Hour (CARDIZEM CD) dilTIAZem HCl ER Coated Beads 240 MG Oral Capsule Extended Release 24 Hour (CARDIZEM CD) 01/27/2020 12:00:[address] [facility] 324 mg (65 mg iron) 01/03/2020 [...] TIMES A DAY IF NECESSARY SOLD: 06/13/2020 [facility] 10 gram/15 mL 01/01/2020 12:00:00 AM EDT solution 2838 TAKE 30ML BY MOUTH TWO TIMES A DAY MAY INCREASE TO 45ML TWO TIMES A DAY IF NECESSARY TAKE 30ML BY MOUTH TWO TIMES A DAY MAY INCREASE TO 45ML TWO TIMES A DAY IF NECESSARY SOLD: 03/28/2020 [facility] POLYETHYLENE GLYCOL 3350 105 MG/ML / Pot assium Chloride 0.32929 MEQ/ML / Sodium Bicarbonate 0.017 MEQ/ML / Sodium Chloride 0.0479 MEQ/ML Oral Solution [TriLyte] Trilyte 12/28/2019 12:00:00 AM EDT completed [facility] ([facility] ) Magnesium Hydroxide 80 MG/ML Oral Suspension Milk Of Magnesi a 12/28/2019 12:00:00 AM EDT ORAL completed [facility] ([facility], ) Magnesium Hydroxide 80 MG/ML Oral Suspension [...] DIRECTED ON DR STERLING PREP SOLD: 12/31/2019 [facility] 2.5 mg /3 mL (0.083 %) [...] ORAL active M EDENT ([facility]) Loratadine 10 MG Oral Tablet Loratadine 10/07/2019 12:00:00 AM EDT ORAL active [facility] ([facility]) ferrous sulfate 325 MG Delayed Release Oral Tablet Ferrous S ulfate 10/05/2019 12:00:00 AM EDT ORAL active M EDENT ([facility]) 300 mg 09/30/2019 12:00:00 AM EDT [...] A DAY FOR 10 DAYS SOLD: 08/23/2019 [facility] Prednisone 20 MG Oral Tablet Prednisone 08/23/2019 12:00:00 AM EDT ORAL completed [facility] ([facility]) 20 mg 08/23/2019 12:00:00 AM EDT tablet 10 TAKE TWO TABLETS BY MOUTH EVERY MORNING FOR 5 DAYS TAKE TWO TABLETS BY MOUTH EVERY MORNING FOR 5 DAYS LEONARDO [facility] Nystatin 804848 UNT/ML Oral Suspension Nystatin 08/23/2019 12:00:00 AM [...] 08/17/2019 12:00:00 AM EST ORAL completed [facility] ([facility], ) 10 gram/15 mL 08/17/2019 12:00:00 AM EST solution 1200 TAKE 2 TABLESPOONSFUL TWO TIMES A DAY MAY INCREASE TO 3 TWO TIMES A DAY NEEDED TAKE 2 TABLESPOONSFUL TWO TIMES A DAY MAY INCREASE TO 3 TWO TIMES A DAY NEEDED SOLD: 12/20/2019 [facility] Lactulose 667 MG/ML Oral Solution Lactulose 08/17/2019 12:00:00 AM EST ORAL active MEDENT ([facility] ) POLYETHYLENE GLYCOL 3350 105 MG/ML / Pot assium Chloride 0.09618 MEQ/ML / Sodium Bicarbonate 0.017 MEQ/ML / Sodium Chloride 0.0479 MEQ/ML Oral Solution [TriLyte] Trilyte 08/17/2019 12:00:00 AM EST completed MED[facility] ([facility], ) 10 gram/15 mL 08/17/2019 12:00:00 AM [...] 08/09/2019 12:00:00 AM EST ORAL completed [facility] 250 mg 08/09/2019 12:00:00 AM EST capsule 10 TAKE ONE CAPSULE BY MOUTH TWICE A DAY FOR 5 DAYS TAKE ONE CAPSULE BY MOUTH TWICE A DAY FOR 5 DAYS SOLD: 08/09/2019 [facility] Phenazopyridine hydrochloride 200 MG Oral Tablet Phenazopyri dine HCL 08/07/2019 12:00:00 AM EST ORAL completed [facility] ([facility]) 200 mg 08/07/2019 12:00:00 AM EST [...] MG 07/21 12:00:00 AM EST completed MED[facility] ([facility]) Medication administered onsite Cephalexin 500 MG Oral Capsule Cephalexin 07/21/2019 12:00:00 AM EST ORAL completed [facility] ([facility]) Cephalexin 500 MG Oral Tablet Cephalexin 07/21/2019 12:00:00 AM EST ORAL completed [facility] ([facility] 324 mg (65 mg iron) 07/07/2019 12:00:00 [...] 07/07/2019 12:00:00 AM EST ORAL completed MED[facility] ([facility]) sennosides, FDC 8.6 MG Oral Capsule Senna 07/07/2019 12:00:00 AM EST ORAL active [facility] ([facility]) Amiodarone hydrochloride 200 MG Oral Tablet Amiodarone HCL 07/06/2019 12:00:00 AM EST ORAL active [facility] ([facility]) gabapentin 300 MG Oral Capsule Gabapentin 07/06/2019 12:00:00 AM EST ORAL active [facility] ([facility]) gabapentin 300 MG Oral Capsule Gabapentin 03/11/2019 12:00:00 AM EDT ORAL completed [facility] ([facility]) 300 mg 03/08/2019 12:00:00 AM [...] 02/06/2019 12:00:00 AM EDT ORAL completed [facility] ([facility]) 2.5 mg /3 mL (0.083 %) [...] type / Coverage type Policy ID Covered libertarian ID Covered libertarian's relationship to page Policy Page Plan Information MEDICARE [id number] SP [id number] [place] 302/307 [id number] SP [id number] MEDICARE A [id number] Self [id number] BLUE CARD C [id number] Self [id number] MEDICARE C [id number] S [id number] EXCELLUS BCBS B [id number] S [id number] [place] PPO 302/307 [id number] SP [id number] BC[place] PPO 302/307 [id number] SP [id number] BS Of [place] Medig[place] Part B [id number] Self [id number] [place] Primary [id number] Self [id number] BS [place] [id number] Self [id number] Medicare [place] Govt Servic Medicare Primary [id number] Self [id number] BS [place] Medigap Part B [id number] Self [id number] Medicare Dme Supplies Medigap Part B [id number] Self [id number] [place] Primary [id number] Self [id number] BCBS [employer] U/W Medigap Part B [id number] Self [id number] Medicare (Part B) Medicare Primary [id number] Self [id number] Medicare (Part B) Medicare Primary [id number] Self [id number] BCBS [employer] U/W Medigap Part B [id number] Self [id number] Medicare (Part B) Medicare Primary [id number] Self [id number] Medicare (Part B) Medicare Primary [id number] Self [id number] BS [place] Medigap Part B [id number] Self [id number] Medicare Dme Supplies Medigap Part B [id number] Self [id number] [place] Primary [id number] Self [id number] BS [place] Medigap Part B [id number] Self [id number] Medicare [place] Gov't Servi Medicare Primary [id number] Self [id number] BS [place] BitPay [id number] Self [id number] Medicare [place] Govt Servic Medicare Primary [id number] Self [id number] BS [place] Medigap Part B [id number] Self [id number] [place] Primary [id number] Self [id number] BS [facility] [id number] Self [id number] Medicare [place] Gov[place] Servic Medicare Primary [id number] Self [id number] BS [facility] [id number] Self [id number] Medicare [place] Govt Servic Medicare Primary [id number] Self [id number] BCBS [employer] U/W Medigap Part B [id number] Self [id number] Medicare (Part B) Medicare Primary [id number] Self [id number] Medicare (Part B) Medicare Primary [id number] Self [id number] BCBS [employer] U/W Medigap Part B [id number] Self [id number] Medicare (Part B) Medicare Primary [id number] Self [id number] Medicare (Part B) Medicare Primary [id number] Self [id number] BS [place] Bit[place] [id number] Self [id number] Medicare [place] Govt Servic Medicare Primary [id number] Self [id number] BCBS [employer] U/W Medigap Part B [id number] Self [id number] Medicare (Part B) Medicare Primary [id number] Self [id number] BCBS [employer] U/[place] Medigap Part B [id number] Self [id number] Medicare (Part B) Medicare Primary [id number] Self [id number] MEDICARE [id number] SP [id number] A [employer] BCBS Medigap Part B [id number] Excell[employer] BCBS Medigap Part B [id number] Self [id number] [place] Medicare Primary [id number] Self [id number] BS [place] BitPay [id number] Self [id number] Medicare [place] Govt Servic Medicare Primary [id number] Self [id number] [place] [id number] Self [id number] Medicare (Part B) Medicare Primary [id number] Self [id number] MEDICARE C [id number] S [id number] BS [place] Bit[place] [id number] Self [id number] Medicare [place] Servic Medicare Primary [id number] Self [id number] [place] [id number] Self [id number] Medicare (Part B) Medicare Primary [id number] Self [id number] BS [place] BitPay [id number] Self [id number] Medicare [place] Serv[place] Medicare Primary [id number] Self [id number] [place] [id number] Self [id number] Medicare (Part B) Medicare Primary [id number] Self [id number] [facility] BitPay [id number] Self [id number] Medicare [place] Govt Servic Medicare Primary [id number] Self [id number] BS [facility] [id number] Self [id number] Medicare [place] Govt Servic Medicare Primary [id number] Self [id number] BS [facility] [id number] Self [id number] Medicare [place] Govt Servic Medicare Primary [id number] Self [id number] [facility] P[facility] Medigap Part B [id number] Self [id number] Medicare (Part B) Medicare Primary [id number] Self [id number] BS [place] Medigap Part B [id number] Self [id number] Medicare Natl Gov't Servi Medicare Primary [id number] Self [id number] BS [place] Medigap Part B [id number] Self [id number] [place] Primary [id number] Self [id number] BS [place] Medigap Part B [id number] Self [id number] Medicare [place] Gov't Servi Medicare Primary [id number] Self [id number] BS [facility] [id number] Self [id number] Medicare [place] Govt Servic Medicare Primary [id number] Self [id number] BS [place] Medigap Part B [id number] Self [id number] [place] Primary [id number] Self [id number] BS [place] Medigap Part B [id number] Self [id number] [place] Primary [id number] Self [id number] [facility] Ppo Medigap Part B [id number] Self [id number] Medicare (Part B) Medicare Primary [id number] Self [id number] BS [facility] [id number] Self [id number] Medicare [place] Govt Servic Medicare Primary [id number] Self [id number] [facility] [id number] Self [id number] Medicare [place] Govt Servic Medicare Primary [id number] Self [id number] BS [facility] [id number] Self [id number] Medicare [place] Govt Servic Medicare Primary [id number] Self [id number] BS [facility] [id number] Self [id number] Medicare [place] Govt Servic Medicare Primary [id number] Self [id number] BS [facility] [id number] Self [id number] Medicare [place] Govt Servic Medicare Primary [id number] Self [id number] BS [facility] 200 Self 20 0 Medicare [place] Govt Servic Medicare Primary Self BS [facility] [place] Part B Self Medicare Natl Gov't Servi Medicare Primary Self [employer] BCBS Medigap Part B [place]/[facility] Medicare Primary Self BCBS OF [place] 200/700 [id number] SP [id number] [place] 200/700 [id number] SP [id number] BS Of [facility] Part B Family Depend ent Medicare [place] Medicare Primary Self BC/BS Of [facility] Part B Self Medicare Medicare Primary Self [id number] A [id number] Problems, Conditions, and Diagnoses Code Display Name Description Problem Type Effective Dates Data Source(s) 41825994 Iron deficiency anemia Iron deficiency anemia Problem 07/07/2019 12:00:00 AM TOMAS DE DIOS ([facility]) H90.41 Sensorineural hearing loss, unilateral, right ear, 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, unilateral, right ear, with unrestricted hearing on the contralateral side Diagnosis 04/02/2020 03:45:02 PM EDT [facility] Surgeries/Procedures Procedure Description Date Indications Data Source(s) INTERROGATION EVAL REMOTE </90 D 1/2/DIRECTOR OF MEDIA LEAD PM 05/31 12:00:00 AM EST [facility] ([facility]) INTERROGATION REMOTE </90 D SMOKE AND FLAME SPECIALIST REVIEW 05/31/20 12:00:00 AM EST [facility] ([facility]) INTERROGATION EVAL IN PERSON 1/DUAL/DIRECTOR OF MEDIA LEAD PM 2019 12:00:00 AM EDT MED[facility] ([facility]) Colonoscopy 02/06/2020 12:00:00 AM EDT M EDENT ([facility]) Colonoscopy W/ Poly 02/06/2020 12:00:00 AM EDT MED[facility] ([facility]) ECG ROUTINE ECG W/LEAST 12 LDS W/I&R 11/25/2019 12:00: 00 AM EDT MED[facility] ([facility]) INTERROGATION EVAL IN PERSON 1/DUAL/DIRECTOR OF MEDIA LEAD PM 2019 12:00:00 AM EDT [facility] ([facility]) INTERROGATION EVAL REMOTE </90 D 1/2/DIRECTOR OF MEDIA LEAD PM 11/07 12:00:00 AM EDT MED[facility] ([facility]) INTERROGATION REMOTE </90 D SMOKE AND FLAME SPECIALIST REVIEW 11/08/19 12:00:00 AM EDT MED[facility] ([facility]) Colonoscopy 10/27/2019 12:[facility] Endoscopy Upper GI Biopsy 10/27/2019 12:00:00 AM EDT MED[facility] ([facility]) Endoscopy Upper GI Control Hemorrhage 10/27/2019 12:00 :00 AM EDT MED[facility] ([facility]) Colonoscopy Flexible Proximal To Splenic Flexure W/Biopsy Si ngle/ 10/27/2019 12:00:00 AM EDT [facility] ([facility] ECG ROUTINE ECG W/LEAST 12 LDS W/I&R 10/26/2019 12:00: 00 AM EDT MED[facility] ([facility]) INTERROGATION EVAL REMOTE </90 D 1/2/DIRECTOR OF MEDIA LEAD PM 08/08 12:00:00 AM EST [facility] ([facility]) INTERROGATION REMOTE </90 D SMOKE AND FLAME SPECIALIST REVIEW 08/08/19 12:00:00 AM EST [facility] ([facility]) Therapeutic, Prophylactic Or Diagnostic Injection Subq/Im 07/21/2019 12:00:00 AM EST [facility] ([facility]) MYOCARDIAL SPECT MULTIPLE STUDIES 07/12/2019 12:00:00 AM EST [facility] ([facility]) CV STRS TST XERS&/OR RX CONT ECG PHYS SI&R 07/12/2019 12:00:00 AM EST [facility] ([facility]) ECG ROUTINE ECG W/LEAST 12 LDS W/I&R 07/05/2019 12:00: 00 AM EST [facility] ([facility]) Echography Soft Tissue Hand & Neck 06/28/2019 12:00:00 AM EST [facility] ([facility]) Results ID Date Data Source [id number] 08/07/2020 04:35:00 PM EST [facility] ([facility]) Name Value Range Interpretation Code Description Data Manda rce(s) Supporting Document(s) Respiratory Panel Laboratory [facility] This respiratory PCR panel detects Influ aury A H1, H3 and 2009 H1 viruses, Influenza B virus, Resp iratory Syncytial Virus, Human metapneumovirus, Parainfluenza virus 1, 2, 3 and 4, Adenovirus, Rhinovirus/Enterovirus, Coronavirus HKU1, NL63, OC43, 229E and SARS-CoV-2 (COVID 19), Bordetella pertussis, Bordetella parapertussis, Mycoplasma pneumoniae and Chlamydia pneumoniae. NEGATIVE by MULTIPLEXED NUCLEIC ACID PCR SARS-CoV-2 (COVID 19) NEGATIVE - SARS-CoV-2 (COVID19) ID Date Data Source [id number] 08/07/2020 03:17:00 PM EST [facility] ([facility]) Name Value Range Interpretation Code Description Data Manda rce(s) Supporting Document(s) Glucose, Fasting 111 mg/dL 70-100 [facility]) Blood Urea Nitrogen 20 mg/dL 7-18 [facility]) Creatinine For GFR 1.20 mg/dL 0.55-1.30 [facility]) Glomerular Filtration Rate 45.1 [facility] ([facility]) <content>Units are mL/min/1.73 m2</content>
<content></content>
<content>Chronic Kidney Disease Staging per NKF:</content>
<content></content>
<content>Stage I & II GFR >=60 Normal to Mildly Decreased</content>
<content>Stage III GFR 30- 59 Moderately Decreased</content>
<content>Stage IV GFR 15-29 Severely Decreased</content>
<content>Stage V GFR <15 Very Little GFR Left</content>
<content>ESRD GFR <15 on CLINICAL STAFF EDUCATOR</content>
<content></content> Sodium Level 141 meq/L 136-145 [facility] ([facility]) Potassium Serum 4.3 meq/L 3.5-5.1 [facility] ([facility]) Carbon Dioxide Level 29 meq/L 21-32 [facility] ([facility]) Chloride Level 104 meq/L 98-107 [facility] ([facility]) Anion Gap 8 meq/L 8-16 [facility] Calcium Level 9.1 mg/dL 8.8-10.2 [facility] ([facility]) ID Date Data Source [id number] 08/07/2020 03:17:00 PM EST [facility] ([facility]) Name Value Range Interpretation Code Description Data Manda rce(s) Supporting Document(s) Alt/SGPT 32 U/L 12-78 [facility] ([facility]) Ast/Sgot 13 U/L 7-37 [facility] ([facility] Bilirubin,Total 0.1 mg/dL 0.2-1.0 [facility] ([facility]) Alkaline Phosphatase 123 U/L 45-117 [facility] ([facility]) Total Protein 6.7 GM/DL 6.4-8.2 [facility] ([facility]) Bilirubin,Direct Laboratory test result 0.0-0.2 [facility] ([facility]) Albumin 3.2 GM/DL 3.2-5.2 [facility] ([facility]) Albumin/Globulin Ratio 0.9 1.2-2.2 [facility] ([facility]) ID Date Data Source [id number] 08/07/2020 03:17:00 PM EST [facility] ([facility]) Name Value Range Interpretation Code Description Data Manda rce(s) Supporting Document(s) Prothrombin Time 14.6 s 12.5-14.3 [facility] ([facility]) Inr 1.12 [facility] ([facility] THERAPUTIC HUMAN INR VALUES INDICATIONS NORMAL RANGES PROPHYLAXIS/TREATMENT OF: VENOUS THROMBOSIS 2.0-3.0 PULMONARY EMBOLISM 2.0-3.0 PREVENTION OF SYSTEMIC EMBOLISM FROM: TISSUE HEART VALVES 2.0-3.0 ACUTE MYOCARDIAL INFARCTION 2.0-3.0 VALVULAR HEART DISEASE 2.0-3.0 ATRIAL FIBRILLATION 2.0-3.0 MECHANICAL VALVES(HIGH RISK) 2.5-3.5 RECURRENT MYOCARDIAL INFARCTION 2.5-3.5 ID Date Data Source [id number] 08/07/2020 03:17:00 PM EST [facility] ([facility]) Name Value Range Interpretation Code Description Data Manda rce(s) Supporting Document(s) Red Blood Count 4.70 10 4.00-5.40 [facility] ([facility]) White Blood Count 9.5 10 4.0-10.0 [facility] ([facility]) Hemoglobin 11.5 g/dL 12.0-15.5 [facility] ([facility]) Hematocrit 37.6 % 36.0-47.0 [facility] ([facility]) Mean Corpuscular Hemoglobin 24.5 pg 27.0-33.0 [place] [facility] ([facility]) Mean Corpuscular Volume 80.0 fl 80.0-96.0 [facility] ([facility]) Mean Corpuscular HGB Conc 30.6 g/dL 32.0-36.5 MED[facility] NT ([facility]) Red Cell Distribution Width 17.4 % 11.5-14.5 [place] [facility] ([facility]) Neutrophils % 79.4 % 36.0-66.0 [facility] ([facility]) Lymph % 7.7 % 24.0-44.0 [facility] ([facility]) Platelet Count, Automated 316 10 150-450 [facility] NT ([facility]) [place] % 9.1 % 2.0-8.0 [facility] ([facility]) Immature Granulocyte % 1.9 % 0-3.0 [facility] ([facility]) Baso % 0.7 % 0.0-1.0 [facility] Eos % 1.2 % 0.0-3.0 [facility] Lymph # 0.7 10 1.5-5.0 [facility] Neutrophils # 7.6 10 1.5-8.5 [facility] ([facility]) Nucleated Red Blood Cell % 0.0 % 0-0 [facility] ([facility]) [place] # 0.9 10 0.0-0.8 [facility] Eos # 0.1 10 0.0-0.5 [facility] Baso # 0.1 10 0.0-0.2 [facility] ID Date Data Source [id number] 07/12/2020 08:04:00 AM EST [facility] ([facility]) Name Value Range Interpretation Code Description Data Manda rce(s) Supporting Document(s) Natriuretic peptide.B prohormone N-Terminal [Mass/volu me] in Serum or Plasma 425 pg/mL [facility] ([facility] ) Thyrotropin [Units/volume] in Serum or Plasma by Detec tion limit <= 0.05 mIU/L 1.620 uIU/ML 0.358-3.740 [facility] ([facility] ) ID Date Data Source [id number] 07/12/2020 08:04:00 AM EST [facility] ([facility]) Name Value Range Interpretation Code Description Data Manda rce(s) Supporting Document(s) Blood Urea Nitrogen 23 mg/dL 7-18 [facility] ([facility]) Glucose, Fasting 100 mg/dL 70-100 [facility] ([facility]) Creatinine For GFR 1.52 mg/dL 0.55-1.30 [facility] ([facility]) Sodium Level 139 meq/L 136-145 [facility] ([facility]) Glomerular Filtration Rate 34.4 [facility] ([facility]) <content>Units are mL/min/1.73 m2</content>
<content></content>
<content>Chronic Kidney Disease Staging per NKF:</content>
<content></content>
<content>Stage I & II GFR >=60 Normal to Mildly Decreased</content>
<content>Stage III GFR 30- 59 Moderately Decreased</content>
<content>Stage IV GFR 15-29 Severely Decreased</content>
<content>Stage V GFR <15 Very Little GFR Left</content>
<content>ESRD GFR <15 on CLINICAL STAFF EDUCATOR</content>
<content></content> Potassium Serum 4.5 meq/L 3.5-5.1 [facility] ([facility]) Chloride Level 100 meq/L 98-107 [facility] ([facility]) Carbon Dioxide Level 29 meq/L 21-32 [facility] ([facility]) Anion Gap 10 meq/L 8-16 [facility] ([facility] Calcium Level 10.0 mg/dL 8.8-10.2 [facility] ([facility]) Alt/SGPT 34 U/L 12-78 [facility] ([facility] Ast/Sgot 23 U/L 7-37 [facility] ([facility] Alkaline Phosphatase 121 U/L 45-117 [facility] ([facility]) Bilirubin,Total 0.4 mg/dL 0.2-1.0 [facility] ([facility]) Total Protein 7.0 GM/DL 6.4-8.2 [facility] ([facility]) Albumin/Globulin Ratio 1.1 1.2-2.2 [facility] ([facility]) Albumin 3.6 GM/DL 3.2-5.2 [facility] ([facility] ID Date Data Source [id number] 06/14/2020 03:49:00 PM EST [facility] ([facility]) Name Value Range Interpretation Code Description Data Manda rce(s) Supporting Document(s) Leukocytes [#/volume] in Blood by Automated count 6.2 x10*3/UL 4.1-10 .9 [facility] ([facility]) Hemoglobin [Mass/volume] in Blood 12.2 g/dL 12.0-18.0 [facility] ([facility]) Erythrocytes [#/volume] in Blood by Automated count 4.68 x10*6/UL 4.2 0-6.30 [facility] ([facility]) MCH 26.1 pg 26.0-32.0 [facility] ([facility]) Hematocrit [Volume Fraction] of Blood by Automated count 36.7 % 3 7.0-51.0 [facility] ([facility]) MCV 78.3 fL 80.0-97.0 [facility] ([facility]) Platelets [#/volume] in Blood by Automated count 276 x10*3/UL 140-440 [facility] ([facility]) Erythrocyte distribution width [Ratio] by Automated count 15.2 % 11.6-13.7 [facility] ([facility]) MCHC 33.3 g/dL 31.0-38.0 [facility] ([facility]) Lymphocytes/100 leukocytes in Blood by Automated count 12.4 % 10. 0-58.5 [facility] ([facility]) Platelet mean volume [Entitic volume] in Blood by Bhanu 8.1 FL 7.8-11.0 [facility] ([facility]) Neut % 83.9 % 37.0-92.0 [facility] ([facility]) Lymph # 0.7 x10*3/UL 0.6-4.1 [facility] ([facility]) Mid % 3.7 % 1.7-9.3 [facility] Mid # 0.3 x10*3/UL 0.1-0.6 [facility] ([facility]) Neutrophils [#/volume] in Semen by Manual count 5.2 x10*3/UL 2.0-7.8 [facility] ([facility]) ID Date Data Source [id number] 06/14/2020 07:47:00 AM EST [facility] ([facility]) Name Value Range Interpretation Code Description Data Manda rce(s) Supporting Document(s) Glucose [Mass/volume] in Serum or Plasma 74 mg/dL 74-99 [facility] 100-125 mg/dL PRE-DIABETES/FASTING >126 mg/dL DIABETES/FASTING Urea nitrogen [Mass/volume] in Serum or Plasma 22 mg/dL 7-18 [facility] ([facility]) Creatinine 1.5 mg/dL 0.6-1.3 [facility] ([facility]) Sodium [Moles/volume] in Serum or Plasma 140 meq/L 136-145 [facility] ([facility]) Potassium [Moles/volume] in Serum or Plasma 4.4 meq/L 3.5-5.1 [facility] ([facility]) Chloride [Moles/volume] in Serum or Plasma 102 meq/L 98-107 [facility] ([facility]) Calcium [Mass/volume] in Serum or Plasma 9.1 mg/dL 8.5-10.1 [facility] ([facility]) Carbon dioxide, total [Moles/volume] in Serum or Plasma 31 meq/L 21 -32 [facility] Glomerular filtration rate/1.73 sq M pre dicted among blacks [Volume Rate/Area] in Serum or Plasma by Creatinine-based formula (MDRD) 40 mL/min [facility] <content>CHRONIC KIDNEY DISEASE STAGING PER NKF</content>
<content></content>
<content>STAGE I & II GFR >= 60 NORMAL TO MILDLY DECREASED</content>
<content>STAGE III GFR 30-59 MODERATELY DECREASED</content>
<content>STAGE IV GFR 15-29 SEVERELY DECREASED</content>
<content>STAGE V GFR <15 VERY LITTLE GFR LEFT</content>
<content>ESRD GFR <15 ON CLINICAL STAFF EDUCATOR</content>
<content></content> Glomerular filtration rate/1.73 sq M pre dicted among non-blacks [Volume Rate/Area] in Serum or Plasma by Creatinine-based formula (MDRD) 33 mL/min [facility]) ID Date Data Source [id number] 06/14/2020 07:47:00 AM EST [facility] ([facility]) Name Value Range Interpretation Code Description Data Manda rce(s) Supporting Document(s) Leukocytes [#/volume] in Blood by Automated count 6.2 x10*3/UL 4.1-10 .9 [facility] ([facility]) Erythrocytes [#/volume] in Blood by Automated count 4.68 x10*6/UL 4.2 0-6.30 [facility] ([facility]) Hemoglobin [Mass/volume] in Blood 12.2 g/dL 12.0-18.0 [facility] ([facility]) MCV 78.3 fL 80.0-97.0 [facility] Hematocrit [Volume Fraction] of Blood by Automated count 36.7 % 3 7.0-51.0 [facility] ([facility]) Erythrocyte distribution width [Ratio] by Automated count 15.2 % 11.6-13.7 [facility] ([facility]) MCH 26.1 pg 26.0-32.0 [facility]) MCHC 33.3 g/dL 31.0-38.0 [facility]) Platelets [#/volume] in Blood by Automated count 276 x10*3/UL 140-440 [facility] ([facility]) MPV 8.1 FL 7.8-11.0 [facility]) Mid % 3.7 % 1.7-9.3 [facility]) Neut % 83.9 % 37.0-92.0 [facility] Lymph % 12.4 % 10.0-58.5 [facility] Lymph # 0.7 x10*3/UL 0.6-4.1 [facility] ([facility]) Neut # 5.2 x10*3/UL 2.0-7.8 [facility] ([facility]) Mid # 0.3 x10*3/UL 0.1-0.6 [facility] ([facility]) ID Date Data Source [id number] 04/02/2020 03:46:[address] [facility] Name Value Range Interpretation Code Description Data Manda rce(s) Supporting Document(s) Progress Note [facility] [id number] [file] [id number] ID Date Data Source [id number] 03/14/2020 09:00:00 AM EDT [facility] ([facility]) Name Value Range Interpretation Code Description Data Manda rce(s) Supporting Document(s) Erythrocytes [#/volume] in Blood by Automated count 4.86 x10*6/UL 4.2 0-6.30 [facility] ([facility]) Hemoglobin [Mass/volume] in Blood 12.7 g/dL 12.0-18.0 [facility] ([facility]) Leukocytes [#/volume] in Blood by Automated count 6.5 x10*3/UL 4.1-10 .9 [facility] ([facility]) Hematocrit [Volume Fraction] of Blood by Automated count 37.8 % 3 7.0-51.0 [facility] ([facility]) MCV 77.9 fL 80.0-97.0 [facility] ([facility]) MCHC 33.7 g/dL 31.0-38.0 [facility] ([facility]) Erythrocyte distribution width [Ratio] by Automated count 15.1 % 11.6-13.7 [facility] ([facility]) MCH 26.2 pg 26.0-32.0 [facility] ([facility]) Platelets [#/volume] in Blood by Automated count 281 x10*3/UL 140-440 [facility] ([facility]) MPV 8.1 FL 7.8-11.0 [facility] ([facility] Lymph % 11.6 % 10.0-58.5 [facility] ([facility] Lymph # 0.7 x10*3/UL 0.6-4.1 [facility] ([facility]) Mid % 2.7 % 1.7-9.3 [facility] Neut % 85.7 % 37.0-92.0 [facility] ([facility] Neut # 5.5 x10*3/UL 2.0-7.8 [facility] ([facility]) Mid # 0.3 x10*3/UL 0.1-0.6 [facility] ([facility]) ID Date Data Source [id number] 03/14/2020 09:00:00 AM EDT [facility] Name Value Range Interpretation Code Description Data Manda rce(s) Supporting Document(s) Hemoglobin A1c/Hemoglobin.total in Blood Laboratory test result [facility] ([facility]) Magnesium, Serum Laboratory test result [facility] Creatine kinase [Enzymatic activity/volume] in Serum or Plasma 118 U/L 26-192 [facility]) ID Date Data Source [id number] 03/14/2020 09:00:00 AM EDT [facility]) Name Value Range Interpretation Code Description Data Manda rce(s) Supporting Document(s) Hemoglobin A1c/Hemoglobin.total in Blood 5.8 % [facility] Lab Result Notes: Pre-Diabetes 5.7 - 6.4 % Diabetes = or > 6.5% Glucose mean value [Mass/volume] in Blood Estimated fr om glycated hemoglobin 120 mg/dL 60-110 [facility] ID Date Data Source [id number] 03/14/2020 09:00:00 AM EDT [facility]) Name Value Range Interpretation Code Description Data Manda rce(s) Supporting Document(s) Magnesium 2.1 mg/dL 1.8-2.4 [facility] ID Date Data Source [id number] 03/14/2020 09:00:00 AM EDT [facility] ([facility]) Name Value Range Interpretation Code Description Data Manda e(s) Supporting Document(s) Glucose [Mass/volume] in Serum or Plasma 98 mg/dL 74-99 [facility] ([facility]) 100-125 mg/dL PRE-DIABETES/FASTING >126 mg/dL DIABETES/FASTING Urea nitrogen [Mass/volume] in Serum or Plasma 21 mg/dL 7-18 [facility] ([facility]) Potassium [Moles/volume] in Serum or Plasma 4.4 meq/L 3.5-5.1 [facility] ([facility]) Sodium [Moles/volume] in Serum or Plasma 134 meq/L 136-145 [facility] ([facility]) Creatinine 1.6 mg/dL 0.6-1.3 [facility] ([facility]) Carbon dioxide, total [Moles/volume] in Serum or Plasma 30 meq/L 21 -32 [facility] ([facility]) Chloride [Moles/volume] in Serum or Plasma 97 meq/L 98-107 [facility] ([facility]) Alkaline phosphatase isoenzyme [Units/volume] in Serum or Pl asma 109 mg/dL 46-116 [facility] Total Bilirubin 0.5 mg/dL 0.2-1.0 [facility] ([facility]) Calcium [Mass/volume] in Serum or Plasma 9.2 mg/dL 8.5-10.1 [facility] ([facility]) Alanine aminotransferase [Enzymatic activity/volume] in Seru m or Plasma 40 U/L 12-78 [facility] ([facility]) Aspartate aminotransferase [Enzymatic activity/volume] in Serum or Plasma 25 U/L 15-37 [facility] ([facility] ) Albumin [Mass/volume] in Serum or Plasma 3.8 g/dL 3.4-5.0 [facility] ([facility]) Proteinase 3 Ab [Units/volume] in Serum 7.2 g/dL 6.4-8.2 [facility] ([facility]) A/G Ratio 1.12 CALC 1.00-1.90 [facility]) Glomerular filtration rate/1.73 sq M pre dicted among non-blacks [Volume Rate/Area] in Serum or Plasma by Creatinine-based formula (MDRD) 30 mL/min [facility] ([facility]) Glomerular filtration rate/1.73 sq M pre dicted among blacks [Volume Rate/Area] in Serum or Plasma by Creatinine-based formula (MDRD) 37 mL/min [facility] <content>CHRONIC KIDNEY DISEASE STAGING PER NKF</content>
<content></content>
<content>STAGE I & II GFR >= 60 NORMAL TO MILDLY DECREASED</content>
<content>STAGE III GFR 30-59 MODERATELY DECREASED</content>
<content>STAGE IV GFR 15-29 SEVERELY DECREASED</content>
<content>STAGE V GFR <15 VERY LITTLE GFR LEFT</content>
<content>ESRD GFR <15 ON CLINICAL STAFF EDUCATOR</content>
<content></content> ID Date Data Source [id number] 03/14/2020 09:00:00 AM EDT [facility] Name Value Range Interpretation Code Description Data Manda rce(s) Supporting Document(s) Triglyceride [Mass/volume] in Serum or Plasma 101 mg/dL 30-150 [facility] ([facility]) Cholesterol [Mass/volume] in Serum or Plasma 213 mg/dL 131-200 [facility] ([facility]) Cholesterol in HDL [Mass/volume] in Serum or Plasma 105 mg/dL 35-60 [facility] ([facility]) Cholesterol in LDL [Mass/volume] in Serum or Plasma by calcu lation 88 CALC 50-159 [facility] ([facility] ID Date Data Source [id number] 03/14/2020 09:00:00 AM EDT [facility] ([facility]) Name Value Range Interpretation Code Description Data Manda rce(s) Supporting Document(s) Urine Color Laboratory test result [facility] ([facility] Urine Appearance Laboratory test result [facility]) Specific gravity of Urine 1.010 1.005-1.030 [facility] ([facility]) Urine PH 6.5 units 5.0-9.0 [facility]) Urine Blood Laboratory test result [facility] ([facility]) Urine Protein Laboratory test result 0-0 [facility] ([facility]) Urine Leukocytes Laboratory test result Abnormal (applies to non-numeric results) [facility] ([facility]) Glucose [Presence] in Urine Laboratory test result [facility] ([facility]) Urine Nitrite Laboratory test result [facility] ([facility]) Bilirubin.total [Mass/volume] in Serum or Plasma Laboratory test resu lt [facility] ([facility]) Urine Ketone Laboratory test result [facility] ([facility]) Urine Urobilinogen 0.2 mg/dL 0.2-1.0 [facility] ([facility]) ID Date Data Source [id number] 03/14/2020 09:00:00 AM EDT [facility] ([facility]) Name Value Range Interpretation Code Description Data Manda rce(s) Supporting Document(s) Urine Creatinine 103.0 mg/dL 30.0-125.0 [facility] ([facility]) Microalbumin Urine 7.5 mg/L 1.3-20.0 [facility] ([facility]) Microalb/Creat Ratio 7.3 ug/mg 0.0-30.0 [facility] ([facility]) ID Date Data Source [id number] 03/14/2020 09:00:00 AM EDT [facility] ([facility]) Name Value Range Interpretation Code Description Data Manda rce(s) Supporting Document(s) Thyrotropin [Units/volume] in Serum or Plasma by Detec tion limit <= 0.05 mIU/L 1.07 uIU/mL 0.36-3.74 [facility] ([facility] ) ID Date Data Source [id number] 02/08/2020 08:04:00 AM EDT [facility] ([facility], ) Name Value Range Interpretation Code Description Data Manda rce(s) Supporting Document(s) Creatinine For GFR 1.70 mg/dL 0.55-1.30 Above high normal [facility] ([facility], ) Glomerular Filtration Rate 30.3 Below low normal [facility] ([facility]) <content>Units are mL/min/1.73 m2</content>
<content></content>
<content>Chronic Kidney Disease Staging per NKF:</content>
<content></content>
<content>Stage I & II GFR >=60 Normal to Mildly Decreased</content>
<content>Stage III GFR 30- 59 Moderately Decreased</content>
<content>Stage IV GFR 15-29 Severely Decreased</content>
<content>Stage V GFR <15 Very Little GFR Left</content>
<content>ESRD GFR <15 on CLINICAL STAFF EDUCATOR</content>
<content></content> ID Date Data Source [id number] 02/08/2020 08:04:00 AM EDT [facility] ([facility]) Name Value Range Interpretation Code Description Data Manda rce(s) Supporting Document(s) Urea nitrogen [Mass/volume] in Serum or Plasma 18 mg/dL 7 -18 Normal (applies to non-numeric results) [facility] ([facility]) ID Date Data Source [id number] 02/06/2020 12:56:00 PM EDT [facility] ([facility]) Name Value Range Interpretation Code Description Data Manda rce(s) Supporting Document(s) Surgical pathology study Laboratory test result [facility] ([facility]) FINAL DIAGNOSIS Appendiceal orifice polyp, polypectomy: Hyperplastic polyp, fragments. 02/07/20201124 CLINICAL DIAGNOSIS Colon polyps 02/07/2020730 GROSS DIAGNOSIS Received in formalin labeled "appendiceal orifice polyp" consists of fragments of tissue 0.5 x 0.5 x 0.2 cm in aggregate. All in one. -OA 02/07/2020730 Signed ARSALAN LANDEROS MD 02/07/20201124 ID Date Data Source [id number] 01/02/2020 08:35:00 AM EDT [facility] ([facility]) Name Value Range Interpretation Code Description Data Manda rce(s) Supporting Document(s) Magnesium 2.1 mg/dL 1.8-2.4 [facility] ([facility] [facility] Glucose [Mass/volume] in Serum or Plasma 80 mg/dL 74-99 [facility] ([facility]) 100-125 mg/dL PRE-DIABETES/FASTING >126 mg/dL DIABETES/FASTING Creatinine 1.8 mg/dL 0.6-1.3 [facility] ([facility]) Sodium [Moles/volume] in Serum or Plasma 141 meq/L 136-145 [facility] ([facility]) Urea nitrogen [Mass/volume] in Serum or Plasma 24 mg/dL 7-18 [facility] ([facility]) Chloride [Moles/volume] in Serum or Plasma 102 meq/L 98-107 [facility] ([facility]) Potassium [Moles/volume] in Serum or Plasma 4.3 meq/L 3.5-5.1 [facility] ([facility]) Glomerular filtration rate/1.73 sq M pre dicted among non-blacks [Volume Rate/Area] in Serum or Plasma by Creatinine-based formula (MDRD) 27 mL/min [facility] ([facility]) Carbon dioxide, total [Moles/volume] in Serum or Plasma 28 meq/L 21 -32 [facility] ([facility]) Calcium [Mass/volume] in Serum or Plasma 9.3 mg/dL 8.5-10.1 [facility] ([facility]) Glomerular filtration rate/1.73 sq M pre dicted among blacks [Volume Rate/Area] in Serum or Plasma by Creatinine-based formula (MDRD) 32 mL/min [facility] ([facility]) <content>CHRONIC KIDNEY DISEASE STAGING PER NKF</content>
<content></content>
<content>STAGE I & II GFR >= 60 NORMAL TO MILDLY DECREASED</content>
<content>STAGE III GFR 30-59 MODERATELY DECREASED</content>
<content>STAGE IV GFR 15-29 SEVERELY DECREASED</content>
<content>STAGE V GFR <15 VERY LITTLE GFR LEFT</content>
<content>ESRD GFR <15 ON CLINICAL STAFF EDUCATOR</content>
<content></content>
<content></content> Thyrotropin [Units/volume] in Serum or Plasma by Detec tion limit <= 0.05 mIU/L 1.85 uIU/mL 0.36-3.74 [facility] ([facility]) ID Date Data Source [id number] 01/02/2020 08:35:00 AM EDT [facility] ([facility]) Name Value Range Interpretation Code Description Data Manda rce(s) Supporting Document(s) Leukocytes [#/volume] in Blood by Automated count 7.1 x10*3/UL 4.1-10 .9 [facility] ([facility]) Hemoglobin [Mass/volume] in Blood 12.8 g/dL 12.0-18.0 [facility] ([facility]) Erythrocytes [#/volume] in Blood by Automated count 5.02 x10*6/UL 4.2 0-6.30 [facility] ([facility]) Hematocrit [Volume Fraction] of Blood by Automated count 38.8 % 3 7.0-51.0 [facility] ([facility]) MCV 77.2 fL 80.0-97.0 [facility] MCHC 33.0 g/dL 31.0-38.0 [facility] Erythrocyte distribution width [Ratio] by Automated count 17.0 % 11.6-13.7 [facility] ([facility]) MCH 25.5 pg 26.0-32.0 [facility] Platelets [#/volume] in Blood by Automated count 277 x10*3/UL 140-440 [facility] ([facility]) Lymphocytes/100 leukocytes in Blood by Automated count 9.5 % 10. 0-58.5 [facility] ([facility]) Platelet mean volume [Entitic volume] in Blood by Bhanu 8.0 FL 7.8-11.0 [facility] ([facility]) Lymph # 0.6 x10*3/UL 0.6-4.1 [facility] ([facility]) Neut % 88.5 % 37.0-92.0 [facility] Mid % 2.0 % 1.7-9.3 [facility] Mid # 0.2 x10*3/UL 0.1-0.6 [facility] ([facility]) Neutrophils [#/volume] in Semen by Manual count 6.3 x10*3/UL 2.0-7.8 [facility] ([facility]) ID Date Data Source [id number] 01/02/2020 08:35:00 AM EDT [facility] ([facility]) Name Value Range Interpretation Code Description Data Manda rce(s) Supporting Document(s) Thyrotropin [Units/volume] in Serum or Plasma by Detec tion limit <= 0.05 mIU/L 1.85 uIU/mL 0.36-3.74 [facility] ([facility] ) ID Date Data Source [id number] 01/02/2020 08:35:00 AM EDT [facility] ([facility]) Name Value Range Interpretation Code Description Data Manda rce(s) Supporting Document(s) Glucose [Mass/volume] in Serum or Plasma 80 mg/dL 74-99 [facility] ([facility]) 100-125 mg/dL PRE-DIABETES/FASTING >126 mg/dL DIABETES/FASTING Creatinine 1.8 mg/dL 0.6-1.3 [facility] ([facility]) Urea nitrogen [Mass/volume] in Serum or Plasma 24 mg/dL 7-18 [facility] ([facility]) Potassium [Moles/volume] in Serum or Plasma 4.3 meq/L 3.5-5.1 [facility] ([facility]) Chloride [Moles/volume] in Serum or Plasma 102 meq/L 98-107 [facility] ([facility]) Sodium [Moles/volume] in Serum or Plasma 141 meq/L 136-145 [facility] ([facility]) Calcium [Mass/volume] in Serum or Plasma 9.3 mg/dL 8.5-10.1 [facility] ([facility]) Carbon dioxide, total [Moles/volume] in Serum or Plasma 28 meq/L 21 -32 [facility] ([facility]) Glomerular filtration rate/1.73 sq M pre dicted among blacks [Volume Rate/Area] in Serum or Plasma by Creatinine-based formula (MDRD) 32 mL/min [facility] ([facility]) <content>CHRONIC KIDNEY DISEASE STAGING PER NKF</content>
<content></content>
<content>STAGE I & II GFR >= 60 NORMAL TO MILDLY DECREASED</content>
<content>STAGE III GFR 30-59 MODERATELY DECREASED</content>
<content>STAGE IV GFR 15-29 SEVERELY DECREASED</content>
<content>STAGE V GFR <15 VERY LITTLE GFR LEFT</content>
<content>ESRD GFR <15 ON CLINICAL STAFF EDUCATOR</content>
<content></content> Glomerular filtration rate/1.73 sq M pre dicted among non-blacks [Volume Rate/Area] in Serum or Plasma by Creatinine-based formula (MDRD) 27 mL/min [facility] ID Date Data Source [id number] 01/02/2020 08:35:00 AM EDT [facility] ([facility]) Name Value Range Interpretation Code Description Data Manda rce(s) Supporting Document(s) Magnesium 2.1 mg/dL 1.8-2.4 [facility] ([facility]) ID Date Data Source [id number] 01/02/2020 08:35:00 AM EDT [facility] ([facility]) Name Value Range Interpretation Code Description Data Manda rce(s) Supporting Document(s) Leukocytes [#/volume] in Blood by Automated count 7.1 x10*3/UL 4.1-10 .9 [facility] ([facility]) Erythrocytes [#/volume] in Blood by Automated count 5.02 x10*6/UL 4.2 0-6.30 [facility] ([facility]) Hemoglobin [Mass/volume] in Blood 12.8 g/dL 12.0-18.0 [facility] ([facility]) MCV 77.2 fL 80.0-97.0 [facility] ([facility]) Hematocrit [Volume Fraction] of Blood by Automated count 38.8 % 3 7.0-51.0 [facility] ([facility]) MCH 25.5 pg 26.0-32.0 [facility]) MCHC 33.0 g/dL 31.0-38.0 [facility] ([facility]) Erythrocyte distribution width [Ratio] by Automated count 17.0 % 11.6-13.7 [facility] ([facility]) Platelets [#/volume] in Blood by Automated count 277 x10*3/UL 140-440 [facility] ([facility]) MPV 8.0 FL 7.8-11.0 [facility] ([facility]) Lymph % 9.5 % 10.0-58.5 [facility] ([facility]) Mid % 2.0 % 1.7-9.3 [facility] ([facility]) Lymph # 0.6 x10*3/UL 0.6-4.1 [facility] ([facility]) Neut % 88.5 % 37.0-92.0 [facility] ([facility]) Neut # 6.3 x10*3/UL 2.0-7.8 [facility] ([facility]) Mid # 0.2 x10*3/UL 0.1-0.6 [facility] ([facility]) ID Date Data Source [id number] 11/24/2019 01:19:00 PM EDT [facility] ([facility]) Name Value Range Interpretation Code Description Data Manda rce(s) Supporting Document(s) Glucose [Mass/volume] in Serum or Plasma 111 mg/dL 74-99 [facility] ([facility]) 100-125 mg/dL PRE-DIABETES/FASTING >126 mg/dL DIABETES/FASTING Urea nitrogen [Mass/volume] in Serum or Plasma 19 mg/dL 7-18 [facility] ([facility]) Sodium [Moles/volume] in Serum or Plasma 139 meq/L 136-145 [facility] ([facility]) Creatinine 1.5 mg/dL 0.6-1.3 [facility] ([facility]) Chloride [Moles/volume] in Serum or Plasma 101 meq/L 98-107 [facility] ([facility]) Calcium [Mass/volume] in Serum or Plasma 8.9 mg/dL 8.5-10.1 [facility] ([facility]) Carbon dioxide, total [Moles/volume] in Serum or Plasma 30 meq/L 21 -32 [facility] ([facility]) Potassium [Moles/volume] in Serum or Plasma 4.1 meq/L 3.5-5.1 [facility] ([facility]) Glomerular filtration rate/1.73 sq M pre dicted among non-blacks [Volume Rate/Area] in Serum or Plasma by Creatinine-based formula (MDRD) 33 mL/min [facility] ([facility]) Glomerular filtration rate/1.73 sq M pre dicted among blacks [Volume Rate/Area] in Serum or Plasma by Creatinine-based formula (MDRD) 40 mL/min [facility] <content>CHRONIC KIDNEY DISEASE STAGING PER NKF</content>
<content></content>
<content>STAGE I & II GFR >= 60 NORMAL TO MILDLY DECREASED</content>
<content>STAGE III GFR 30-59 MODERATELY DECREASED</content>
<content>STAGE IV GFR 15-29 SEVERELY DECREASED</content>
<content>STAGE V GFR <15 VERY LITTLE GFR LEFT</content>
<content>ESRD GFR <15 ON CLINICAL STAFF EDUCATOR</content>
<content></content> ID Date Data Source [id number] 11/24/2019 01:19:00 PM EDT [facility] Name Value Range Interpretation Code Description Data Manda rce(s) Supporting Document(s) Leukocytes [#/volume] in Blood by Automated count 7.9 x10*3/UL 4.1-10 .9 [facility] ([facility]) Hemoglobin [Mass/volume] in Blood 11.5 g/dL 12.0-18.0 [facility] ([facility]) NOTE: RESULT VERIFIED. Erythrocytes [#/volume] in Blood by Automated count 4.69 x10*6/UL 4.2 0-6.30 [facility] ([facility]) MCV 76.1 fL 80.0-97.0 [facility]) MCH 24.6 pg 26.0-32.0 [facility] ([facility]) Hematocrit [Volume Fraction] of Blood by Automated count 35.7 % 3 7.0-51.0 [facility] ([facility]) MCHC 32.3 g/dL 31.0-38.0 [facility] ([facility]) Erythrocyte distribution width [Ratio] by Automated count 17.6 % 11.6-13.7 [facility] ([facility]) MPV 7.8 FL 7.8-11.0 [facility] ([facility]) Platelets [#/volume] in Blood by Automated count 278 x10*3/UL 140-440 [facility] ([facility]) Lymph % 12.0 % 10.0-58.5 [facility] ([facility]) Mid % 2.9 % 1.7-9.3 [facility] ([facility]) Neut % 85.1 % 37.0-92.0 [facility] ([facility]) Lymph # 0.9 x10*3/UL 0.6-4.1 [facility] ([facility]) Neut # 6.7 x10*3/UL 2.0-7.8 [facility] ([facility]) Mid # 0.3 x10*3/UL 0.1-0.6 [facility] ([facility]) ID Date Data Source [id number] 11/02/2019 01:38:00 PM EDT [facility] ([facility]) Name Value Range Interpretation Code Description Data Manda rce(s) Supporting Document(s) Leukocytes [#/volume] in Blood by Automated count 7.9 x10*3/UL 4.1-10 .9 [facility] ([facility]) Erythrocytes [#/volume] in Blood by Automated count 4.41 x10*6/UL 4.2 0-6.30 [facility] ([facility]) MCH 24.6 pg 26.0-32.0 [facility] ([facility]) Hematocrit [Volume Fraction] of Blood by Automated count 32.7 % 3 7.0-51.0 [facility] ([facility]) MCV 74.1 fL 80.0-97.0 [facility] ([facility]) Hemoglobin [Mass/volume] in Blood 10.8 g/dL 12.0-18.0 [facility] ([facility]) NOTE: RESULT VERIFIED. MCHC 33.1 g/dL 31.0-38.0 [facility] ([facility]) Platelets [#/volume] in Blood by Automated count 326 x10*3/UL 140-440 [facility] Erythrocyte distribution width [Ratio] by Automated count 16.3 % 11.6-13.7 [facility] ([facility]) Lymph % 11.0 % 10.0-58.5 [facility] Mid % 3.1 % 1.7-9.3 [facility] ([facility]) MPV 8.1 FL 7.8-11.0 [facility] ([facility]) Neut % 85.9 % 37.0-92.0 [facility] ([facility]) Lymph # 0.8 x10*3/UL 0.6-4.1 [facility] ([facility]) Mid # 0.3 x10*3/UL 0.1-0.6 [facility] ([facility]) Neut # 6.8 x10*3/UL 2.0-7.8 [facility] ([facility]) ID Date Data Source [id number] 10/27/2019 10:27:00 AM EDT [facility] ([facility], ) Name Value Range Interpretation Code Description Data Manda rce(s) Supporting Document(s) [facility] pathology study [facility] FINAL DIAGNOSIS A - Gastric polyp, polypectomy: Hyperplastic polyp with eroded surface and granulation tissue formation. B - Polyp @ appendiceal orifice, biopsy: Sessile serrated polyp fragments. 10/28/2019 - 1522 CLINICAL DIAGNOSIS Blood in stool 10/28/2019 - 0718 GROSS DIAGNOSIS A - Received in formalin labeled "biopsy gastric polyp" is a 0.7 x 0.2 x 0.1 cm aggregate of mucosal fragments. All in one. B - Received in formalin labeled "biopsy polyp @ appendiceal orifice" is a 0.3 x 0.2 x 0.2 cm aggregate of mucosal fragments. All in one. - 10/28/2019 - 18 Signed Sherry Patel MD 10/28/2019 1540 ID Date Data Source [id number] 10/26/2019 01:34:00 PM EDT [facility] ([facility]) Name Value Range Interpretation Code Description Data Manda rce(s) Supporting Document(s) Urea nitrogen [Mass/volume] in Serum or Plasma 22 mg/dL 7-18 [facility] ([facility]) Glucose [Mass/volume] in Serum or Plasma 103 mg/dL 74-99 [facility] ([facility]) 100-125 mg/dL PRE-DIABETES/FASTING >126 mg/dL DIABETES/FASTING Creatinine 1.7 mg/dL 0.6-1.3 [facility] ([facility]) Sodium [Moles/volume] in Serum or Plasma 132 meq/L 136-145 [facility] ([facility]) Potassium [Moles/volume] in Serum or Plasma 4.6 meq/L 3.5-5.1 [facility] ([facility]) Carbon dioxide, total [Moles/volume] in Serum or Plasma 29 meq/L 21 -32 [facility] ([facility]) Chloride [Moles/volume] in Serum or Plasma 95 meq/L 98-107 [facility] ([facility]) Alkaline phosphatase isoenzyme [Units/volume] in Serum or Pl asma 114 mg/dL 46-116 [facility] ([facility]) Calcium [Mass/volume] in Serum or Plasma 9.3 mg/dL 8.5-10.1 [facility] ([facility]) Total Bilirubin 0.5 mg/dL 0.2-1.0 [facility] ([facility]) Aspartate aminotransferase [Enzymatic activity/volume] in Serum or Plasma 28 U/L 15-37 [facility] ([facility] ) Albumin [Mass/volume] in Serum or Plasma 3.7 g/dL 3.4-5.0 [facility] ([facility]) Alanine aminotransferase [Enzymatic activity/volume] in Seru m or Plasma 33 U/L 12-78 [facility] Proteinase 3 Ab [Units/volume] in Serum 7.5 g/dL 6.4-8.2 [facility] A/G Ratio 0.97 CALC 1.00-1.90 [facility] ([facility]) Glomerular filtration rate/1.73 sq M pre dicted among blacks [Volume Rate/Area] in Serum or Plasma by Creatinine-based formula (MDRD) 34 mL/min [facility] ([facility]) <content>CHRONIC KIDNEY DISEASE STAGING PER NKF</content>
<content></content>
<content>STAGE I & II GFR >= 60 NORMAL TO MILDLY DECREASED</content>
<content>STAGE III GFR 30-59 MODERATELY DECREASED</content>
<content>STAGE IV GFR 15-29 SEVERELY DECREASED</content>
<content>STAGE V GFR <15 VERY LITTLE GFR LEFT</content>
<content>ESRD GFR <15 ON CLINICAL STAFF EDUCATOR</content>
<content></content> Glomerular filtration rate/1.73 sq M pre dicted among non-blacks [Volume Rate/Area] in Serum or Plasma by Creatinine-based formula (MDRD) 28 mL/min [facility] ([facility]) ID Date Data Source [id number] 10/26/2019 01:34:00 PM EDT [facility] ([facility]) Name Value Range Interpretation Code Description Data Manda rce(s) Supporting Document(s) Natriuretic peptide B [Mass/volume] in Serum or Plasma 221.0 pg/mL 0.0-100.0 [facility] Magnesium 2.2 mg/dL 1.8-2.4 [facility] ([facility]) ID Date Data Source [id number] 10/26/2019 01:34:00 PM EDT [facility] Name Value Range Interpretation Code Description Data Manda rce(s) Supporting Document(s) Leukocytes [#/volume] in Blood by Automated count 8.7 x10*3/UL 4.1-10 .9 [facility] ([facility]) Erythrocytes [#/volume] in Blood by Automated count 4.59 x10*6/UL 4.2 0-6.30 [facility] ([facility]) Hemoglobin [Mass/volume] in Blood 11.1 g/dL 12.0-18.0 [facility] ([facility]) Hematocrit [Volume Fraction] of Blood by Automated count 33.7 % 3 7.0-51.0 [facility] ([facility]) MCH 24.1 pg 26.0-32.0 [facility] MCHC 32.9 g/dL 31.0-38.0 [facility] MCV 73.4 fL 80.0-97.0 [facility] ([facility]) MPV 7.4 FL 7.8-11.0 [facility] Platelets [#/volume] in Blood by Automated count 307 x10*3/UL 140-440 [facility] ([facility]) Erythrocyte distribution width [Ratio] by Automated count 16.0 % 11.6-13.7 [facility] ([facility]) Neut % 86.1 % 37.0-92.0 [facility] Lymph # 0.9 x10*3/UL 0.6-4.1 [facility] ([facility]) Mid % 2.9 % 1.7-9.3 [facility] Lymph % 11.0 % 10.0-58.5 [facility] Neut # 7.5 x10*3/UL 2.0-7.8 [facility] ([facility]) Mid # 0.3 x10*3/UL 0.1-0.6 [facility] ([facility]) ID Date Data Source [id number] 10/24/2019 11:15:00 AM EDT [facility] Name Value Range Interpretation Code Description Data Manda rce(s) Supporting Document(s) SARS CORONAVIRUS 2 RNA [facility] This lab was ordered by [facility] and reported by [facility]. ID Date Data Source [id number] 10/19/2019 09:40:00 AM EDT [facility] ([facility]) Name Value Range Interpretation Code Description Data Manda rce(s) Supporting Document(s) Leukocytes [#/volume] in Blood by Automated count 7.5 x10*3/UL 4.1-10 .9 [facility] ([facility]) Erythrocytes [#/volume] in Blood by Automated count 4.31 x10*6/UL 4.2 0-6.30 [facility] ([facility]) Hematocrit [Volume Fraction] of Blood by Automated count 31.7 % 3 7.0-51.0 [facility] ([facility]) MCV 73.6 fL 80.0-97.0 [facility] ([facility]) Hemoglobin [Mass/volume] in Blood 10.4 g/dL 12.0-18.0 [facility] ([facility]) NOTE: RESULT VERIFIED. MCH 24.2 pg 26.0-32.0 [facility] ([facility]) Erythrocyte distribution width [Ratio] by Automated count 15.6 % 11.6-13.7 [facility] ([facility]) MCHC 32.9 g/dL 31.0-38.0 [facility] ([facility]) MPV 8.0 FL 7.8-11.0 [facility] ([facility]) Platelets [#/volume] in Blood by Automated count 299 x10*3/UL 140-440 [facility] ([facility]) Lymph % 11.6 % 10.0-58.5 [facility] ([facility]) Neut % 85.6 % 37.0-92.0 [facility] ([facility] Lymph # 0.8 x10*3/UL 0.6-4.1 [facility] ([facility]) Mid % 2.8 % 1.7-9.3 [facility] Mid # 0.3 x10*3/UL 0.1-0.6 [facility] ([facility]) Neut # 6.4 x10*3/UL 2.0-7.8 [facility] ([facility]) ID Date Data Source [id number] 10/19/2019 09:40:00 AM EDT [facility] ([facility]) Name Value Range Interpretation Code Description Data Manda rce(s) Supporting Document(s) Glucose [Mass/volume] in Serum or Plasma 109 mg/dL 74-99 [facility] ([facility]) 100-125 mg/dL PRE-DIABETES/FASTING >126 mg/dL DIABETES/FASTING Creatinine 1.5 mg/dL 0.6-1.3 [facility] ([facility]) Sodium [Moles/volume] in Serum or Plasma 140 meq/L 136-145 [facility] ([facility]) Urea nitrogen [Mass/volume] in Serum or Plasma 21 mg/dL 7-18 [facility] ([facility]) Carbon dioxide, total [Moles/volume] in Serum or Plasma 27 meq/L 21 -32 [facility] ([facility]) Potassium [Moles/volume] in Serum or Plasma 4.4 meq/L 3.5-5.1 [facility] ([facility]) Chloride [Moles/volume] in Serum or Plasma 103 meq/L 98-107 [facility] ([facility]) Calcium [Mass/volume] in Serum or Plasma 8.6 mg/dL 8.5-10.1 [facility] ([facility]) Glomerular filtration rate/1.73 sq M pre dicted among blacks [Volume Rate/Area] in Serum or Plasma by Creatinine-based formula (MDRD) 40 mL/min [facility] <content>CHRONIC KIDNEY DISEASE STAGING PER NKF</content>
<content></content>
<content>STAGE I & II GFR >= 60 NORMAL TO MILDLY DECREASED</content>
<content>STAGE III GFR 30-59 MODERATELY DECREASED</content>
<content>STAGE IV GFR 15-29 SEVERELY DECREASED</content>
<content>STAGE V GFR <15 VERY LITTLE GFR LEFT</content>
<content>ESRD GFR <15 ON CLINICAL STAFF EDUCATOR</content>
<content></content> Glomerular filtration rate/1.73 sq M pre dicted among non-blacks [Volume Rate/Area] in Serum or Plasma by Creatinine-based formula (MDRD) 33 mL/min [facility] ([facility]) ID Date Data Source [id number] 10/11/2019 08:02:00 AM EDT [facility] ([facility]) Name Value Range Interpretation Code Description Data Manda rce(s) Supporting Document(s) Urea nitrogen [Mass/volume] in Serum or Plasma 19 mg/dL 7-18 [facility] ([facility]) Creatinine 1.7 mg/dL 0.6-1.3 [facility] ([facility]) Glucose [Mass/volume] in Serum or Plasma 120 mg/dL 74-99 [facility] ([facility]) 100-125 mg/dL PRE-DIABETES/FASTING >126 mg/dL DIABETES/FASTING Potassium [Moles/volume] in Serum or Plasma 4.5 meq/L 3.5-5.1 [facility] ([facility]) Sodium [Moles/volume] in Serum or Plasma 140 meq/L 136-145 [facility] ([facility]) Chloride [Moles/volume] in Serum or Plasma 102 meq/L 98-107 [facility] ([facility]) Calcium [Mass/volume] in Serum or Plasma 9.5 mg/dL 8.5-10.1 [facility] ([facility]) Glomerular filtration rate/1.73 sq M pre dicted among blacks [Volume Rate/Area] in Serum or Plasma by Creatinine-based formula (MDRD) 34 mL/min [facility] <content>CHRONIC KIDNEY DISEASE STAGING PER NKF</content>
<content></content>
<content>STAGE I & II GFR >= 60 NORMAL TO MILDLY DECREASED</content>
<content>STAGE III GFR 30-59 MODERATELY DECREASED</content>
<content>STAGE IV GFR 15-29 SEVERELY DECREASED</content>
<content>STAGE V GFR <15 VERY LITTLE GFR LEFT</content>
<content>ESRD GFR <15 ON CLINICAL STAFF EDUCATOR</content>
<content></content> Glomerular filtration rate/1.73 sq M pre dicted among non-blacks [Volume Rate/Area] in Serum or Plasma by Creatinine-based formula (MDRD) 28 mL/min [facility] ([facility]) Carbon dioxide, total [Moles/volume] in Serum or Plasma 29 meq/L 21 -32 [facility] ([facility]) ID Date Data Source [id number] 10/11/2019 08:02:00 AM EDT [facility] Name Value Range Interpretation Code Description Data Manda rce(s) Supporting Document(s) Erythrocytes [#/volume] in Blood by Automated count 4.48 x10*6/UL 4.2 0-6.30 [facility] ([facility] Leukocytes [#/volume] in Blood by Automated count 8.7 x10*3/UL 4.1-10 .9 [facility] ([facility] MCV 74.0 fL 80.0-97.0 [facility] ([facility]) Hematocrit [Volume Fraction] of Blood by Automated count 33.2 % 3 7.0-51.0 [facility] Hemoglobin [Mass/volume] in Blood 11.1 g/dL 12.0-18.0 [facility] ([facility]) NOTE: RESULT VERIFIED. MCHC 33.6 g/dL 31.0-38.0 [facility] ([facility] Erythrocyte distribution width [Ratio] by Automated count 15.7 % 11.6-13.7 [facility] ([facility]) MCH 24.8 pg 26.0-32.0 [facility] ([facility] [place]) Lymph % 7.8 % 10.0-58.5 [facility] ([facility] [place]) Platelets [#/volume] in Blood by Automated count 325 x10*3/UL 140-440 [facility] ([facility]) MPV 7.7 FL 7.8-11.0 [facility] ([facility] [place]) Mid % 10.6 % 1.7-9.3 [facility] ([facility] [place]) Lymph # 0.6 x10*3/UL 0.6-4.1 [facility] ([facility]) Mid # 1.0 x10*3/UL 0.1-0.6 [facility] ([facility]) Neut % 81.6 % 37.0-92.0 [facility] Neut # 7.1 x10*3/UL 2.0-7.8 [facility] ([facility]) ID Date Data Source [id number] 10/05/2019 10:29:00 AM EDT [facility] ([facility]) Name Value Range Interpretation Code Description Data Manda rce(s) Supporting Document(s) Leukocytes [#/volume] in Blood by Automated count 8.6 x10*3/UL 4.1-10 .9 [facility] ([facility]) Erythrocytes [#/volume] in Blood by Automated count 4.35 x10*6/UL 4.2 0-6.30 [facility] ([facility]) Hemoglobin [Mass/volume] in Blood 10.8 g/dL 12.0-18.0 [facility] ([facility]) NOTE: RESULT VERIFIED. MCV 73.5 fL 80.0-97.0 [facility] ([facility] [place]) Hematocrit [Volume Fraction] of Blood by Automated count 32.0 % 3 7.0-51.0 [facility] ([facility]) Erythrocyte distribution width [Ratio] by Automated count 15.4 % 11.6-13.7 [facility] ([facility]) MCHC 33.8 g/dL 31.0-38.0 [facility] ([facility]) MCH 24.8 pg 26.0-32.0 [facility] ([facility] Lymph % 9.9 % 10.0-58.5 [facility] ([facility]) MPV 7.8 FL 7.8-11.0 [facility] ([facility]) Platelets [#/volume] in Blood by Automated count 295 x10*3/UL 140-440 [facility] ([facility]) Neut % 87.0 % 37.0-92.0 [facility] Lymph # 0.8 x10*3/UL 0.6-4.1 [facility] ([facility]) Mid % 3.1 % 1.7-9.3 [facility] Mid # 0.3 x10*3/UL 0.1-0.6 [facility] ([facility]) Neut # 7.5 x10*3/UL 2.0-7.8 [facility] ([facility]) ID Date Data Source [id number] 09/07/2019 01:40:00 PM EDT [facility] ([facility]) Name Value Range Interpretation Code Description Data Manda rce(s) Supporting Document(s) Glucose [Mass/volume] in Serum or Plasma 94 mg/dL 74-99 [facility] ([facility]) 100-125 mg/dL PRE-DIABETES/FASTING >126 mg/dL DIABETES/FASTING Urea nitrogen [Mass/volume] in Serum or Plasma 21 mg/dL 7-18 [facility] ([facility]) Creatinine 1.3 mg/dL 0.6-1.3 [facility] ([facility]) Chloride [Moles/volume] in Serum or Plasma 101 meq/L 98-107 [facility] ([facility]) Potassium [Moles/volume] in Serum or Plasma 4.3 meq/L 3.5-5.1 [facility] ([facility]) Sodium [Moles/volume] in Serum or Plasma 139 meq/L 136-145 [facility] ([facility]) Glomerular filtration rate/1.73 sq M pre dicted among non-blacks [Volume Rate/Area] in Serum or Plasma by Creatinine-based formula (MDRD) 39 mL/min [facility] ([facility]) Carbon dioxide, total [Moles/volume] in Serum or Plasma 32 meq/L 21 -32 [facility] ([facility]) Calcium [Mass/volume] in Serum or Plasma 9.3 mg/dL 8.5-10.1 [facility] ([facility]) Glomerular filtration rate/1.73 sq M pre dicted among blacks [Volume Rate/Area] in Serum or Plasma by Creatinine-based formula (MDRD) 47 mL/min [facility] ([facility]) <content>CHRONIC KIDNEY DISEASE STAGING PER NKF</content>
<content></content>
<content>STAGE I & II GFR >= 60 NORMAL TO MILDLY DECREASED</content>
<content>STAGE III GFR 30-59 MODERATELY DECREASED</content>
<content>STAGE IV GFR 15-29 SEVERELY DECREASED</content>
<content>STAGE V GFR <15 VERY LITTLE GFR LEFT</content>
<content>ESRD GFR <15 ON CLINICAL STAFF EDUCATOR</content>
<content></content>
<content></content> ID Date Data Source [id number] 09/07/2019 01:40:00 PM EDT [facility] ([facility]) Name Value Range Interpretation Code Description Data Manda rce(s) Supporting Document(s) Leukocytes [#/volume] in Blood by Automated count 6.8 x10*3/UL 4.1-10 .9 [facility] ([facility]) Hematocrit [Volume Fraction] of Blood by Automated count 35.1 % 3 7.0-51.0 [facility] ([facility]) Erythrocytes [#/volume] in Blood by Automated count 4.63 x10*6/UL 4.2 0-6.30 [facility] ([facility]) Hemoglobin [Mass/volume] in Blood 11.6 g/dL 12.0-18.0 [facility] ([facility]) MCV 75.7 fL 80.0-97.0 [facility] ([facility]) MCH 25.0 pg 26.0-32.0 [facility] ([facility]) Erythrocyte distribution width [Ratio] by Automated count 15.3 % 11.6-13.7 [facility] ([facility]) MCHC 33.0 g/dL 31.0-38.0 [facility] ([facility]) Platelets [#/volume] in Blood by Automated count 303 x10*3/UL 140-440 [facility] ([facility]) Platelet mean volume [Entitic volume] in Blood by Bhanu 7.9 FL 7.8-11.0 [facility] ([facility]) Lymphocytes/100 leukocytes in Blood by Automated count 11.6 % 10. 0-58.5 [facility] ([facility]) Mid % 3.2 % 1.7-9.3 [facility] ([facility]) Neut % 85.2 % 37.0-92.0 [facility] ([facility] Lymph # 0.7 x10*3/UL 0.6-4.1 [facility] ([facility]) Mid # 0.3 x10*3/UL 0.1-0.6 [facility] ([facility]) Neutrophils [#/volume] in Semen by Manual count 5.8 x10*3/UL 2.0-7.8 [facility] ([facility]) ID Date Data Source [id number] 09/07/2019 01:40:00 PM EDT [facility] ([facility]) Name Value Range Interpretation Code Description Data Manda rce(s) Supporting Document(s) Glucose [Mass/volume] in Serum or Plasma 94 mg/dL 74-99 [facility] ([facility]) 100-125 mg/dL PRE-DIABETES/FASTING >126 mg/dL DIABETES/FASTING Urea nitrogen [Mass/volume] in Serum or Plasma 21 mg/dL 7-18 [facility] ([facility]) Potassium [Moles/volume] in Serum or Plasma 4.3 meq/L 3.5-5.1 [facility] ([facility]) Creatinine 1.3 mg/dL 0.6-1.3 [facility] Sodium [Moles/volume] in Serum or Plasma 139 meq/L 136-145 [facility] ([facility]) Carbon dioxide, total [Moles/volume] in Serum or Plasma 32 meq/L 21 -32 [facility] ([facility]) Chloride [Moles/volume] in Serum or Plasma 101 meq/L 98-107 [facility] ([facility]) Glomerular filtration rate/1.73 sq M pre dicted among non-blacks [Volume Rate/Area] in Serum or Plasma by Creatinine-based formula (MDRD) 39 mL/min [facility] ([facility]) Calcium [Mass/volume] in Serum or Plasma 9.3 mg/dL 8.5-10.1 [facility] ([facility]) Glomerular filtration rate/1.73 sq M pre dicted among blacks [Volume Rate/Area] in Serum or Plasma by Creatinine-based formula (MDRD) 47 mL/min [facility] <content>CHRONIC KIDNEY DISEASE STAGING PER NKF</content>
<content></content>
<content>STAGE I & II GFR >= 60 NORMAL TO MILDLY DECREASED</content>
<content>STAGE III GFR 30-59 MODERATELY DECREASED</content>
<content>STAGE IV GFR 15-29 SEVERELY DECREASED</content>
<content>STAGE V GFR <15 VERY LITTLE GFR LEFT</content>
<content>ESRD GFR <15 ON CLINICAL STAFF EDUCATOR</content>
<content></content> ID Date Data Source [id number] 09/07/2019 01:40:00 PM EDT [facility] Name Value Range Interpretation Code Description Data Manda rce(s) Supporting Document(s) Leukocytes [#/volume] in Blood by Automated count 6.8 x10*3/UL 4.1-10 .9 [facility] ([facility]) Erythrocytes [#/volume] in Blood by Automated count 4.63 x10*6/UL 4.2 0-6.30 [facility] ([facility]) MCV 75.7 fL 80.0-97.0 [facility] ([facility]) Hematocrit [Volume Fraction] of Blood by Automated count 35.1 % 3 7.0-51.0 [facility] ([facility]) Hemoglobin [Mass/volume] in Blood 11.6 g/dL 12.0-18.0 [facility] ([facility]) MCH 25.0 pg 26.0-32.0 [facility] ([facility]) MCHC 33.0 g/dL 31.0-38.0 [facility] ([facility] [place]) MPV 7.9 FL 7.8-11.0 [facility] ([facility] [place]) Erythrocyte distribution width [Ratio] by Automated count 15.3 % 11.6-13.7 [facility] ([facility]) Platelets [#/volume] in Blood by Automated count 303 x10*3/UL 140-440 [facility] ([facility]) Neut % 85.2 % 37.0-92.0 [facility] ([facility] Lymph % 11.6 % 10.0-58.5 [facility] ([facility] Mid % 3.2 % 1.7-9.3 [facility] Lymph # 0.7 x10*3/UL 0.6-4.1 [facility] ([facility]) Mid # 0.3 x10*3/UL 0.1-0.6 [facility] ([facility]) Neut # 5.8 x10*3/UL 2.0-7.8 [facility] ([facility]) ID Date Data Source [id number] 08/23/2019 08:58:00 AM EDT [facility] ([facility]) Name Value Range Interpretation Code Description Data Manda rce(s) Supporting Document(s) Laboratory test finding (navigational concept) Laboratory test result MED[facility] ([facility]) Negative results do not preclude influen za or RSV virus infection and should not be used as the sole basis for treatment or other patient management decisions. Laboratory test finding (navigational concept) Laboratory test result MED[facility] ([facility]) Negative results do not preclude influen za or RSV virus infection and should not be used as the sole basis for treatment or other patient management decisions. ID Date Data Source [id number] 08/23/2019 08:58:00 AM EDT MED[facility] ([facility]) Name Value Range Interpretation Code Description Data Manda rce(s) Supporting Document(s) Influenza A Amplification Laboratory test result MED[facility] ([facility]) Negative results do not preclude influen za or RSV virus infection and should not be used as the sole basis for treatment or other patient management decisions. Influenza B Amplification Laboratory test result MED[facility] ([facility]) Negative results do not preclude influen za or RSV virus infection and should not be used as the sole basis for treatment or other patient management decisions. ID Date Data Source [id number] 08/23/2019 07:37:00 AM EDT MED[facility] ([facility]) Name Value Range Interpretation Code Description Data Manda rce(s) Supporting Document(s) Creatinine 1.4 mg/dL 0.6-1.3 [facility] ([facility]) Urea nitrogen [Mass/volume] in Serum or Plasma 18 mg/dL 7-18 [facility] ([facility]) Glucose [Mass/volume] in Serum or Plasma 106 mg/dL 74-99 [facility] ([facility]) 100-125 mg/dL PRE-DIABETES/FASTING >126 mg/dL DIABETES/FASTING Chloride [Moles/volume] in Serum or Plasma 101 meq/L 98-107 [facility] ([facility]) Potassium [Moles/volume] in Serum or Plasma 4.2 meq/L 3.5-5.1 [facility] ([facility]) Sodium [Moles/volume] in Serum or Plasma 141 meq/L 136-145 [facility] ([facility]) Carbon dioxide, total [Moles/volume] in Serum or Plasma 30 meq/L 21 -32 [facility] ([facility]) Total Bilirubin 0.4 mg/dL 0.2-1.0 [facility] ([facility]) Calcium [Mass/volume] in Serum or Plasma 9.1 mg/dL 8.5-10.1 [facility] ([facility]) Alkaline phosphatase isoenzyme [Units/volume] in Serum or Pl asma 97 mg/dL 46-116 [facility] ([facility]) Aspartate aminotransferase [Enzymatic activity/volume] in Serum or Plasma 36 U/L 15-37 [facility] ([facility]) Alanine aminotransferase [Enzymatic activity/volume] in Seru m or Plasma 49 U/L 12-78 [facility] ([facility]) Proteinase 3 Ab [Units/volume] in Serum 6.6 g/dL 6.4-8.2 [facility] ([facility]) Albumin [Mass/volume] in Serum or Plasma 3.8 g/dL 3.4-5.0 [facility] ([facility]) A/G Ratio 1.36 CALC 1.00-1.90 MED[facility] ([facility]) Glomerular filtration rate/1.73 sq M pre dicted among blacks [Volume Rate/Area] in Serum or Plasma by Creatinine-based formula (MDRD) 43 mL/min [facility] ([facility]) <content>CHRONIC KIDNEY DISEASE STAGING PER NKF</content>
<content></content>
<content>STAGE I & II GFR >= 60 NORMAL TO MILDLY DECREASED</content>
<content>STAGE III GFR 30-59 MODERATELY DECREASED</content>
<content>STAGE IV GFR 15-29 SEVERELY DECREASED</content>
<content>STAGE V GFR <15 VERY LITTLE GFR LEFT</content>
<content>ESRD GFR <15 ON CLINICAL STAFF EDUCATOR</content>
<content></content>
<content></content> Glomerular filtration rate/1.73 sq M pre dicted among non-blacks [Volume Rate/Area] in Serum or Plasma by Creatinine-based formula (MDRD) 36 mL/min [facility] [place] Date Data Source [id number] 08/23/2019 07:37:00 AM EDT [facility] Name Value Range Interpretation Code Description Data Manda rce(s) Supporting Document(s) Leukocytes [#/volume] in Blood by Automated count 10.4 x10*3/UL 4.1-1 0.9 [facility] Erythrocytes [#/volume] in Blood by Automated count 4.53 x10*6/UL 4.2 0-6.30 [facility] MCH 25.4 pg 26.0-32.0 [facility]) Hematocrit [Volume Fraction] of Blood by Automated count 34.7 % 3 7.0-51.0 [facility] ([facility]) Hemoglobin [Mass/volume] in Blood 11.5 g/dL 12.0-18.0 [facility] MCV 76.5 fL 80.0-97.0 [facility]) Erythrocyte distribution width [Ratio] by Automated count 14.1 % 11.6-13.7 [facility] ([facility]) MCHC 33.2 g/dL 31.0-38.0 [facility] ([facility]) Platelets [#/volume] in Blood by Automated count 252 x10*3/UL 140-440 [facility] ([facility]) Lymphocytes/100 leukocytes in Blood by Automated count 4.4 % 10. 0-58.5 [facility] ([facility]) Platelet mean volume [Entitic volume] in Blood by Bhanu 8.2 FL 7.8-11.0 [facility] ([facility]) Mid % 6.7 % 1.7-9.3 [facility] ([facility]) Neut % 88.9 % 37.0-92.0 [facility] ([facility]) Lymph # 0.4 x10*3/UL 0.6-4.1 [facility] ([facility]) Mid # 0.8 x10*3/UL 0.1-0.6 [facility] ([facility]) Neutrophils [#/volume] in Semen by Manual count 9.2 x10*3/UL 2.0-7.8 [facility] ([facility]) ID Date Data Source [id number] 08/23/2019 07:37:00 AM EDT [facility] ([facility]) Name Value Range Interpretation Code Description Data Manda rce(s) Supporting Document(s) Erythrocytes [#/volume] in Blood by Automated count 4.53 x10*6/UL 4.2 0-6.30 [facility] ([facility]) Hemoglobin [Mass/volume] in Blood 11.5 g/dL 12.0-18.0 [facility] ([facility]) Leukocytes [#/volume] in Blood by Automated count 10.4 x10*3/UL 4.1-1 0.9 [facility] ([facility]) Hematocrit [Volume Fraction] of Blood by Automated count 34.7 % 3 7.0-51.0 [facility] ([facility]) MCV 76.5 fL 80.0-97.0 [facility] ([facility]) MCH 25.4 pg 26.0-32.0 [facility] ([facility]) MCHC 33.2 g/dL 31.0-38.0 [facility]) Platelets [#/volume] in Blood by Automated count 252 x10*3/UL 140-440 [facility] ([facility]) MPV 8.2 FL 7.8-11.0 [facility] ([facility]) Erythrocyte distribution width [Ratio] by Automated count 14.1 % 11.6-13.7 [facility] ([facility]) Lymph % 4.4 % 10.0-58.5 [facility] ([facility] Mid % 6.7 % 1.7-9.3 [facility] ([facility] Lymph # 0.4 x10*3/UL 0.6-4.1 [facility] ([facility]) Neut % 88.9 % 37.0-92.0 [facility] Mid # 0.8 x10*3/UL 0.1-0.6 [facility] ([facility]) Neut # 9.2 x10*3/UL 2.0-7.8 [facility] ([facility]) ID Date Data Source [id number] 08/23/2019 07:37:00 AM EDT [facility] ([facility]) Name Value Range Interpretation Code Description Data Manda rce(s) Supporting Document(s) Glucose [Mass/volume] in Serum or Plasma 106 mg/dL 74-99 [facility] ([facility]) 100-125 mg/dL PRE-DIABETES/FASTING >126 mg/dL DIABETES/FASTING Urea nitrogen [Mass/volume] in Serum or Plasma 18 mg/dL 7-18 [facility] ([facility]) Creatinine 1.4 mg/dL 0.6-1.3 [facility] ([facility]) Sodium [Moles/volume] in Serum or Plasma 141 meq/L 136-145 [facility] ([facility]) Chloride [Moles/volume] in Serum or Plasma 101 meq/L 98-107 [facility] ([facility]) Potassium [Moles/volume] in Serum or Plasma 4.2 meq/L 3.5-5.1 [facility] ([facility]) Alkaline phosphatase isoenzyme [Units/volume] in Serum or Pl asma 97 mg/dL 46-116 [facility] ([facility]) Carbon dioxide, total [Moles/volume] in Serum or Plasma 30 meq/L 21 -32 [facility] ([facility]) Calcium [Mass/volume] in Serum or Plasma 9.1 mg/dL 8.5-10.1 [facility] ([facility] Total Bilirubin 0.4 mg/dL 0.2-1.0 [facility] ([facility]) Aspartate aminotransferase [Enzymatic activity/volume] in Serum or Plasma 36 U/L 15-37 [facility] ([facility] ) Albumin [Mass/volume] in Serum or Plasma 3.8 g/dL 3.4-5.0 [facility] ([facility]) Proteinase 3 Ab [Units/volume] in Serum 6.6 g/dL 6.4-8.2 [facility] ([facility]) Alanine aminotransferase [Enzymatic activity/volume] in Seru m or Plasma 49 U/L 12-78 [facility] ([facility]) Glomerular filtration rate/1.73 sq M pre dicted among blacks [Volume Rate/Area] in Serum or Plasma by Creatinine-based formula (MDRD) 43 mL/min [facility] ([facility]) <content>CHRONIC KIDNEY DISEASE STAGING PER NKF</content>
<content></content>
<content>STAGE I & II GFR >= 60 NORMAL TO MILDLY DECREASED</content>
<content>STAGE III GFR 30-59 MODERATELY DECREASED</content>
<content>STAGE IV GFR 15-29 SEVERELY DECREASED</content>
<content>STAGE V GFR <15 VERY LITTLE GFR LEFT</content>
<content>ESRD GFR <15 ON CLINICAL STAFF EDUCATOR</content>
<content></content> A/G Ratio 1.36 CALC 1.00-1.90 [facility] ([facility]) Glomerular filtration rate/1.73 sq M pre dicted among non-blacks [Volume Rate/Area] in Serum or Plasma by Creatinine-based formula (MDRD) 36 mL/min [facility] ([facility]) ID Date Data Source [id number] 08/07/2019 09:13:00 AM EST MED[facility] ([facility]) Name Value Range Interpretation Code Description Data Manda rce(s) Supporting Document(s) Bacteria identified in Urine by Culture [facility] Rx Cephlex ID Date Data Source [id number] 08/01/2019 07:31:00 AM EST [facility] ([facility]) Name Value Range Interpretation Code Description Data Manda rce(s) Supporting Document(s) Hemoglobin A1c/Hemoglobin.total in Blood 6.3 g/dL 4.8-5.6 [facility] ([facility]) Lab Result Notes: Pre-Diabetes 5.7 - 6.4 % Diabetes = or > 6.5% Glucose mean value [Mass/volume] in Blood Estimated fr om glycated hemoglobin 134 mg/dL 60-110 [facility] ([facility]) Glucose [Mass/volume] in Serum or Plasma 84 mg/dL 74-99 [facility] ([facility]) 100-125 mg/dL PRE-DIABETES/FASTING >126 mg/dL DIABETES/FASTING Potassium [Moles/volume] in Serum or Plasma 4.7 meq/L 3.5-5.1 [facility] ([facility]) Urea nitrogen [Mass/volume] in Serum or Plasma 20 mg/dL 7-18 [facility] ([facility]) Sodium [Moles/volume] in Serum or Plasma 139 meq/L 136-145 [facility] ([facility]) Creatinine 1.4 mg/dL 0.6-1.3 [facility] ([facility]) Carbon dioxide, total [Moles/volume] in Serum or Plasma 32 meq/L 21 -32 [facility] ([facility]) Calcium [Mass/volume] in Serum or Plasma 9.3 mg/dL 8.5-10.1 [facility] ([facility]) Glomerular filtration rate/1.73 sq M pre dicted among non-blacks [Volume Rate/Area] in Serum or Plasma by Creatinine-based formula (MDRD) 36 mL/min [facility] ([facility]) Chloride [Moles/volume] in Serum or Plasma 101 meq/L 98-107 [facility] ([facility]) Glomerular filtration rate/1.73 sq M pre dicted among blacks [Volume Rate/Area] in Serum or Plasma by Creatinine-based formula (MDRD) 43 mL/min [facility] <content>CHRONIC KIDNEY DISEASE STAGING PER NKF</content>
<content></content>
<content>STAGE I & II GFR >= 60 NORMAL TO MILDLY DECREASED</content>
<content>STAGE III GFR 30-59 MODERATELY DECREASED</content>
<content>STAGE IV GFR 15-29 SEVERELY DECREASED</content>
<content>STAGE V GFR <15 VERY LITTLE GFR LEFT</content>
<content>ESRD GFR <15 ON CLINICAL STAFF EDUCATOR</content>
<content></content>
<content></content> ID Date Data Source [id number] 08/01/2019 07:31:00 AM EST [facility] ([facility] Name Value Range Interpretation Code Description Data Manda rce(s) Supporting Document(s) Erythrocytes [#/volume] in Blood by Automated count 4.48 x10*6/UL 4.2 0-6.30 [facility] ([facility]) Leukocytes [#/volume] in Blood by Automated count 5.5 x10*3/UL 4.1-10 .9 [facility] MCV 78.5 fL 80.0-97.0 [facility] NOTE: RESULT VERIFIED. Hemoglobin [Mass/volume] in Blood 11.5 g/dL 12.0-18.0 [facility] NOTE: RESULT VERIFIED. Hematocrit [Volume Fraction] of Blood by Automated count 35.2 % 3 7.0-51.0 [facility] ([facility]) MCH 25.7 pg 26.0-32.0 [facility] Erythrocyte distribution width [Ratio] by Automated count 14.6 % 11.6-13.7 [facility] Platelets [#/volume] in Blood by Automated count 305 x10*3/UL 140-440 [facility] ([facility]) MCHC 32.7 g/dL 31.0-38.0 [facility] (Cardiology A [facility]) Lymphocytes/100 leukocytes in Blood by Automated count 13.9 % 10. 0-58.5 [facility] ([facility]) Platelet mean volume [Entitic volume] in Blood by Bhanu 8.7 FL 7.8-11.0 [facility] ([facility]) Neut % 82.0 % 37.0-92.0 [facility] ([facility]iology [facility]) Lymph # 0.7 x10*3/UL 0.6-4.1 [facility] ([facility]) Mid % 4.1 % 1.7-9.3 [facility] (Cardiology A [facility]) Neutrophils [#/volume] in Semen by Manual count 4.5 x10*3/UL 2.0-7.8 [facility] ([facility]) Mid # 0.3 x10*3/UL 0.1-0.6 [facility] ([facility]) ID Date Data Source [id number] 08/01/2019 07:31:00 AM EST [facility] ([facility]) Name Value Range Interpretation Code Description Data Manda rce(s) Supporting Document(s) Urea nitrogen [Mass/volume] in Serum or Plasma 20 mg/dL 7-18 [facility] ([facility]) Glucose [Mass/volume] in Serum or Plasma 84 mg/dL 74-99 [facility] ([facility]) 100-125 mg/dL PRE-DIABETES/FASTING >126 mg/dL DIABETES/FASTING Creatinine 1.4 mg/dL 0.6-1.3 [facility] Chloride [Moles/volume] in Serum or Plasma 101 meq/L 98-107 [facility] ([facility]) Sodium [Moles/volume] in Serum or Plasma 139 meq/L 136-145 [facility] ([facility]) Potassium [Moles/volume] in Serum or Plasma 4.7 meq/L 3.5-5.1 [facility] ([facility]) Calcium [Mass/volume] in Serum or Plasma 9.3 mg/dL 8.5-10.1 [facility] Carbon dioxide, total [Moles/volume] in Serum or Plasma 32 meq/L 21 -32 [facility] Glomerular filtration rate/1.73 sq M pre dicted among non-blacks [Volume Rate/Area] in Serum or Plasma by Creatinine-based formula (MDRD) 36 mL/min [facility] Glomerular filtration rate/1.73 sq M pre dicted among blacks [Volume Rate/Area] in Serum or Plasma by Creatinine-based formula (MDRD) 43 mL/min [facility] <content>CHRONIC KIDNEY DISEASE STAGING PER NKF</content>
<content></content>
<content>STAGE I & II GFR >= 60 NORMAL TO MILDLY DECREASED</content>
<content>STAGE III GFR 30-59 MODERATELY DECREASED</content>
<content>STAGE IV GFR 15-29 SEVERELY DECREASED</content>
<content>STAGE V GFR <15 VERY LITTLE GFR LEFT</content>
<content>ESRD GFR <15 ON CLINICAL STAFF EDUCATOR</content>
<content></content> ID Date Data Source [id number] 08/01/2019 07:31:00 AM EST [facility] Name Value Range Interpretation Code Description Data Manda rce(s) Supporting Document(s) Hemoglobin A1c/Hemoglobin.total in Blood 6.3 g/dL 4.8-5.6 [facility] ([facility]) Lab Result Notes: Pre-Diabetes 5.7 - 6.4 % Diabetes = or > 6.5% Glucose mean value [Mass/volume] in Blood Estimated fr om glycated hemoglobin 134 mg/dL 60-110 [facility] ([facility] ) ID Date Data Source [id number] 08/01/2019 07:31:00 AM EST [facility] Name Value Range Interpretation Code Description Data Manda rce(s) Supporting Document(s) Leukocytes [#/volume] in Blood by Automated count 5.5 x10*3/UL 4.1-10 .9 [facility] ([facility]) Hemoglobin [Mass/volume] in Blood 11.5 g/dL 12.0-18.0 [facility] ([facility]) NOTE: RESULT VERIFIED. Erythrocytes [#/volume] in Blood by Automated count 4.48 x10*6/UL 4.2 0-6.30 [facility] ([facility]) MCV 78.5 fL 80.0-97.0 [facility] NOTE: RESULT VERIFIED. Hematocrit [Volume Fraction] of Blood by Automated count 35.2 % 3 7.0-51.0 [facility] ([facility]) MCHC 32.7 g/dL 31.0-38.0 [facility] Erythrocyte distribution width [Ratio] by Automated count 14.6 % 11.6-13.7 [facility] ([facility]) MCH 25.7 pg 26.0-32.0 [facility] ([facility]) MPV 8.7 FL 7.8-11.0 [facility] Lymph % 13.9 % 10.0-58.5 [facility] Platelets [#/volume] in Blood by Automated count 305 x10*3/UL 140-440 [facility] ([facility]) Neut % 82.0 % 37.0-92.0 [facility] Mid % 4.1 % 1.7-9.3 [facility] Lymph # 0.7 x10*3/UL 0.6-4.1 [facility] ([facility]) Mid # 0.3 x10*3/UL 0.1-0.6 [facility] ([facility]) Neut # 4.5 x10*3/UL 2.0-7.8 [facility] ([facility]) ID Date Data Source [id number] 07/25/2019 03:54:00 PM EST [facility] ([facility]) Name Value Range Interpretation Code Description Data Manda rce(s) Supporting Document(s) C reactive protein [Mass/volume] in Serum or Plasma by High sensitivity method 0.35 mg/dL 0.00-0.30 [facility] ([facility]) ID Date Data Source [id number] 07/25/2019 03:54:00 PM EST [facility] ([facility]) Name Value Range Interpretation Code Description Data Manda rce(s) Supporting Document(s) C reactive protein [Mass/volume] in Serum or Plasma by High sensitivity method 0.35 mg/dL 0.00-0.30 [facility] ([facility] ) ID Date Data Source [id number] 07/25/2019 03:53:00 PM EST [facility] ([facility]) Name Value Range Interpretation Code Description Data Manda rce(s) Supporting Document(s) Leukocytes [#/volume] in Blood by Automated count 6.8 x10*3/UL 4.1-10 .9 [facility] ([facility]) Hemoglobin [Mass/volume] in Blood 12.3 g/dL 12.0-18.0 [facility] ([facility]) Erythrocytes [#/volume] in Blood by Automated count 4.77 x10*6/UL 4.2 0-6.30 [facility] ([facility]) MCV 78.5 fL 80.0-97.0 [facility] ([facility] MCH 25.9 pg 26.0-32.0 [facility] ([facility] Hematocrit [Volume Fraction] of Blood by Automated count 37.4 % 3 7.0-51.0 [facility] ([facility]) Platelet mean volume [Entitic volume] in Blood by Bhanu 7.9 FL 7.8-11.0 [facility] ([facility]) MCHC 33.0 g/dL 31.0-38.0 [facility] ([facility]) Erythrocyte distribution width [Ratio] by Automated count 14.4 % 11.6-13.7 [facility] ([facility]) Platelets [#/volume] in Blood by Automated count 298 x10*3/UL 140-440 [facility] ([facility]) Lymphocytes/100 leukocytes in Blood by Automated count 14.3 % 10. 0-58.5 [facility] ([facility]) Neut % 82.4 % 37.0-92.0 [facility] ([facility]) Mid % 3.3 % 1.7-9.3 [facility] ([facility]) Lymph # 0.9 x10*3/UL 0.6-4.1 [facility] ([facility]) Neutrophils [#/volume] in [place] by Manual count 5.6 x10*3/UL 2.0-7.8 [facility] ([facility]) Mid # 0.3 x10*3/UL 0.1-0.6 [facility] ([facility]) ID Date Data Source [id number] 07/25/2019 03:53:00 PM EST [facility] ([facility]) Name Value Range Interpretation Code Description Data Manda rce(s) Supporting Document(s) Erythrocyte sedimentation rate by Westergren method 14 mm/hr 0-15 [facility] ([facility]) ID Date Data Source [id number] 07/25/2019 03:53:00 PM EST [facility] ([facility]) Name Value Range Interpretation Code Description Data Manda rce(s) Supporting Document(s) Erythrocyte sedimentation rate by Westergren method 14 mm/hr 0-15 [facility] ([facility]) ID Date Data Source [id number] 07/25/2019 03:53:00 PM EST [facility] ([facility]) Name Value Range Interpretation Code Description Data Manda rce(s) Supporting Document(s) Leukocytes [#/volume] in Blood by Automated count 6.8 x10*3/UL 4.1-10 .9 [facility] ([facility]) Erythrocytes [#/volume] in Blood by Automated count 4.77 x10*6/UL 4.2 0-6.30 [facility] ([facility]) Hemoglobin [Mass/volume] in Blood 12.3 g/dL 12.0-18.0 [facility] ([facility]) MCH 25.9 pg 26.0-32.0 [facility] MCV 78.5 fL 80.0-97.0 [facility] Hematocrit [Volume Fraction] of Blood by Automated count 37.4 % 3 7.0-51.0 [facility] ([facility]) MCHC 33.0 g/dL 31.0-38.0 [facility] ([place]) Platelets [#/volume] in Blood by Automated count 298 x10*3/UL 140-440 [facility] ([facility]) Erythrocyte distribution width [Ratio] by Automated count 14.4 % 11.6-13.7 [facility] ([facility]) Lymph % 14.3 % 10.0-58.5 [facility] ([facility]) MPV 7.9 FL 7.8-11.0 [facility] ([place]) Mid % 3.3 % 1.7-9.3 [facility] ([facility]) Lymph # 0.9 x10*3/UL 0.6-4.1 [facility] ([facility]) Neut % 82.4 % 37.0-92.0 [facility] ([facility]) Mid # 0.3 x10*3/UL 0.1-0.6 [facility] ([facility]) Neut # 5.6 x10*3/UL 2.0-7.8 [facility] ([facility]) ID Date Data Source [id number] 07/11/2019 03:57:00 PM EST [facility] ([facility]) Name Value Range Interpretation Code Description Data Manda rce(s) Supporting Document(s) Hemoglobin.gastrointestinal [Presence] in Stool by Imm unologic method Laboratory test result Abnormal (applies to non-numeric results) [facility]) ID Date Data Source [id number] 07/11/2019 03:57:00 PM EST [facility] Name Value Range Interpretation Code Description Data Manda rce(s) Supporting Document(s) Hemoglobin.gastrointestinal [Presence] in Stool by Imm unologic method Laboratory test result Abnormal (applies to non-numeric results) [facility]) ID Date Data Source [id number] 07/05/2019 02:08:00 PM EST [facility]) Name Value Range Interpretation Code Description Data Manda rce(s) Supporting Document(s) Thyroid Stimulating Hormone 1.72 [facility] ([facility]) ID Date Data Source [id number] 07/05/2019 02:08:00 PM EST [facility] ([facility]) Name Value Range Interpretation Code Description Data Manda rce(s) Supporting Document(s) Creatinine 1.5 0.6-1.3 [facility] ([facility]) Glucose 115 74-99 [facility] ([facility]) Blood Urea Nitrogen 21 7-18 [facility] ([facility]) Chloride 101 98-107 [facility] ([facility]) Potassium 4.9 3.5-5.1 [facility] ([facility]) Sodium 139 136-145 [facility] ([facility]) Carbon Dioxide 33 21-32 [facility] ([facility]) Calcium 9.4 8.5-10.1 [facility] ([facility]) Glomerular filtration rate/1.73 sq M.pre dicted [Volume Rate/Area] in Serum or Plasma by Creatinine-based formula (MDRD) 33 [facility] ([facility]) ID Date Data Source [id number] 07/05/2019 02:08:00 PM EST [facility] ([facility]) Name Value Range Interpretation Code Description Data Manda rce(s) Supporting Document(s) Magnesium Level 2.2 [facility] ([facility]) ID Date Data Source [id number] 07/05/2019 02:08:00 PM EST [facility] ([facility]i [facility]) Name Value Range Interpretation Code Description Data Manda rce(s) Supporting Document(s) Red Blood Count 4.60 4.2-6.30 [facility] ([facility]) Platelets 273 140-440 [facility] ([facility]) White Blood Count 7.8 4.1-10.9 [facility] ([facility]) Hematocrit 36.6 37.0-51.0 [facility] ([facility]) Hemoglobin 11.9 12.0-18.0 [facility] ([facility]) ID Date Data Source [id number] 07/05/2019 08:45:00 AM EST [facility] ([facility]i [facility]) Name Value Range Interpretation Code Description Data Manda rce(s) Supporting Document(s) Ferritin [Mass/volume] in Serum or Plasma 22 ng/mL 8-252 [facility] ([facility]) ID Date Data Source [id number] 07/05/2019 08:45:00 AM EST [facility] ([facility]) Name Value Range Interpretation Code Description Data Manda rce(s) Supporting Document(s) Iron (Fe) 40 ug/dL 50-170 [facility] (Cardiology A [facility]) Total Iron Binding Capacity 388 ug/dL 250-450 [facility] ([facility]) Percent Saturation 10.3 % 13.2-45.0 [facility] ([facility] [place] [place]) ID Date Data Source [id number] 07/05/2019 08:45:00 AM EST [facility] ([facility]) Name Value Range Interpretation Code Description Data Manda rce(s) Supporting Document(s) Magnesium 2.2 mg/dL 1.8-2.4 [facility] ([facility]iology A [facility]) Glucose [Mass/volume] in Serum or Plasma 115 mg/dL 74-99 [facility] ([facility]) 100-125 mg/dL PRE-DIABETES/FASTING >126 mg/dL DIABETES/FASTING Urea nitrogen [Mass/volume] in Serum or Plasma 21 mg/dL 7-18 [facility] ([facility]) Creatinine 1.5 mg/dL 0.6-1.3 [facility] ([facility]) Potassium [Moles/volume] in Serum or Plasma 4.9 meq/L 3.5-5.1 [facility] ([facility]) Sodium [Moles/volume] in Serum or Plasma 139 meq/L 136-145 [facility] ([facility]) Calcium [Mass/volume] in Serum or Plasma 9.4 mg/dL 8.5-10.1 [facility] ([facility]) Carbon dioxide, total [Moles/volume] in Serum or Plasma 33 meq/L 21 -32 [facility] ([facility]) Chloride [Moles/volume] in Serum or Plasma 101 meq/L 98-107 [facility] ([facility]) Glomerular filtration rate/1.73 sq M pre dicted among non-blacks [Volume Rate/Area] in Serum or Plasma by Creatinine-based formula (MDRD) 33 mL/min [facility] ([facility]) Glomerular filtration rate/1.73 sq M pre dicted among blacks [Volume Rate/Area] in Serum or Plasma by Creatinine-based formula (MDRD) 40 mL/min [facility] ([facility]) <content>CHRONIC KIDNEY DISEASE STAGING PER NKF</content>
<content></content>
<content>STAGE I & II GFR >= 60 NORMAL TO MILDLY DECREASED</content>
<content>STAGE III GFR 30-59 MODERATELY DECREASED</content>
<content>STAGE IV GFR 15-29 SEVERELY DECREASED</content>
<content>STAGE V GFR <15 VERY LITTLE GFR LEFT</content>
<content>ESRD GFR <15 ON CLINICAL STAFF EDUCATOR</content>
<content></content>
<content></content> Thyrotropin [Units/volume] in Serum or Plasma by Detec tion limit <= 0.05 mIU/L 1.72 uIU/mL 0.36-3.74 [facility]) ID Date Data Source [id number] 07/05/2019 08:45:00 AM EST [facility]) Name Value Range Interpretation Code Description Data Manda rce(s) Supporting Document(s) Leukocytes [#/volume] in Blood by Automated count 7.8 x10*3/UL 4.1-10 .9 [facility]) Erythrocytes [#/volume] in Blood by Automated count 4.60 x10*6/UL 4.2 0-6.30 [facility]) Hematocrit [Volume Fraction] of Blood by Automated count 36.6 % 3 7.0-51.0 [facility]) MCV 79.6 fL 80.0-97.0 [facility]) Hemoglobin [Mass/volume] in Blood 11.9 g/dL 12.0-18.0 [facility]) NOTE: RESULT VERIFIED. Erythrocyte distribution width [Ratio] by Automated count 14.7 % 11.6-13.7 [facility] ([facility]) MCHC 32.6 g/dL 31.0-38.0 [facility] ([facility]iology A [facility]) MCH 26.0 pg 26.0-32.0 [facility] Platelets [#/volume] in Blood by Automated count 273 x10*3/UL 140-440 [facility] ([facility]) Platelet mean volume [Entitic volume] in Blood by Bhanu 8.2 FL 7.8-11.0 [facility] ([facility]) Lymphocytes/100 leukocytes in Blood by Automated count 12.4 % 10. 0-58.5 [facility] ([facility]) Lymph # 0.9 x10*3/UL 0.6-4.1 [facility] ([facility]iolog [facility]) Neut % 84.7 % 37.0-92.0 [facility] (Cardiology A [facility]) Mid % 2.9 % 1.7-9.3 [facility] (Cardiology A [facility]) Neutrophils [#/volume] in [place] by Manual count 6.6 x10*3/UL 2.0-7.8 [facility] ([facility]) Mid # 0.3 x10*3/UL 0.1-0.6 [facility] ([facility]) ID Date Data Source [id number] 07/05/2019 08:45:00 AM EST [facility] ([facility]) Name Value Range Interpretation Code Description Data Manda rce(s) Supporting Document(s) Ferritin [Mass/volume] in Serum or Plasma 22 ng/mL 8-252 [facility] ([facility]) ID Date Data Source [id number] 07/05/2019 08:45:00 AM EST [facility] ([facility]) Name Value Range Interpretation Code Description Data Manda rce(s) Supporting Document(s) Iron (Fe) 40 ug/dL 50-170 [facility]) Total Iron Binding Capacity 388 ug/dL 250-450 [facility] ([facility]) Percent Saturation 10.3 % 13.2-45.0 [facility] ([facility]) ID Date Data Source [id number] 07/05/2019 08:45:00 AM EST [facility] ([facility]) Name Value Range Interpretation Code Description Data Manda rce(s) Supporting Document(s) Thyrotropin [Units/volume] in Serum or Plasma by Detec tion limit <= 0.05 mIU/L 1.72 uIU/mL 0.36-3.74 [facility] ([facility] ) ID Date Data Source [id number] 07/05/2019 08:45:00 AM EST [facility] ([facility]) Name Value Range Interpretation Code Description Data Manda rce(s) Supporting Document(s) Urea nitrogen [Mass/volume] in Serum or Plasma 21 mg/dL 7-18 [facility] ([facility]) Glucose [Mass/volume] in Serum or Plasma 115 mg/dL 74-99 [facility] ([facility]) 100-125 mg/dL PRE-DIABETES/FASTING >126 mg/dL DIABETES/FASTING Creatinine 1.5 mg/dL 0.6-1.3 [facility] ([facility]) Sodium [Moles/volume] in Serum or Plasma 139 meq/L 136-145 [facility] ([facility]) Chloride [Moles/volume] in Serum or Plasma 101 meq/L 98-107 [facility] ([facility]) Potassium [Moles/volume] in Serum or Plasma 4.9 meq/L 3.5-5.1 [facility] ([facility]) Glomerular filtration rate/1.73 sq M pre dicted among non-blacks [Volume Rate/Area] in Serum or Plasma by Creatinine-based formula (MDRD) 33 mL/min [facility] ([facility]) Calcium [Mass/volume] in Serum or Plasma 9.4 mg/dL 8.5-10.1 [facility] ([facility]) Carbon dioxide, total [Moles/volume] in Serum or Plasma 33 meq/L 21 -32 [facility] ([facility]) Glomerular filtration rate/1.73 sq M pre dicted among blacks [Volume Rate/Area] in Serum or Plasma by Creatinine-based formula (MDRD) 40 mL/min [facility] ([facility]) <content>CHRONIC KIDNEY DISEASE STAGING PER NKF</content>
<content></content>
<content>STAGE I & II GFR >= 60 NORMAL TO MILDLY DECREASED</content>
<content>STAGE III GFR 30-59 MODERATELY DECREASED</content>
<content>STAGE IV GFR 15-29 SEVERELY DECREASED</content>
<content>STAGE V GFR <15 VERY LITTLE GFR LEFT</content>
<content>ESRD GFR <15 ON CLINICAL STAFF EDUCATOR</content>
<content></content> ID Date Data Source [id number] 07/05/2019 08:45:00 AM EST [facility] ([facility]) Name Value Range Interpretation Code Description Data Manda rce(s) Supporting Document(s) Magnesium 2.2 mg/dL 1.8-2.4 [facility] ([facility]) ID Date Data Source [id number] 07/05/2019 08:45:00 AM EST [facility] ([facility]) Name Value Range Interpretation Code Description Data Manda rce(s) Supporting Document(s) Leukocytes [#/volume] in Blood by Automated count 7.8 x10*3/UL 4.1-10 .9 [facility] ([facility]) Hemoglobin [Mass/volume] in Blood 11.9 g/dL 12.0-18.0 [facility] ([facility]) NOTE: RESULT VERIFIED. Erythrocytes [#/volume] in Blood by Automated count 4.60 x10*6/UL 4.2 0-6.30 [facility] ([facility]) MCV 79.6 fL 80.0-97.0 [facility] ([place] [facility]) MCH 26.0 pg 26.0-32.0 [facility] ([facility]) Hematocrit [Volume Fraction] of Blood by Automated count 36.6 % 3 7.0-51.0 [facility] ([facility]) MCHC 32.6 g/dL 31.0-38.0 [facility] ([facility]) Erythrocyte distribution width [Ratio] by Automated count 14.7 % 11.6-13.7 [facility] Platelets [#/volume] in Blood by Automated count 273 x10*3/UL 140-440 [facility] ([facility]) MPV 8.2 FL 7.8-11.0 [facility] ([place] [facility]) Lymph % 12.4 % 10.0-58.5 [facility] ([place]) Neut % 84.7 % 37.0-92.0 [facility] ([place]) Mid % 2.9 % 1.7-9.3 [facility] ([place]) Lymph # 0.9 x10*3/UL 0.6-4.1 [facility] ([facility]) Mid # 0.3 x10*3/UL 0.1-0.6 [facility] ([facility]) Neut # 6.6 x10*3/UL 2.0-7.8 [facility] ([facility]) Procedure Social History Code Duration Value Status Description Data Source(s ) Alcohol intake 04/02/2020 12:00:00 AM EDT Ex-drinker (finding) comp leted Ex- drinker (finding) [facility] Tobacco use and exposure 04/02/2020 12:00:00 AM EDT Never used co mpleted Never used [facility] Smoking 04/02/2020 12:00:00 AM EDT Former smoker completed Former smoker [facility] Smoking 10/24/2019 12:00:00 AM EDT Patient is a former smoker completed Patient is a former smoker [facility] ([facility], [facility]) Vital Signs ID Date Data Source UNK Name Value Range Interpretation Code Description Data Source(s) Body mass index (BMI) [Ratio] 29.5 kg/m2 29.5 k g/m2 [facility] ([facility]) Body weight 156.00 [lb_av] 156.00 [lb_av] MEDEN T ([facility]) Body height 61 [in_i] 61 [in_i] [facility] 5'1" Heart rate 80 /min 80 /min [facility] Diastolic blood pressure 60 mm[Hg] 60 mm[Hg] [facility] ([facility]) RT Arm Systolic blood pressure 122 mm[Hg] 122 mm[Hg] [facility] RT Arm Body mass index (BMI) [Ratio] 28.9 kg/m2 28.9 k g/m2 [facility] ([facility]) Oxygen saturation in Arterial blood by Pulse oximetry 96 % 96 % [facility] ([facility]) RM Air Body weight 153.00 [lb_av] 153.00 [lb_av] [facility] Body height 61 [in_i] 61 [in_i] [facility] ([facility]) 5'1" Heart rate 84 /min 84 /min [facility] ([facility]) Diastolic blood pressure 74 mm[Hg] 74 mm[Hg] [facility] ([facility]) RT Arm Systolic blood pressure 136 mm[Hg] 136 mm[Hg] M [facility] ([facility]) RT Arm Body mass index (BMI) [Ratio] 28.4 kg/m2 28.4 k g/m2 [facility] ([facility]) Oxygen saturation in Arterial blood by Pulse oximetry --post exerci se 90 % 90 % [facility] ([facility]) RM Air Body weight 150.25 [lb_av] 150.25 [lb_av] [facility] Body height 61 [in_i] 61 [in_i] [facility] ([facility]) 5'1" Heart rate 88 /min 88 /min [facility] ([facility]) Diastolic blood pressure 70 mm[Hg] 70 mm[Hg] [facility] ([facility]) Systolic blood pressure 160 mm[Hg] 160 mm[Hg] [facility] ([facility]) Diastolic blood pressure 78 mm[Hg] 78 mm[Hg] [facility] ([facility]) RT Arm Systolic blood pressure 162 mm[Hg] 162 mm[Hg] M [facility] ([facility]) RT Arm Body weight 67.133 kg 67.133 kg [facility] ([facility], ) [place] body weight 100 [lb_av] 100 [lb_av] MED[facility] T ([facility], ) Body mass index (BMI) [Ratio] 29.1 kg/m2 29.1 k g/m2 [facility] ([facility]) Body weight 148.00 [lb_av] 148.00 [lb_av] [facility] T ([facility]) Body height 59.75 [in_i] 59.75 [in_i] [facility] ([facility]) 4.75" Body mass index (BMI) [Ratio] 28.6 kg/m2 28.6 k g/m2 [facility] ([facility]) Oxygen saturation in Arterial blood by Pulse oximetry --post exerci se 94 % 94 % [facility] ([facility]) RM Air Body weight 151.50 [lb_av] 151.50 [lb_av] MED[facility] T ([facility]) Body height 61 [in_i] 61 [in_i] [facility] ([facility]) 5'1" Heart rate 80 /min 80 /min [facility] Diastolic blood pressure 64 mm[Hg] 64 mm[Hg] [facility] ([facility]) RT Arm Systolic blood pressure 132 mm[Hg] 132 mm[Hg] M EDENT ([facility]) RT Arm Body weight 68.947 kg 68.947 kg [facility] [place] body weight 100 [lb_av] 100 [lb_av] MED[facility] T ([facility]) Body mass index (BMI) [Ratio] 29.9 kg/m2 29.9 k g/m2 [facility] Body weight 152.00 [lb_av] 152.00 [lb_av] MED[facility] T ([facility]) Body height 59.75 [in_i] 59.75 [in_i] [facility] ([facility]) 4.75" Diastolic blood pressure 83 mm[Hg] 83 mm[Hg] [facility] Systolic blood pressure 121 mm[Hg] 121 mm[Hg] [facility] Oxygen saturation in Arterial blood by Pulse oximetry 96 % 96 % [facility] ([facility]) On Room Air Diastolic blood pressure--supine 64 mm[Hg] 64 mm[Hg] [facility] ([facility]) Systolic blood pressure--supine 124 mm[Hg] 124 mm[Hg] [facility] ([facility]) Diastolic blood pressure--sitting 56 mm[Hg] 56 mm[Hg] [facility] ([facility]) Medium cuff, Ra Systolic blood pressure--sitting 118 mm[Hg] 118 mm[Hg] [facility] ([facility]) Medium cuff, Ra Respiratory rate 16 /min 16 /min [facility] ( [facility]) Heart rate 74 /min 74 /min [facility] ([facility]) regular Body mass index (BMI) [Ratio] 28.2 kg/m2 28.2 k g/m2 [facility] ([facility]) Body height 61 [in_i] 61 [in_i] [facility] ([facility]) 5'1" Body weight 149.00 [lb_av] 149.00 [lb_av] MED[facility] T ([facility]) Body mass index (BMI) [Ratio] 28.8 kg/m2 28.8 k g/m2 [facility] ([facility]) Oxygen saturation in Arterial blood by Pulse oximetry --post exerci se 95 % 95 % [facility] ([facility]) RM Air Body weight 152.25 [lb_av] 152.25 [lb_av] MED[facility] T ([facility]) Body height 61 [in_i] 61 [in_i] [facility] ([facility]) 5'1" Heart rate 94 /min 94 /min [facility] ([facility]) Diastolic blood pressure 72 mm[Hg] 72 mm[Hg] [facility] ([facility]) LT Arm Systolic blood pressure 122 mm[Hg] 122 mm[Hg] M EDENT ([facility]) LT Arm Body mass index (BMI) [Ratio] 28.5 kg/m2 28.5 k g/m2 [facility] ([facility]) Oxygen saturation in Arterial blood by Pulse oximetry --post exerci se 94 % 94 % [facility] ([facility]) RM Air Body weight 151.00 [lb_av] 151.00 [lb_av] MED[facility] T ([facility]) Body height 61 [in_i] 61 [in_i] [facility] 5'1" Heart rate 79 /min 79 /min [facility] Diastolic blood pressure 80 mm[Hg] 80 mm[Hg] [facility] ([facility]) Systolic blood pressure 150 mm[Hg] 150 mm[Hg] [facility] ([facility]) Diastolic blood pressure 76 mm[Hg] 76 mm[Hg] [facility] RT Arm Systolic blood pressure 174 mm[Hg] 174 mm[Hg] M [facility] ([facility]) RT Arm Body mass index (BMI) [Ratio] 30.3 kg/m2 30.3 k g/m2 [facility] ([facility]) Body height 59 [in_i] 59 [in_i] [facility] ([facility], [facility]) 4'11" Body weight 150.00 [lb_av] 150.00 [lb_av] MED[facility] T ([facility], [facility]) Body temperature 97.8 [degF] 97.8 [degF] [facility] ([facility], [facility]) Oxygen saturation in Arterial blood by Pulse oximetry 95 % 95 % [facility] ([facility], [facility]) Respiratory rate 18 /min 18 /min [facility] ( [facility]) Heart rate 73 /min 73 /min [facility] ([facility]) Diastolic blood pressure 78 mm[Hg] 78 mm[Hg] [facility] ([facility], [facility]) Systolic blood pressure 122 mm[Hg] 122 mm[Hg] [facility] ([facility], [facility]) Body mass index (BMI) [Ratio] 28.5 kg/m2 28.5 k g/m2 [facility] Oxygen saturation in Arterial blood by Pulse oximetry 96 % 96 % [facility] ([facility]) Body weight 151.00 [lb_av] 151.00 [lb_av] MED[facility] T ([facility]) Body height 61 [in_i] 61 [in_i] [facility] 5'1" Heart rate 92 /min 92 /min [facility] ([facility]) Diastolic blood pressure 72 mm[Hg] 72 mm[Hg] [facility]) Systolic blood pressure 152 mm[Hg] 152 mm[Hg] [facility]) Diastolic blood pressure 80 mm[Hg] 80 mm[Hg] [facility]) Systolic blood pressure 142 mm[Hg] 142 mm[Hg] [facility] Body mass index (BMI) [Ratio] 28.4 kg/m2 28.4 k g/m2 [facility]) Oxygen saturation in Arterial blood by Pulse oximetry --post exerci se 95 % 95 % [facility] RM Air Body weight 150.12 [lb_av] 150.12 [lb_av] [facility] T ([facility]) Body height 61 [in_i] 61 [in_i] [facility]) 5'1" Heart rate 94 /min 94 /min [facility]) Diastolic blood pressure 60 mm[Hg] 60 mm[Hg] [facility]) RT Arm Systolic blood pressure 116 mm[Hg] 116 mm[Hg] [facility] RT Arm Body mass index (BMI) [Ratio] 30.3 kg/m2 30.3 k g/m2 [facility]) Body height 59 [in_i] 59 [in_i] [facility] ([facility]) 4'11" Body weight 150.00 [lb_av] 150.00 [lb_av] MED[facility] T ([facility], [facility]) Body temperature 98.2 [degF] 98.2 [degF] [facility]) Oxygen saturation in Arterial blood by Pulse oximetry 98 % 98 % [facility]) Respiratory rate 12 /min 12 /min [facility] ( [facility]) Heart rate 82 /min 82 /min [facility]) Diastolic blood pressure 82 mm[Hg] 82 mm[Hg] [facility]) Systolic blood pressure 164 mm[Hg] 164 mm[Hg] M [facility] ([facility]) Body mass index (BMI) [Ratio] 28.6 kg/m2 28.6 k g/m2 [facility] ([facility]) Oxygen saturation in Arterial blood by Pulse oximetry --post exerci se 94 % 94 % [facility] ([facility]) RM Air Body weight 151.38 [lb_av] 151.38 [lb_av] MED[facility] T ([facility]) Body height 61 [in_i] 61 [in_i] [facility] 5'1" Heart rate 80 /min 80 /min [facility] Diastolic blood pressure 72 mm[Hg] 72 mm[Hg] [facility]) RT Arm Systolic blood pressure 138 mm[Hg] 138 mm[Hg] [facility] ([facility]) RT Arm Body mass index (BMI) [Ratio] 28.2 kg/m2 28.2 k g/m2 [facility]) Oxygen saturation in Arterial blood by Pulse oximetry --post exerci se 93 % 93 % [facility] ([facility]) RM Air Body weight 149.38 [lb_av] 149.38 [lb_av] [facility] T ([facility]) Body height 61 [in_i] 61 [in_i] [facility] ([facility]) 5'1" Heart rate 88 /min 88 /min [facility] ([facility]) Diastolic blood pressure 70 mm[Hg] 70 mm[Hg] [facility]) RT Arm Systolic blood pressure 146 mm[Hg] 146 mm[Hg] [facility] ([facility]) RT Arm Body mass index (BMI) [Ratio] 28.8 kg/m2 28.8 k g/m2 [facility] Body weight 152.25 [lb_av] 152.25 [lb_av] [facility] T ([facility]) Body height 61 [in_i] 61 [in_i] [facility]) 5'1" Heart rate 76 /min 76 /min [facility] ([facility]) Diastolic blood pressure 70 mm[Hg] 70 mm[Hg] [facility] ([facility]) RT Arm Systolic blood pressure 136 mm[Hg] 136 mm[Hg] [facility] RT Arm Body mass index (BMI) [Ratio] 28.6 kg/m2 28.6 k g/m2 [facility] ([facility]) Oxygen saturation in Arterial blood by Pulse oximetry --post exerci se 94 % 94 % [facility] ([facility]) Body weight 151.25 [lb_av] 151.25 [lb_av] [facility] T ([facility]) Body height 61 [in_i] 61 [in_i] [facility] ([facility]) 5'1" Heart rate 88 /min 88 /min [facility] ([facility]) Diastolic blood pressure 66 mm[Hg] 66 mm[Hg] [facility]) RT Arm Systolic blood pressure 128 mm[Hg] 128 mm[Hg] [facility] RT Arm Body height 61 [in_i] 61 [in_i] [facility] ([facility]) 5'1" Body temperature 98.0 [degF] 98.0 [degF] [facility] Heart rate 68 /min 68 /min [facility] Diastolic blood pressure 54 mm[Hg] 54 mm[Hg] [facility]) LT Arm Systolic blood pressure 116 mm[Hg] 116 mm[Hg] [facility] LT Arm Body mass index (BMI) [Ratio] 28.7 kg/m2 28.7 k g/m2 [facility] ([facility]) Oxygen saturation in Arterial blood by Pulse oximetry --post exerci se 90 % 90 % [facility] ([facility]) RM Air Body weight 152.00 [lb_av] 152.00 [lb_av] MED[facility] T ([facility]) Body weight 69.401 kg 69.401 kg [facility] ([facility], ) Body mass index (BMI) [Ratio] 30.1 kg/m2 30.1 k g/m2 [facility] Body weight 153.00 [lb_av] 153.00 [lb_av] [facility] T ([facility]) Body height 59.75 [in_i] 59.75 [in_i] [facility] ([facility]) 4'11.75" Diastolic blood pressure 76 mm[Hg] 76 mm[Hg] [facility] ([facility]) Systolic blood pressure 158 mm[Hg] 158 mm[Hg] [facility] Body mass index (BMI) [Ratio] 30.3 kg/m2 30.3 k g/m2 [facility] ([facility]) Body height 60 [in_i] 60 [in_i] [facility] ([facility]) 5'0" Body weight 155.00 [lb_av] 155.00 [lb_av] MED[facility] T ([facility]) Body temperature 97.9 [degF] 97.9 [degF] [facility] ([facility]) Oxygen saturation in Arterial blood by Pulse oximetry 98 % 98 % [facility] ([facility]) Respiratory rate 16 /min 16 /min [facility] ( [facility]) Heart rate 86 /min 86 /min [facility] ([facility]) Diastolic blood pressure 84 mm[Hg] 84 mm[Hg] [facility] ([facility]) Systolic blood pressure 178 mm[Hg] 178 mm[Hg] [facility] ([facility]) Body mass index (BMI) [Ratio] 29.5 kg/m2 29.5 k g/m2 [facility]) Oxygen saturation in Arterial blood by Pulse oximetry --post exerci se 97 % 97 % [facility] RM Air Body weight 156.38 [lb_av] 156.38 [lb_av] MED[facility] T ([facility]) Body height 61 [in_i] 61 [in_i] [facility] 5'1" Heart rate 68 /min 68 /min [facility] ([facility]) Diastolic blood pressure 70 mm[Hg] 70 mm[Hg] [facility]) RT Arm Systolic blood pressure 156 mm[Hg] 156 mm[Hg] [facility] RT Arm Body mass index (BMI) [Ratio] 29.9 kg/m2 29.9 k g/m2 [facility] ([facility]) Oxygen saturation in Arterial blood by Pulse oximetry --post exerci se 97 % 97 % [facility] ([facility]) Air Body weight 158.12 [lb_av] 158.12 [lb_av] MED[facility] T ([facility]) Body height 61 [in_i] 61 [in_i] [facility] 5'1" Heart rate 60 /min 60 /min [facility]) Diastolic blood pressure 72 mm[Hg] 72 mm[Hg] [facility]) RT Arm Systolic blood pressure 112 mm[Hg] 112 mm[Hg] [facility] RT Arm Body mass index (BMI) [Ratio] 30.3 kg/m2 30.3 k g/m2 [facility]) Body height 60 [in_i] 60 [in_i] [facility] ([facility]) 5'0" Body weight 155.00 [lb_av] 155.00 [lb_av] MED[facility] T ([facility], [facility]) Body temperature 97.8 [degF] 97.8 [degF] [facility]) Oxygen saturation in Arterial blood by Pulse oximetry 95 % 95 % [facility]) Respiratory rate 12 /min 12 /min [facility] ( [facility]) Heart rate 87 /min 87 /min [facility]) Diastolic blood pressure 71 mm[Hg] 71 mm[Hg] [facility]) Systolic blood pressure 148 mm[Hg] 148 mm[Hg] [facility]) Body mass index (BMI) [Ratio] 29.4 kg/m2 29.4 k g/m2 [facility] ([facility]) Oxygen saturation in Arterial blood by Pulse oximetry 96 % 96 % [facility] ([facility]) Air Body weight 155.50 [lb_av] 155.50 [lb_av] MEDEN T ([facility]) Body height 61 [in_i] 61 [in_i] [facility] ([facility]) 5'1" Heart rate 64 /min 64 /min [facility] ([facility]) Diastolic blood pressure 76 mm[Hg] 76 mm[Hg] [facility] ([facility]) RT Arm Systolic blood pressure 122 mm[Hg] 122 mm[Hg] M EDENT ([facility]) RT Arm Diastolic blood pressure--supine 50 mm[Hg] 50 mm[Hg] [facility] ([facility]) Systolic blood pressure--supine 130 mm[Hg] 130 mm[Hg] [facility] ([facility]) Diastolic blood pressure--sitting 58 mm[Hg] 58 mm[Hg] [facility] ([facility]) Medium cuff, Ra Systolic blood pressure--sitting 126 mm[Hg] 126 mm[Hg] [facility] ([facility] Medium cuff, Ra Respiratory rate 18 /min 18 /min [facility] ( [facility]) Heart rate 74 /min 74 /min [facility] ([facility] regular Body mass index (BMI) [Ratio] 29.7 kg/m2 29.7 k g/m2 [facility] ([facility]) Body height 61 [in_i] 61 [in_i] [facility] ([facility]) 5'1" Body weight 157.00 [lb_av] 157.00 [lb_av] MEDEN T ([facility]) Oxygen saturation in Arterial blood by Pulse oximetry 97 % 97 % [facility] ([facility] ) Body mass index (BMI) [Ratio] 30.2 kg/m2 30.2 k g/m2 [facility] ([facility] ) Body weight 156.00 [lb_av] 156.00 [lb_av] MEDEN T ([facility] ) Body height 60.25 [in_i] 60.25 [in_i] [facility] ([facility]) 5'0.25" Heart rate 82 /min 82 /min [facility] ([facility]) Diastolic blood pressure 80 mm[Hg] 80 mm[Hg] [facility] ([facility]) Systolic blood pressure 118 mm[Hg] 118 mm[Hg] M EDENT ([facility]) Patient Treatment Plan of Care Planned Activity Planned Date Details Description Data Source (s) 30 ACTUAT fluticasone furoate 0.1 MG/ACT UAT / vilanterol 0.025 MG/ACTUAT Dry Powder Inhaler [Breo] 04/01/2020 12:00:00 AM [facility] apixaban 5 MG Oral Tablet [Eliquis] 04/01/2020 12:00:00 AM [facility] gabapentin 300 MG Oral Capsule 03/26/2020 12:00:00 AM [facility] Albuterol 0.83 MG/ML Inhalant Solution 03/26/2020 12:00:00 AM [facility] Amiodarone hydrochloride 200 MG Oral Tablet 03/19/2020 12:00:00 AM [facility] Omeprazole 20 MG Delayed Release Oral Capsule 03/17/2020 12:00:00 A M [facility] Ipratropium Nahma 0.2 MG/ML Inhalant Solution 03/09/2020 12:00:00 AM [facility] Pravastatin Sodium 40 MG Oral Tablet 01/27/2020 12:00:00 AM [facility] 24 HR Diltiazem Hydrochloride 240 MG Extended Release Oral Capsule 01/27/2020 12:00:[address] [facility] Losartan Potassium 100 MG Oral Tablet 01/27/2020 12:00:00 AM [facility]
--- NOTE | 2020-08-07 19:05 | REPVR ---
PROCEDURE INFORMATION: Exam: US Left Non-Vascular Joint or Other Extremity Structure, Limited Lower Extremity Exam date and time: 08/07/2020 6:25 PM Age: 89 years old Clinical indication: Pain; Thigh; Left; Additional info: Left thigh mass TECHNIQUE: Imaging protocol: Left US joint or other nonvascular extremity structure or structures. Real-time ultrasound with image documentation. Limited study. Exam focused on the lower extremity in the region of clinical interest. COMPARISON: No relevant prior studies available. FINDINGS: Soft tissues: There is a 3.7 cm x 3.9 cm x 2.3 cm soft tissue fluid collection in the medial aspect of the left thigh. No solid nodular components or septations are seen within the fluid collection. IMPRESSION: 3.7 cm x 3.9 cm x 2.3 cm soft tissue fluid collection in the medial aspect of the left thigh, which may represent an abscess or hematoma. Electronically signed by: Mingo Hussein On 08/07/2020 19:05:41 PM
[2020-08-07] MEDS: ALBUTEROL SULFATE 2.5 MG/0.5 ML INH NEB SOLN INH SCH (20:00)
[2020-08-07] MEDS: IPRATROPIUM 0.02% SOLN 0.5MG 2.5ML NEB INH SCH (20:00)
[2020-08-07] MEDS: HumaLOG INSULIN (NovoLOG) PER UNIT SC SCH (21:00)
[2020-08-07] MEDS: VANCOMYCIN HCL 1,000 MG, VIAL MATE ADAPTER 1 EACH in D5W 250 ML IV SCH (21:25)
[2020-08-07] MEDS: DOCUSATE SODIUM 100MG CAPSULE PO SCH (21:29)
[2020-08-07] MEDS: GABAPENTIN 300 MG CAP PO SCH (21:30)
[2020-08-07] MEDS: APIXABAN 5 MG TAB (ELIQUIS) PO SCH (21:32)
[2020-08-07] MEDS: LOSARTAN 50MG TABLET PO SCH (21:32)
[2020-08-07 22:00] VITALS: BP 188/78
[2020-08-08 05:54] LABS: HEMATOCRIT 35.5 % (36.0-47.0); HEMOGLOBIN 10.7 g/dl (12.0-15.5); MEAN CORPUSCULAR HEMOGLOBIN 24.3 pg (27.0-33.0); MEAN CORPUSCULAR HGB CONC 30.1 g/dl (32.0-36.5); MEAN CORPUSCULAR VOLUME 80.5 fl (80.0-96.0); PLATELET COUNT, AUTOMATED 294 10^3/uL (150-450); RED BLOOD COUNT 4.41 10^6/uL (4.00-5.40); WHITE BLOOD COUNT 7.7 10^3/uL (4.0-10.0)
[2020-08-08 06:00] VITALS: BP 161/78
[2020-08-08 06:13] LABS: CALCIUM LEVEL 8.1 MG/DL (8.8-10.2); GLOMERULAR FILTRATION RATE 55.7 (>32); MAGNESIUM LEVEL 2.1 MG/DL (1.8-2.4)
[2020-08-08] MEDS: HumaLOG INSULIN (NovoLOG) PER UNIT SC SCH ×4 (07:30→20:24)
[2020-08-08] MEDS: ALBUTEROL SULFATE 2.5 MG/0.5 ML INH NEB SOLN INH SCH ×2 (07:43→20:21)
[2020-08-08] MEDS: IPRATROPIUM 0.02% SOLN 0.5MG 2.5ML NEB INH SCH ×2 (07:43→20:21)
--- NOTE | 2020-08-08 07:47 | IPNPDOC ---
Text Note Date of Service The patient was seen on 08/08/20. NOTE Subjective: Is seen and examined this morning at bedside. Tells me she's feeling well she still has left thigh pain seems about the same as yesterday. She does have any other complaints feeling well no acute events denies chest pain or fevers. Objective: Constitutional: Awake and alert, in no apparent distress ENT: Sclera are clear. Respiratory: Lungs CTA bilaterally. No respiratory distress. Cardiovascular: Irregular heart rate Gastrointestinal: Abdomen is soft, non distended, non tender, BS present. Musculoskeletal: No lower extremity edema. Neurologic: No focal neurological deficit. Mental Status: A&O x3, normal affect Skin: There is a large left mid thigh mass about the size of a tennis ball that is tender protruding surrounded by erythema but no purulent discharge. Assessment/plan: 89-year-old female comes in the hospital due to a persistent pain in her left eye found to have a left thigh mass with surrounding erythema possibly cellulitis admitted for further medical management. # Left thigh mass: ultrasound showing abscess vs hematoma. Surgical consultation Dr Mark for I&D if this is an abscess. Possibly some overlying cellulitis for which I'll start her on vancomycin. Afebrile no leukocytosis. # Atrial fibrillation: Rate controlled on amiodarone and diltiazem. Anticoagulated on eliquis. Resume home medications. # COPD: Not in exacerbation. Continue home medications. # Hypertension: Continue home meds. Monitor and titrate # DM: ISS. Frequent Accu-Cheks. Hypoglycemic precautions. # GERD: Continue omeprazole # Hyperlipidemia: Continue statin # DVT prophylaxis: On pettyis A [facility] Hospitalist Ruby DOYLE, I+O VSRuby I+O Laboratory Tests 08/07/20 15:17 08/08/20 05:13 Vital Signs Date Time Temp Pulse Resp B/P (MAP) Pulse Ox O2 Delivery O2 Flow Rate FiO2 08/08/20 06:00 97.2 75 18 161/78 (105) 92 Room Air I&O- Last 24 Hours up to 6 AM 08/08/20 06:00 Intake Total 1720 ml Balance 1720 ml TONE CHAVEZ MD Aug 08, 2020 07:47
[2020-08-08] MEDS: APIXABAN 5 MG TAB (ELIQUIS) PO SCH ×2 (08:36→20:24)
[2020-08-08] MEDS: AMIODARONE 200 MG TAB (PACERONE) PO SCH (08:37)
[2020-08-08] MEDS: OMEPRAZOLE 20 MG CAP PO SCH (08:37)
[2020-08-08] MEDS: GABAPENTIN 300 MG CAP PO SCH ×2 (08:37→20:24)
[2020-08-08] MEDS: PRAVASTATIN 20 MG TAB PO SCH (08:37)
[2020-08-08] MEDS: MULTIVITAMINS/MINERALS THERAP 1 TAB PO SCH (08:37)
[2020-08-08] MEDS: LOSARTAN 50MG TABLET PO SCH ×2 (08:37→20:24)
[2020-08-08] MEDS: ASCORBIC ACID 500 MG TAB PO SCH (08:37)
[2020-08-08] MEDS: DOCUSATE SODIUM 100MG CAPSULE PO SCH ×2 (08:37→20:24)
[2020-08-08] MEDS ORDERED: ENOXAPARIN 40MG/0.4ML SYRINGE (J1650 PER 10MG) SC SCH (09:00)
[2020-08-08 15:02] VITALS: BP 150/68
[2020-08-08] MEDS ORDERED: LIDOCAINE 1% MDV 20ML VIAL As Ordered ONE (16:12)
[2020-08-08] MEDS ORDERED: SODIUM BICARBONATE 8.4% INJ 50MEQ 50 ML VIAL As Ordered ONE (16:12)
[2020-08-08] MEDS: VANCOMYCIN HCL 1,000 MG, VIAL MATE ADAPTER 1 EACH in D5W 250 ML IV SCH (20:24)
[2020-08-08 22:00] VITALS: BP 152/73
[2020-08-09 06:00] VITALS: BP 161/79
[2020-08-09 07:22] LABS: CALCIUM LEVEL 8.8 MG/DL (8.8-10.2); CREATININE FOR GFR 1.15 MG/DL (0.55-1.30); GLOMERULAR FILTRATION RATE 47.4 (>32); POTASSIUM SERUM 4.6 MEQ/L (3.5-5.1)
[2020-08-09] MEDS: HumaLOG INSULIN (NovoLOG) PER UNIT SC SCH ×4 (07:30→21:31)
[2020-08-09] MEDS: IPRATROPIUM 0.02% SOLN 0.5MG 2.5ML NEB INH SCH ×2 (07:53→19:28)
[2020-08-09] MEDS: ALBUTEROL SULFATE 2.5 MG/0.5 ML INH NEB SOLN INH SCH ×2 (07:53→19:28)
--- NOTE | 2020-08-09 08:29 | CR ---
CONSULTATION DATE: 08/08/2020 (Patient was seen at approximately 12:15 on the ) REASON FOR CONSULTATION: Subcutaneous swelling left upper thigh. HISTORY OF PRESENT ILLNESS: The patient is a pleasant 89-year-old woman who was admitted by the hospitalist on the evening of the 07 of August. Patient reports that approximately a week ago she had noticed the development of a lump in her left thigh. She reports that she had been sitting in her chair and stephen to go elsewhere and felt a pulling or sharp sensation in the upper thigh. Over a short period of time, a mass developed in the upper anteromedial thigh. This became quite painful. This persisted. She felt that there was as a faint redness over the swollen area. She was seen by an urgent care center on or about the 02 of August. She was referred to [facility] where she underwent an ultrasound of her left thigh. This revealed a cystic area in the left anteromedial thigh measuring 3.5 x 3.2 x 2.1 cm. The area persisted and she subsequently saw her primary provider in the office, who apparently prescribed antibiotics. She took these for several days without improvement. She presented to the Emergency Department on the and a repeat ultrasound was performed. This showed a 3.7 x 3.9 x 2.3 cm fluid collection in the anteromedial aspect of the left thigh. She was admitted by the hospitalist and started on antibiotics, and now I am consulted to evaluate this fluid collection. ALLERGIES: Reported to Quinolones and specifically Moxifloxacin. MEDICATIONS: As noted in the hospitalist record. PAST MEDICAL HISTORY: Significant for atrial fibrillation, for which she is on anticoagulation. She has had a pacemaker placed. She has chronic obstructive pulmonary disease. She has hypertension, dyslipidemia. She has a history of gastroesophageal reflux disease. She has osteoarthritis and non-insulin dependent diabetes. PAST SURGICAL HISTORY: Significant for an appendectomy. She has had four C-sections. She underwent a hysterectomy and a carpal tunnel release on the right hand. FAMILY HISTORY: As noted in the hospital record. SOCIAL HISTORY: As noted in the hospital record. REVIEW OF SYSTEMS: Revealed no history of prior injury to her thigh. She reports no fevers or chills. She has had no prior fluid collections or abscesses noted. PHYSICAL EXAMINATION: Reveals a pleasant elderly woman lying quietly in the hospital bed. She is alert and oriented and cooperative with the exam. Physical exam is limited to her lower extremities. She has, in the upper anteromedial thigh, an area of swelling and induration about 8 cm in diameter. There is no evidence of skin injury or infection on the surface. I see no skin discoloration. There is no definite bruising seen. The mass is somewhat indiscrete by palpation. The mass is not pulsatile. She has palpable pedal pulses bilaterally. There is no inguinal adenopathy identified on the left. LABORATORY STUDIES: Admission white count 9.5 and today 8. Hemoglobin 11 with hematocrit 36 and platelet count 294,000. Chemistry profile showed normal electrolytes with BUN 13, creatinine 1.0 and glucose 84. On admission, PT 14.6 with INR 1.12. IMPRESSION: Patient has a fairly discrete 3.9 cm maximally fluid collection in the left anteromedial thigh. This occurred fairly suddenly after arising from a chair approximately a week ago. She developed significant pain associated with the occurrence of this mass. She denies any fevers or chills. Her physical exam shows no definite signs for infection. Overall, I think this is most likely to represent bleeding associated with her anticoagulation and some musculoskeletal injury. RECOMMENDATIONS: I called Dr. Al after I saw the patient. I advised him that I do not believe the appearance is typical for an abscess. By her history, this would seem to be most consistent with some sort of bleeding event. I advised him that I would not recommend an incision and drainage, but an ultrasound guided drainage or aspiration would provide material for culture and gram stain that could readily differentiate between an infectious process and bleeding. He agreed that this would be a reasonable approach. PINKY
[2020-08-09] MEDS: ASCORBIC ACID 500 MG TAB PO SCH (08:47)
[2020-08-09] MEDS: LOSARTAN 50MG TABLET PO SCH ×2 (08:47→21:04)
[2020-08-09] MEDS: GABAPENTIN 300 MG CAP PO SCH ×2 (08:47→20:55)
[2020-08-09] MEDS: DOCUSATE SODIUM 100MG CAPSULE PO SCH ×2 (08:47→20:55)
[2020-08-09] MEDS: MULTIVITAMINS/MINERALS THERAP 1 TAB PO SCH (08:47)
[2020-08-09] MEDS: OMEPRAZOLE 20 MG CAP PO SCH (08:47)
[2020-08-09] MEDS: AMIODARONE 200 MG TAB (PACERONE) PO SCH (08:47)
[2020-08-09] MEDS: PRAVASTATIN 20 MG TAB PO SCH (08:48)
[2020-08-09] MEDS: APIXABAN 5 MG TAB (ELIQUIS) PO SCH ×2 (08:48→20:55)
[2020-08-09 09:31] LABS: HEMATOCRIT 37.5 % (36.0-47.0); HEMOGLOBIN 11.7 g/dl (12.0-15.5); MEAN CORPUSCULAR HEMOGLOBIN 24.9 pg (27.0-33.0); MEAN CORPUSCULAR HGB CONC 31.2 g/dl (32.0-36.5); PLATELET COUNT, AUTOMATED 315 10^3/uL (150-450); RED BLOOD COUNT 4.69 10^6/uL (4.00-5.40); WHITE BLOOD COUNT 9.5 10^3/uL (4.0-10.0)
--- NOTE | 2020-08-09 11:54 | IPNPDOC ---
Text Note Date of Service The patient was seen on 08/09/20. NOTE Subjective: Is seen and examined this morning at bedside. no acute events denies chest pain or fevers. She was evaluated by surgery yesterday were recommended IR drainage. She had that done yesterday and now she has a pigtail in place with some bloody output. A leg feels better less painful and less swollen than before. Objective: Constitutional: Awake and alert, in no apparent distress ENT: Sclera are clear. Respiratory: Lungs CTA bilaterally. No respiratory distress. Cardiovascular: Irregular heart rate Gastrointestinal: Abdomen is soft, non distended, non tender, BS present. Musculoskeletal: No lower extremity edema. Neurologic: No focal neurological deficit. Mental Status: A&O x3, normal affect Skin: There is a pigtail in place over the site of her left thigh hematoma with some bloody output. The site appears much better there is no surrounding erythe ma and is less tender to palpation. Assessment/plan: 89-year-old female comes in the hospital due to a persistent pain in her left eye found to have a left thigh mass with surrounding erythema possibly cellulitis admitted for further medical management. # Left thigh hematoma: Surgical consultation Dr Mark for I&D if this is an abscess recommended IR for drainage. IR placed a pigtail 10/06/2020 with bloody output looks like a hematoma. Sample was sent for culture to see if it's infected. She is on vancomycin for overlying cellulitis which looks to be doing better and can be transitioned to by mouth Abx at time of discharge. Afebrile no leukocytosis. I anticipate we will continue to monitor her pigtail output and resolution of this hematoma for 1 more day and then pigtail will likely be removed over the weekend and then patient can be sent home on oral antibiotics. # Atrial fibrillation: Rate controlled on amiodarone and diltiazem. Anticoagulated on eliquis. Resume home medications. # COPD: Not in exacerbation. Continue home medications. # Hypertension: Continue home meds. Monitor and titrate # DM: ISS. Frequent Accu-Cheks. Hypoglycemic precautions. # GERD: Continue omeprazole # Hyperlipidemia: Continue statin # DVT prophylaxis: On eliquis (hematoma getting better, no martha bleeding, will keep her on the eliquis) A [facility] Hospitalist VS,Ruby, I+O VS, Ruby, I+O Laboratory Tests 08/09/20 06:23 08/09/20 09:21 Vital Signs Date Time Temp Pulse Resp B/P (MAP) Pulse Ox O2 Delivery O2 Flow Rate FiO2 08/09/20 08:47 161/79 08/09/20 08:47 79 08/09/20 06:00 96.5 20 98 Room Air I&O- Last 24 Hours up to 6 AM 08/09/20 06:00 Intake Total 2100 ml Output Total 0 ml Balance 2100 ml TONE CHAVEZ MD Aug 09, 2020 11:54
--- NOTE | 2020-08-09 13:23 | REP ---
INDICATION: Left thigh absces vs hematoma and send for culture The patient has a history of left thigh collection COMPARISON: None. TECHNIQUE: The procedure was performed by TOMEKA Rosenbaum, under the direct supervision of Dr. Vasquez The risks and benefits of the procedure were explained to the patient and an informed consent was obtained both verbally and written. Directly prior to the start of the procedure a formal time-out was completed in the procedure room. The anechoic left thigh collection was localized using ultrasound guidance. The skin was prepped and draped in a sterile fashion. Ten ML of buffered lidocaine was used as a local anesthetic. Using ultrasound guidance an 8-[place] multi side-hole pigtail catheter was inserted using trocar technique. FINDINGS: Twenty-one mL of bloody pus was withdrawn and sent to the laboratory for further analysis. The pigtail catheter was sutured into place, a drainage bag was attached to it, and a sterile dressing was applied. The patient tolerated the procedure well and there were no immediate complications. IMPRESSION: Ultrasound guided pigtail catheter placement in left thigh collection. <Electronically signed by Connie Church > 08/09/20 [id number] <Electronically signed by Osvaldo Vasquez > 08/09/20 [id number]
[2020-08-09 14:46] VITALS: BP 149/75
[2020-08-09] MEDS: VANCOMYCIN HCL 1,000 MG, VIAL MATE ADAPTER 1 EACH in D5W 250 ML IV SCH (20:55)
[2020-08-09 22:00] VITALS: BP 160/80
[2020-08-10 06:00] VITALS: BP 161/79
[2020-08-10] MEDS: HumaLOG INSULIN (NovoLOG) PER UNIT SC SCH ×4 (07:30→20:32)
[2020-08-10 07:46] LABS: HEMATOCRIT 36.3 % (36.0-47.0); HEMOGLOBIN 11.2 g/dl (12.0-15.5); MEAN CORPUSCULAR HEMOGLOBIN 24.5 pg (27.0-33.0); MEAN CORPUSCULAR HGB CONC 30.9 g/dl (32.0-36.5); MEAN CORPUSCULAR VOLUME 79.3 fl (80.0-96.0); PLATELET COUNT, AUTOMATED 307 10^3/uL (150-450); RED BLOOD COUNT 4.58 10^6/uL (4.00-5.40); WHITE BLOOD COUNT 9.6 10^3/uL (4.0-10.0)
[2020-08-10] MEDS: IPRATROPIUM 0.02% SOLN 0.5MG 2.5ML NEB INH SCH ×2 (07:58→19:18)
[2020-08-10] MEDS: ALBUTEROL SULFATE 2.5 MG/0.5 ML INH NEB SOLN INH SCH ×2 (07:58→19:18)
[2020-08-10 08:11] LABS: CALCIUM LEVEL 8.5 MG/DL (8.8-10.2); CREATININE FOR GFR 1.12 MG/DL (0.55-1.30); GLOMERULAR FILTRATION RATE 48.9 (>32); POTASSIUM SERUM 4.1 MEQ/L (3.5-5.1)
[2020-08-10] MEDS: PRAVASTATIN 20 MG TAB PO SCH (08:56)
[2020-08-10] MEDS: GABAPENTIN 300 MG CAP PO SCH ×2 (08:56→20:47)
[2020-08-10] MEDS: MULTIVITAMINS/MINERALS THERAP 1 TAB PO SCH (08:57)
[2020-08-10] MEDS: APIXABAN 5 MG TAB (ELIQUIS) PO SCH ×2 (08:57→20:47)
[2020-08-10] MEDS: LOSARTAN 50MG TABLET PO SCH ×2 (08:57→20:47)
[2020-08-10] MEDS: ASCORBIC ACID 500 MG TAB PO SCH (08:57)
[2020-08-10] MEDS: AMIODARONE 200 MG TAB (PACERONE) PO SCH (08:57)
[2020-08-10] MEDS: OMEPRAZOLE 20 MG CAP PO SCH (08:57)
[2020-08-10] MEDS: DOCUSATE SODIUM 100MG CAPSULE PO SCH ×2 (08:57→20:47)
--- NOTE | 2020-08-10 09:58 | IPNPDOC ---
Text Note Date of Service The patient was seen on 08/10/20. NOTE General Surgery Dr Mark. The patient is a 89-year-old female who had been experiencing left thigh tenderness for about one week prior to admission with fluid collection left thigh status post ultrasound guided drainage of 21 mL bloody pus and placement of pigtail catheter left thigh. The patient reports improvement in left thigh discomfort, induration has decreased, erythema has decreased. She still does have some tenderness with palpation but reports it is less than it had been. There is a small amount of bloody drainage noted in the tubing and the bag. I reviewed with nursing, this is all of the drainage she has had since the catheter was placed. Afebrile The patient is resting comfortably in bed. NAD, A/O. MMM Lungs clear to auscultation. S1-S2 regular rate rhythm. Abdomen is soft and nontender Left thigh with drain in place, small amount of bloody drainage noted in tubing and serous fluid in the bag. Extremities, well perfused, no edema. No additional drainage is recorded. Per nursing drainage in the bag is the entire amount she has had since the catheter was placed. Culture indicates MSSA, and mycin resistant. Blood culture 2 negative. No leukocytosis. A/P. Left thigh fluid collection, status post ultrasound guided drainage and placement of pigtail catheter. Afebrile, no leukocytosis. Fluid culture as above. IV antibiotics as per hospitalist. The patient's drainage tube is noted to have a small amount of drainage in the tubing and in the bag, the patient has not had any additional drainage since the tube was placed. The patient would like to discuss further with Dr. Mark re how long the tube will be in place, she states she does "not want to be back here again". VS,Fishbone, I+O VS, Fishbone, I+O Laboratory Tests 08/10/20 06:48 Vital Signs Date Time Temp Pulse Resp B/P (MAP) Pulse Ox O2 Delivery O2 Flow Rate FiO2 08/10/20 08:57 161/79 08/10/20 08:57 72 08/10/20 06:00 97.8 20 94 Room Air I&O- Last 24 Hours up to 6 AM 08/10/20 05:59 Intake Total 1920 ml Output Total 500 ml Balance 1420 ml Attending Note Attending Note Drain placed 2 days ago with findings/culture as noted by MOSES Reyez. Feels better. PEx: Still some induration/tenderness remains at proximal side of infected area. Drain irrigated and small amt clot returned. No significant return from cavity. Imp: Abscess, possible infected hematoma, but character of drainage seems more consistent with primarily abscesss Recs: If no further significant drainage by tomorrow would remove drain and continue abx. Pt counselled that a recurrence is always possible. If abscess recurs then open drainage probably appropriate. Lili Reyez Aug 10, 2020 09:58 Quinton Mark Aug 10, 2020 17:08
--- NOTE | 2020-08-10 10:31 | IPNPDOC ---
Text Note Date of Service The patient was seen on 08/10/20. NOTE Subjective: Is seen and examined this morning at bedside. no acute events denies chest pain, shortness of breath, or fevers. She's feeling well but would like some assistance with ambulation to get her walker she says she has reduced mobility due to the inconvenience of having a pigtail. Objective: Constitutional: Awake and alert, in no apparent distress ENT: Sclera are clear. Respiratory: Lungs CTA bilaterally. No respiratory distress. Cardiovascular: Irregular heart rate Gastrointestinal: Abdomen is soft, non distended, non tender, BS present. Musculoskeletal: No lower extremity edema. Neurologic: No focal neurological deficit. Mental Status: A&O x3, normal affect Skin: There is a pigtail in place over the site of her left thigh hematoma with purulent drainage today. The site appears much better there is no surrounding erythema and is less tender to palpation. Assessment/plan: 89-year-old female comes in the hospital due to a persistent pain in her left eye found to have a left thigh mass with surrounding erythema possibly cellulitis admitted for further medical management. # Left thigh hematoma: Surgical consultation Dr Mark for I&D if this is an abscess recommended IR for drainage. IR placed a pigtail 10/06/2020 with bloody output looks like a hematoma. Sample was sent for culture grew S. aureus sensitive to vancomycin which she is on. Overlying cellulitis also covered by vancomycin which looks to be doing better and can be transitioned to by mouth Abx at time of discharge. Afebrile no leukocytosis. I anticipate we will continue to monitor her pigtail output and resolution of this hematoma, Dr Mark will decide today when the patient will be removed. # Atrial fibrillation: Rate controlled on amiodarone and diltiazem. Anticoa gulated on eliquis. Resume home medications. # COPD: Not in exacerbation. Continue home medications. # Hypertension: Continue home meds. Monitor and titrate # DM: ISS. Frequent Accu-Cheks. Hypoglycemic precautions. # GERD: Continue omeprazole # Hyperlipidemia: Continue statin # DVT prophylaxis: On eliquis (hematoma getting better, no martha bleeding, will keep her on the eliquis) A [facility] Hospitalist Ruby DOYLE, I+O VSRuby, I+O Laboratory Tests 08/10/20 06:48 Vital Signs Date Time Temp Pulse Resp B/P (MAP) Pulse Ox O2 Delivery O2 Flow Rate FiO2 08/10/20 08:57 161/79 08/10/20 08:57 72 08/10/20 06:00 97.8 20 94 Room Air I&O- Last 24 Hours up to 6 AM 08/10/20 06:00 Intake Total 2020 ml Output Total 500 ml Balance 1520 ml TONE CHAVEZ MD Aug 10, 2020 10:31
[2020-08-10] MEDS ORDERED: VANCOMYCIN HCL 1,000 MG, VIAL MATE ADAPTER 1 EACH in NS 250 ML IV SCH (12:00)
[2020-08-10] MEDS ORDERED: VANCOMYCIN HCL 1,000 MG, VIAL MATE ADAPTER 1 EACH in D5W 250 ML IV SCH (12:00)
[2020-08-10] MEDS: ceFAZolin SOD 1 GM in D5W MINI-BAG PLUS 50 ML IV SCH ×2 (12:45→20:47)
[2020-08-10 14:00] VITALS: BP 170/85
[2020-08-10 22:00] VITALS: BP 130/75
[2020-08-11] MEDS: ceFAZolin SOD 1 GM in D5W MINI-BAG PLUS 50 ML IV SCH ×3 (04:50→20:10)
[2020-08-11 06:00] VITALS: BP 182/78
[2020-08-11 06:23] LABS: HEMATOCRIT 38.2 % (36.0-47.0); HEMOGLOBIN 11.8 g/dl (12.0-15.5); MEAN CORPUSCULAR HEMOGLOBIN 24.6 pg (27.0-33.0); MEAN CORPUSCULAR HGB CONC 30.9 g/dl (32.0-36.5); MEAN CORPUSCULAR VOLUME 79.7 fl (80.0-96.0); PLATELET COUNT, AUTOMATED 314 10^3/uL (150-450); RED BLOOD COUNT 4.79 10^6/uL (4.00-5.40)
[2020-08-11 06:41] LABS: CALCIUM LEVEL 8.9 MG/DL (8.8-10.2); CREATININE FOR GFR 1.23 MG/DL (0.55-1.30); GLOMERULAR FILTRATION RATE 43.9 (>32); POTASSIUM SERUM 4.4 MEQ/L (3.5-5.1)
[2020-08-11] MEDS: HumaLOG INSULIN (NovoLOG) PER UNIT SC SCH ×4 (07:30→20:13)
[2020-08-11] MEDS: ALBUTEROL SULFATE 2.5 MG/0.5 ML INH NEB SOLN INH SCH ×2 (07:51→19:28)
[2020-08-11] MEDS: IPRATROPIUM 0.02% SOLN 0.5MG 2.5ML NEB INH SCH ×2 (07:51→19:28)
[2020-08-11] MEDS: DOCUSATE SODIUM 100MG CAPSULE PO SCH ×2 (08:21→20:13)
[2020-08-11] MEDS: PRAVASTATIN 20 MG TAB PO SCH (08:21)
[2020-08-11] MEDS: OMEPRAZOLE 20 MG CAP PO SCH (08:22)
[2020-08-11] MEDS: GABAPENTIN 300 MG CAP PO SCH ×2 (08:22→20:13)
[2020-08-11] MEDS: ASCORBIC ACID 500 MG TAB PO SCH (08:22)
[2020-08-11] MEDS: MULTIVITAMINS/MINERALS THERAP 1 TAB PO SCH (08:22)
[2020-08-11] MEDS: AMIODARONE 200 MG TAB (PACERONE) PO SCH (08:23)
[2020-08-11] MEDS: APIXABAN 5 MG TAB (ELIQUIS) PO SCH ×2 (08:23→20:13)
[2020-08-11] MEDS: LOSARTAN 50MG TABLET PO SCH ×2 (08:23→20:13)
--- NOTE | 2020-08-11 10:17 | IPN ---
SURGICAL PROGRESS NOTE DATE: 08/11/2020 SUBJECTIVE: Having less discomfort and pain in her left leg, able to move around a lot more without discomfort or pain. Has not had any fevers or chills. She has been afebrile. The I and O's reveal no significant drainage from the site. However, I am able to milk out some of the serosanguinous drainage from her pigtail catheter. PHYSICAL EXAMINATION: On her physical exam, the swelling, inflammation and redness in the left thigh as resolved, however she still has a firm mass present in her medial thigh which is approximately 8 cm x 6 cm in size. IMPRESSION AND PLAN: The patient probably had a hematoma that secondarily got infected and now it seems to be draining and draining adequately at this time. Unfortunately, with the significant inflammatory process present, I anticipate it may be a while before this completely resolves. However, given that there is not a significant amount of drainage in the tube, I feel that we are nearing the time when we can remove this drain, it may be reasonable to see how she does over the next 24 hours and then discontinue the tube at that time but if it is still putting out a fair bit of drainage, we will have her go home with this and return next week in the office and will take this out.
[2020-08-11 14:00] VITALS: BP 162/83
--- NOTE | 2020-08-11 18:38 | IPNPDOC ---
Text Note Date of Service The patient was seen on 08/11/20. NOTE Subjective: She is sitting upright in the chair when I am in the room. She reports that her leg is feeling significantly better. In drain is still in place, with serosanguineous drainage in the bag. When asked if she would be willing to go home with the drain in place that she adamantly refuses stating that she would not be able to take care of it at home. I will allow her to discuss that with the surgeon, as is will affect how quickly she is discharged. Otherwise, she do es not have any complaints at this time, and the remainder of her review of systems is negative. Objective: Constitutional: Awake and alert, in no apparent distress ENT: Sclera are clear. Respiratory: Lungs CTA bilaterally. No respiratory distress. Cardiovascular: Irregular heart rate Gastrointestinal: Abdomen is soft, non distended, non tender, BS present. Neurologic: No focal neurological deficit. Mental Status: A&O x3, normal affect Skin: There is a pigtail in place over the site of her left thigh hematoma with serosanguineous drainage today. Minimal surrounding erythema and edema, there is only one small area of tenderness upon palpation today. Assessment/plan: 89-year-old female comes in the hospital due to a persistent pain in her left eye found to have a left leg mass with surrounding erythema possibly cellulitis admitted for further medical management. # Left leg hematoma: IR placed a pigtail 10/06/2020 with serosanguineous output looks like a hematoma. Sample was sent for culture grew S. aureus sensitive to vancomycin which she is on. Overlying cellulitis also covered by vancomycin which looks to be doing better and can be transitioned to by mouth Abx at time o f discharge. Afebrile no leukocytosis. We will continue to monitor her pigtail output and resolution of this hematoma. Surgical team has been consulted, and their input as to the timing of when to remove the drain is greatly appreciated. # Atrial fibrillation: Rate controlled on amiodarone and diltiazem. Anticoagulated on eliquis. Resume home medications. # COPD: Not in exacerbation. Continue home medications. # Hypertension: Continue home meds. Monitor and titrate # DM: ISS. Frequent Accu-Cheks. Hypoglycemic precautions. # GERD: Continue omeprazole # Hyperlipidemia: Continue statin # DVT prophylaxis: On eliquis (hematoma getting better, no martha bleeding, will keep her on the eliquis) VS,Fishbone, I+O VS, Fishbone, I+O Laboratory Tests 08/11/20 05:50 Vital Signs Date Time Temp Pulse Resp B/P (MAP) Pulse Ox O2 Delivery O2 Flow Rate FiO2 08/11/20 14:00 97.3 75 18 162/83 (109) 95 Room Air I&O- Last 24 Hours up to 6 AM 08/11/20 06:00 Intake Total 1620 ml Output Total 5 ml Balance 1615 ml MIN CALVO DO Aug 11, 2020 18:38
[2020-08-11 22:00] VITALS: BP 132/62
[2020-08-12] MEDS: ceFAZolin SOD 1 GM in D5W MINI-BAG PLUS 50 ML IV SCH (04:41)
[2020-08-12 06:00] VITALS: BP 155/62
[2020-08-12 06:30] LABS: HEMATOCRIT 36.5 % (36.0-47.0); HEMOGLOBIN 11.5 g/dl (12.0-15.5); MEAN CORPUSCULAR HEMOGLOBIN 24.9 pg (27.0-33.0); MEAN CORPUSCULAR HGB CONC 31.5 g/dl (32.0-36.5); MEAN CORPUSCULAR VOLUME 79.2 fl (80.0-96.0); PLATELET COUNT, AUTOMATED 333 10^3/uL (150-450); RED BLOOD COUNT 4.61 10^6/uL (4.00-5.40); WHITE BLOOD COUNT 8.6 10^3/uL (4.0-10.0)
[2020-08-12 06:47] LABS: CALCIUM LEVEL 8.4 MG/DL (8.8-10.2); CREATININE FOR GFR 1.34 MG/DL (0.55-1.30); GLOMERULAR FILTRATION RATE 39.7 (>32); POTASSIUM SERUM 3.8 MEQ/L (3.5-5.1)
[2020-08-12] MEDS: ALBUTEROL SULFATE 2.5 MG/0.5 ML INH NEB SOLN INH SCH (07:26)
[2020-08-12] MEDS: IPRATROPIUM 0.02% SOLN 0.5MG 2.5ML NEB INH SCH (07:26)
[2020-08-12] MEDS: HumaLOG INSULIN (NovoLOG) PER UNIT SC SCH (07:30)
[2020-08-12 08:25] VITALS: BP 155/62
[2020-08-12] MEDS: DOCUSATE SODIUM 100MG CAPSULE PO SCH (08:26)
[2020-08-12] MEDS: PRAVASTATIN 20 MG TAB PO SCH (08:26)
[2020-08-12] MEDS: GABAPENTIN 300 MG CAP PO SCH (08:27)
[2020-08-12] MEDS: AMIODARONE 200 MG TAB (PACERONE) PO SCH (08:27)
[2020-08-12] MEDS: ASCORBIC ACID 500 MG TAB PO SCH (08:28)
[2020-08-12] MEDS: APIXABAN 5 MG TAB (ELIQUIS) PO SCH (08:28)
[2020-08-12] MEDS: OMEPRAZOLE 20 MG CAP PO SCH (08:29)
[2020-08-12] MEDS: LOSARTAN 50MG TABLET PO SCH (08:29)
[2020-08-12] MEDS: MULTIVITAMINS/MINERALS THERAP 1 TAB PO SCH (08:30)
[2020-08-12] MEDS ORDERED: CEPH500T PO (09:53)
--- NOTE | 2020-08-12 11:19 | IPN ---
PROGRESS NOTE DATE: 08/12/2020 SUBJECTIVE: The patient has done well overnight, having decreasing pain and discomfort. Her temperature has been good overnight and she has a normal white count. She overall has no pain or discomfort at the site. The size of the area in question in the left upper thigh is slowly decreasing in size and there probably is at most 3-5 mL of serosanguinous and almost serous fluid within the tubing that is leftover from yesterday when I milked the tubing. After milking the tubing again today, no fluid came out. ASSESSMENT AND PLAN: The patient's fluid collection seems to be improved, although she does have this inflammatory rind and once again, I think that we will probably have to assume that this inflammation rind is most likely secondary to some sort of traumatic issue, i.e., a hematoma, and it may even be a spontaneous hematoma that developed and then became secondarily infected. At least that seems to be the best assessment of the progression of discomfort, pain and swelling that was associated with this. In any case, at this point my recommendation is to discontinue the drain and have her follow up in our office a couple weeks. Obviously the question is whether she should continue on antibiotics or not. She has had a normal white count. She has been afebrile and I feel that there is a case for either treatment given that there is no evidence of cellulitis at this time and no purulent drainage.
--- NOTE | 2020-08-12 17:27 | DS.PDOC ---
Discharge Summary General Date of Admission Aug 07, 2020 at 18:21 Date of Discharge 08/12/2020 Discharge Summary PRIMARY CARE PHYSICIAN: Karena Landaverde ATTENDING AT TIME OF DISCHARGE: Dr. Min Bryson, DO DISCHARGE DIAGNOS(E)S: Left leg hematoma Cellulitis Atrial fibrillation COPD Hypertension Diabetes mellitus type 2 GERD Hyperlipidemia HPI & HOSPITAL COURSE: Patient presented to the hospital due to persistent pain in her left leg, with subsequent development of mass. It is suspected that she likely had a spontaneous hematoma that became secondarily infected. While inpatient a drain (pigtail) was placed which had serous sanguinous drainage which leans more towards the idea that this was an infected hematoma rather than an abscess. Nevertheless, after having the drain in place for a few days the surrounding cellulitis, erythema, edema is significantly improved, and she has not had any drainage over the past 24 hours. The drain was removed earlier this morning by the surgical team, and she appears to be stable for discharge at this time. PHYSICAL EXAMINATION ON DISCHARGE: GENERAL: Awake, alert, oriented 3. She is in no acute distress. CARDIOVASCULAR EXAMINATION: Irregularly irregular with variable S1,S2 RESPIRATORY EXAMINATION: Clear to auscultation bilaterally with no wheezes, rales, or rhonchi. ABDOMINAL EXAMINATION: Soft, nontender, nondistended. Bowel sounds present. EXTREMITIES: Still has some mild erythema and induration in the location of her hematoma. Significantly less tender at this time. DISPOSITION: Home DISCHARGE INSTRUCTIONS: Recommend that she have follow-up with Dr Mark in his office in 2 weeks, and also with her primary care provider within the next 2 weeks as well. If symptoms return, or if you experience worsening of your symptoms, please call your doctor or return to the emergency department. DISCHARGE MEDICATIONS: No changes in her usual home regimen She did show significant improvement with the administration of Ancef in addition to the placement of the drain, just to be safe I'll send her home with 5 additional days of cephalexin 500 mg by mouth 3 times a day Vital Signs/I&Os Vital Signs Date Time Temp Pulse Resp B/P (MAP) Pulse Ox O2 Delivery O2 Flow Rate FiO2 08/12/20 08:25 81 155/62 08/12/20 06:00 97.6 18 95 Room Air I&O- Last 24 Hours up to 6 AM 08/12/20 06:00 Intake Total 2280 ml Balance 2280 ml Laboratory Data Labs 24H Laboratory Tests 2 08/12/20 06:01: Nucleated Red Blood Cells % (auto) 0.0, Anion Gap 5L, Glomerular Filtration Rate 39.7, Calcium Level 8.4L CBC/BMP Laboratory Tests 08/12/20 06:01 Microbiology Microbiology 08/08/20 Gram Stain - Final, Complete 08/08/20 Abscess Culture - Final, Complete Staphylococcus Aureus 08/07/20 Blood Culture - Preliminary, Resulted No Growth after 72 hours. All specime... 08/07/20 Respiratory Virus Panel (PCR) (CARLA) - Final, Complete 08/07/20 Blood Culture - Final, Complete NO GROWTH AFTER 5 DAYS Discharge Medications Scheduled Albuterol Sulf (Albuterol Sulfate) 2.5 Mg/3 Ml Vial.neb, 3 ML INH BID, (Reported) MIX WITH IPRATROPIUM Amiodarone HCl (Amiodarone HCl) 200 Mg Tablet, 200 MG PO DAILY, (Reported) Apixaban (Eliquis) 5 Mg Tab, 5 MG PO BID, (Reported) Ascorbic Acid (Vitamin C) 500 Mg Cap, 500 MG PO DAILY, (Reported) Calcium Carbonate (Calcium) 600 Mg Tablet, 600 MG PO BID, (Reported) Cephalexin (Cephalexin) 500 Mg Tablet, 500 MG PO TID Cholecalciferol (Vitamin D3) (Vitamin D3) 125 Mcg Capsule, 125 MCG PO DAILY, (Reported) Diltiazem Hcl (Cardizem Cd) 240 Mg Cap.er.24h, 240 MG PO DAILY, (Reported) Ferrous Sulfate (Ferrous Sulfate) 324 Mg Tablet.dr, 324 MG PO Q2D, (Reported) Fluticasone/Vilanterol (Breo Ellipta 100-25 Mcg INH) 1 Each Blst.w.dev, 1 PUFF INH DAILY, (Reported) Gabapentin (Neurontin) 300 Mg Capsule, 300 MG PO BID, (Reported) Ipratropium [place] (Ipratropium [place]) 0.2 Mg/1 Ml Solution, 1 ML INH BID, (Reported) MIX WITH ALBUTEROL Lactulose (Lactulose) 10 Gm/15 Ml Solution, 30 ML PO BID, (Reported) Losartan Potassium (Losartan Potassium) 100 Mg Tablet, 50 MG PO BID, (Reported) Multivitamins (Thera M Plus Tablet) 1 Each Tablet, 1 TAB PO DAILY, (Reported) Omeprazole (Omeprazole) 20 Mg Cap, 20 MG PO DAILY, (Reported) Pravastatin Sodium (Pravastatin Sodium) 40 Mg Tab, 40 MG PO DAILY, (Reported) Allergies Coded Allergies: Quinolones (Verified Allergy, Severe, DIFF BREATHING, SWELLING, HIVES, 01/27/19) moxifloxacin (Verified Allergy, Severe, HIVES, DIFFICULTY BREATHING, 10/20/19) MIN BRYSON DO Aug 12, 2020 17:27
== END 2020-08-12 11:33 | disposition home or self-care (01) | DRG 813 ==
LOC: M ED 14:49 → M ED INP 18:21 → ENRESERV 19:21 → M MS5PR 20:08
PROVIDERS: ADMIT Family Medicine; ATTEND Neuromusculoskeletal Medicine & OMM
PROC: 0J9M30Z Drainage of Left Upper Leg Subcutaneous Tissue and Fascia with Drainage Device, Percutaneous Approach (ICD-10-PCS; principal; 2020-08-08 16:00)
DX: D68.32 Hemorrhagic disorder due to extrinsic circulating anticoagulants (principal); L03.116 Cellulitis of left lower limb; I48.91 Unspecified atrial fibrillation; J44.9 Chronic obstructive pulmonary disease, unspecified; I10 Essential (primary) hypertension; E78.5 Hyperlipidemia, unspecified; M19.90 Unspecified osteoarthritis, unspecified site; K21.9 Gastro-esophageal reflux disease without esophagitis; E11.9 Type 2 diabetes mellitus without complications; M79.81 Nontraumatic hematoma of soft tissue; Z90.49 Acquired absence of other specified parts of digestive tract; Z79.01 Long term (current) use of anticoagulants; Z79.899 Other long term (current) drug therapy; Z88.1 Allergy status to other antibiotic agents

== ENCOUNTER → 2020-12-10 | Outpatient (CLI) | payer MEDICARE, BC ==
[~2020-12-10] MED LIST changes: +ALBU83IN INH; +CALC-211 PO; +CEPH500T PO; +FERR324T2 PO; +IPRA2IN INH; +MECL-136 PO; -MECL12.590 PO; +VITMTA PO
--- NOTE | 2020-12-10 10:34 | DEXAMM ---
INDICATION: M85.80 [facility] DISRD OF BONE DENSITY AND STRUCTURE. COMPARISON: Comparison studies December 08, 2018 and August 31, 2003.. TECHNIQUE: Bone density was measured using dual-energy x-ray absorptionmetry (DEXA). FINDINGS: AP SPINE L1-L4 BMD 1.325 g/cm2 Young Adult T-Score 1.1 Age Matched Z-Score 3.0. LT FEMUR, TOTAL BMD 0.814 g/cm2 Young Adult T-Score -1.5 Age Matched Z-Score 0.9. LT NECK BMD 0.767 g/cm2 Young Adult T-Score -1.9 Age Matched Z-Score 0.6. RT FEMUR, TOTAL BMD 0.828 g/cm2 Young Adult T-Score -1.4 Age Matched Z-Score 1.0. RT NECK BMD 0.810 g/cm2 Young Adult T-Score -1.6 Age Matched Z-Score 0.9. IMPRESSION: There is normal bone density of the spine. There is low bone density of the left hip. There is low bone density of the right hip. The density of the spine has increased 5.0% since the initial exam on August 31, 2003. The density of the spine decreased 2.1% since most recent exam on December 08, 2018. The density of the left hip has decreased 4.6% since initial exam on September 11 2005. The density of the left hip has decreased 3.0% since most recent exam on December 08, 2018. The density of the right hip has decreased 4.5% since the initial exam on September 11, 2005. The density of the right hip has decreased 4.5% since the most recent exam on December 08, 2018. FOLLOW-UP: Recommendation for the next bone density exam: 2 years. <Electronically signed by Osvaldo Vasquez > 12/10/20 [id number]
== END ==
LOC: M WHC 07:27
PROVIDERS: ATTEND Internal Medicine
DX: M81.0 Age-related osteoporosis without current pathological fracture (principal)

== ENCOUNTER → 2021-01-07 | Outpatient (CLI) | payer MEDICARE, BC ==
--- NOTE | 2021-01-07 17:07 | REPVR ---
PROCEDURE INFORMATION: Exam: CT Temporal Bones Without Contrast. Exam date and time: 01/07/2021 3:15 PM Age: 89 years old Clinical indication: Pain; Other: RT hearing loss TECHNIQUE: Imaging protocol: Computed tomography images of the temporal bones without contrast. Radiation optimization: All CT scans at this facility use at least one of these dose optimization techniques: automated exposure control; mA and/or kV adjustment per patient size (includes targeted exams where dose is matched to clinical indication); or iterative reconstruction. COMPARISON: CT IAC W/O CONTRAST 02/14/2020 10:07 AM FINDINGS: Right inner ear: Stable appearance of irregular erosive change along the posteromedial aspect of the right mastoids extending to the region of the vestibular aquaduct, seen for example around image 48 of series [id number]. The inner ear is otherwise unremarkable. Right ossicles and middle ear: Normal. The middle ear ossicles are intact. Right external auditory canal: Normal. Right facial nerve canal: Normal. Right jugular foramen: No jugular dehiscence. Right carotid canal: No aberrant carotid canal. Right mastoid air cells: Trace, dependent right mastoid effusion, as before. No evidence of septal erosion. Left inner ear: Normal. Left ossicles and middle ear: Normal. The middle ear ossicles are intact. Left external auditory canal: Normal. Left facial nerve canal: Normal. Left jugular foramen: No jugular dehiscence. Left carotid canal: No aberrant carotid canal. Left mastoid air cells: Trace, dependent left mastoid effusion, as before. No evidence of septal erosion. Soft tissues: Unremarkable. IMPRESSION: Stable exam demonstrating a small region of osseous erosion in the region of the right mastoids/vestibular aquaduct which could be related to current or prior inflammation versus tumor. Electronically signed by: Gay Noel On 01/07/2021 17:06:46 PM
== END ==
LOC: M PLAIMG 14:44
PROVIDERS: ATTEND Otolaryngology
DX: H90.3 Sensorineural hearing loss, bilateral (principal)

== ENCOUNTER → 2021-01-16 | Outpatient (REF) | payer MEDICARE, BC ==
[2021-01-16 12:08] LABS: PHOSPHORUS LEVEL 3.5 MG/DL (2.5-4.9)
[2021-01-16 12:18] LABS: PTH INTACT 17.2 PG/ML (18.5-88.0)
== END ==
LOC: M LAB REF 11:08
PROVIDERS: ATTEND Internal Medicine
DX: R79.89 Other specified abnormal findings of blood chemistry (principal)

== ENCOUNTER → 2021-04-15 | Outpatient (CLI) | payer MEDICARE, BC ==
[2021-04-15 13:38] LABS: HEMATOCRIT 38.2 % (36.0-47.0); HEMOGLOBIN 11.6 g/dl (12.0-15.5); MEAN CORPUSCULAR HEMOGLOBIN 25.6 pg (27.0-33.0); MEAN CORPUSCULAR HGB CONC 30.4 g/dl (32.0-36.5); MEAN CORPUSCULAR VOLUME 84.1 fl (80.0-96.0); PLATELET COUNT, AUTOMATED 272 10^3/uL (150-450); RED BLOOD COUNT 4.54 10^6/uL (4.00-5.40); WHITE BLOOD COUNT 8.3 10^3/uL (4.0-10.0)
[2021-04-15 14:11] LABS: ALBUMIN 3.7 GM/DL (3.2-5.2); BILIRUBIN,TOTAL 0.4 MG/DL (0.2-1.0); CALCIUM LEVEL 9.6 MG/DL (8.8-10.2); CREATININE FOR GFR 1.97 MG/DL (0.55-1.30); GLOMERULAR FILTRATION RATE 25.5 (>32); POTASSIUM SERUM 4.5 MEQ/L (3.5-5.1); THYROID STIMULATING HORMONE 1.06 uIU/ML (0.358-3.740); TOTAL PROTEIN 6.7 GM/DL (6.4-8.2)
[2021-04-17 11:40] LABS: PERCENT SATURATION 10.1 % (13.2-45.0)
== END ==
LOC: M WUC 09:36
PROVIDERS: ATTEND Internal Medicine Cardiovascular Disease
DX: I48.0 Paroxysmal atrial fibrillation (principal); D50.9 Iron deficiency anemia, unspecified

== ENCOUNTER → 2021-05-13 | Outpatient (REF) | payer MEDICARE, BC ==
[~2021-05-13] MED LIST changes: -AMIO200T3 PO; +AMIO200T49 PO; -CEFD1CAP8 PO; +CEFD300C41 PO; +LOSA100T45 PO; -LOSA100T50 PO
[2021-05-13 22:02] LABS: ANISOCYTOSIS 1+; ATYPICAL LYMPH 6 % (0-5); BASOPHILS 1 % (0-1); EOSINOPHILS 1 % (0-3); LYMPHOCYTES 11 % (16-44); MONOCYTES 7 % (0-5); NEUTROPHILS 72 % (28-66); PLATELET ESTIMATE NORMAL (NORMAL)
== END ==
LOC: M LAB REF 16:18
PROVIDERS: ATTEND Internal Medicine
DX: S81.802D Unspecified open wound, left lower leg, subsequent encounter (principal); L03.119 Cellulitis of unspecified part of limb; D72.9 Disorder of white blood cells, unspecified; W18.30XD Fall on same level, unspecified, subsequent encounter; Y92.009 Unspecified place in unspecified non-institutional (private) residence as the place of occurrence of the external cause

== ENCOUNTER → 2021-05-21 | Outpatient (REF) | payer MEDICARE, BC ==
[~2021-05-21] MED LIST changes: +AMIO200T3 PO; -AMIO200T49 PO; +CEFD1CAP8 PO; -CEFD300C41 PO; -LOSA100T45 PO; +LOSA100T50 PO
== END ==
LOC: M LAB REF 17:38
PROVIDERS: ATTEND Dermatology
DX: C44.722 Squamous cell carcinoma of skin of right lower limb, including hip (principal)

== ENCOUNTER → 2021-07-18 | Outpatient (CLI) | payer MEDICARE, BC ==
[~2021-07-18] MED LIST changes: -AMIO200T3 PO; +AMIO200T49 PO; -CEFD1CAP8 PO; +CEFD300C41 PO; +LOSA100T45 PO; -LOSA100T50 PO
[2021-07-18 11:11] LABS: ALBUMIN 3.7 GM/DL (3.2-5.2); BILIRUBIN,TOTAL 0.4 MG/DL (0.2-1.0); CALCIUM LEVEL 9.6 MG/DL (8.8-10.2); CREATININE FOR GFR 1.68 MG/DL (0.55-1.30); GLOMERULAR FILTRATION RATE 30.5 (>32); POTASSIUM SERUM 4.3 MEQ/L (3.5-5.1); TOTAL PROTEIN 6.8 GM/DL (6.4-8.2)
== END ==
LOC: M WUC 08:03
PROVIDERS: ATTEND Dermatology
DX: C44.722 Squamous cell carcinoma of skin of right lower limb, including hip (principal)

== ENCOUNTER → 2021-07-26 | Outpatient (CLI) | payer MEDICARE, BC ==
[~2021-07-26] MED LIST changes: +ISOVUE-370 76% 100ML VIAL ONE
== END ==
LOC: M PLAIMG 13:16
PROVIDERS: ATTEND Dermatology
DX: C44.722 Squamous cell carcinoma of skin of right lower limb, including hip (principal); K57.30 Diverticulosis of large intestine without perforation or abscess without bleeding; Q61.02 Congenital multiple renal cysts

== ENCOUNTER → 2021-07-30 | Outpatient (CLI) | payer MEDICARE, BC ==
[~2021-07-30] MED LIST changes: -ISOVUE-370 76% 100ML VIAL ONE
== END ==
LOC: M ONCR 13:40
PROVIDERS: ATTEND General Practice
DX: C44.722 Squamous cell carcinoma of skin of right lower limb, including hip (principal); Z79.899 Other long term (current) drug therapy; Z87.891 Personal history of nicotine dependence; Z88.1 Allergy status to other antibiotic agents; Z88.8 Allergy status to other drugs, medicaments and biological substances; Z80.9 Family history of malignant neoplasm, unspecified

== ENCOUNTER → 2021-08-12 | Outpatient (REF) | payer MEDICARE, BC ==
[~2021-08-12] MED LIST changes: +ELIQ2.5T
== END ==
LOC: M SFHCDERM 13:45
PROVIDERS: ATTEND Nurse Practitioner Family
DX: S81.801D Unspecified open wound, right lower leg, subsequent encounter (principal); X58.XXXA Exposure to other specified factors, initial encounter; Y92.9 Unspecified place or not applicable; Y99.9 Unspecified external cause status

== ENCOUNTER 2021-08-13 13:44 | Outpatient (RCR) | payer MEDICARE, BC ==
[~2021-08-13 13:44] MED LIST changes: -ELIQ2.5T
[2021-08-22] MEDS ORDERED: ELIQ2.5T (10:19)
== END 2021-09-12 ==
LOC: M ONCR 13:44
PROVIDERS: ATTEND General Practice
DX: C44.722 Squamous cell carcinoma of skin of right lower limb, including hip (principal)

== ENCOUNTER → 2021-08-16 | Outpatient (REF) | payer MEDICARE, BC ==
[~2021-08-16] MED LIST changes: +ELIQ2.5T
== END ==
LOC: M SFHCDERM 17:15
PROVIDERS: ATTEND Dermatology
DX: T81.49XA Infection following a procedure, other surgical site, initial encounter (principal)

== ENCOUNTER → 2021-09-12 | Outpatient (RCR) | payer MEDICARE, BC | LOC: M ONCR 08-27 08:09 | PROVIDERS: ATTEND General Practice | DX: C44.722 Squamous cell carcinoma of skin of right lower limb, including hip (principal) ==

== ENCOUNTER → 2021-09-13 | Outpatient (CLI) | payer MEDICARE, BC | LOC: M WUC 09:27 | PROVIDERS: ATTEND Internal Medicine | DX: R91.8 Other nonspecific abnormal finding of lung field (principal); R05.9 Cough, unspecified; R06.02 Shortness of breath ==

== ENCOUNTER → 2021-09-19 | Outpatient (REF) | payer MEDICARE, BC ==
[~2021-09-19] MED LIST changes: +ALBU2.5V10 INH; -ALBU83IN INH
[2021-09-19 18:29] LABS: ANISOCYTOSIS 1+; LYMPHOCYTES 3 % (16-44); MONOCYTES 4 % (0-5); NEUTROPHILS 93 % (28-66); PLATELET ESTIMATE NORMAL (NORMAL)
[2021-09-19 18:30] LABS: PLATELET CLUMPS SMALL AMT
== END ==
LOC: M LAB REF 12:38
PROVIDERS: ATTEND Internal Medicine
DX: R05.9 Cough, unspecified (principal)

== ENCOUNTER 2021-10-04 14:55 | Outpatient (RCR) | payer MEDICARE, BC ==
[~2021-10-04 14:55] MED LIST changes: -ALBU2.5V10 INH; +ALBU83IN INH
== END 2021-10-12 ==
LOC: M ONCR 14:55
PROVIDERS: ATTEND General Practice
DX: C44.722 Squamous cell carcinoma of skin of right lower limb, including hip (principal)

== ENCOUNTER → 2021-10-17 | Outpatient (REF) | payer MEDICARE, BC | LOC: M SFHCDERM 17:13 | PROVIDERS: ATTEND Physician Assistant | DX: L08.9 Local infection of the skin and subcutaneous tissue, unspecified (principal) ==

== ENCOUNTER 2021-10-20 10:51 | Emergency (ER) | payer MEDICARE, BC ==
[~2021-10-20] VITALS: Ht 149.9 cm; Wt 68.4 kg
[2021-10-20 10:52] VITALS: BP 156/70
== END 2021-10-20 12:12 | disposition left against medical advice (07) ==
LOC: M ED 10:51
DX: Z53.21 Procedure and treatment not carried out due to patient leaving prior to being seen by health care provider (principal)

== ENCOUNTER → 2021-10-24 | Outpatient (CLI) | payer MEDICARE, BC | LOC: M RAD 11:48 | PROVIDERS: ATTEND Registered Nurse | DX: M79.661 Pain in right lower leg (principal) ==

== ENCOUNTER → 2021-10-29 | Outpatient (CLI) | payer MEDICARE, BC | LOC: M WUC 09:25 | PROVIDERS: ATTEND Internal Medicine Cardiovascular Disease | DX: I48.0 Paroxysmal atrial fibrillation (principal) ==

== ENCOUNTER → 2021-11-07 | Outpatient (CLI) | payer MEDICARE, BC ==
[~2021-11-07] MED LIST changes: +ALBU2.5V10 INH; -ALBU83IN INH
== END ==
LOC: M ONCR 11:12
PROVIDERS: ATTEND General Practice
DX: C44.722 Squamous cell carcinoma of skin of right lower limb, including hip (principal); Z92.3 Personal history of irradiation

== ENCOUNTER → 2021-11-29 | Outpatient (REF) | payer MEDICARE, BC ==
[2021-11-29 18:52] LABS: PERCENT SATURATION 53.7 % (13.2-45.0)
== END ==
LOC: M LAB REF 16:26
PROVIDERS: ATTEND Internal Medicine
DX: D50.9 Iron deficiency anemia, unspecified (principal)

== ENCOUNTER → 2022-01-01 | Outpatient (REF) | payer MEDICARE, BC | LOC: M SFHCDERM 16:56 | PROVIDERS: ATTEND Dermatology | DX: C44.629 Squamous cell carcinoma of skin of left upper limb, including shoulder (principal) ==

== ENCOUNTER → 2022-01-20 | Outpatient (REF) | payer MEDICARE, BC | LOC: M LAB REF 09:04 | PROVIDERS: ATTEND Surgery | DX: D48.5 Neoplasm of uncertain behavior of skin (principal) ==

== ENCOUNTER → 2022-03-11 | Outpatient (REF) | payer MEDICARE, BC | LOC: M SFHCDERM 14:09 | PROVIDERS: ATTEND Nurse Practitioner Family | DX: M79.89 Other specified soft tissue disorders (principal) ==

== ENCOUNTER → 2022-04-10 | Outpatient (CLI) | payer MEDICARE, BC | LOC: M ONCR 10:49 | PROVIDERS: ATTEND General Practice | DX: C44.722 Squamous cell carcinoma of skin of right lower limb, including hip (principal); L30.9 Dermatitis, unspecified; R60.9 Edema, unspecified; Z87.891 Personal history of nicotine dependence; Z88.1 Allergy status to other antibiotic agents; Z79.899 Other long term (current) drug therapy; Z79.51 Long term (current) use of inhaled steroids; Z92.3 Personal history of irradiation ==